=== PATIENT | female | born 1995 | race African-American/Black ===

== ENCOUNTER 2017-07-13 12:01 | Emergency (ER) | payer OTHER ==
[2017-07-13] MEDS ORDERED: IBUPROFEN 400 MG TAB ONE (13:45)
[2017-07-13] MEDS ORDERED: ACETAMINOPHEN 500 MG TAB ONE (13:46)
[2017-07-13] MEDS ORDERED: IBUPROFEN 200 MG TAB PO ONE (13:46)
[2017-07-13 13:53] LABS: Urine Blood TRACE (NEG); Urine Glucose NEGATIVE (NEG); Urine Protein NEGATIVE (NEG); Urine Specific Gravity 1.015 (1.005-1.030)
[2017-07-13 13:54] LABS: Urine Bacteria <20 /HPF (<20); Urine Culture Reflex Order NOT NEEDED; Urine RBC <5 /HPF (NONE SEEN)
[2017-07-13 13:55] LABS: Urine Trichomonas PRESENT (NONE SEEN)
--- NOTE | 2017-07-13 14:42 | ER ---
Nurse's Notes [facility] Name: Yamel Cano Age: 22 yrs Sex: Female : 1995 Arrival Date: 07/13/2017 Time: 12:05 Bed 24 Private MD: None, None Diagnosis: Right Groin Lymphadenopathy;Trichomonas Vaginalis;Right side Gorin Pain Presentation: 07/13 12:19 Presenting complaint: Patient states: Pain to left groin since delivering baby aj 06/03/17. Transition of care: patient was not received from another setting of care. Onset of symptoms was June 03, 2017. Initial Sepsis Screen: Does the patient meet any 2 criteria? No. Patient's initial sepsis screen is negative. Does the patient have a suspected source of infection? No. Patient's initial sepsis screen is negative. Care prior to arrival: None. 12:19 Method Of Arrival: Ambulatory 12:19 Acuity: MAURICE 3 aj Triage Assessment: 12:21 General: Appears in no apparent distress. comfortable, Behavior is calm, cooperative, aj appropriate for age. Pain: Complains of pain in groin. Neuro: Level of Consciousness is awake, alert, obeys commands, Oriented to person, place, time, situation, Appropriate for age. Respiratory: Airway is patent Respiratory effort is even, unlabored, Respiratory pattern is regular, symmetrical. : Reports pain in left in suprapubic area. Derm: Skin is intact, is healthy with good turgor, Skin is pink, warm \T\ dry. normal. 12:21 : Denies discharge. 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 - Social history:: Smoking status: Patient/guardian denies using tobacco. Screenin:15 Abuse screen: Denies threats or abuse. Denies injuries from another. Nutritional kr2 screening: No deficits noted. Tuberculosis screening: No symptoms or risk factors identified. Fall Risk None identified. Assessment: 13:15 General: Appears in no apparent distress. uncomfortable, well groomed, well developed, kr2 well nourished, Behavior is calm, cooperative, appropriate for age. Pain: Complains of pain in pelvis and groin Pain currently is 8 out of 10 on a pain scale. Quality of pain is described as aching, tender, Is continuous, Alleviated by nothing. Aggravated by increased activity. Neuro: Level of Consciousness is awake, alert, obeys commands, Oriented to person, place, time, situation. Cardiovascular: Capillary refill < 3 seconds in bilateral fingers Patient's skin is warm and dry. Respiratory: Airway is patent Respiratory effort is even, unlabored, Respiratory pattern is regular, symmetrical. GI: Abdomen is flat, non-distended, Bowel sounds present X 4 quads. : Urine is clear, Denies burning with urination. EENT: Oral mucosa is moist. Derm: Skin is intact, is healthy with good turgor, Skin is pink, warm \T\ dry. Musculoskeletal: Circulation, motion, and sensation intact. 14:52 Reassessment: Patient appears in no apparent distress at this time. Patient and/or kr2 family updated on plan of care and expected duration. Pain level reassessed. Patient is alert, oriented x 3, equal unlabored respirations, skin warm/dry/pink. Vital Signs: 12:21 BP 112 / 82; Pulse 106; Resp 16; Temp 98.0; Pulse Ox 100% on R/A; Weight 13.61 kg; aj Height 5 ft. 5 in. (165.10 cm); Pain 6/10; 14:52 BP 107 / 69; Pulse 60; Resp 16; Pulse Ox 100% on R/A; kr2 12:21 Body Mass Index 4.99 (13.61 kg, 165.10 cm) ED Course: 12:05 Patient arrived in ED. mr 12:05 None, None is Private Physician. mr 12:21 Triage completed. aj 12:21 Arm band placed on right wrist. Patient placed in waiting room, Patient notified of wait time. 12:58 Johana Ulrich, TAIWO is Primary Nurse. kr2 12:59 Patient has correct armband on for positive identification. Placed in gown. Bed in low kr2 position. Call light in reach. Side rails up X 1. Adult w/ patient. Pulse ox on. NIBP on. Door closed. Lights dimmed. Warm blanket given. Head of bed elevated. 13:00 Steven, Jt, MD is Attending Physician. wa 13:35 Assist provider with pelvic exam: Performed by Jt Harris MD Patient tolerated kr2 well. palpation of groin area by physician. Patient did not have IV access during this emergency room visit. Administered Medications: 13:50 Drug: Motrin 600 mg Route: PO; dm5 14:47 Follow up: Response: No adverse reaction; Pain is decreased kr2 13:50 Drug: Tylenol 1000 mg Route: PO; dm5 14:47 Follow up: Response: No adverse reaction; Pain is decreased kr2 Outcome: 14:41 Discharge ordered by . wa 14:46 Discharged to home ambulatory, with friend. kr2 14:46 Condition: good 14:53 Discharge instructions given to patient, Instructed on discharge instructions, follow kr2 up and referral plans. medication usage, Demonstrated understanding of instructions, follow-up care, medications, Prescriptions given X 4, 3 printed prescriptions and 1 written prescription for Zofran 14:54 Patient left the ED. kr2 Signatures: Sharri Morgan, TAIWO RN dm5 Nell Malik RN RN aj Rivera, Maria mr Kluge, Leah, RN RN lk1 Jt Harris MD MD wa Reaves, Karey, RN RN kr2 Corrections: (The following items were deleted from the chart) 13:50 13:49 Tylenol 1000 mg PO lk1 dm5 13:50 13:49 Motrin 600 mg PO lk1 dm5
--- NOTE | 2017-07-13 14:42 | EDPHYS ---
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 - Social history:: Smoking status: Patient/guardian denies using tobacco. Vital Signs: 12:21 BP 112 / 82; Pulse 106; Resp 16; Temp 98.0; Pulse Ox 100% on R/A; Weight 13.61 kg; aj Height 5 ft. 5 in. (165.10 cm); Pain 6/10; 14:52 BP 107 / 69; Pulse 60; Resp 16; Pulse Ox 100% on R/A; kr2 12:21 Body Mass Index 4.99 (13.61 kg, 165.10 cm) aj MDM: 13:00 Patient medically screened. ga 07/13 13:16 Order name: Urine Microscopic Only; Complete Time: 14:39 ga 07/13 13:37 Order name: Urine Dipstick--Ancillary (enter results); Complete Time: 14:39 mw2 07/13 13:16 Order name: Urine Dipstick-Ancillary (obtain specimen); Complete Time: 13:49 ga 07/13 13:37 Order name: Urine --Ancillary (enter results); Complete Time: 14:39 mw2 Administered Medications: 13:50 Drug: Motrin 600 mg Route: PO; dm5 14:47 Follow up: Response: No adverse reaction; Pain is decreased kr2 13:50 Drug: Tylenol 1000 mg Route: PO; dm5 14:47 Follow up: Response: No adverse reaction; Pain is decreased kr2 Disposition: 07/13/17 14:41 Discharged to Home. Impression: Right Groin Lymphadenopathy, Trichomonas Vaginalis, Right side Gorin Pain. - Condition is Stable. - Discharge Instructions: Trichomoniasis, Pelvic Pain, Female, Ythe-ma-Orlc. - Prescriptions for Flagyl 500 mg Oral Tablet - take 1 tablet by ORAL route every 12 hours for 7 days; 14 tablet. Doxycycline Hyclate 100 mg Oral Tablet - take 1 tablet by ORAL route every 12 hours; 14 tablet. Ibuprofen 600 mg Oral Tablet - take 1 tablet by ORAL route every 8 hours As needed take with food; 20 tablet. - Medication Reconciliation Form, Thank You Letter, Antibiotic Education, Prescription Opioid Use form. - Follow up: Private Physician; When: 5 - 6 days. - Problem is new. - Symptoms have improved. - Notes: take medicines as prescribed. follow up with your doctor within 1 week if symptoms persist Addendum: 07/24/2017 07:40 Addendum: CC: R groin pain. HPI: c/o R groin x 2 weeks. denies fever. denies swelling. w a denies known injury. PMH: none. PSurgHx: none. SHx: denies smoking or ETOH. Allergies: NKDA. FHx: non-contributory. ROS: : R groin pain. otherwise all other systems reviewed and negative. EXAM: HEENT: NCAT, throat clear. neck supple. CVS: NS1S2, no murmur. Chest: clear. ABD: soft, non-tender. : mild tenderness noted R groin. small tender lymph node palpated on the right side. no hernia noted on inspection or palpation. MDM: pt noted with isolated R groin tender lymph node. will investigate for infectious process. Labs: noted with trichomonas. Will cover with abx. and give close f/u. motrin, tylenol prn pain.. Signatures: Dispatcher [employer] EDAL Sharri Morgan RN RN dm5 Nell Malik RN RN Lisa Walker RN RN lk1 Jt Harris MD MD wa Reaves, Karey RN RN kr2 Corrections: (The following items were deleted from the chart) 07/13 14:54 14:41 07/13/2017 14:41 Discharged to Home. Impression: Right Groin Lymphadenopathy; kr2 Trichomonas Vaginalis; Right side Gorin Pain. Condition is Stable. Forms are Medication Reconciliation Form, Thank You Letter, Antibiotic Education, Prescription Opioid Use. Follow up: Private Physician; When: 5 - 6 days. Problem is new. Symptoms have improved. wa
== END 2017-07-13 14:54 | disposition home or self-care (01) ==
LOC: ER 12:01
DX: A59.01 Trichomonal vulvovaginitis (principal); R59.0 Localized enlarged lymph nodes
CPT/HCPCS: 81003; 81015; 81025; 99284

== ENCOUNTER 2017-09-01 17:46 | Emergency (ER) | payer OTHER ==
[2017-09-01 19:58] LABS: Urine Blood NEGATIVE (NEG); Urine Glucose NEGATIVE (NEG); Urine Protein NEGATIVE (NEG); Urine Specific Gravity <1.005 (1.005-1.030)
[2017-09-01 19:59] LABS: Urine Bacteria <20 /HPF (<20); Urine Culture Reflex Order NOT NEEDED; Urine RBC <5 /HPF (NONE SEEN)
--- NOTE | 2017-09-01 20:34 | RAD REPORT ---
EXAM DESCRIPTION: US - Transvaginal Study Probe - 09/01/2017 8:25 pm CLINICAL HISTORY: Abdominal pain, left lower quadrant pain, history of ovarian cyst COMPARISON: None. TECHNIQUE: Endovaginal sonography was performed. FINDINGS: Preliminary findings were provided at the time of the study. Uterus is in a retroflexed position. Myometrium is heterogeneous. Midportion of the uterus shows 13 m illimeter and 14 millimeter oval masses that are mostly isoechoic to the myometrium. These are most l ikely small fibroids. Long-term significance of this finding is doubtful. . Endometrial stripe is josr roximately 7 mm with no discrete endometrial mass or polyp. No hematoma or free fluid in the cul-[place]-s ac. Right ovary contains a 3.1 cm thin-walled anechoic cyst. Small follicles are seen in the left ova ry. No adnexal mass identified. IMPRESSION: Approximately 3.1 cm anechoic cyst in the right ovary. No leakage or hemorrhage identifi ed. Normal left ovary and left adnexa. No abnormality to explain left lower quadrant pain symptoms. Retroflexed uterus shows 2 small fibroids.
[2017-09-01 20:51] LABS: Urine Blood NEGATIVE (NEG); Urine Glucose NEGATIVE (NEG); Urine Protein NEGATIVE (NEG); Urine Specific Gravity 1.015 (1.005-1.030)
--- NOTE | 2017-09-01 21:36 | EDPHYS ---
Physician Documentation [facility] Name: Yamel Cano Age: 22 yrs Sex: Female : 1995 Arrival Date: 09/01/2017 Time: 17:50 Bed 24 Private MD: ED Physician Candido Maddox HPI: 09/01 21:24 This 22 yrs old Black Female presents to ER via Ambulatory with complaints of Abdominal gs Pain. 21:24 This 22 yrs old Black Female presents to ER via Ambulatory with complaints of pelvic gs pain. 21:24 The patient presents with pelvic pain, that is located in/on the left inguinal area. gs Onset: The symptoms/episode began/occurred 2 day(s) ago. Modifying factors: The symptoms are alleviated by nothing, the symptoms are aggravated by nothing. Associated signs and symptoms: Pertinent negatives: cramping. Severity of symptoms: At their worst the symptoms were moderate, in the emergency department the symptoms have improved, mildly. The patient has experienced similar episodes in the past, a few times. 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 - Social history:: Smoking status: Patient/guardian denies using tobacco. - Ebola Screening: : No symptoms or risks identified at this time. ROS: 21:24 Abdomen/GI: Negative for diarrhea. gs 21:24 : Negative for vaginal bleeding, vaginal discharge, vaginal itching. 21:24 All other systems are negative. Exam: 21:24 Head/Face: Normocephalic, atraumatic. Eyes: Pupils equal round and reactive to light, gs extra-ocular motions intact. Lids and lashes normal. Conjunctiva and sclera are non-icteric and not injected. Cornea within normal limits. Periorbital areas with no swelling, redness, or edema. ENT: Nares patent. No nasal discharge, no septal abnormalities noted. Tympanic membranes are normal and external auditory canals are clear. Oropharynx with no redness, swelling, or masses, exudates, or evidence of obstruction, uvula midline. Mucous membranes moist. Neck: Trachea midline, no thyromegaly or masses palpated, and no cervical lymphadenopathy. Supple, full range of motion without nuchal rigidity, or vertebral point tenderness. No Meningismus. Chest/axilla: Normal chest wall appearance and motion. Nontender with no deformity. No lesions are appreciated. Cardiovascular: Regular rate and rhythm with a normal S1 and S2. No gallops, murmurs, or rubs. Normal PMI, no JVD. No pulse deficits. Respiratory: Lungs have equal breath sounds bilaterally, clear to auscultation and percussion. No rales, rhonchi or wheezes noted. No increased work of breathing, no retractions or nasal flaring. Back: No spinal tenderness. No costovertebral tenderness. Full range of motion. Skin: Warm, dry with normal turgor. Normal color with no rashes, no lesions, and no evidence of cellulitis. MS/ Extremity: Pulses equal, no cyanosis. Neurovascular intact. Full, normal range of motion. Neuro: Awake and alert, GCS 15, oriented to person, place, time, and situation. Cranial nerves II-XII grossly intact. Motor strength 5/5 in all extremities. Sensory grossly intact. Cerebellar exam normal. Normal gait. 21:24 Constitutional: The patient appears alert, awake. 21:24 Abdomen/GI: Palpation: mild abdominal tenderness, in the left lower quadrant, mass, is gs not appreciated, rebound tenderness, is not appreciated. Vital Signs: 18:07 BP 115 / 71; Pulse 78; Resp 16; Temp 97.6; Pulse Ox 99% on R/A; Weight 59.87 kg; Height sg 5 ft. 5 in. (165.10 cm); Pain 7/10; 20:02 BP 117 / 78; Pulse 71; Resp 15; Pulse Ox 98% on R/A; mt 20:35 BP 127 / 88; Pulse 69; Resp 16; Pulse Ox 100% on R/A; mt 21:19 BP 103 / 64; Pulse 76; Resp 16; Pulse Ox 99% on R/A; kr2 18:07 Body Mass Index 21.97 (59.87 kg, 165.10 cm) MDM: 19:22 Patient medically screened. 21:24 Differential diagnosis: ectopic , nonspecific abdominal pain, ovarian cyst. Data reviewed: vital signs, nurses notes. 09/01 19:25 Order name: Urine Microscopic Only; Complete Time: 20:06 09/01 19:53 Order name: Urine Dipstick--Ancillary (enter results); Complete Time: 20:06 [facility] 09/01 20:08 Order name: Transvaginal Study Probe; Complete Time: 20:37 [facility] 09/01 20:44 Order name: Urine Dipstick--Ancillary (enter results); Complete Time: 21:01 [facility] 09/01 20:44 Order name: Urine --Ancillary (enter results); Complete Time: 21:01 [facility] 09/01 19:25 Order name: Urine Test (obtain specimen); Complete Time: 19:26 09/01 19:25 Order name: Urine Dipstick-Ancillary (obtain specimen); Complete Time: 19:26 Administered Medications: No medications were administered Disposition: 09/01/17 21:36 Discharged to Home. Impression: Pelvic and perineal pain. - Condition is Stable. - Discharge Instructions: Pelvic Pain, Female. - Prescriptions for Naprosyn 500 mg Oral Tablet - take 1 tablet by ORAL route 2 times per day take with food; 14 tablet. - Medication Reconciliation Form, Thank You Letter, Antibiotic Education, Prescription Opioid Use form. - Follow up: Kristen Simon MD; When: 2 - 3 days; Reason: Re-evaluation by your physician. Signatures: Dispatcher [employer] [facility] Hector Galvan RN RN sg Candido Maddox MD MD Johana Ulrich RN RN kr2 Corrections: (The following items were deleted from the chart) 20:08 19:25 Pelvis Complete+US.RAD.BRZ ordered. [facility] 21:35 21:24 Head/Face: Normocephalic, atraumatic. Eyes: Pupils equal round and reactive to light, extra-ocular motions intact. Lids and lashes normal. Conjunctiva and sclera are non-icteric and not injected. Cornea within normal limits. Periorbital areas with no swelling, redness, or edema. ENT: Nares patent. No nasal discharge, no septal abnormalities noted. Tympanic membranes are normal and external auditory canals are clear. Oropharynx with no redness, swelling, or masses, exudates, or evidence of obstruction, uvula midline. Mucous membranes moist. Neck: Trachea midline, no thyromegaly or masses palpated, and no cervical lymphadenopathy. Supple, full range of motion without nuchal rigidity, or vertebral point tenderness. No Meningismus. Chest/axilla: Normal chest wall appearance and motion. Nontender with no deformity. No lesions are appreciated. Cardiovascular: Regular rate and rhythm with a normal S1 and S2. No gallops, murmurs, or rubs. Normal PMI, no JVD. No pulse deficits. Respiratory: Lungs have equal breath sounds bilaterally, clear to auscultation and percussion. No rales, rhonchi or wheezes noted. No increased work of breathing, no retractions or nasal flaring. Abdomen/GI: Soft, non-tender, with normal bowel sounds. No distension or tympany. No guarding or rebound. No evidence of tenderness throughout. Back: No spinal tenderness. No costovertebral tenderness. Full range of motion. Skin: Warm, dry with normal turgor. Normal color with no rashes, no lesions, and no evidence of cellulitis. MS/ Extremity: Pulses equal, no cyanosis. Neurovascular intact. Full, normal range of motion. Neuro: Awake and alert, GCS 15, oriented to person, place, time, and situation. Cranial nerves II-XII grossly intact. Motor strength 5/5 in all extremities. Sensory grossly intact. Cerebellar exam normal. Normal gait. 21:57 21:36 09/01/2017 21:36 Discharged to Home. Impression: Pelvic and perineal pain. kr2 Condition is Stable. Forms are Medication Reconciliation Form, Thank You Letter, Antibiotic Education, Prescription Opioid Use. Follow up: Kristen Simon; When: 2 - 3 days; Reason: Re-evaluation by your physician. gs
--- NOTE | 2017-09-01 21:36 | ER ---
Nurse's Notes [facility] Name: Yamel Cano Age: 22 yrs Sex: Female : 1995 Arrival Date: 09/01/2017 Time: 17:50 Bed 24 Private MD: Diagnosis: Pelvic and perineal pain Presentation: 09/01 18:06 Presenting complaint: Patient states: ABD pain LLQ that began three days ago, denies sg fever/v/d, reports nausea intermittently. Denies urinary symptoms, pain is described as a burning sensation throughout the abd but starting in the LLQ. Transition of care: patient was not received from another setting of care. Onset of symptoms was September 01, 2017. Risk Assessment: Do you want to hurt yourself or someone else? Patient reports no desire to harm self or others. Initial Sepsis Screen: Does the patient meet any 2 criteria? No. Patient's initial sepsis screen is negative. Does the patient have a suspected source of infection? No. Patient's initial sepsis screen is negative. Care prior to arrival: None. 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 - Social history:: Smoking status: Patient/guardian denies using tobacco. - Ebola Screening: : No symptoms or risks identified at this time. Screenin:17 Abuse screen: Denies threats or abuse. Denies injuries from another. Nutritional kr2 screening: No deficits noted. Tuberculosis screening: No symptoms or risk factors identified. Fall Risk None identified. Assessment: 19:15 General: Appears in no apparent distress. uncomfortable, well groomed, well developed, kr2 well nourished, Behavior is calm, cooperative, appropriate for age. Pain: Complains of pain in left lower quadrant Pain currently is 5 out of 10 on a pain scale. Quality of pain is described as burning, Is continuous, Alleviated by rest, Aggravated by increased activity, hunger. Neuro: Level of Consciousness is awake, alert, obeys commands, Oriented to person, place, time, situation, Appropriate for age. Cardiovascular: Capillary refill < 3 seconds in bilateral fingers Patient's skin is warm and dry. Respiratory: Airway is patent Respiratory effort is even, unlabored, Respiratory pattern is regular, symmetrical. GI: Abdomen is flat, non-distended, Bowel sounds present X 4 quads. Abd is soft X 4 quads Abdomen is tender to palpation in left lower quadrant. : Denies burning with urination. EENT: Oral mucosa is moist. Derm: Skin is intact, is healthy with good turgor, Skin is pink, warm \T\ dry. Musculoskeletal: Circulation, motion, and sensation intact. 19:30 Reassessment: Patient appears in no apparent distress at this time. Patient is alert, kr2 oriented x 3, equal unlabored respirations, skin warm/dry/pink. Urine specific gravity to low for UPT. Physician notified. Per physician obtain second urine specimen for retest. 20:26 Reassessment: Patient appears in no apparent distress at this time. Patient is alert, kr2 oriented x 3, equal unlabored respirations, skin warm/dry/pink. Patient returned from ultrasound. Instructed patient to collect another urine sample when possible. 21:19 Reassessment: Patient appears in no apparent distress at this time. Patient and/or kr2 family updated on plan of care and expected duration. Pain level reassessed. Patient is alert, oriented x 3, equal unlabored respirations, skin warm/dry/pink. Patient denies pain at this time. 21:57 Reassessment: Patient appears in no apparent distress at this time. Patient and/or kr2 family updated on plan of care and expected duration. Pain level reassessed. Patient is alert, oriented x 3, equal unlabored respirations, skin warm/dry/pink. Vital Signs: 18:07 BP 115 / 71; Pulse 78; Resp 16; Temp 97.6; Pulse Ox 99% on R/A; Weight 59.87 kg; Height sg 5 ft. 5 in. (165.10 cm); Pain 7/10; 20:02 BP 117 / 78; Pulse 71; Resp 15; Pulse Ox 98% on R/A; mt 20:35 BP 127 / 88; Pulse 69; Resp 16; Pulse Ox 100% on R/A; mt 21:19 BP 103 / 64; Pulse 76; Resp 16; Pulse Ox 99% on R/A; kr2 18:07 Body Mass Index 21.97 (59.87 kg, 165.10 cm) ED Course: 17:50 Patient arrived in ED. as 18:07 Triage completed. 18:08 Arm band placed on. 19:14 Johana Ulrich RN is Primary Nurse. kr2 19:15 Candido Maddox MD is Attending Physician. 19:17 Patient has correct armband on for positive identification. Bed in low position. Call kr2 light in reach. Side rails up X 1. Pulse ox on. NIBP on. Door closed. Warm blanket given. Head of bed elevated. 20:25 Transvaginal Study Probe In Process Unspecified. EDMS 21:36 Kristen Simon MD is Referral Physician. 21:57 No provider procedures requiring assistance completed. Patient did not have IV access kr2 during this emergency room visit. Administered Medications: No medications were administered Outcome: 21:36 Discharge ordered by . 21:57 Discharged to home ambulatory. kr2 21:57 Condition: good 21:57 Discharge instructions given to patient, Instructed on discharge instructions, follow up and referral plans. medication usage, Demonstrated understanding of instructions, follow-up care, medications, Prescriptions given X 1. 21:57 Patient left the ED. kr2 Signatures: Dispatcher [employer] EDMS Hector Galvan, RN RN Roseann Peres [facility] k[facility] Candido Maddox MD MD Johana Ulrich RN RN kr2
== END 2017-09-01 21:57 | disposition home or self-care (01) ==
LOC: ER 17:46
DX: R10.2 Pelvic and perineal pain (principal)
CPT/HCPCS: 76830; 81003; 81015; 81025; 99283

== ENCOUNTER 2017-12-05 10:57 | Emergency (ER) | payer OTHER ==
--- NOTE | 2017-12-05 12:26 | ER ---
Nurse's Notes [facility] Name: Yamel Cano Age: 22 yrs Sex: Female : 1995 Arrival Date: 12/05/2017 Time: 11:01 Bed 13 Private MD: MARICRUZ LOWERY Diagnosis: Less than 8 weeks gestation of Presentation: 12/05 11:03 Presenting complaint: Patient states: lower abd pain and lower back pain that began aa5 today. Denies N/V/D, denies vaginal bleeding. 11:03 Transition of care: patient was not received from another setting of care. Onset of aa5 symptoms was December 05, 2017. Risk Assessment: Do you want to hurt yourself or someone else? Patient reports no desire to harm self or others. Initial Sepsis Screen: Does the patient meet any 2 criteria? No. Patient's initial sepsis screen is negative. Does the patient have a suspected source of infection? No. Patient's initial sepsis screen is negative. Care prior to arrival: None. 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 - Social history:: Smoking status: Patient/guardian denies using tobacco. - Ebola Screening: : No symptoms or risks identified at this time. Screenin:30 Abuse screen: Denies threats or abuse. Denies injuries from another. Nutritional ph screening: No deficits noted. Tuberculosis screening: No symptoms or risk factors identified. Fall Risk None identified. Assessment: 11:31 General: Appears in no apparent distress. comfortable, slender, well groomed, Behavior ph is calm, cooperative, appropriate for age. Pain: Complains of pain in suprapubic area. Neuro: Level of Consciousness is awake, alert, obeys commands, Oriented to person, place, time, situation. Cardiovascular: Capillary refill < 3 seconds Patient's skin is warm and dry. Respiratory: Airway is patent Respiratory effort is even, unlabored, Respiratory pattern is regular, symmetrical. GI: Abdomen is flat, non-distended, Bowel sounds present X 4 quads. Abd is soft and non tender X 4 quads. Reports lower abdominal pain, Patient currently denies diarrhea, nausea, vomiting. : Reports cramping, lower quadrant(s) Denies burning with urination, urinary frequency, vaginal bleeding. Derm: Skin is intact, is healthy with good turgor, Skin is pink, warm \T\ dry. 12:30 Reassessment: Patient appears in no apparent distress at this time. Patient and/or ph family updated on plan of care and expected duration. Pain level reassessed. Patient is alert, oriented x 3, equal unlabored respirations, skin warm/dry/pink. Vital Signs: 11:07 BP 104 / 73; Pulse 81; Resp 16 S; Temp 98.0(TE); Pulse Ox 98% on R/A; Weight 59.87 kg aa5 (R); Height 5 ft. 5 in. (165.10 cm) (R); Pain 8/10; 12:30 BP 110 / 68; Pulse 78; Resp 18; Temp 97.9; Pulse Ox 99% on R/A; ph 11:07 Body Mass Index 21.97 (59.87 kg, 165.10 cm) aa5 ED Course: 11:01 Patient arrived in ED. mr 11:01 MARICRUZ LOWERY is Private Physician. mr 11:05 Dav[facility] Hutchinson, [facility] kb 11:05 Alli Moncada MD is Attending Physician. kb 11:06 Arm band placed on Patient placed in an exam room, on a stretcher. aa5 11:07 Triage completed. aa5 11:16 Afua Fong, RN is Primary Nurse. ph 11:30 Patient has correct armband on for positive identification. Placed in gown. Bed in low ph position. Call light in reach. Side rails up X 1. Pulse ox on. NIBP on. Warm blanket given. 11:31 Initial lab(s) drawn, by me, sent to lab. Urine collected: clean catch specimen, clear. ph Inserted saline lock: 22 gauge in right antecubital area, using aseptic technique. Blood collected. 11:58 US Transvaginal Ob In Process Unspecified. EDMS 12:25 MARICRUZ LOWERY is Referral Physician. kb 13:05 No provider procedures requiring assistance completed. IV discontinued, intact, ph bleeding controlled, No redness/swelling at site. Pressure dressing applied. Administered Medications: No medications were administered Outcome: 12:25 Discharge ordered by . kb 13:08 Patient left the ED. ph 13:08 Discharged to home ambulatory, with significant other. ph 13:08 Condition: good 13:08 Discharge instructions given to patient, Instructed on discharge instructions, follow up and referral plans. Demonstrated understanding of instructions, follow-up care. Signatures: Dispatcher [employer] EDMS Davida Hutchinson, RECORD PRESSMAN-C RECORD PRESSMAN-Ckb Meaghan Mejía Audri, RN RN aa5 Afua Fong, RN RN
--- NOTE | 2017-12-05 12:26 | EDPHYS ---
Physician Documentation [facility] Name: Yamel Cano Age: 22 yrs Sex: Female : 1995 Arrival Date: 12/05/2017 Time: 11:01 Bed 13 Private MD: MARICRUZ LICEA ED Physician Alli Moncada HPI: 12/05 11:16 This 22 yrs old Black Female presents to ER via Ambulatory with complaints of Abdominal kb Pain, 7wks . 11:16 The patient presents to the emergency department with abdominal pain. course: kb care: private OB physician, Dr. Licea, Leakage of Fluid: none appreciated, Ultrasound: the patient had an ultrasound, on December 02, 2017, which was normal, Risk/complications: no obvious risks or complications are appreciated. Previous pregnancies: in previous pregnancies patient has had. Associated signs and symptoms: Pertinent positives: abdominal pain, Pertinent negatives: chest pain, diarrhea, dysuria, fever, frequency, nausea, ruptured membranes, seizure, shortness of breath, vaginal bleeding, vaginal discharge, vomiting. The patient has experienced similar episodes in the past. The patient has not recently seen a physician. 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 - Social history:: Smoking status: Patient/guardian denies using tobacco. - Ebola Screening: : No symptoms or risks identified at this time. ROS: 11:15 Constitutional: Negative for fever, chills, and weight loss, Cardiovascular: Negative kb for chest pain, palpitations, and edema, Respiratory: Negative for shortness of breath, cough, wheezing, and pleuritic chest pain, Back: Negative for injury and pain, : Negative for injury, bleeding, discharge, and swelling, MS/Extremity: Negative for injury and deformity, Skin: Negative for injury, rash, and discoloration, Neuro: Negative for headache, weakness, numbness, tingling, and seizure. 11:15 Abdomen/GI: Positive for abdominal pain, Negative for nausea, vomiting, and diarrhea. Exam: 11:16 Constitutional: This is a well developed, well nourished patient who is awake, alert, kb and in no acute distress. Head/Face: Normocephalic, atraumatic. Chest/axilla: Normal chest wall appearance and motion. Nontender with no deformity. No lesions are appreciated. Cardiovascular: Regular rate and rhythm with a normal S1 and S2. No gallops, murmurs, or rubs. Normal PMI, no JVD. No pulse deficits. Respiratory: Lungs have equal breath sounds bilaterally, clear to auscultation and percussion. No rales, rhonchi or wheezes noted. No increased work of breathing, no retractions or nasal flaring. Abdomen/GI: Soft, non-tender, with normal bowel sounds. No distension or tympany. No guarding or rebound. No evidence of tenderness throughout. Skin: Warm, dry with normal turgor. Normal color with no rashes, no lesions, and no evidence of cellulitis. MS/ Extremity: Pulses equal, no cyanosis. Neurovascular intact. Full, normal range of motion. Neuro: Awake and alert, GCS 15, oriented to person, place, time, and situation. Cranial nerves II-XII grossly intact. Motor strength 5/5 in all extremities. Sensory grossly intact. Cerebellar exam normal. Normal gait. Vital Signs: 11:07 BP 104 / 73; Pulse 81; Resp 16 S; Temp 98.0(TE); Pulse Ox 98% on R/A; Weight 59.87 kg aa5 (R); Height 5 ft. 5 in. (165.10 cm) (R); Pain 8/10; 12:30 BP 110 / 68; Pulse 78; Resp 18; Temp 97.9; Pulse Ox 99% on R/A; ph 11:07 Body Mass Index 21.97 (59.87 kg, 165.10 cm) aa5 MDM: 11:07 Patient medically screened. kb 11:15 Data reviewed: vital signs, nurses notes. Data interpreted: Pulse oximetry: on room air kb is 98 %. Interpretation: normal. 12:25 Counseling: I had a detailed discussion with the patient and/or guardian regarding: the kb historical points, exam findings, and any diagnostic results supporting the discharge/admit diagnosis, lab results, radiology results, the need for outpatient follow up, an OB/Gyne specialist, to return to the emergency department if symptoms worsen or persist or if there are any questions or concerns that arise at home. 12:26 ED course: Pt has appt with OB tomorrow. kb 12/05 11:15 Order name: Quantitative Hcg; Complete Time: 12:25 kb 12/05 11:51 Order name: Urine Dipstick--Ancillary (enter results) bd 12/05 11:15 Order name: US Transvaginal Ob; Complete Time: 12:30 kb 12/05 11:15 Order name: Urine Dipstick-Ancillary (obtain specimen); Complete Time: 11:33 kb 12/05 11:51 Order name: Urine --Ancillary (enter results) bd Administered Medications: No medications were administered Disposition: 13:28 Co-signature as Attending Physician, Alli Moncada MD I agree with the assessment and heriberto plan of care. Disposition: 12/05/17 12:25 Discharged to Home. Impression: Less than 8 weeks gestation of . - Condition is Stable. - Discharge Instructions: First Trimester of , [id number]. - Medication Reconciliation Form, Thank You Letter, Antibiotic Education, Prescription Opioid Use form. - Follow up: Emergency Department; When: As needed; Reason: Worsening of condition. Follow up: MARICRUZ LICEA; When: 1 - 2 days; Reason: Recheck today's complaints, Continuance of care, Re-evaluation by your physician. Signatures: Dispatcher [employer] EDMS Davida Hutchinson, CORPORATE SALES MANAGER-C CORPORATE SALES MANAGER-Alli Boucher MD MD cha Calderon, Audri, RN RN aa5 Afua Fong RN RN ph Corrections: (The following items were deleted from the chart) 13:08 12:25 12/05/2017 12:25 Discharged to Home. Impression: Less than 8 weeks gestation of ph . Condition is Stable. Forms are Medication Reconciliation Form, Thank You Letter, Antibiotic Education, Prescription Opioid Use. Follow up: Emergency Department; When: As needed; Reason: Worsening of condition. Follow up: MARICRUZ LICEA; When: 1 - 2 days; Reason: Recheck today's complaints, Continuance of care, Re-evaluation by your physician. kb
--- NOTE | 2017-12-05 12:28 | RAD REPORT ---
EXAM DESCRIPTION: US - Transvaginal OB - 12/05/2017 11:58 am CLINICAL HISTORY: Abdominal pain, pelvic pain, positive Preliminary findings provided at the time of the study. COMPARISON: December 02 TECHNIQUE: Endovaginal sonography was performed. FINDINGS: Intrauterine gestational sac is identified containing a yolk sac. Average sac diameter cor responds to a 5 week 6 day size. There is a small echogenic focus adjacent to the yolk sac. If this i s the pole, age corresponds to 6 weeks 0 days. No cardiac activity could be confirmed. No new or enlarging hematoma or mass within the endometrial cavity. Both ovaries are identifiable. No suspicious solid or cystic ovarian or adnexal finding. No free flui d seen. IMPRESSION: Intrauterine gestational sac with yolk sac is seen measuring slightly larger than the Se study. Small echogenic focus is seen that may be a very early pole. The average sac diameter and crown -rump length measurements would correspond to a 6 week 0 day IUP. The presumed pole shows no identifiable cardiac activity at this time. No suspicious adnexal finding. Followup sonography can be performed if serial beta HCG values support ongoing .
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
--- OUTSIDE RECORDS SUMMARY | 2017-12-05 13:00 | XMS REPORT | CCD ---
:1995 Author Organization [facility] Care Team Providers Name Role Phone Shravan Campbell Consulting Provider Allergies, Adverse Reactions, Alerts Substance Reaction Status NKDA Active Medications Medication Instructions Start Date End Date Status Saline Flush 0.9% 5 mL, Route: IVP, Drug 02/02/2013 02/02/2013 Discontinued Form: INJ, Dosing Weight 58.182, kg, PRN, PRN Line Flush, Start date: 02/02/13 10:26:00, Duration: 24 hr, Stop date: 02/03/13 10:25:00(Same as: BD Posiflush) morphine Sulfate 4 mg, 1 mL, Route: IVP, 02/02/2013 02/02/2013 Completed Drug form: INJ, ONCE, Dosing Weight 58.182, kg, Priority: STAT, Start date: 02/02/13 10:26:00, Stop date: 02/02/13 10:26:00(Same as:MORPhine Sulfate) ceftriaxone + Sodium 1 gm, Route: IVPB, ONCE, 02/02/2013 02/02/2013 Completed Chloride 0.9% IV 100 mL Dosing Weight 58.182, kg, Priority: STAT, Start date: 02/02/13 13:43:00, Stop date: 02/02/13 13:43:00(Same As: Rocephin). Use with 100ml NS mini-bag PLUS and infuse over 30 min Keflex 500 mg oral 500 mg, 1 cap, PO, TID, 02/02/2013 02/12/2013 Ordered capsule 30 cap, Substitution Allowed, CAP Vital Signs Most recent to oldest [Reference 1 2 Range]: Height 160.02 cm (02/02/2013 09:53:00) Temperature Oral [96.4-99.1 DegF] 99.4 DegF 98.5 DegF *HI* (02/02/2013 09:53:00) (02/02/2013 14:06:00) Systolic Blood Pressure [90-140 mmHg] 100 mmHg 104 mmHg (02/02/2013 14:06:00) (02/02/2013 09:53:00) Diastolic Blood Pressure [60-90 mmHg] 63 mmHg 67 mmHg (02/02/2013 14:06:00) (02/02/2013 09:53:00) Respiratory Rate [14-20 BRMIN] 18 BRMIN 20 BRMIN (02/02/2013 14:06:00) (02/02/2013 09:53:00) Peripheral Pulse Rate [60-100 bpm] 84 bpm 127 bpm (02/02/2013 14:06:00) *HI* (02/02/2013 09:53:00) Weight 58.182 kg (02/02/2013 09:53:00) Results URINALYSIS Most recent to oldest [Reference Range]: 1 UA Turbidity [Clear] Slight Cloudy (02/02/2013 10:45:00) UA Color [Yellow] Yellow *NA* (02/02/2013 10:45:00) UA pH [5.0-8.0] 6.0 (02/02/2013 10:45:00) UA Spec Grav [<=1.030] 1.025 (02/02/2013 10:45:00) UA Glucose [Negative] Negative (02/02/2013 10:45:00) UA Blood [Negative] Large *ABN* (02/02/2013 10:45:00) UA Ketones [Negative] Trace *ABN* (02/02/2013 10:45:00) UA Protein [Negative mg/dL] 100 mg/dL *ABN* (02/02/2013 10:45:00) UA Urobilinogen [0.1-1.0 EU/dL] 1.0 EU/dL (02/02/2013 10:45:00) UA Bili [Negative] Negative *NA* (02/02/2013 10:45:00) UA Leuk Est [Negative] Large *ABN* (02/02/2013 10:45:00) UA Nitrite [Negative] Negative (02/02/2013 10:45:00) UA WBC [None Seen /HPF] >100 /HPF *ABN* (02/02/2013 10:45:00) UA RBC [0-2 /HPF] 3-5 /HPF *ABN* (02/02/2013 10:45:00) UA Bacteria [None Seen /HPF] Moderate /HPF (02/02/2013 10:45:00) UA Sq Epi [Few /LPF] Many /LPF *ABN* (02/02/2013 10:45:00) UA Mucus [None Seen /LPF] Moderate /LPF *ABN* (02/02/2013 10:45:00) CHEMISTRY Most recent to oldest [Reference Range]: 1 Sodium Lvl [135-145 mEq/L] 137 mEq/L (02/02/2013 10:40:00) Potassium Lvl [3.5-5.1 mEq/L] 3.2 mEq/L *LOW* (02/02/2013 10:40:00) Chloride Lvl [95-109 mEq/L] 105 mEq/L (02/02/2013 10:40:00) CO2 [24-32 mEq/L] 22 mEq/L *LOW* (02/02/2013 10:40:00) AGAP [10.0-20.0 mEq/L] 13.2 mEq/L (02/02/2013 10:40:00) Creatinine Lvl [0.5-1.4 mg/dL] 0.7 mg/dL (02/02/2013 10:40:00) eGFR 145 mL/min/1.73m2 1 *NA* (02/02/2013 10:40:00) BUN [7-22 mg/dL] 7 mg/dL (02/02/2013 10:40:00) B/C Ratio [6-25] 10 (02/02/2013 10:40:00) Glucose Lvl [70-99 mg/dL] 89 mg/dL 2 (02/02/2013 10:40:00) Total Protein [6.4-8.4 g/dL] 8.0 g/dL (02/02/2013 10:40:00) Albumin Lvl [3.5-5.0 g/dL] 3.7 g/dL (02/02/2013 10:40:00) Globulin [2.0-4.0 g/dL] 4.3 g/dL *HI* (02/02/2013 10:40:00) A/G Ratio [0.7-1.6] 0.9 (02/02/2013 10:40:00) Calcium Lvl [8.5-10.5 mg/dL] 8.7 mg/dL (02/02/2013 10:40:00) ALT [0-65 unit/L] 13 unit/L (02/02/2013 10:40:00) AST [0-37 unit/L] 11 unit/L (02/02/2013 10:40:00) Alk Phos [39-136 unit/L] 91 unit/L (02/02/2013 10:40:00) Bili Total [0.2-1.3 mg/dL] 0.6 mg/dL (02/02/2013 10:40:00) Lipase Lvl [73-393 unit/L] 120 unit/L (02/02/2013 10:40:00) U Preg [Negative] Negative (02/02/2013 10:45:00) 1Result Comment: The eGFR is calculated using the CKD-EPI formula. In most young , healthy individualsthe eGFR will be >90 mL/min/1.73m2. The eGFR declines with age. An eGFR of 60-89 may be normal in some populations, particularly the elderly, for whom the CKD-EPI formula has not been extensively validated. Use of the eGFR is not recommended in the following populations: Individuals with unstable creatinine concentrations, including patients and those with serious co-morbid conditions. Patients with extremes in muscle mass or diet. The data above are obtained from the National Kidney Disease Education Program ( NKDEP) which additionally recommends that when the eGFR is used in patients with extremes of body mass index for purposesof drug dosing, the eGFR should be multiplied by the estimated BMI.2Interpretive Data: Adult reference range values reflect the clinical guidelines of the [place] [employer].HEMATOLOGY Most recent to oldest [Reference Range]: 1 WBC [3.7-10.4 K/CMM] 7.9 K/CMM (02/02/2013 10:40:00) RBC [4.20-5.40 M/CMM] 3.36 M/CMM *LOW* (02/02/2013 10:40:00) Hgb [12.0-16.0 g/dL] 10.4 g/dL *LOW* (02/02/2013 10:40:00) Hct [36.0-48.0 %] 30.9 % *LOW* (02/02/2013 10:40:00) MCV [81.0-99.0 fL] 92.1 fL (02/02/2013 10:40:00) MCH [27.0-31.0 pg] 31.0 pg (02/02/2013 10:40:00) MCHC [32.0-36.0 g/dL] 33.7 g/dL (02/02/2013 10:40:00) RDW [11.5-14.5 %] 12.6 % (02/02/2013 10:40:00) Platelet [133-450 K/CMM] 200 K/CMM (02/02/2013 10:40:00) MPV [7.4-10.4 fL] 8.9 fL (02/02/2013 10:40:00) Segs [45.0-75.0 %] 78.8 % *HI* (02/02/2013 10:40:00) Lymphocytes [20.0-40.0 %] 9.0 % *LOW* (02/02/2013 10:40:00) Monocytes [2.0-12.0 %] 11.8 % (02/02/2013 10:40:00) Eosinophils [0.0-4.0 %] 0.1 % (02/02/2013 10:40:00) Basophils [0.0-1.0 %] 0.3 % (02/02/2013 10:40:00) Segs-Bands # [1.5-8.1 K/CMM] 6.3 K/CMM (02/02/2013 10:40:00) Lymphocytes # [1.0-5.5 K/CMM] 0.7 K/CMM *LOW* (02/02/2013 10:40:00) Monocytes # [0.0-0.8 K/CMM] 0.9 K/CMM *HI* (02/02/2013 10:40:00) Eosinophils # [0.0-0.5 K/CMM] 0.0 K/CMM (02/02/2013 10:40:00) Basophils # [0.0-0.2 K/CMM] 0.0 K/CMM (02/02/2013 10:40:00)
--- OUTSIDE RECORDS SUMMARY | 2017-12-05 13:00 | XMS REPORT | CCD ---
:1994 Author Organization [facility] Care Team Providers Name Role Phone Lauri Pat Consulting Provider Allergies, Adverse Reactions, Alerts Substance Reaction Status NKDA Active Medications Medication Instructions Start Date End Date Status [place] 5/325 oral tablet 1 tab, Route: PO, Drug 12/29/2012 12/29/2012 Completed Form: TAB, kg, ONCE, Start date: 12/29/12 18:32:00, Stop date: 12/29/12 18:32:00(Same as: [place] 325/5) Do not exceed 4gm/day of acetaminophen. Flexeril 10 mg oral tablet 10 mg, 1 tab, PO, TID, PRN, 12/29/2012 Ordered 20 tab, for spasm, Substitution Allowed, TAB ibuprofen 800 mg oral 800 mg, PO, Q8H, PRN, Take with food, 30 tab, Pain, Substitution Allowed 12/29/2012 01/08/2013 Ordered tablet Take with food [place] 5/325 oral tablet 1 tab, PO, Q4H, PRN, 5 tab, 12/29/2012 Ordered for pain, Substitution Allowed, Maintenance, TAB Vital Signs Most recent to oldest [Reference 1 2 Range]: Temperature Oral [96.4-99.1 DegF] 98.6 DegF 98.4 DegF (12/29/2012 19:55:00) (12/29/2012 17:43:00) Systolic Blood Pressure [90-140 mmHg] 102 mmHg 100 mmHg (12/29/2012 19:55:00) (12/29/2012 17:43:00) Diastolic Blood Pressure [60-90 mmHg] 64 mmHg 65 mmHg (12/29/2012 19:55:00) (12/29/2012 17:43:00) Respiratory Rate [14-20 BRMIN] 18 BRMIN 16 BRMIN (12/29/2012 19:55:00) (12/29/2012 17:43:00) Peripheral Pulse Rate [60-100 bpm] 69 bpm 60 bpm (12/29/2012 19:55:00) (12/29/2012 17:43:00)
--- OUTSIDE RECORDS SUMMARY | 2017-12-05 13:00 | XMS REPORT | CCD ---
:1995 Author Organization [facility] Care Team Providers Name Role Phone Lauri Pat Consulting Provider Allergies, Adverse Reactions, Alerts Substance Reaction Status NKDA Active Medications Medication Instructions Start Date End Date Status [place] 5/325 oral tablet 1 tab, Route: PO, Drug 12/29/2012 12/29/2012 Completed Form: TAB, kg, ONCE, Start date: 12/29/12 18:32:00, Stop date: 12/29/12 18:32:00(Same as: [place] 325/5) Do not exceed 4gm/day of acetaminophen. Flexeril 10 mg oral tablet 10 mg, 1 tab, PO, TID, PRN, 12/29/2012 Ordered 20 tab, for spasm, Substitution Allowed, TAB ibuprofen 800 mg oral 800 mg, PO, Q8H, PRN, Take with food, 30 tab, Pain, Substitution Allowed 12/29/2012 01/08/2013 Ordered tablet Take with food [place] 5/325 oral tablet 1 tab, PO, Q4H, [...]
--- OUTSIDE RECORDS SUMMARY | 2017-12-05 13:00 | XMS REPORT | CCD ---
:[address] [facility] Care Team Providers Name Role Phone Lauri Pat Consulting Provider Allergies, Adverse Reactions, Alerts Substance Reaction Status NKDA Active Medications Medication Instructions Start Date End Date Status [place] 5/325 oral tablet 1 tab, Route: PO, Drug 12/29/2012 12/29/2012 Completed Form: TAB, kg, ONCE, Start date: 12/29/12 18:32:00, Stop date: 12/29/12 18:32:00(Same as: [place] 325/5) Do not exceed 4gm/day of acetaminophen. Flexeril 10 mg oral tablet 10 mg, 1 tab, PO, TID, PRN, 12/29/2012 Ordered 20 tab, for spasm, Substitution Allowed, TAB ibuprofen 800 mg oral 800 mg, PO, Q8H, PRN, Take with food, 30 tab, Pain, Substitution Allowed 12/29/2012 01/08/2013 Ordered tablet Take with food [place] 5/325 oral tablet 1 tab, PO, Q4H, [...] bpm 60 bpm (12/29/2012 19:55:00) (12/29/2012 17:43:00) Procedures Procedures Date Related Diagnosis Emergency department visit for the evaluation 12/29/2012 00:00:00 and management of a patient, which requires these 3 bedolla components: An expanded problem focused history; An expanded problem focused examination; and Medical decision making of moderate complexity. Counseling
--- OUTSIDE RECORDS SUMMARY | 2017-12-05 13:00 | XMS REPORT | CCD ---
:1995 Author Organization [facility] Care Team Providers Name Role Phone Lauri Pat Consulting Provider Allergies, Adverse Reactions, Alerts Substance Reaction Status NKDA Active Medications Medication Instructions Start Date End Date Status [place] 5/325 oral tablet 1 tab, Route: PO, Drug 12/29/2012 12/29/2012 Completed Form: TAB, kg, ONCE, Start date: 12/29/12 18:32:00, Stop date: 12/29/12 18:32:00(Same as: [place] 325/5) Do not exceed 4gm/day of acetaminophen. Flexeril 10 mg oral tablet 10 mg, 1 tab, PO, TID, PRN, 12/29/2012 Ordered 20 tab, for spasm, Substitution Allowed, TAB ibuprofen 800 mg oral 800 mg, PO, Q8H, PRN, Take with food, 30 tab, Pain, Substitution Allowed 12/29/2012 01/08/2013 Ordered tablet Take with food [place] 5/325 oral tablet 1 tab, PO, Q4H, [...]
--- OUTSIDE RECORDS SUMMARY | 2017-12-05 13:01 | XMS REPORT ---
:1995 Author Organization [employer] Care Team Providers Name Role Phone Alie Payne Provider Role Unavailable Allergies No Known Allergies Problems Problem Type Condition Code Onset Dates Condition Status Problem Abnormal uterine and vaginal N93.9 Active bleeding, unspecified Medications No Known Medications Results No Known Results Summary Purpose [employer] Submission
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
--- OUTSIDE RECORDS SUMMARY | 2017-12-05 13:01 | XMS REPORT ---
:1995 Author Organization [employer] Care Team Providers Name Role Phone Alie Payne Provider Role Unavailable Allergies No Known Allergies Problems Problem Type Condition Code Onset Dates Condition Status Problem Abnormal uterine and vaginal N93.9 Active bleeding, unspecified Medications Medication Code System Code Instructions Start Date End Date Status Dosage Sprintec [address] [facility] [id number] 0.25-35 MG-MCG July 08, Active 1 tablet 6-58 Orally Once a day 2016 Results No Known Results Summary Purpose [employer] Submission
--- OUTSIDE RECORDS SUMMARY | 2017-12-05 13:01 | XMS REPORT ---
:1995 Author Organization [employer] Care Team Providers Name Role Phone Alie Payne Provider Role Unavailable Allergies No Known Allergies Problems Problem Type Condition Code Onset Dates Condition Status Problem Abnormal uterine and vaginal N93.9 Active bleeding, unspecified Medications No Known Medications Results No Known Results Summary Purpose [employer] Submission
[2017-12-05 13:53] LABS: Urine Blood NEGATIVE (NEG); Urine Glucose NEGATIVE (NEG); Urine Protein NEGATIVE (NEG)
== END 2017-12-05 13:08 | disposition home or self-care (01) ==
LOC: ER 10:57
DX: O26.891 Other specified pregnancy related conditions, first trimester (principal)
CPT/HCPCS: 36415; 76817; 81003; 81025; 84702; 99284

== ENCOUNTER 2018-02-07 16:00 | Emergency (ER) | payer OTHER ==
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
--- OUTSIDE RECORDS SUMMARY | 2018-02-07 16:04 | XMS REPORT ---
:1995 Author Organization [employer] Care Team Providers Name Role Phone Alie Avery Provider Role Unavailable Allergies No Known Allergies Problems Problem Type Condition Code Onset Dates Condition Status Problem Encounter for supervision of other Z34.81 Active normal , first trimester Medications No Known Medications Results No Known Results Summary Purpose [employer] Submission
--- OUTSIDE RECORDS SUMMARY | 2018-02-07 16:04 | XMS REPORT ---
:1995 Author Organization [employer] Care Team Providers Name Role Phone Alie Payne Provider Role Unavailable Allergies No Known Allergies Problems Problem Type Condition Code Onset Dates Condition Status Problem Abnormal uterine and vaginal N93.9 Active bleeding, unspecified Medications Medication Code System Code Instructions Start Date End Date Status Dosage Sprintec [address] [facility] [id number] 0.25-35 MG-MCG July 08, Active 1 tablet 6-58 Orally Once a day 2016 Results No Known Results Summary Purpose [employer] Submission
--- OUTSIDE RECORDS SUMMARY | 2018-02-07 16:04 | XMS REPORT ---
:1994 Author Organization [employer] Care Team Providers Name Role Phone Alie Avery Provider Role Unavailable Allergies No Known Allergies Problems Problem Type Condition Code Onset Dates Condition Status Problem Abnormal uterine and vaginal N93.9 Active bleeding, unspecified Problem Encounter for supervision of other Z34.81 Active normal , first trimester Assessment Abnormal uterine and vaginal N93.9 Active bleeding, unspecified Medications Medication Code Code Instructions Start End Status Dosage System Date Date Colace [facility] [id number] 100 MG Orally Feb 15, Mar 17, Active 1 capsule Once a day 2015 2016 as needed Ferrous ND [id number] 325 (65 Fe) MG Feb 15, Active 1 tablet Sulfate Orally Once a 2016 day ibuprofen NDC 0 Active not defined Sprintec 28 ND [id number] 0.25-35 MG-MCG Feb 15, Active active med Orally as 2015 only, 5 on directed day 1, 4 on day 2, 3 on day 3, 2 on day 4, 1 on day 1 and daily after Sprintec 28 ND [id number] 0.25-35 MG-MCG Mar 01, Active 1 tablet Orally Once a 2016 day Tramadol NDC 0 Active not defined Zofran ODT [facility] [id number] 4 MG Orally Feb 15, Active 1 tablet on every 8 hrs 2016 the tongue and allow to dissolve Vital Signs Date/Time: Mar 01, 2016 BMI 21.10 Index Weight 126.8 lbs Height 65 in Blood Pressure Diastolic 70 mm Hg Blood Pressure Systolic 110 mm Hg Results No Known Results Summary Purpose [employer]Works Submission
--- OUTSIDE RECORDS SUMMARY | 2018-02-07 16:04 | XMS REPORT ---
:1995 Author Organization [employer] Care Team Providers Name Role Phone Alie Payne Provider Role Unavailable Allergies No Known Allergies Problems Problem Type Condition Code Onset Dates Condition Status Problem Abnormal uterine and vaginal N93.9 Active bleeding, unspecified Medications No Known Medications Results No Known Results Summary Purpose [employer] Submission
--- OUTSIDE RECORDS SUMMARY | 2018-02-07 16:04 | XMS REPORT | CCD ---
:1994 Author Organization [facility] Care Team Providers Name Role Phone Lauri Pat Consulting Provider Allergies, Adverse Reactions, Alerts Substance Reaction Status NKDA Active Medications Medication Instructions Start Date End Date Status [place] 5/325 oral tablet 1 tab, Route: PO, Drug 12/29/2012 12/29/2012 Completed Form: TAB, kg, ONCE, Start date: 12/29/12 18:32:00, Stop date: 12/29/12 18:32:00(Same as: [place] 325/5) Do not exceed 4gm/day of acetaminophen. Flexeril 10 mg oral tablet 10 mg, 1 tab, PO, TID, PRN, 12/29/2012 Ordered 20 tab, for spasm, Substitution Allowed, TAB ibuprofen 800 mg oral 800 mg, PO, Q8H, PRN, Take with food, 30 tab, Pain, Substitution Allowed 12/29/2012 01/08/2013 Ordered tablet Take with food [place] 5/325 oral tablet 1 tab, PO, Q4H, [...]
--- OUTSIDE RECORDS SUMMARY | 2018-02-07 16:04 | XMS REPORT | CCD ---
:1994 Author Organization [facility] Care Team Providers Name Role Phone Lauri Pat Consulting Provider Allergies, Adverse Reactions, Alerts Substance Reaction Status NKDA Active Medications Medication Instructions Start Date End Date Status [place] 5/325 oral tablet 1 tab, Route: PO, Drug 12/29/2012 12/29/2012 Completed Form: TAB, kg, ONCE, Start date: 12/29/12 18:32:00, Stop date: 12/29/12 18:32:00(Same as: [place] 325/5) Do not exceed 4gm/day of acetaminophen. Flexeril 10 mg oral tablet 10 mg, 1 tab, PO, TID, PRN, 12/29/2012 Ordered 20 tab, for spasm, Substitution Allowed, TAB ibuprofen 800 mg oral 800 mg, PO, Q8H, PRN, Take with food, 30 tab, Pain, Substitution Allowed 12/29/2012 01/08/2013 Ordered tablet Take with food [place] 5/325 oral tablet 1 tab, PO, Q4H, [...]
--- OUTSIDE RECORDS SUMMARY | 2018-02-07 16:04 | XMS REPORT | CCD ---
:1994 Author Organization [facility] Care Team Providers Name Role Phone Lauri Pat Consulting Provider Allergies, Adverse Reactions, Alerts Substance Reaction Status NKDA Active Medications Medication Instructions Start Date End Date Status [place] 5/325 oral tablet 1 tab, Route: PO, Drug 12/29/2012 12/29/2012 Completed Form: TAB, kg, ONCE, Start date: 12/29/12 18:32:00, Stop date: 12/29/12 18:32:00(Same as: [place] 325/5) Do not exceed 4gm/day of acetaminophen. Flexeril 10 mg oral tablet 10 mg, 1 tab, PO, TID, PRN, 12/29/2012 Ordered 20 tab, for spasm, Substitution Allowed, TAB ibuprofen 800 mg oral 800 mg, PO, Q8H, PRN, Take with food, 30 tab, Pain, Substitution Allowed 12/29/2012 01/08/2013 Ordered tablet Take with food [place] 5/325 oral tablet 1 tab, PO, Q4H, [...]
--- OUTSIDE RECORDS SUMMARY | 2018-02-07 16:04 | XMS REPORT | CCD ---
:1995 Author Organization [facility] Care Team Providers Name Role Phone Shravan [...] values reflect the clinical guidelines of the [employer].HEMATOLOGY Most recent to oldest [Reference [...]
--- OUTSIDE RECORDS SUMMARY | 2018-02-07 16:04 | XMS REPORT | CCD ---
:1995 Author Organization [facility] Care Team Providers Name Role Phone Lauri Pat Consulting Provider Allergies, Adverse Reactions, Alerts Substance Reaction Status NKDA Active Medications Medication Instructions Start Date End Date Status [place] 5/325 oral tablet 1 tab, Route: PO, Drug 12/29/2012 12/29/2012 Completed Form: TAB, kg, ONCE, Start date: 12/29/12 18:32:00, Stop date: 12/29/12 18:32:00(Same as: [place] 325/5) Do not exceed 4gm/day of acetaminophen. Flexeril 10 mg oral tablet 10 mg, 1 tab, PO, TID, PRN, 12/29/2012 Ordered 20 tab, for spasm, Substitution Allowed, TAB ibuprofen 800 mg oral 800 mg, PO, Q8H, PRN, Take with food, 30 tab, Pain, Substitution Allowed 12/29/2012 01/08/2013 Ordered tablet Take with food [place] 5/325 oral tablet 1 tab, PO, Q4H, [...]
--- OUTSIDE RECORDS SUMMARY | 2018-02-07 16:04 | XMS REPORT ---
:1995 Author Organization [employer] Care Team Providers Name Role Phone Alie Payne Provider Role Unavailable Allergies No Known Allergies Problems Problem Type Condition Code Onset Dates Condition Status Problem Abnormal uterine and vaginal N93.9 Active bleeding, unspecified Medications No Known Medications Results No Known Results Summary Purpose [employer] Submission
--- OUTSIDE RECORDS SUMMARY | 2018-02-07 16:05 | XMS REPORT ---
:1995 Author Organization [employer] Care Team Providers Name Role Phone Alie Payne Provider Role Unavailable Encounters Encounter Location Date Bleeding [facility]/ C. Unique Johns [place], [place], [place] Feb 23, 2016 Unknown [facility]/ C. Unique Johns MD, [place], [place] Mar [...] . Employed Feb 16, 2016 [facility]
--- OUTSIDE RECORDS SUMMARY | 2018-02-07 16:05 | XMS REPORT ---
:1995 Author Organization [employer] Care Team Providers Name Role Phone Alie Payne Provider Role Unavailable Encounters Encounter Location Date Bleeding [facility]/ C. Unique Johns [place] Feb 23, 2016 Unknown [facility]/ C. Unique Johns [place], [place] Mar 05, 2016 Other [facility]/ C. Unique Johns MD, PhD, [place] [...] . Employed Feb 16, 2016 [facility] Purpose [facility]
--- OUTSIDE RECORDS SUMMARY | 2018-02-07 16:05 | XMS REPORT ---
:1995 Author Organization [employer] Care Team Providers Name Role Phone Alie Payne Provider Role Unavailable Encounters Encounter Location Date Bleeding [facility]/ C. Unique Johns MD, [...]
--- OUTSIDE RECORDS SUMMARY | 2018-02-07 16:05 | XMS REPORT ---
:1995 Author Organization [employer] Care Team Providers Name Role Phone Alie Payne Provider Role Unavailable Encounters Encounter Location Date pymt plan [facility]/ C. Unique Johns MD, [place], [place] Mar 17, 2016 Bleeding [facility]/ C. Unique [place], [place] Feb 23, 2016 Unknown [facility] Health/ C. Unique Johns MD[place] Mar 05, 2016 Other [facility]/ C. Unique Johns [...]
--- OUTSIDE RECORDS SUMMARY | 2018-02-07 16:05 | XMS REPORT ---
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
--- OUTSIDE RECORDS SUMMARY | 2018-02-07 16:05 | XMS REPORT ---
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
--- NOTE | 2018-02-07 17:04 | ER ---
Nurse's Notes [facility] Name: Yamel Cano Age: 23 yrs Sex: Female : 1995 Arrival Date: 02/07/2018 Time: 16:03 Bed Waiting Private MD: Diagnosis: Presentation: 02/07 16:51 Presenting complaint: Patient states: "I'm having pain and pressure in my lower stomach aj1 and my lower back." Denies vaginal bleeding. Reports that her pain started at around 0630 this morning. Patient reports that she is currently 14 weeks . Transition of care: patient was not received from another setting of care. Onset of symptoms was February 07, 2018. Risk Assessment: Do you want to hurt yourself or someone else? Patient reports no desire to harm self or others. Initial Sepsis Screen: Does the patient meet any 2 criteria? No. Patient's initial sepsis screen is negative. Does the patient have a suspected source of infection? No. Patient's initial sepsis screen is negative. Care prior to arrival: None. 16:51 Method Of Arrival: Ambulatory aj 16:51 Acuity: MAURICE 3 aj1 17:03 Note Patient told registration staff that she was leaving because she felt like she aj1 could be seen faster somewhere else. Triage Assessment: 16:52 General: Appears in no apparent distress. comfortable, Behavior is calm, cooperative, aj1 appropriate for age. Pain: Complains of pain in low back area, right lower quadrant and left lower quadrant Pain currently is 9 out of 10 on a pain scale. Neuro: Level of Consciousness is awake, alert, obeys commands. Cardiovascular: Patient's skin is warm and dry. Respiratory: Airway is patent Respiratory effort is even, unlabored, Respiratory pattern is regular, symmetrical. GI: Reports lower abdominal pain. 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 5 in. (165.10 cm) (R); 16:52 Body Mass Index 22.13 (60.33 kg, 165.10 cm) aj1 ED Course: 16:03 Patient arrived in ED. rg4 16:52 Triage completed. aj1 16:52 Arm band placed on Patient placed in waiting room, Patient notified of wait time. aj1 Administered Medications: No medications were administered Outcome: 17:03 Eloped from waiting room. aj1 17:03 Patient left the ED. aj1 Signatures: Lynsey Obando RN RN aj1 Nasrin Weber rg4
== END 2018-02-07 17:03 | disposition left against medical advice (07) ==
LOC: ER 16:00
DX: Z53.21 Procedure and treatment not carried out due to patient leaving prior to being seen by health care provider (principal)
CPT/HCPCS: 99281

== ENCOUNTER 2018-10-06 02:50 | Emergency (ER) | payer SELFPAY ==
--- OUTSIDE RECORDS SUMMARY | 2018-10-06 02:52 | XMS REPORT | Continuity of Care Document ---
:1995 Author Organization [facility] Address [address] [place] [address] Phone Unavailable Care Team Providers Name Role Phone PHYSICIAN, NO Primary Care Physician Unavailable Insurance Providers Guarantor Yamel Cano Address [address] [place] [address] Email NO EMAIL Payer [facility] Policy Number [id number] Subscriber's Name Yamel Cano Relationship Self / Same As Patient Group Number NA Group Name NA Advance Directives Directive Response Recorded Date/Time Patient/Family Given Education Material R/T Y - 03/06/18...MK 03/06/18 6: 18pm Directives? Problems No problem information available. Medications No medication information available. Social History No social history information available. Hospital Discharge Instructions No hospital discharge instruction information available. Plan of Care Discharge Date 03/06/18 9:45pm Disposition DC/TRANS. SHORT TERM GEN. HOSP Prescriptions See Medication Section Functional Status No functional status information available. Allergies, Adverse Reactions, Alerts No allergy information available. Immunizations No immunization information available. Vital Signs No vital sign information available. Results Laboratory Results Test Name Result Units Flags Reference Collection Result Comments Date/Time Date/Time Urine Color LIGHT 03/06/2018 03/06/2018 YELLOW 6:20pm 6:44pm Urine Appearance CLEAR CLEAR 03/06/2018 03/06/2018 6:20pm 6:44pm Urine Glucose NEGATIVE NEGATIVE 03/06/2018 03/06/2018 6:20pm 6:44pm Urine Bilirubin NEGATIVE NEGATIVE 03/06/2018 03/06/2018 6:20pm 6:44pm Urine Ketones NEGATIVE NEGATIVE 03/06/2018 03/06/2018 6:20pm 6:44pm Urine Specific 1.013 1.003-1.030 03/06/2018 03/06/2018 Vaughn 6:20pm 6:44pm Urine Blood NEGATIVE NEGATIVE 03/06/2018 03/06/2018 6:20pm 6:44pm Urine pH 6.000 5-9 03/06/2018 03/06/2018 6:20pm 6:44pm Urine Protein NEGATIVE NEGATIVE 03/06/2018 03/06/2018 6:20pm 6:44pm Urine NORMAL mg/dL 0.2-1.0 03/06/2018 03/06/2018 Urobilinogen 6:20pm 6:44pm Urine Nitrate NEGATIVE NEGATIVE 03/06/2018 03/06/2018 6:20pm 6:44pm Urine Leukocyte NEGATIVE NEGATIVE 03/06/2018 03/06/2018 Esterase 6:20pm 6:44pm Urine RBC 1-5 /hpf 0-5 03/06/2018 03/06/2018 6:20pm 6:44pm Urine WBC <1 /hpf 0-5 03/06/2018 03/06/2018 6:20pm 6:44pm Urine Epithelial 1-5 /hpf 0-5 03/06/2018 03/06/2018 Cells 6:20pm 6:44pm Urine Bacteria None /hpf None Detect 03/06/2018 03/06/2018 Detected 6:20pm 6:44pm Urine Casts 2-5 /lpf None Detect 03/06/2018 03/06/2018 6:20pm 6:44pm Urine Culture NO 03/06/2018 03/06/2018 Reflexed 6:20pm 6:44pm Procedures Procedure Status Date Provider(s) US obstetrical limited Completed 03/06/18 ANAND WOODRUFF MD Encounters Encounter Location Arrival/Admit Date Discharge/Depart Date Attending Provider Departed Edwin 03/06/18 6:03pm 03/06/18 9:45pm KACY Emergency Room [facility] ANAND Millard [facility]
--- OUTSIDE RECORDS SUMMARY | 2018-10-06 02:52 | XMS REPORT ---
:1995 [facility] Address [address] [place] [address] [address] [place] [address] Care Team Providers Name Role Phone DR DONNIE IBARRA Unavailable Unavailable DR JAYSON KIMBALL Unavailable Unavailable NOEL, DR KEITA Unavailable Unavailable Problems This patient has no known problems. Allergies, Adverse Reactions, Alerts This patient has no known allergies or adverse reactions. Medications This patient has no known medications. Encounters Start End Encounter Admission Attending Care Care Encounter Date/Time Date/Time Type Type Clinicians Facility Department ID 2018-06-21 Outpatient [facility] [id number] 12:29:49 2018-06-21 Outpatient [facility] [id number] 12:29:49 2018-06-21 Outpatient [facility] [id number] 12:29:48 2018-06-21 Outpatient [facility] [id number] 12:29:39 2018-06-16 2018-06-16 Outpatient [facility] [id number] 13:15:00 13:15:00 2018-06-09 2018-06-09 Outpatient [facility] [id number] 10:00:00 10:00:00 2018-05-04 2018-05-04 Outpatient U STACEY [facility] OB [id number] 07:52:00 11:26:00 DONNIE 2018-02-28 2018-02-28 Emergency Raudel KIMBALL [facility] ECC [id number] 11:11:00 13:10:00 JAYSON 2018-02-07 2018-02-07 Emergency E NOEL [facility] ECC [id number] 18:18:00 20:36:00 BOSSMAN Results Test Description Test Time Test Comments Text Results Atomic Results Result Comments URINE CULTURE 2018-05-11 08:05:00 Test Item Value Reference Range Comments Isolate 1 (test code=ISO1) Lactobacillus species URINALYSIS WITH MICRO *WW*2018-05-08 18:39:00 Test Item Value Reference Range Comments COLOR (test code=COLU) YELLOW YELLOW CLARITY (test code=CLA) CLEAR CLEAR GLUCOSE UR (test code=UA GLUCOSE) NEGATIVE NEGATIVE BILI UR (test code=BILE) NEGATIVE NEGATIVE KETONES UR (test code=REANNA) NEGATIVE NEGATIVE SP GRAVITY (test code=SPGR) 1.010 1.005-1.030 PH UR (test code=PH) 6.5 4.5-8.0 PROTEIN UR (test code=PU) NEGATIVE NEGATIVE UROBIL UR (test code=UROQ) 0.2 EU/dL 0.2-1.0 NITRITE UR (test code=NITRITE) NEGATIVE NEGATIVE BLOOD UR (test code=UA BLOOD) NEGATIVE NEGATIVE LEUK ES UR (test code=LEUK) 2+ NEGATIVE WBC UR (test code=UWBC) 6 /HPF 0-5 RBC UR (test code=URBC) 1 /HPF 0-2 EPITH UR (test code=UEPC) FEW /LPF FEW BACTERIA UR (test code=UBACT) FEW /HPF NONE CAST UR (test code=CAST) /LPF NONE CRYSTAL UR (test code=CRYU) / LPF NONE MUCUS UR (test code=MUC) / HPF NONE AMORPH UR (test code=CHRIST) / HPF NONE TRICH UR (test code=UTRICH) /HPF NONE YEAST UR (test code=UY) /HPF NONE SPERM UR (test code=USPERM) /HPF NONE U/S >14 WEEKS*WW*2018-05-04 11:01:01Location of dictation: B2OB Ultrasound CompleteClinical indication: Premature contractions, patient has cerclageCOMPARISON: 02/28/18TECHNIQUE: Real-time sonography was performed transabdominally withthe 4 MHztransducer.FINDINGS:There is a single living intrauterine fetus in cephalic presentation. Placentais posterior, grade 2. There is no evidence of placental abruption nor placentaprevia. Cervixis effaced but appears closed, measuring 1.4 cm length. Tracefluid in the endocervical canal. Amniotic fluid volume is within normal limitswith LULU of 16.4cm. The single deepest pocket measures 5.2 cm.ANATOMIC SURVEY:No gross abnormalities of the cranium, spine, ,4-chamber heart,stomach bubble , kidneys, bladder , cord insertion site and 3-vessel cord. heart rate: 136 BPMAverage sonographic age of the fetus is 26 weeks 4 days based on the following:Biparietal diameter: 6.8 cmHead circumference: 23.6 cmAbdominal circumference: 21.8 cmFemur length: 5.3 cmFetal ratios are normal. Compared to prior study there has been appropriategrowth.Estimated weight: 984 grams. weight percentile: 34%SD ratio 2.07-2.68.No abnormality of the maternal adnexae.IMPRESSION: 1. Single living intrauterine fetus at 26 weeks 4 days sonographic age incephalic presentation.2. Compared to prior study there has been appropriate growth.3. The cervix is slightly effaced with trace fluid in the endocervical canal.4. No evidence for placenta previa nor abruption.URINALYSIS 2018-05-04 10:25:00 Test Item Value Reference Range Comments COLOR (test code=COLU) YELLOW YELLOW CLARITY (test code=CLA) CLEAR CLEAR GLUCOSE UR (test code=UA GLUCOSE) NEGATIVE NEGATIVE BILI UR (test code=BILE) NEGATIVE NEGATIVE KETONES UR (test code=REANNA) NEGATIVE NEGATIVE SP GRAVITY (test code=SPGR) <=1.005 1.005-1.030 PH UR (test code=PH) 6.5 4.5-8.0 PROTEIN UR (test code=PU) NEGATIVE NEGATIVE UROBIL UR (test code=UROQ) 0.2 EU/dL 0.2-1.0 NITRITE UR (test code=NITRITE) NEGATIVE NEGATIVE BLOOD UR (test code=UA BLOOD) NEGATIVE NEGATIVE LEUK ES UR (test code=LEUK) NEGATIVE NEGATIVE AUAM (test code=WAUAM) NO NO U/S >14 WEEKS2018-02-28 12:56:49OBSTETRIC ULTRASOUND Location code: [id number] HISTORY: Abdominal painGA by first US: 17 weeks and 5 daysEDD by 1st ultrasound: 08/03/2018GA by today's US: 18 week 0 dayFindings: There is a single intrauterine in vertex presentation. Estimatedfetal heart rate is 141 beats per minute. Amniotic fluid index is 10.5 cm. Theplacenta is posterior with grade 1 changes. There is no evidence of previa orabruption. The cervix is closed and measures 3.3 cm. The maternal adnexa areunremarkable.Approximate sonographic age is 18 weeks and 0 days based upon the following:BPD 3.9 cm 17 weeks6 daysHC 15.0 cm 18 weeks 1 dayAC 11.7 cm 17 weeks 3 daysFL 2.7 cm 18 weeks 1 day ratios are within normal limits. weight estimateWeight: 212 gramsWT%: 51% for 17 weeks and 5 daysAnatomic survey reveals no abnormality of the intracranial contents,four-chamber heart, stomach, bilateral kidneys, urinary bladder, 3 vessel cord,cord insertion, spine, and extremities.IMPRESSION: 1. Single intrauterine in vertex presentation with an approximatesonographic age of 18 weeks 0 days. 2. No abnormality identified.URINALYSIS 2017 12:19:00 Test Item Value Reference Range Comments COLOR (test code=COLU) YELLOW YELLOW CLARITY (test code=CLA) CLEAR CLEAR GLUCOSE UR (test code=UA GLUCOSE) NEGATIVE NEGATIVE BILI UR (test code=BILE) NEGATIVE NEGATIVE KETONES UR (test code=REANNA) NEGATIVE NEGATIVE SP GRAVITY (test code=SPGR) 1.020 1.005-1.030 PH UR (test code=PH) 8.0 4.5-8.0 PROTEIN UR (test code=PU) NEGATIVE NEGATIVE UROBIL UR (test code=UROQ) 0.2 EU/dL 0.2-1.0 NITRITE UR (test code=NITRITE) NEGATIVE NEGATIVE BLOOD UR (test code=UA BLOOD) NEGATIVE NEGATIVE LEUK ES UR (test code=LEUK) NEGATIVE NEGATIVE AUAM (test code=WAUAM) NO NO U/S >14 WEEKS*WW*2018-02-07 20:13:09LOCATION: A1EXAM: U/S >14 WEEKS*WW*INDICATION: [id number]: Pain in pelvisLMP: Unknown 14 wks 5 days - MORELIA 08/03/18.CURRENT US: 02/07/18 15 wks 2 days - MORELIA 07/31/18.PRIOR US: None.A single fetus is present in breech presentation.Placenta lies posterior, Grade 1. No placentaprevia. MEASUREMENTS:BPD: 2.8 cm=15 weeks 0 days. HC: 11.0 cm=15 weeks 2 days. FL: 1.8 cm=15 weeks 2 days. AC: 9.1 cm=15 weeks 2 days. RATIOS:CI=0.69 (0.70-0.86)FL/AC=0.20 (0.20-0.24)HC/AC=1.21 (1.11-1.30)FL/BPD=0.64 (0.71-0.87) LULU is 11.6 cm. Cervical length is 2.1 cm.Estimated weight is 110 grams. This lies at the 67 percentile. heart rate is 157 beats per minute.Normal anatomy visualized includes: Heart motion, 4 chambered heart,brain, cerebellum, ventricles, stomach, umbilical cord insertion, three-vesselcord, kidneys, urinary bladder, spine, extremities.IMPRESSION:Single viable consistent with 15 week 2 day gestation by ultrasound.Estimated delivery date . No complication is identified.BETA HCG QUANTITATIVE SERUM *WW* 19:43:00 Test Item Value Reference Range Comments BHCG QUANT (test code=A17) 09238.00 mIU/mL BHCGQ (test code=BHCQ) QUANTITATIVE BHCG RESULT INTERPRETATION APPROXIMATE APPROXIMATE GESTATIONAL AGE HCG RANGE (WEEKS) (mIU/mL) 0.2 - 1 5 - 50 1 - 2 50 - 500 2 - 3 100 - 5,000 3 - 4 500 - 10,000 4 - 5 1,000 - 50,000 5 - 6 10,000 - 100,000 6 - 8 15,000 - 200,000 8 - 12 10,000 - 100,000 COMPREHENSIVE METABOLIC ABDI 2018-02-07 19:05:00 Test Item Value Reference Range Comments GLUCOSE (test code=06D) 79 mg/dL 75-100 SODIUM (test code=01A) 134 mmol/L 136-145 POTASSIUM (test code=01B) 3.6 mmol/L 3.6-5.1 CHLORIDE (test code=04A) 104 mmol/L 98-107 CO2 (test code=02A) 23 mmol/L 22-32 ANION GAP (test code=ANG) 11.0 mmol/L BUN (test code=05D) 8 mg/dL 7-18 CREATININE (test code=03E) 0.5 mg/dL 0.4-1.1 BUN/CREA (test code=BCR) 17 12-20 CALCIUM (test code=09D) 8.7 mg/dL 8.3-9.5 BILI TOTAL (test code=11A) 0.4 mg/dL 0.2-1.0 PROTEIN (test code=07D) 7.9 g/dL 6.4-8.2 ALBUMIN (test code=08D) 3.5 g/dL 3.5-4.8 GLOBULIN (test code=GLB) 4.4 g/dL 1.5-3.8 ALB/GLOB (test code=AGRR) 0.8 1.0-2.6 ALK PHOS (test code=35A) 65 IU/L 42-121 AST (test code=30A) 16 IU/L <=42 ALT (test code=31A) 19 IU/L <=78 AMYLASE AND LIPASE 2018-02-07 19:00:00 Test Item Value Reference Range Comments AMYLASE (test code=10A) 91 U/L 28-100 LIPASE (test code=60A) 146 IU/L 73-393 URINALYSIS 2018-02-07 18:51:00 Test Item Value Reference Range Comments COLOR (test code=COLU) YELLOW YELLOW CLARITY (test code=CLA) CLEAR CLEAR GLUCOSE UR (test code=UA GLUCOSE) NEGATIVE NEGATIVE BILI UR (test code=BILE) NEGATIVE NEGATIVE KETONES UR (test code=REANNA) NEGATIVE NEGATIVE SP GRAVITY (test code=SPGR) 1.020 1.005-1.030 PH UR (test code=PH) 7.0 4.5-8.0 PROTEIN UR (test code=PU) NEGATIVE NEGATIVE UROBIL UR (test code=UROQ) 0.2 EU/dL 0.2-1.0 NITRITE UR (test code=NITRITE) NEGATIVE NEGATIVE BLOOD UR (test code=UA BLOOD) NEGATIVE NEGATIVE LEUK ES UR (test code=LEUK) NEGATIVE NEGATIVE AUAM (test code=WAUAM) NO NO CBC (INCLUDES AUTOMATED DIFFERENTIAL)*[id number] 18:50:00 Test Item Value Reference Range Comments WBC (test code=WBC) 11.0 10\S\3/uL 4.5-11.0 RBC (test code=RBC) 3.42 10\S\6/uL 4.30-5.70 HGB (test code=HBG) 10.9 g/dL 12.0-15.5 HCT (test code=HCT) 31.9 % 35.0-44.0 MCV (test code=MCV) 93.3 fL 81.0-99.0 MCH (test code=MCH) 31.9 pg 27.0-31.0 MCHC (test code=MCHC) 34.2 g/dL 32.0-36.0 RDW (test code=RDW) 12.4 % 11.5-14.5 PLT (test code=PLT) 199 10\S\3/uL 130-400 MPV (test code=MPV) 10.2 fL 9.4-12.4 NEUTROP # (test code=NE#) 9.4 10\S\3/uL 1.6-8.0 LYMPH # (test code=LY#) 1.0 10\S\3/uL 1.1-3.5 MONOCYTE # (test code=MO#) 0.6 10\S\3/uL 0.0-1.1 EOSINOPH # (test code=EO#) 0.1 10\S\3/uL 0.0-0.7 BASOPHIL # (test code=BA#) 0.0 10\S\3/uL 0.0-0.3 IG # (test code=IG#) 0.04 10\S\3/uL 0.00-0.06 NRBC # (test code=NRBC#) 0.00 10\S\3/uL 0.00-0.01 NEUTROPH % (test code=NE%) 84.8 % 35.0-73.0 LYMPH % (test code=LY%) 8.9 % 20.0-55.0 MONO % (test code=MO%) 5.1 % 2.5-10.0 EOSINOPH % (test code=EO%) 0.5 % 0.0-5.0 BASOPHIL % (test code=BA%) 0.3 % 0.0-2.0 IG % (test code=IG%) 0.4 % 0.0-0.8 NRBC% (test code=NRBC%) 0.0 % 0.0-0.2 MANDIFF (test code=WMDIFF) NO NO RBC MORPH (test code=WRBCMOR) NORMAL
--- OUTSIDE RECORDS SUMMARY | 2018-10-06 02:52 | XMS REPORT | Continuity of Care Document ---
:1995 Author Organization [facility] Address [address] [place] [address] Phone Unavailable Care Team Providers Name Role Phone PHYSICIAN, NO Primary Care Physician Unavailable Insurance Providers Guarantor Yamel Cano Address [address] [place] [address] Email NO EMAIL Payer [facility] Policy Number [id number] Subscriber's Name Yamel Cano Relationship Self / Same As Patient Group Number NA Group Name NA Advance Directives Directive Response Recorded Date/Time Name of Surrogate/Decision Maker NA 03/25/18 3:29pm Patient/Family Given Education Material R/T Directives? Y - SM 03/25/18 3: 32pm Chief Complaint and Reason for Visit Chief Complaint General Complaint Reason for Visit Hemorrhoids during Problems Medical Problem Onset Date Status Hemorrhoids during Unknown Acute Medications No medication information available. Social History Smoking Status Start Date Stop Date Never smoker Hospital Discharge Instructions No hospital discharge instruction information available. 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 Allergies, Adverse Reactions, Alerts No known allergies. Immunizations No immunization information available. Vital Signs Acute Vital Signs Vital Response Date/Time Blood Pressure 104/67 mm Hg 03/25/2018 3:56pm Pulse Pulse Rate (adult) 70 beats per minute (60 - 100) 03/25/2018 3:56pm Respiratory Rate 18 breaths per minute (10 - 24) 03/25/2018 3:56pm Temperature Source Oral 03/25/2018 3:56pm Height 5 ft 5 in 03/25/2018 3:32pm Weight 130 lb 03/25/2018 3:32pm Body Mass Index 21.6 kg/m^2 03/25/2018 3:32pm Results Laboratory Results Test Name Result Units Flags Reference Collection Result Comments Date/Time Date/Time Urine Color COLORLESS 03/25/2018 03/25/2018 1:45pm 3:54pm Urine CLEAR CLEAR 03/25/2018 03/25/2018 Appearance 1:45pm 3:54pm Urine Glucose NEGATIVE NEGATIVE 03/25/2018 03/25/2018 1:45pm 3:54pm Urine Bilirubin NEGATIVE NEGATIVE 03/25/2018 03/25/2018 1:45pm 3:54pm Urine Ketones NEGATIVE NEGATIVE 03/25/2018 03/25/2018 1:45pm 3:54pm Urine Specific 1.003 1.003-1.030 03/25/2018 03/25/2018 [place] 1:45pm 3:54pm Urine Blood NEGATIVE NEGATIVE 03/25/2018 03/25/2018 1:45pm 3:54pm Urine pH 6.500 5-9 03/25/2018 03/25/2018 1:45pm 3:54pm Urine Protein NEGATIVE NEGATIVE 03/25/2018 03/25/2018 1:45pm 3:54pm Urine NORMAL mg/dL 0.2-1.0 03/25/2018 03/25/2018 Urobilinogen 1:45pm 3:54pm Urine Nitrate NEGATIVE NEGATIVE 03/25/2018 03/25/2018 1:45pm 3:54pm Urine Leukocyte NEGATIVE NEGATIVE 03/25/2018 03/25/2018 Esterase 1:45pm 3:54pm Urine RBC 1-5 /hpf 0-5 03/25/2018 03/25/2018 1:45pm 3:55pm Urine WBC <1 /hpf 0-5 03/25/2018 03/25/2018 1:45pm 3:55pm Urine 1-5 /hpf 0-5 03/25/2018 03/25/2018 Epithelial 1:45pm 3:55pm Cells Urine Bacteria None /hpf None Detect 03/25/2018 03/25/2018 Detected 1:45pm 3:55pm Urine Casts None /lpf None Detect 03/25/2018 03/25/2018 Detected 1:45pm 3:55pm Urine Culture NO 03/25/2018 03/25/2018 Reflexed 1:45pm 3:55pm Procedures Procedure Status Date Provider(s) EMERGENCY DEPT VISIT Completed 03/06/18 CHYLMD TRACH DNA AMP PROBE Completed 03/06/18 N.GONORRHOEAE DNA AMP PROB Completed 03/06/18 URINALYSIS AUTO W/SCOPE Completed 03/06/18 OB US LIMITED FETUS(S) Completed 03/06/18 US obstetrical limited Completed 03/06/18 ANAND WOODRUFF MD Encounters Encounter Location Arrival/Admit Date Discharge/Depart Date Attending Provider Registered [place] 03/25/18 3:28pm LU[facility]EL [facility] Departed [place] 03/06/18 6:03pm 03/06/18 9:45pm KACY [facility] Recent Diagnosis
--- OUTSIDE RECORDS SUMMARY | 2018-10-06 02:53 | XMS REPORT | Continuity of Care Document ---
:1995 Author Organization [facility] Address [address] [place] [address] Phone Unavailable Care Team Providers Name Role Phone PHYSICIAN, NO Primary Care Physician Unavailable Insurance Providers Guarantor Yamel Cano Address [address] [place] [address] Email NO E[facility]IL [facility] Policy Number [id number] Subscriber's Name Yamel Cano Relationship Self / Same As Patient Group Number NA Group Name NA Advance Directives Directive Response Recorded Date/Time Patient/Family Given Education Material R/T Y - 04/06/18...MK 04/06/18 10: 27pm Directives? Problems Active ProblemsNo active problem information available. Past Problems Medical Problem Onset Date Status Hemorrhoids during Unknown Acute Medications No medication information available. Social History Smoking Status Start Date Stop Date Never smoker Hospital Discharge Instructions No hospital discharge instruction information available. Plan of Care Discharge Date 04/06/18 11:26pm Disposition PATIENT DISCHARGE HOME OR SELF Instructions/Education Provided Second Trimester of Prescriptions See Medication Section Functional Status No [...] 03/25/2018 3:56pm Temperature Source Oral 03/25/2018 3:56pm Results Laboratory Results Test Name Result Units Flags Reference Collection Result Comments Date/Time Date/Time Urine Color LIGHT 04/06/2018 04/06/2018 YELLOW 10:48pm 10:56pm Urine Appearance CLEAR CLEAR 04/06/2018 04/06/2018 10:48pm 10:56pm Urine Glucose NEGATIVE NEGATIVE 04/06/2018 04/06/2018 10:48pm 10:56pm Urine Bilirubin NEGATIVE NEGATIVE 04/06/2018 04/06/2018 10:48pm 10:56pm Urine Ketones NEGATIVE NEGATIVE 04/06/2018 04/06/2018 10:48pm 10:56pm Urine Specific 1.008 1.003-1.030 04/06/2018 04/06/2018 [place] 10:48pm 10:56pm Urine Blood NEGATIVE NEGATIVE 04/06/2018 04/06/2018 10:48pm 10:56pm Urine pH 7.000 5-9 04/06/2018 04/06/2018 10:48pm 10:56pm Urine Protein NEGATIVE NEGATIVE 04/06/2018 04/06/2018 10:48pm 10:56pm Urine NORMAL mg/dL 0.2-1.0 04/06/2018 04/06/2018 Urobilinogen 10:48pm 10:56pm Urine Nitrate NEGATIVE NEGATIVE 04/06/2018 04/06/2018 10:48pm 10:56pm Urine Leukocyte NEGATIVE NEGATIVE 04/06/2018 04/06/2018 Esterase 10:48pm 10:56pm Urine RBC <1 /hpf 0-5 04/06/2018 04/06/2018 10:48pm 10:58pm Urine WBC <1 /hpf 0-5 04/06/2018 04/06/2018 10:48pm 10:58pm Urine Epithelial 1-5 /hpf 0-5 04/06/2018 04/06/2018 Cells 10:48pm 10:58pm Urine Bacteria TRACE /hpf None Detect 04/06/2018 04/06/2018 10:48pm 10:58pm Urine Casts 2-5 /lpf None Detect 04/06/2018 04/06/2018 10:48pm 10:58pm Urine Culture NO 04/06/2018 04/06/2018 Reflexed 10:48pm 10:58pm Procedures Procedure Status Date Provider(s) EMERGENCY DEPT VISIT Completed 03/06/18 CHYLMD TRACH DNA AMP PROBE Completed 03/06/18 N.GONORRHOEAE DNA AMP PROB Completed 03/06/18 URINALYSIS AUTO W/SCOPE Completed 03/06/18 OB US LIMITED FETUS(S) Completed 03/06/18 URINALYSIS AUTO W/SCOPE Completed 03/25/18 EMERGENCY DEPT VISIT Completed 03/25/18 EMERGENCY DEPT VISIT Completed 03/25/18 US obstetrical limited Completed 03/06/18 ANAND WOODRUFF MD Encounters Encounter Location Arrival/Admit Date Discharge/Depart Date Attending Provider Departed [place] 04/06/18 10:28pm 04/06/18 11:26pm [facility] Departed [place] 03/25/18 3:28pm 03/25/18 4:38pm BABITA [facility] Departed [place] 03/06/18 6:03pm 03/06/18 9:45pm KACY, [facility]
--- OUTSIDE RECORDS SUMMARY | 2018-10-06 02:53 | XMS REPORT | Continuity of Care Document ---
:1995 Author Organization [facility] Address [address] [place] [address] Phone Unavailable Care Team Providers Name Role Phone PHYSICIAN, NO Primary Care Physician Unavailable Insurance Providers Guarantor Yamel Cano Address [address] [place] [address] Email NO EMAIL [facility]ayer [facility] Policy Number [id number] Subscriber's Name Yamel Cano Relationship Self / Same As Patient Group Number NA Group Name NA Advance Directives Directive Response Recorded Date/Time Patient/Family Given Education Material R/T Y - 06/21/18...[place] 06/21/18 1: 05pm Directives? Problems Active ProblemsNo active problem information available. Past Problems Medical Problem Onset Date Status Hemorrhoids during Unknown Acute Medications No medication information available. Social History Smoking Status Start Date Stop Date Never smoker Hospital Discharge Instructions No hospital discharge instruction information available. Plan of Care Discharge Date 06/21/18 6:02pm Disposition DC/TRANS. SHORT TERM GEN. HOSP Prescriptions See Medication Section Functional Status No functional status information available. Allergies, Adverse Reactions, Alerts No known allergies. Immunizations No immunization information available. Vital Signs No vital sign information available. Results Laboratory Results Test Name Result Units Flags Reference Collection Result Comments Date/Time Date/Time Urine Squamous 11-25 /lpf 0-5 05/29/2018 05/29/2018 Epithelial 2:20pm 2:55pm Cells Urine Color YELLOW 06/21/2018 06/21/2018 1:16pm 1:50pm Urine HAZY A CLEAR 06/21/2018 06/21/2018 Appearance 1:16pm 1:50pm Urine Glucose NEGATIVE NEGATIVE 06/21/2018 06/21/2018 1:16pm 1:50pm Urine Bilirubin NEGATIVE NEGATIVE 06/21/2018 06/21/2018 1:16pm 1:50pm Urine Ketones NEGATIVE NEGATIVE 06/21/2018 06/21/2018 1:16pm 1:50pm Urine Specific 1.010 1.003-1.030 06/21/2018 06/21/2018 [place] 1:16pm 1:50pm Urine Blood NEGATIVE NEGATIVE 06/21/2018 06/21/2018 1:16pm 1:50pm Urine pH 8.000 5-9 06/21/2018 06/21/2018 1:16pm 1:50pm Urine Protein NEGATIVE NEGATIVE 06/21/2018 06/21/2018 1:16pm 1:50pm Urine 1.0 E.U./dL 0.2-1.0 06/21/2018 06/21/2018 Urobilinogen 1:16pm 1:50pm Urine Nitrate NEGATIVE NEGATIVE 06/21/2018 06/21/2018 1:16pm 1:50pm Urine Leukocyte MODERATE H NEGATIVE 06/21/2018 06/21/2018 Esterase 1:16pm 1:50pm Urine RBC 0-3 /hpf 0-5 06/21/2018 06/21/2018 1:16pm 1:50pm Urine WBC 5-9 /hpf H 0-5 06/21/2018 06/21/2018 1:16pm 1:50pm Urine 6-10 /hpf 0-5 06/21/2018 06/21/2018 Epithelial 1:16pm 1:50pm Cells Urine Bacteria TRACE /hpf None Detect 06/21/2018 06/21/2018 1:16pm 1:50pm Urine Casts NONE SEEN /lpf None Detect 06/21/2018 06/21/2018 1:16pm 1:50pm Urine Culture YES 06/21/2018 06/21/2018 Reflexed 1:16pm 1:50pm Urine Renal 0-5 /lpf 0-5 06/21/2018 06/21/2018 Epithelial 1:16pm 1:50pm Cells Amniotic Fluid NEGATIVE NEG 06/21/2018 06/21/2018 Protein 2:28pm 2:57pm Procedures Procedure Status Date Provider(s) EMERGENCY DEPT VISIT Completed 05/29/18 URINALYSIS AUTO W/SCOPE Completed 05/29/18 URINE BACTERIA CULTURE Completed 05/29/18 THER/PROPH/DIAG INJ SC/IM Completed 05/29/18 Encounters Encounter Location Arrival/Admit Date Discharge/Depart Date Attending Provider Departed [place] 06/21/18 1:07pm 06/21/18 6:02pm ERIC, Emergency Room [facility] Departed [place] 05/29/18 2:13pm 05/29/18 4:00pm ERIC, Emergency Room [facility]
--- OUTSIDE RECORDS SUMMARY | 2018-10-06 02:53 | XMS REPORT | Continuity of Care Document ---
:1995 Author Organization [facility] Address [address] [place] [address] Phone Unavailable Care Team Providers Name Role Phone PHYSICIAN, NO Primary Care Physician Unavailable Insurance Providers Guarantor Yamel Cano Address [address] [place] [address] Email NO EMAIL [facility]ayer [facility] Policy Number [id number] Subscriber's Name Yamel Cano Relationship Self / Same As Patient Group Number NA Group Name NA Advance Directives Directive Response Recorded Date/Time Patient/Family Given Education Material R/T Y - 05/29/18...MK 05/29/18 2: 12pm Directives? Problems Active ProblemsNo active problem information available. Past Problems Medical Problem Onset Date Status Hemorrhoids during Unknown Acute Medications No medication information available. Social History Smoking Status Start Date Stop Date Never smoker Hospital Discharge Instructions No hospital discharge instruction information available. Plan of Care Discharge Date 05/29/18 4:00pm Disposition PATIENT DISCHARGE HOME OR SELF Instructions/Education Provided Third Trimester of Abdominal Pain During Prescriptions See Medication Section Functional Status No functional status information available. Allergies, Adverse Reactions, Alerts No known allergies. Immunizations No immunization information available. Vital Signs No vital sign information available. Results Laboratory Results Test Name Result Units Flags Reference Collection Result Comments Date/Time Date/Time Urine 1-5 /hpf 0-5 04/06/2018 04/06/2018 Epithelial 10:48pm 10:58pm Cells Urine Color YELLOW 05/29/2018 05/29/2018 2:20pm 2:55pm Urine CLEAR CLEAR 05/29/2018 05/29/2018 Appearance 2:20pm 2:55pm Urine Glucose NEGATIVE NEGATIVE 05/29/2018 05/29/2018 2:20pm 2:55pm Urine NEGATIVE NEGATIVE 05/29/2018 05/29/2018 Bilirubin 2:20pm 2:55pm Urine Ketones NEGATIVE NEGATIVE 05/29/2018 05/29/2018 2:20pm 2:55pm Urine Specific 1.015 1.003-1.030 05/29/2018 05/29/2018 [place] 2:20pm 2:55pm Urine Blood NEGATIVE NEGATIVE 05/29/2018 05/29/2018 2:20pm 2:55pm Urine pH 7.000 5-9 05/29/2018 05/29/2018 2:20pm 2:55pm Urine Protein NEGATIVE NEGATIVE 05/29/2018 05/29/2018 2:20pm 2:55pm Urine 0.2 E.U./dL 0.2-1.0 05/29/2018 05/29/2018 Urobilinogen 2:20pm 2:55pm Urine Nitrate NEGATIVE NEGATIVE 05/29/2018 05/29/2018 2:20pm 2:55pm Urine MODERATE H NEGATIVE 05/29/2018 05/29/2018 Leukocyte 2:20pm 2:55pm Esterase Urine RBC NONE SEEN /hpf 0-5 05/29/2018 05/29/2018 2:20pm 2:55pm Urine WBC 5-9 /hpf H 0-5 05/29/2018 05/29/2018 2:20pm 2:55pm Urine Bacteria TRACE /hpf None Detect 05/29/2018 05/29/2018 2:20pm 2:55pm Urine Casts NONE SEEN /lpf None Detect 05/29/2018 05/29/2018 2:20pm 2:55pm Urine Culture NO. 05/29/2018 05/29/2018 >10 EPITHELIAL CELLS/HPF. INDICATIVE OF CONTAMINATED URINE. Reflexed CONTAMINAT 2:20pm 2:55pm CULTURE WILL NOT BE PERFORMED. PLEASE RECOLLECT IF CULTURE ED. IS DEEMED NECESSARY. Urine Squamous 11-25 /lpf 0-5 05/29/2018 05/29/2018 Epithelial 2:20pm 2:55pm Cells Procedures Procedure Status Date Provider(s) EMERGENCY DEPT VISIT Completed 04/06/18 URINALYSIS AUTO W/SCOPE Completed 04/06/18 Encounters Encounter Location Arrival/Admit Date Discharge/Depart Date Attending Provider Departed [place] 05/29/18 2:13pm 05/29/18 4:00pm [facility] Departed [place] 04/06/18 10:28pm 04/06/18 11:26pm BABITA, [facility]
[2018-10-06] MEDS ORDERED: NA CHLORIDE 0.9% 500 ML ONE (03:30)
[2018-10-06 03:36] LABS: Absolute Lymphocytes (CBC) 1.3 K/uL (0.7-4.9); Basophils % 0.4 % (0-1.3); Lymphocytes % 13.1 % (15.3-44.8); MPV 9.7 fL (7.6-11.3)
[2018-10-06] MEDS ORDERED: KETOROLAC 30 MG/ML INJ ONE (03:42)
[2018-10-06 03:45] LABS: ALT/SGPT 23 U/L (12-78); AST/SGOT 15 U/L (15-37); Albumin 3.8 g/dL (3.4-5.0); Alkaline Phosphatase 87 U/L (45-117); BUN Blood Urea Nitrogen 11 mg/dL (7-18); Bicarbonate 26 mmol/L (21-32); Bilirubin Direct 0.1 mg/dL (0-0.2); Bilirubin Total 0.4 mg/dL (0.2-1.0); Glucose Level 93 mg/dL (74-106); Lipase 135 U/L (73-393); Potassium 3.5 mmol/L (3.5-5.1); Protein, Total 8.1 g/dL (6.4-8.2); Sodium Level 141 mmol/L (136-145)
--- NOTE | 2018-10-06 04:02 | EDPHYS ---
Physician Documentation [facility] Name: Yamel Cano Age: 23 yrs Sex: Female : 1995 Arrival Date: 10/06/2018 Time: 02:52 Bed 6 Private MD: ED Physician Alli Moncada HPI: 10/06 03:00 This 23 yrs old Black Female presents to ER via Unassigned with complaints of Abdominal heriberto Pain. 03:00 The patient presents with abdominal pain in the lower abdomen. Onset: The heriberto symptoms/episode began/occurred 2 day(s) ago. The symptoms do not radiate. Associated signs and symptoms: none. The symptoms are described as constant, crampy. Severity of pain: At its worst the pain was moderate in the emergency department the pain is unchanged. The patient has not experienced similar symptoms in the past. 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 - Social history:: Smoking status: unknown. - Family history:: not pertinent. - Ebola Screening: : No symptoms or risks identified at this time. ROS: 03:00 Constitutional: Negative for fever, chills, and weight loss, Eyes: Negative for injury, heriberto pain, redness, and discharge, ENT: Negative for injury, pain, and discharge, Neck: Negative for injury, pain, and swelling, Cardiovascular: Negative for chest pain, palpitations, and edema, Respiratory: Negative for shortness of breath, cough, wheezing, and pleuritic chest pain, Back: Negative for injury and pain, : Negative for injury, bleeding, discharge, and swelling, MS/Extremity: Negative for injury and deformity, Skin: Negative for injury, rash, and discoloration, Neuro: Negative for headache, weakness, numbness, tingling, and seizure, Psych: Negative for depression, anxiety, suicide ideation, homicidal ideation, and hallucinations, Allergy/Immunology: Negative for hives, rash, and allergies, Endocrine: Negative for neck swelling, polydipsia, polyuria, polyphagia, and marked weight changes, Hematologic/Lymphatic: Negative for swollen nodes, abnormal bleeding, and unusual bruising. 03:00 Abdomen/GI: Positive for abdominal pain, of the suprapubic area. Exam: 03:00 Constitutional: This is a well developed, well nourished patient who is awake, alert, heriberto and in no acute distress. Head/Face: Normocephalic, atraumatic. Eyes: Pupils equal round and reactive to light, extra-ocular motions intact. Lids and lashes normal. Conjunctiva and sclera are non-icteric and not injected. Cornea within normal limits. Periorbital areas with no swelling, redness, or edema. ENT: Nares patent. No nasal discharge, no septal abnormalities noted. Tympanic membranes are normal and external auditory canals are clear. Oropharynx with no redness, swelling, or masses, exudates, or evidence of obstruction, uvula midline. Mucous membranes moist. Neck: Trachea midline, no thyromegaly or masses palpated, and no cervical lymphadenopathy. Supple, full range of motion without nuchal rigidity, or vertebral point tenderness. No Meningismus. Chest/axilla: Normal chest wall appearance and motion. Nontender with no deformity. No lesions are appreciated. Cardiovascular: Regular rate and rhythm with a normal S1 and S2. No gallops, murmurs, or rubs. Normal PMI, no JVD. No pulse deficits. Respiratory: Lungs have equal breath sounds bilaterally, clear to auscultation and percussion. No rales, rhonchi or wheezes noted. No increased work of breathing, no retractions or nasal flaring. Back: No spinal tenderness. No costovertebral tenderness. Full range of motion. Skin: Warm, dry with normal turgor. Normal color with no rashes, no lesions, and no evidence of cellulitis. MS/ Extremity: Pulses equal, no cyanosis. Neurovascular intact. Full, normal range of motion. Neuro: Awake and alert, GCS 15, oriented to person, place, time, and situation. Cranial nerves II-XII grossly intact. Motor strength 5/5 in all extremities. Sensory grossly intact. Cerebellar exam normal. Normal gait. Psych: Awake, alert, with orientation to person, place and time. Behavior, mood, and affect are within normal limits. 03:00 Abdomen/GI: Inspection: distension, Bowel sounds: normal, active, Palpation: moderate abdominal tenderness, in the suprapubic area, Liver: no appreciated palpable abnormalities. Vital Signs: 03:09 BP 121 / 77; Pulse 101; Resp 16 S; Temp 98.8(O); Pulse Ox 100% on R/A; Weight 70.31 kg bb (R); Height 5 ft. 5 in. (165.10 cm) (R); Pain 7/10; 03:56 BP 111 / 61; Pulse 85; Resp 16 S; Pulse Ox 99% on R/A; Pain 2/10; jd3 03:09 Body Mass Index 25.79 (70.31 kg, 165.10 cm) bb MDM: 02:[address] [facility] 03:03 Data reviewed: vital signs, nurses notes, lab test result(s), radiologic studies, CT heriberto scan. 10/06 03:00 Order name: Basic Metabolic Panel; Complete Time: 04:01 [facility] 10/06 03:00 Order name: CBC with Diff; Complete Time: 04:01 [facility] 10/06 03:00 Order name: Creatinine for Radiology; Complete Time: 03:44 [facility] 10/06 03:00 Order name: Hepatic Function; Complete Time: 04:01 [facility] 10/06 03:00 Order name: Lipase; Complete Time: 04:01 [facility] 10/06 03:00 Order name: Urine Culture [facility] 10/06 03:00 Order name: IV Saline Lock; Complete Time: 03:19 [facility] 10/06 03:00 Order name: Labs collected and sent; Complete Time: 03:19 [facility] 10/06 03:00 Order name: Urine Dipstick-Ancillary (obtain specimen); Complete Time: 03:13 [facility] 10/06 03:00 Order name: Urine Test (obtain specimen); Complete Time: 03:12 [facility] 10/06 03:33 Order name: Urine Dipstick--Ancillary (enter results) ar5 10/06 03:33 Order name: Urine --Ancillary (enter results) ar5 Administered Medications: 03:18 Drug: NS 0.9% 500 ml Route: IV; Rate: bolus; Site: left antecubital; jd3 04:17 Follow up: Response: No adverse reaction; IV Status: Completed infusion; IV Intake: jd3 500ml 03:27 Drug: TORadol 30 mg Route: IVP; Site: left antecubital; jd3 04:18 Follow up: Response: No adverse reaction; Pain is decreased jd3 Disposition: 10/06/18 04:02 Discharged to Home. Impression: Pelvic and perineal pain, Abdominal and pelvic pain. - Condition is Stable. - Discharge Instructions: Pelvic Pain, Female, Pelvic Pain, Female, Lnun-eo-Geri, Abdominal Pain, Adult, [id number]. - Prescriptions for Tylenol- Codeine #3 300-30 mg Oral Tablet - take 2 tablets by ORAL route every 6 hours As needed; 15 tablet. Motrin IB 200 mg Oral Tablet - take 2 tablet by ORAL route every 6 hours As needed as needed with food; 30 tablet. - Medication Reconciliation Form, Thank You Letter, Antibiotic Education, Prescription Opioid Use, Work release form form. - Follow up: Private Physician; When: 2 - 3 days; Reason: Recheck today's complaints, Continuance of care, Re-evaluation by your physician. Follow up: Deyvi Don; When: 2 - 3 days; Reason: Recheck today's complaints, Continuance of care, Re-evaluation by your physician. - Problem is new. - Symptoms have improved. Signatures: Dispatcher [employer] EDMS Alli Moncada MD MD cha Ballard, Brenda, RN RN Freddy Rangel RN RN jd3 Corrections: (The following items were deleted from the chart) 04:20 04:02 10/06/2018 04:02 Discharged to Home. Impression: Pelvic and perineal pain; jd3 Abdominal and pelvic pain. Condition is Stable. Discharge Instructions: Pelvic Pain, Female, Pelvic Pain, Female, Xdxh-[id number], Abdominal Pain, Adult, [id number]-[id number]. Prescriptions for Tylenol-Codeine #3 300-30 mg Oral Tablet - take 2 tablets by ORAL route every 6 hours As needed; 15 tablet, Motrin IB 200 mg Oral Tablet - take 2 tablet by ORAL route every 6 hours As needed as needed with food; 30 tablet. and Forms are Medication Reconciliation Form, Thank You Letter, Antibiotic Education, Prescription Opioid Use. Follow up: Private Physician; When: 2 - 3 days; Reason: Recheck today's complaints, Continuance of care, Re-evaluation by your physician. Follow up: Deyvi Don; When: 2 - 3 days; Reason: Recheck today's complaints, Continuance of care, Re-evaluation by your physician. Problem is new. Symptoms have improved. heriberto
--- NOTE | 2018-10-06 04:02 | ER ---
Nurse's Notes [facility] Name: Yamel Cano Age: 23 yrs Sex: Female : 1995 Arrival Date: 10/06/2018 Time: 02:52 Bed 6 Private MD: Diagnosis: Pelvic and perineal pain;Abdominal and pelvic pain Presentation: 10/06 03:00 Presenting complaint: Patient states: she has been having lower abdominal pain for 4 bb days she went to [place] ED and was told that she did not have a UTI and that it was probably her fibroids but the pain is not going away. Pt denies vomiting or diarrhea. Transition of care: patient was not received from another setting of care. Onset of symptoms was October 01, 2018. Risk Assessment: Do you want to hurt yourself or someone else? Patient reports no desire to harm self or others. Initial Sepsis Screen: Does the patient meet any 2 criteria? No. Patient's initial sepsis screen is negative. Does the patient have a suspected source of infection? No. Patient's initial sepsis screen is negative. Care prior to arrival: None. 03:00 Method Of Arrival: Ambulatory bb 03:00 Acuity: MAURICE 3 bb Triage Assessment: 04:16 General: Behavior is calm, cooperative, appropriate for age. 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 - Social history:: Smoking status: unknown. - Family history:: not pertinent. - Ebola Screening: : No symptoms or risks identified at this time. Screenin:20 Abuse screen: Denies threats or abuse. Nutritional screening: No deficits noted. jd3 Tuberculosis screening: No symptoms or risk factors identified. Fall Risk IV access (20 points). Ambulatory Aid- None/Bed Rest/Nurse Assist (0 pts). Gait- Normal/Bed Rest/Wheelchair (0 pts) Mental Status- Oriented to own ability (0 pts). Total Bryan Fall Scale indicates No Risk (0-24 pts). Assessment: 03:19 General: Appears in no apparent distress. uncomfortable. Pain: Complains of pain in jd3 suprapubic area Quality of pain is described as aching, pressure, tender, Is continuous. Neuro: Level of Consciousness is awake, alert, obeys commands, Oriented to person, place, time, situation. Cardiovascular: Denies chest pain, shortness of breath, Capillary refill < 3 seconds Patient's skin is warm and dry. Respiratory: Airway is patent Respiratory effort is even, unlabored, Respiratory pattern is regular, symmetrical, Denies cough, shortness of breath. GI: Abdomen is round non-distended, Bowel sounds present X 4 quads. Abd is soft and non tender X 4 quads. Abdomen is tender to palpation in suprapubic area Reports nausea, Patient currently denies constipation, diarrhea, vomiting. : No signs and/or symptoms were reported regarding the genitourinary system. EENT: No signs and/or symptoms were reported regarding the EENT system. Derm: Skin is intact, Skin is dry, Skin is normal, Skin temperature is warm. Musculoskeletal: Circulation, motion, and sensation intact. Range of motion: intact in all extremities. 03:56 Reassessment: Patient appears in no apparent distress at this time. No changes from jd3 previously documented assessment. Patient and/or family updated on plan of care and expected duration. Pain level reassessed. Patient is alert, oriented x 3, equal unlabored respirations, skin warm/dry/pink. 04:16 Reassessment: Patient appears in no apparent distress at this time. Patient and/or [facility] family updated on plan of care and expected duration. Pain level reassessed. Patient is alert, oriented x 3, equal unlabored respirations, skin warm/dry/pink. pt reported understanding of discharge instructions. even and steady gait upon discharge. Vital Signs: 03:09 BP 121 / 77; Pulse 101; Resp 16 S; Temp 98.8(O); Pulse Ox 100% on R/A; Weight 70.31 kg bb (R); Height 5 ft. 5 in. (165.10 cm) (R); Pain 7/10; 03:56 BP 111 / 61; Pulse 85; Resp 16 S; Pulse Ox 99% on R/A; Pain 2/10; jd3 03:09 Body Mass Index 25.79 (70.31 kg, 165.10 cm) ED Course: 02:52 Patient arrived in ED. ds1 02:52 Alli Moncada MD is Attending Physician. heriberto 03:09 Triage completed. bb 03:09 Arm band placed on Patient placed in an exam room, on a stretcher, on pulse oximetry. bb 03:20 Patient has correct armband on for positive identification. Placed in gown. Bed in low jd3 position. Call light in reach. Side rails up X 1. 03:20 Missed attempt(s): 20 gauge in right antecubital area. lt1 03:20 Initial lab(s) drawn, by me, sent to lab. Inserted saline lock: 20 gauge in left lt1 antecubital area, using aseptic technique. 03:23 Freddy Mayfield, TAIWO is Primary Nurse. jd3 04:02 Deyvi Don MD is Referral Physician. heriberto 04:15 No provider procedures requiring assistance completed. IV discontinued, intact, jd3 bleeding controlled, No redness/swelling at site. Pressure dressing applied. Administered Medications: 03:18 Drug: NS 0.9% 500 ml Route: IV; Rate: bolus; Site: left antecubital; jd3 04:17 Follow up: Response: No adverse reaction; IV Status: Completed infusion; IV Intake: jd3 500ml 03:27 Drug: TORadol 30 mg Route: IVP; Site: left antecubital; jd3 04:18 Follow up: Response: No adverse reaction; Pain is decreased jd3 Intake: 04:17 IV: 500ml; Total: 500ml. jd3 Outcome: 04:02 Discharge ordered by . heriberto 04:16 Discharged to home ambulatory, with family. jd3 04:16 Condition: stable 04:16 Discharge instructions given to patient, Instructed on discharge instructions, follow up and referral plans. medication usage, Demonstrated understanding of instructions, follow-up care, medications, Prescriptions given X 2. 04:20 Patient left the ED. jd3 Signatures: Alli Moncada MD MD cha Sanford, Demi ds1 Tara Pagan RN RN Freddy Rangel RN RN jd3 Tran, Leah lt1 Corrections: (The following items were deleted from the chart) 04:01 03:56 BP 111 / 61; Pulse 85bpm; Resp 16bpm; Spontaneous; Pulse Ox 99% RA; jd3 jd3
[2018-10-06 05:15] LABS: Urine Blood NEGATIVE (NEG); Urine Glucose NEGATIVE (NEG); Urine Protein NEGATIVE (NEG)
== END 2018-10-06 04:20 | disposition home or self-care (01) ==
LOC: ER 02:50
DX: R10.2 Pelvic and perineal pain (principal)
CPT/HCPCS: 36415; 80048; 80076; 81003; 81025; 83690; 85025; 87086; 87088; 96361; 96374; 99284

== ENCOUNTER 2021-11-14 11:00 | Emergency (ER) | payer SELFPAY ==
--- OUTSIDE RECORDS SUMMARY | 2021-11-14 11:08 | XMS REPORT | Continuity of Care Document ---
:[address] [facility] t Address [address] [place] [address] Care Team Providers Name Role Phone Pcp, Patient Does Not Have A Primary Care Physician [id number] LIZZY LORD Attending Clinician Unavailable Katie Ortiz RN Attending Clinician Unavailable AICHA REYNA Attending Clinician Unavailable Only, Junior Db Test Attending Clinician Unavailable EbAicha Daly Attending Clinician Deloris WHP, Maria Gallego Attending Clinician [phone] Ip , Deja Sylvester Attending Clinician TK CARMEN Attending Clinician Unavailable Doctor Unassigned, [place] Attending Clinician Unavailable Delfino STIPPLER, Lizzy R Attending Clinician UNASSIGNED, ED Attending Clinician Unavailable Salome Attending Clinician Unavailable STACEY, DR ALIE ZAMORA Attending Clinician Unavailab sandra KIMBALL, DR JAYSON Turcios Attending Clinician Unavailable NOEL, DR KEITA Attending Clinician Unavailable LIZZY LORD Admitting Clinician Unavailable Salome Admitting Clinician Unavailable DR ALIE IBARRA Admitting Clinician Unavailab sandra KIMBALL, DR JAYSON Turcios Admitting Clinician Unavailable NOEL, DR KEITA Admitting Clinician Unavailable Payers Payer Name Policy Type Policy Number Effective Date Expiration Date S ource 2 W [id number] [place] WOMEN'S [id number] HEALTH PROGRAM (MEDICAID) Problems Condition Condition Condition Status Onset Resolution Last Treating Co mments Source Name Details Category Date Date Treatment Clinician Date Other Other Disease Active Univers general general 7-27 ity of counseling [place] and advice 00 Me dical for for Branch contracept contracept raisa raisa management management Depo-Prove Depo-Prove Disease Active U sharad ra ra 5-05 ity of contracept [place] raisa status raisa status 00 Me dical Branch Metrorrhag Metrorrhag Disease Active 2021- U sharad ia ia 5-05 ity of 00:00: [address] Branch Vaginal Vaginal Disease Active Univers discharge discharge 2-08 ity of 00:00: [address] Branch Adult body Adult body Disease Active 2019- U nivabby mass index mass index 0-10 it y of 29.0-29.9 29.0-29.9 [place] [facility] [place] Intramural Intramural Disease Active Overview : Univers leiomyoma leiomyoma 11-19 Formattin i ty of of uterus of uterus 00:00: [place] of this [place] 00 note Medical might be Branch different from the original. 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 of cervix of cervix Repeat cytology in 1 year Screening Screening Disease Active Overview: [facility] examinatio examinatio 2-12 Formattin ity of n for STD n for STD 00:00: [place] (sexually (sexually 00 note Medi jana transmitte transmitte might be Branch d disease) d disease) different from the original. 09/27/2017 Pt presents for OCP f/u after initial prescript ion of ortho tri cyclen given on 08/16/17 due to unwanted side effects. She reports feeling CP that started 2 weeks after starting OCP; would occur daily within a couple of hours after taking OCP and last for a couple of hours, described as dull ache. As well as a 2 day period of nausea. She sought out ER care for above sx on 09/10/17. Labs, CXR and EKG was performed and reported as normal. 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 02:49:54 l Active Alok Problem 06/12/2020 [facility] Supervisio Problem Active 2018-09-12 M emoria n of other Supervisio 02:46:13 l high risk n of other Her lala pregnancie high risk s, third pregnancie trimester s, third trimester Active Problem 09/12/2018 [facility] Amenorrhea Amenorrhe Problem Active 2020-06-12 Arvind , shereen, 02:49:54 l unspecifie unspecifie He rmann d d Active Problem 06/12/2020 [facility] Abnormal Abnormal Problem Active 2018-01-06 Arvind uterine uterine 02:46:37 l and and Alok vaginal vaginal bleeding, bleeding, unspecifie unspecifie d d Active Problem 01/06/2018 [facility] Supervisio Supervisi Problem Active 2018-05-09 Memoria n of other on of 03:46:39 l high risk other high Her lala pregnancie risk s, second pregnancie trimester s, second trimester Active Problem 05/09/2018 [facility] Pelvic and Pelvic Diagnosis Active 2019-05-19 Memoria perineal and 03:45:32 l pain perineal Alok pain Active Diagnosis 05/19/2019 [facility] Encounter Encounter Problem Active 2018-01-07 Memoria for for 02:45:45 l supervisio supervisio He rmann n of other n of other normal normal , , first first trimester trimester Active Problem 01/07/2018 [facility] Allergies, Adverse Reactions, Alerts Allergy Allergy Status Severity Reaction(s) Onset Inactive Treating Comm ents Source Name Type Date Date Clinician No Known NA Active [facility] Allergie 05-16 Hospita s 11:40: l 34 (Beaumo nt) No Known NA Active [facility] Allergie 05-16 Hospita s 11:40: l 28 (Beaumo nt) No Known NA Active Conf[facility]ism Allergie 05-15 Hospita s 10:58: l 38 (Beaumo nt) No Known NA Active Confuc[facility]ism Allergie 05-14 Hospita s 16:41: l 38 (Beaumo nt) No Known NA Active Confuc[facility]ism Allergie 05-14 Hospita s 16:41: l 30 (Beaumo nt) No Known NA Active Confucianism Allergie 05-14 Hospita s 16:41: l 22 (Beaumo nt) No Known NA Active Confuc[facility]ism Allergie 05-14 Hospita s 14:32: l 57 (Beaumo nt) No Known NA Active Confucianism Allergie 05-13 Hospita s 13:32: l 13 (Beaunh nt) Latex Propensi Active Itching Univers ty to 4-10 ity of adverse 00:00: [place] reaction 00 Medical s Branch LATEX DRUG Active ITCHING Univers INGREDI 4-10 ity of 00:00: [place] 00 Medical Branch Latex Allergy Active [place] [facility] Social History Social Habit Start Date Stop Date Quantity Comments Source Exposure to 2021-10-02 2021-10-12 Yes [facility] SARS-CoV-2 (event) 00:00:00 09:13:00 Medica l Branch Alcohol intake 2021-09-16 2021-09-16 0 /d [facility] 00:00:00 00:00:00 Medical Branch Doyoveronica? 2016-02-16 2016-02-16 [facility] lizeth 00:00:00 00:00:00 Sex [birth year] [facility] [place] [facility] 00:00:00 00:00:00 Smoking Status Start Date Stop Date Source Tobacco smoking consumption [facility] unknown Never smoked tobacco [facility] Medications Ordered Filled Start Stop Current Ordering Indication Dosage Frequency Signature Comments Components Source Medication Medication Date Date Medication? Clinician (SIG) Name Name medroxyPROG 2021-0 2022- No [id number] 150mg Univers ESTERone -03-25 ity of (DEPO-PROVE 14:45: 15:44 [place] RA) 00 :00 Medical injection Branch 150 mg medroxyPROG 2021-0 2022- No [id number] 150mg Univers ESTERone 5-05 12 ity of (DEPO-PROVE 14:45: 15:44 [place] RA) 00 :00 Medical injection Branch 150 mg medroxyPROG 2021-0 2022- No [id number] 150mg Univers ESTERone 5-03-25 ity of (DEPO-PROVE 14:45: 15:44 [place] RA) 00 :00 Medical injection Branch 150 mg medroxyPROG 2021-0 3- No [id number] 150mg Univers ESTERone 5-05 12 ity of (DEPO-PROVE 14:45: 15:44 [place] RA) 00 :00 Medical injection Branch 150 mg ketorolac 2021- Yes [id number] 10mg Take 1 U nivers 10 mg 5-02 tablet by ity of tablet 00:00: mouth [place] 00 every 6 Medical (six) Branch hours as needed for Pain (scale 4-6). methocarbam Yes [id number] 500mg Take 1 Univers oL 500 mg 5-02 tablet by ity o f tablet 00:00: mouth 4 [place] 00 (four) Medical times Branch daily. ketorolac 2022-0 Yes [id number] 10mg Take 1 U nivers 10 mg 5-02 tablet by ity of tablet 00:00: mouth [place] 00 every 6 Medical (six) Branch hours as needed for Pain (scale 4-6). methocarbam 2022-0 Yes [id number] 500mg Take 1 Univers oL 500 mg 5-02 tablet by ity o f tablet 00:00: mouth (four) Medical times Branch daily. ketorolac 2022-0 Yes [id number] 10mg Take 1 U nivers 10 mg 5-02 tablet by ity of tablet 00:00: mouth [place] 00 every 6 Medical (six) Branch hours as needed for Pain (scale 4-6). methocarbam 2022-0 Yes [id number] 500mg Take 1 Univers oL 500 mg 5-02 tablet by ity o f tablet 00:00: mouth (four) Medical times Branch daily. ketorolac 2022-0 Yes [id number] 10mg Take 1 U nivers 10 mg 5-02 tablet by ity of tablet 00:00: mouth [place] 00 every 6 Medical (six) Branch hours as needed for Pain (scale 4-6). methocarbam 2022-0 Yes [id number] 500mg Take 1 Univers oL 500 mg 5-02 tablet by ity o f tablet 00:00: mouth (four) Medical times Branch daily. ibuprofen 2022-0 Yes [id number] 800mg Take 1 Univers 800 mg 4-22 tablet by ity of tablet 00:00: mouth [place] 00 every 6 Medical (six) Branch hours as needed for Pain (scale 4-6). ibuprofen 2022-0 Yes [id number] 800mg Take 1 Univers 800 mg 4-22 tablet by ity of tablet 00:00: mouth [place] 00 every 6 Medical (six) Branch hours as needed for Pain (scale 4-6). ibuprofen 2022-0 Yes [id number] 800mg Take 1 Univers 800 mg 4-22 tablet by ity of tablet 00:00: mouth [place] 00 every 6 Medical (six) Branch hours as needed for Pain (scale 4-6). ibuprofen 2022-0 Yes [id number] 800mg Take 1 Univers 800 mg 4-22 tablet by ity of tablet 00:00: mouth [place] 00 every 6 Medical (six) Branch hours as needed for Pain (scale 4-6). cyclobenzap 2022-0 Yes [id number] 5mg Take 1 Univers rine 5 mg 4-20 tablet by ity o f tablet 00:00: mouth 3 [place] 00 (three) Medical times Branch daily. acetaminoph 2022-0 Yes [id number] 1{tbl} Take 1 Un tonya en-codeine 4-20 tablet by ity of 300-30 mg 00:00: mouth [place] tablet 00 every 4 Medical (four) Branch hours as needed for Pain (scale 7-10). Indication s: acute pain cyclobenzap 2022-0 Yes [id number] 5mg Take 1 Univers rine 5 mg 4-20 tablet by ity o f tablet 00:00: mouth 3 [place] 00 (three) Medical times Branch daily. acetaminoph 2022-0 Yes [id number] 1{tbl} Take 1 Un tonya en-codeine 4-20 tablet by ity of 300-30 mg 00:00: mouth [place] tablet 00 every 4 Medical (four) Branch hours as needed for Pain (scale 7-10). Indication s: acute pain cyclobenzap 2022-0 Yes [id number] 5mg Take 1 Univers rine 5 mg 4-20 tablet by ity o f tablet 00:00: mouth 3 [place] 00 (three) Medical times Branch daily. acetaminoph 2022-0 Yes [id number] 1{tbl} Take 1 Un tonya en-codeine 4-20 tablet by ity of 300-30 mg 00:00: mouth [place] tablet 00 every 4 Medical (four) Branch hours as needed for Pain (scale 7-10). Indication s: acute pain cyclobenzap 2022-0 Yes [id number] 5mg Take 1 Univers rine 5 mg 4-20 tablet by ity o f tablet 00:00: mouth 3 [place] 00 (three) Medical times Branch daily. acetaminoph 2022-0 Yes [id number] 1{tbl} Take 1 Un tonya en-codeine 4-20 tablet by ity of 300-30 mg 00:00: mouth [place] tablet 00 every 4 Medical (four) Branch hours as needed for Pain (scale 7-10). Indication s: acute pain Ketorolac 1-0 No 10mg Every 6 LEELEE TU Tromethamin 2-19 Hours as S e (Toradol) 16:41: needed for Health 10 Mg TAB 00 Pain Ondansetron No 8mg Every 8 CHR ISTU Hcl (Zofran 2-19 Hours as S Odt) 8 Mg 16:41: needed for He alth ODT 00 Vomiting Ketorolac No 10mg [facility] Tromethamin 2-19 S - St. e (Toradol) 16:41: Hui 10 Mg TAB 00 Ondansetron No 8mg FIRDA U Hcl (Zofran 2-19 S - St. Odt) 8 Mg 16:41: Hui ODT 00 Depo-Director Web Depo-Director Web No Depo-Prove [place] 150 mg/mL a 150 mg/mL 11-17 ra 150 da intramuscul intramuscul 14:45: mg/mL Medical ar ar 38 intramuscu Group suspensionI suspensionI lar nject 1 mL nject 1 mL suspension every 3 every 3 Inject 1 months by months by mL every 3 intramuscul intramuscul months by ar route. ar route. intramuscu lar route. Terconazole Yes Alie 1 Me moria 1-07 [place] applicator l 00:00: ful at [place] 00 bedtime Terconazole Yes Alie 1 Me moria 1-07 [place] applicator l 00:00: ful [place] 00 bedtime ibuprofen 2017-03 Yes Alie not Edmund fide 0-26 Akint[place] defined l 02:46: Tramadol 2017-03 Yes Alie not Memor ia 0-26 Akintola defined l 02:46: ibuprofen 2017-03 Yes Alie not Edmund fide 0-26 [place]intola defined l 02:46: Tramadol 2017-03 Yes Alie not Memor ia 0-26 Akintola defined l 02:46: Sprintec 28 Yes Alie 1 tablet Memoria 4-27 Olude l 00:00: Sprintec 28 Yes Alie 1 tablet Memoria 4-27 Olude l 00:00: Sprintec 2015-03 Yes Alie 1 tablet Memoria 2-19 Akintola l 00:00: Alok Sprintec 2015-03 Yes Alie 1 tablet Memoria 2-19 [place]ola l 00:00: [place] 00 Colace 2015-03 Yes Alie 1 capsule Me moria 2-05 Akintola as needed l 00:00: Alok 00 Ferrous 2015-03 Yes Alie 1 tablet Me moria Sulfate 2-05 Ak[place]ola l 00:00: Alok [facility] 2015-03 Yes Alie active med Memoria 2-05 [place] only, 5 on l 00:00: day 1, 4 [place] 00 on day 2, 3 on day 3, 2 on day 4, 1 on day 1 and daily after Colace 2015-03 Yes Alie 1 capsule Me moria 2-05 [place] as needed l 00:00: [place] 00 Ferrous 2015-03 Yes Alie 1 tablet Me moria Sulfate 2-05 Akintola l 00:00: Alok [facility] 2015-03 Yes Alie active med Memoria 2-05 Akintola only, 5 on l 00:00: day 1, 4 Alok 00 on day 2, 3 on day 3, 2 on day 4, 1 on day 1 and daily after Zofran ODT 2015-03 Yes Alie 1 tablet Memoria 2-05 Akintola on the l 00:00: tongue and Alok 00 allow to dissolve Zofran ODT 2015-03 Yes Alie 1 tablet Memoria 2-05 [place] on the l 00:00: tongue and Alok 00 allow to dissolve Depo-Director Web Depo-Director Web No 1mL Depo-Prove [place] 150 mg/mL a 150 mg/mL ra 150 da intramuscul intramuscul mg/mL Medical ar ar intramuscu Group suspension suspension lar Inject 1 mL Inject 1 mL suspension every 3 every 3 Inject 1 months by months by mL every 3 intramuscul intramuscul months by ar route. ar route. intramuscu lar route. Immunizations Ordered Filled Immunization Date Status Comments [facility] e Immunization Name Name TDAP 2013-08-02 Completed University 00:00:00 [facility] [place] [facility] TDAP 2013-08-02 Completed University of 00:00:00 [place] [facility] TDAP 2013-08-02 Completed University of 00:00:00 [place] [facility] TDAP 2013-08-02 Completed University of 00:00:00 [place] [facility] HPV 2013-04-14 Completed University of 00:00:00 [place] [facility] HPV 2013-04-14 Completed University of 00:00:00 [place] [facility] HPV 2013-04-14 Completed University of 00:00:00 [place] [facility] HPV 2013-04-14 Completed University of 00:00:00 [place] [facility] HPV 2013-02-11 Completed University of 00:00:00 [place] [facility] HPV 2013-02-11 Completed University of 00:00:00 [place] [facility] HPV 2013-02-11 Completed University of 00:00:00 [place] [facility] HPV 2013-02-11 Completed University of 00:00:00 [place] [facility] HPV 2012-12-12 Completed University of 00:00:00 [place] [facility] HPV 2012-12-12 Completed University of 00:00:00 [place] [facility] HPV 2012-12-12 Completed University of 00:00:00 [place] [facility] HPV 2012-12-12 Completed University of 00:00:00 [place] [facility] Td 2002-03-14 Completed University of 00:00:00 [place] [facility] Td 2002-03-14 Completed University of 00:00:00 [place] [facility] Td 2002-03-14 Completed University of 00:00:00 [place] [facility] Td 2002-03-14 Completed University of 00:00:00 [facility] [place] [facility] Vital Signs Vital Name Observation Time Observation Value Comments Source Systolic blood 2021-10-07 18:58:00 109 mm[Hg] Univer sity of pressure [facility] [place] [facility] Diastolic blood 2021-10-07 18:58:00 76 mm[Hg] Unive rsity of pressure [facility] [place] [facility] Heart rate 2021-10-07 18:58:00 76 /min [facility] Body temperature 2021-10-07 18:58:00 36.56 [facility] Respiratory rate 2021-10-07 18:58:00 18 /min [facility] Body height 2021-10-07 18:58:00 167.6 cm [facility] Body weight 2021-10-07 18:58:00 69.446 kg [facility] BMI 2021-10-07 18:58:00 24.71 kg/m2 [facility] BP Diastolic 2018-11-17 00:00:00 79 mm[Hg] [facility] Height 2018-11-17 00:00:00 66 [in_i] [facility] BMI (Body Mass 2018-11-17 00:00:00 25.2 kg/m2 [facility] Medical Index) Group BP Systolic 2018-11-17 00:00:00 113 mm[Hg] [facility] Body Weight 2018-11-17 00:00:00 156 [lb_av] [facility] BMI (Body Mass 2018-10-16 00:00:00 25 kg/m2 [facility] Medical Index) Group BP Systolic 2018-10-16 00:00:00 124 mm[Hg] [facility] Body Weight 2018-10-16 00:00:00 155.2 [lb_av] [facility] BP Diastolic 2018-10-16 00:00:00 74 mm[Hg] [facility] Height 2018-10-16 00:00:00 66 [in_i] [facility] BP Diastolic 2020-05-02 16:53:00 80 mm[Hg] [facility] BP Systolic 2020-05-02 16:53:00 115 mm[Hg] [facility] Heart Rate 2020-05-02 16:53:00 70 /min [facility] Respiratory rate 2020-05-02 16:53:00 16 /min [facility] Body Temperature 2020-05-02 16:53:00 98.0 [degF] [facility] BP Diastolic 2020-05-02 13:25:00 89 mm[Hg] [facility] BP Systolic 2020-05-02 13:25:00 127 mm[Hg] [facility] Heart Rate 2020-05-02 13:25:00 71 /min [facility] Respiratory rate 2020-05-02 13:25:00 16 /min [facility] Body Temperature 2020-05-02 13:25:00 98.0 [degF] [facility] Body Temperature 2019-12-24 15:05:00 98.3 [degF] [facility] Heart Rate 2019-12-24 15:05:00 86 /min [facility] Respiratory rate 2019-12-24 15:05:00 18 /min [facility] BP Systolic 2019-12-24 15:05:00 126 mm[Hg] [facility] BP Diastolic 2019-12-24 15:05:00 83 mm[Hg] [facility] Weight 2019-12-24 15:05:00 179 [lb_av] [facility] BMI (Body Mass 2019-12-24 15:05:00 29.8 kg/m2 [facility] Health Index) Weight 2016-03-01 20:30:00 [facility] Height 2016-03-01 20:30:00 [facility] Diastolic (mm Hg) 2016-03-01 20:30:00 [facility] Systolic (mm Hg) 2016-03-01 20:30:00 Edmund arvizu Alok Procedures Procedure Date / Time Performing Clinician Source Performed POCT SARS-COV-2 ANTIGEN 2021-10-12 14:15:00 Aicha Reyna [facility] Medical Branch Non-obstetrical 2020-05-02 00:00:00 [facility] transvaginal ultrasound of pelvis Limited duplex scan of 2020-05-02 00:00:00 [facility] renal artery Plan of Care Planned Activity Planned Date Details Comments Source Diagnostic Test 2018-11-17 test, [facility] Pending 00:00:00 urine [code = Group test, urine] Goal Patient referral [facility] [code = 3400758 ] Hui Instructions Pelvic Pain (DC) [facility] Encounters Start End Encounter Admission Attending Care Care Encounter Source Date/Time Date/Time Type Type Clinicians Facility Department ID 2021-03-19 Outpatient 3 AURA LORD OPO [id number] Confucianism 12:13:46 LIZZY [id number] Hospit a l ([facility]) 2021-03-19 Outpatient 3 AURA LORD OPE [id number] Confucianism 12:12:05 LIZZY [id number] Hospit a l ([facility]) 2018-06-21 Outpatient FB FB [id number] FB 12:29:49 2018-06-21 Outpatient MHFB FB [id number] FB 12:29:49 2018-06-21 Outpatient MHFB MHFB [id number] FB 12:29:48 2018-06-21 Outpatient MHFB FB [id number] FB 12:29:39 2021-12-30 2021-12-30 Outpatient R [facility] [id number] Univers 13:30:00 13:30:00 ity [facility] 2021-11-14 2021-11-14 Nurse CRYSTAL Ortiz [id number] Univers 00:00:00 00:00:00 Triage Katie RACHANA [id number] it y of [facility] [id number] Tal as [phone] [address] 2021-10-21 2021-10-21 Outpatient R [facility] [id number] Univers 14:00:00 14:00:00 [id number] ity [facility] 2021-10-21 2021-10-21 Outpatient R [facility] [id number] Univers 14:00:00 14:00:00 ity [facility] 2021-10-12 2021-10-12 [id number] Univers 09:00:00 09:31:22 [facility] 2021-10-12 2021-10-12 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 Cashier 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, Ang Db Test [facility] 1.2.8 [id number] Univers 09:00:00 09:31:22 [id number] [facility] [id number] Tal as SHAWNA?BLEA [phone] [address] MEDICAL OFFICE BUILDING 2021-10-12 2021-10-12 Outpatient R [facility] [id number] Univers 09:00:00 09:00:00 [id number] [facility] 2021-10-07 2021-10-07 [facility] [id number] Univers 13:45:00 14:38:48 Visit Maria Gallego EMPLOYEE RELATIONS MANAGER [id number] ity [facility] [id number] Tal as MATERNAL [phone] Med ical & CHILD [address] [place] [address] 2021-09-07 2021-09-07 Emergency IpDeja [id number] Methodi 19:59:00 20:00:[id number] 3.430.2.7 Hospit a .[id number] l .8 2021-09-07 2021-09-07 Emergency IPDEJA [facility] [id number] Gill 00:00:00 00:00:[address] 2021-05-17 2021-05-18 Emergency X NELLA [facility] ERT [id number] Univers 23:02:00 01:40:00 TK briggs [facility] 2020-05-15 2020-05-15 Outpatient 3 AURA LORD OPO [id number]- Confucianism 10:58:00 10:58:00 LIZZY [id number] Hospi ta l ([facility]) 2020-05-15 2020-05-15 Orders Doctor CRYSTAL [id number] 00:00:00 00:00:00 Only Unassigned, RACHANA [id number] [place] [facility] [id number] 2020-05-14 2020-05-14 Telephone Delfino MTMALU [id number] 00:00:00 00:00:00 Lizzy R EMPLOYEE RELATIONS MANAGER [id number] [facility] [id number] MATERNAL [id number] & CHILD [address] [facility] 2020-05-08 2020-05-08 Office Delfino [facility] [id number] 15:02:06 16:05:50 Visit Lizzy R EMPLOYEE RELATIONS MANAGER [id number] [facility] [id number] MATERNAL [id number] & CHILD [address] [facility] 2020-05-02 2020-05-02 Registered ER UNASSIGNED, LETTY Mason [id number] CH[facility]STINA 13:11:00 13:11:00 Emergency ED [address] [facility] 2020-05-02 2020-05-02 Registered PEPE SAENZ AM07 [id number] [facility] 13:11:00 13:11:00 Emergency TMARY Gem [address] [facility] [facility] 2020-01-30 2020-01-30 Outpatient G_Pappas MMG MMG [id number] [place] 02:19:00 02:19:00 1118 Medical Group 2019-12-24 2019-12-24 Departed CHRIST LETTY [id number] [facility] 14:09:00 17:00:00 Emergency [address] [facility] 2019-12-24 2019-12-24 Departed CHRISTTIGRE SAENZ [id number] [facility] 14:09:00 17:00:00 Emergency TMARY Gem [address] [facility] [facility] 2019-05-17 2019-05-17 Outpatient C Funsho C Funsho [id number] [facility]Clinic 10:45:00 10:45:00 Andreas Michaels MD PhD PA PhD PA 2019-05-09 2019-05-09 Outpatient C Funsho C Funsho [id number] [facility]Clinic 12:52:00 12:52:00 Andreas Michaels MD PhD PA PhD PA 2019-05-08 2019-05-08 Outpatient G_Pappas MMG MMG [id number] [place] 11:18:00 11:18:00 0225 Medical Group 2019-05-08 2019-05-08 Outpatient G_Pappas MMG MMG [id number] [place] 11:18:00 11:18:00 0228 Medical Group 2019 2019 Outpatient G_Pappas MMG MMG [id number] [place] 01:42:00 01:42:00 0106 Medical Group 2019 2019 Outpatient G_Pappas MMG MMG [id number] [place] 01:42:00 01:42:00 [facility] 2018-11-17 2018-11-17 Vidya MM [place] - [id number] M atagor 00:00:00 00:00:00 [facility]se [place]: [address] [place] [address], [facility] [address], [place] [address] , Ph. [phone] 2018-11-16 2018-11-16 Outpatient [facility] [id number] [facility]Clinic 12:59:00 12:59:00 Andreas Michaels MD PhD PA PhD PA 2018-10-16 2018-10-16 Poonam [facility] [place] - [id number] M lavern 00:00:00 00:00:00 Discovery grant Fletcher MD: [address] [place] [address] 101, [place] [address] , Ph. [phone] 2018-07-31 2018-07-31 Outpatient [facility] [id number] [facility]Clinic 17:40:00 17:40:00 Andreas Michaels MD PhD PA PhD PA 2018-07-28 2018-07-28 Outpatient [facility] [id number] [facility]Clinic 10:36:00 10:36:00 Andreas Michaels MD PhD PA PhD PA 2018-06-23 2018-06-23 Outpatient C [facility] [id number] eClinic 13:35:00 13:35:00 Andreas Michaels MD PhD PA PhD PA 2018-06-23 2018-06-23 Outpatient C [facility] [id number] 1 eClinic 10:17:00 10:17:00 Andreas Michaels MD PhD PA PhD PA 2018-06-16 2018-06-16 Outpatient MHFB MHFB [id number] MHFB 13:15:00 13:15:00 2018-06-09 2018-06-09 Outpatient MHFB [facility]FB 7507 [facility]FB 10:00:00 10:00:00 2018-06-05 2018-06-05 Outpatient C [facility] [id number] eClinic 12:57:00 12:57:00 Andreas Michaels MD PhD PA PhD PA 2018-05-29 2018-05-29 Outpatient C [facility] [id number] eClinic 12:00:00 12:00:00 Andreas Michaels MD PhD PA PhD PA 2018-05-08 2018-05-08 Outpatient C [facility] C [facility] [id number] eClinic 10:16:00 10:16:00 Andraes Michaels MD PhD PA PhD PA 2018-05-05 2018-05-05 Outpatient C [facility] [id number] eClinic 14:17:00 14:17:00 Andreas Michaels MD PhD PA PhD PA 2018-05-04 2018-05-04 [place] [id number] [facility] 07:52:00 11:26:[facility] 2018-04-26 2018-04-26 Outpatient C [facility] [id number] eClinic 11:18:00 11:18:00 Andreas Michaels MD PhD PA PhD PA 2018-03-20 2018-03-20 Outpatient C [facility] [id number] eClinic 14:15:00 14:15:00 Andreas Michaels MD PhD PA PhD PA 2018-03-16 2018-03-16 Outpatient C [facility] [id number] eClinic 12:36:00 12:36:00 Andreas Michaels MD PhD PA PhD PA 2018-03-09 2018-03-09 Outpatient C [facility] [id number] 5 eClinic 09:43:00 09:43:00 Andreas Michaels MD PhD PA PhD PA 2018-03-06 2018-03-06 Outpatient C [facility] [id number] eClinic 20:07:00 20:07:00 Andreas Michaels MD PhD PA PhD PA 2018-03-03 2018-03-03 Outpatient C [facility] [id number] eClinic 10:51:00 10:51:00 Andreas Michaels MD PhD PA PhD PA 2018-02-28 2018-02-28 Emergency E [place], [facility] [id number] [facility] 11:11:00 13:10:00 [facility] 2018-02-28 2018-02-28 Outpatient C [facility] C [facility] [id number] eClinic 09:47:00 09:47:00 Andreas Michaels MD PhD PA PhD PA 2018-02-27 2018-02-27 Outpatient C [facility] [id number] 1 eClinic 14:58:00 14:58:00 Andreas Michaels MD PhD PA PhD PA 2018-02-24 2018-02-24 Outpatient C [facility] [id number] eClinic 16:24:00 16:24:00 Andreas Michaels MD PhD PA PhD PA 2018-02-21 2018-02-21 Outpatient C [facility] [id number] 9 eClinic 10:10:00 10:10:00 Andreas Michaels MD PhD PA PhD PA 2018-02-21 2018-02-21 Outpatient C [facility] [id number] eClinic 10:05:00 10:05:00 Andreas Michaels MD PhD PA PhD PA 2018-02-15 2018-02-15 Outpatient C [facility] C [facility] [id number] eClinic 09:28:00 09:28:00 Andreas Michaels MD PhD PA PhD PA 2018-02-07 2018-02-07 Emergency E NOEL [facility] [id number] [facility] 18:18:00 [facility] 2018-02-07 2018-02-07 Outpatient C [facility] C [facility] [id number] eClinic 15:29:00 15:29:00 Andreas Michaels MD PhD PA PhD PA 2018 2018 Outpatient C [facility] C [facility] [id number] eClinic 17:16:00 17:16:00 Andreas Michaels MD PhD PA PhD PA 2018 2018 Outpatient C [facility] C [facility] [id number] eClinic 17:14:00 17:14:00 Andreas Michaels MD PhD PA PhD PA 2018-01-05 2018-01-05 Outpatient C [facility] C [facility] [id number] 6 eClinic 15:19:00 15:19:00 Andreas Michaels MD PhD PA PhD PA 2016-07-29 2016-07-29 Outpatient C [facility] [id number] eClinic 11:00:00 11:00:00 Andreas Michaels MD PhD PA PhD PA 2016-06-29 2016-06-29 Outpatient C [facility] [id number] eClinic 14:22:00 14:22:00 Andreas Michales MD PhD PA PhD PA 2016-06-28 2016-06-28 Outpatient C [facility] [id number] eClinic 12:06:00 12:06:00 Andreas Michaels MD PhD PA PhD PA 2016-03-17 2016-03-17 [facility] 17:55:00 17:55:00 r Women s 437-4311-a l Health/ C. 731-1d80ff He rmann Unique [id number] MD Andreas, PhD, PA 2016-03-17 2016-03-17 [facility]ymt [facility] 6rxx5-8 [facility] 17:55:00 17:55:00 r Women s 437-4311-a l Health/ C. 731-1d80ff He misha Calhoun [id number] MD Andreas, PhD, PA 2016-03-17 2016-03-17 Outpatient [facility] 2005 44 [facility]inic 11:55:00 11:55:00 For Women Women s alWo rks s Health/ Health/ C. C. Funsho Funsho Andreas Johns MD, PhD, MD, PhD, PA PA 2016-03-05 2016-03-05 [facility] 9ad6e bf9-a [facility] 20:07:00 20:07:00 r Women s 9g5-2zmu-1 l Health/ C. afd-wd568v He misha Calhoun [id number] MD Andreas, PhD, PA 2016-03-05 2016-03-05 [facility] dc28a 807-0 [facility] 20:07:00 20:07:00 r Women s 92a-4fe5-8 l Health/ C. 4dd-a7c23e He misha Unique [id number] MD Andreas, PhD, PA 2016-03-05 2016-03-05 [facility] c5c24 b01-1 [facility] 20:07:00 20:07:00 r Women s 523-4838-a l Health/ C. [id number] He misha Popeevi e0c7cd MD Andreas, PhD, PA 2016-03-05 2016-03-05 [facility] dc28a 807-0 [facility] 20:07:00 20:07:00 r Women s 92a-4fe5-8 l Health/ C. 4dd-a7c23e He esaulizeth Calhoun [id number] MD Andreas, PhD, PA 2016-03-05 2016-03-05 [facility] c5c24 b01-1 [facility] 20:07:00 20:07:00 r Women s 523-4838-a l Health/ C. [id number] He misha Calhoun [id number] MD Andreas, PhD, PA 2016-03-05 2016-03-05 [facility] 9ad6e bf9-a [facility] 20:07:00 20:07:00 r Women s 2a7-8ebd-0 l Health/ C. afd-up547b He misha Calhoun [id number] MD Andreas, PhD, PA 2016-03-05 2016-03-05 Outpatient Center [facility] 27 eClinic 14:07:00 14:07:00 For Women Women s alWo rks s Health/ Health/ C. CAndreas Kessler MD, PhD, MD, PhD, PA PA 2016-03-01 2016-03-01 Other [facility] f143a 42d-5 [facility] 21:40:00 21:40:00 r Women s 735-465f-a l Health/ C. 374-c11ea3 He misha Unique [id number] MD Andreas, PhD, PA 2016-03-01 2016-03-01 [facility] 57c23 756-0 [facility] 21:40:00 21:40:00 r Women s fda-4282-8 l Health/ C. 3n4-1dbtzz He misha Glassclemenciao [id number] MD Andreas, PhD, PA 2016-03-01 2016-03-01 Other [facility] f143a 42d-5 [facility] 21:40:00 21:40:00 r Women s 735-465f-a l Health/ C. 374-c11ea3 He misha Calhoun 259de4 MD Andreas, PhD, PA 2016-03-01 2016-03-01 Other [facility] 57c23 756-0 [facility] 21:40:00 21:40:00 r Women s fda-4282-8 l Health/ C. 6g7-3fhiwm He misha Calhoun [id number] MD Andreas, PhD, PA 2016-03-01 2016-03-01 Outpatient [facility] 11 [facility]inic 15:40:00 15:40:00 For Women Women s alWo rks s Health/ Health/ C. C. FunshAndreas Partida MD, PhD, MD, PhD, PA PA 2016-03-01 2016-03-01 Outpatient C [facility] C [facility] [id number] eClinic 15:30:00 15:30:00 Andreas Michaels MD PhD PhD PA-GP ASMITA- 2016-02-23 2016-02-23 [facility]eding [facility] a56b 81fd-e [facility] 15:57:00 15:57:00 r Women s 32e-48e4-b l Health/ C. 5ac-91t363 He misha Unique 56cea4 MD Andreas, PhD, PA 2016-02-23 2016-02-23 [facility] 149a 526e-e [facility] 15:57:00 15:57:00 r Women s n91-87m8-9 l Health/ C. m43-fq836s He misha Calhoun [id number] MD Andreas, PhD, PA 2016-02-23 2016-02-23 [facility] 65bb df86-0 [facility] 15:57:00 15:57:00 r Women s 9d0-9658-6 l Health/ C. i6f-re7w08 He esaulizeth Calhoun [id number] MD Andreas, PhD, PA 2016-02-23 2016-02-23 [facility] d61b a848-7 [facility] 15:57:00 15:57:00 r Women s 854-41cd-8 l Health/ C. 2af-03f3c8 He misha Calhoun ab1dcf MD Andreas, PhD, PA 2016-02-23 2016-02-23 Bleeding [facility] 65bb df86-0 [facility] 15:57:00 15:57:00 r Women s 8i8-5840-0 l Health/ C. c1u-iu5c11 He misha Calhoun [id number] MD Andreas, PhD, PA 2016-02-23 2016-02-23 [facility]eding [facility] d61b a848-7 [facility] 15:57:00 15:57:00 r Women s 854-41cd-8 l Health/ C. 2af-03f3c8 He misha Calhoun ab1dcf MD Andreas, PhD, PA 2016-02-23 2016-02-23 Bleeding [facility] a56b 81fd-e [facility] 15:57:00 15:57:00 r Women s 32e-48e4-b l Health/ C. 5ac-73d899 He misha Calhoun 56cea4 MD Andreas, PhD, PA 2016-02-23 2016-02-23 [facility] 149a 526e-e [facility] 15:57:00 15:57:00 r Women s v21-60g0-5 l Health/ C. i90-be355d Vincent Calhoun [id number] MD Andreas, PhD, PA 2016-02-23 2016-02-23 Outpatient Center [place] [id number] eClinic 09:57:00 09:57:00 For Women Women s alWo rks s Health/ Health/ C. C. Andreas Loving MD, PhD, MD, PhD, PA PA Results Test Description Test Time Test Comments Results Result Comments Source POCT SARS-COV-2 ANTIGEN (BINAX NOW) 2021-10-12 14:30:00 Test Item Value Reference Range Interpretation Comme nts POCT SARS-COV-2 ANTIGEN (test code = 5076) Not Detected Not Detecte d On board controls acceptable with C Line (test code = Yes 3574) Lab Interpretation (test code = 61172-9) [facility] W/[id number] 11:51:00 [facility] EDDIE JEAN-BAPTISTE : 1995 Sex: F[address] [id number] IMAGING REPORTPatient Name: EDDIE JEAN-BAPTISTEDate of Service: [id number]: 25 Sex: F Order #: [id number] Room: OPODOB: 1995 X-Ray Number: [id number] Record Number: [id number] Hospital Number: [id number] Physician: LIZZY LORDOrdering Physician: Suhda LORDlvic sonogram.History: Pelvic pain.Techn ique: Transabdominal and endovaginal pelvic ultrasound images wereobtained and reviewed.Findings:Normal uterus, 7.0 x 4.3 x 4.3 cm.Endometrial stripe appears normal measuring 4.3 mm.Both ovaries appearnormal in terms of size, shape, and echogenicity.Both ovaries have demonstrable pulsatile arterial flow.No free fluid.ImpressionUnremarkable pelvic ultrasound.Electronically Signed By: Gerardo Obando M.D., 05/15/2020 11:49 AMLegally authenticated by PAOLA Briggs 2020-05-15 11:49:22US PELVIS NON-OB [id number] 11:51:00 [facility] EDDIE JEAN-BAPTISTE : 1995 Sex: F[address] [id number] IMAGING REPORTPatient Name: EDDIE JEAN-BAPTISTEDate of Service: [id number]: 25 Sex: F Order #: [id number] Room: OPODOB: 1995 X-Ray Number: [id number] Record Number: [id number] Hospital Number: [id number] Physician: Emma LORDing Physician: Sudha LORDlvic sonogram.History: Pelvic pain.Tech nique: Transabdominal and endovaginal pelvic ultrasound images wereobtained and reviewed.Findings:Normal uterus, 7.0 x 4.3 x 4.3 cm.Endometrial stripe appears normal measuring 4.3 mm.Both ovaries appear normal in terms of size, shape, and echogenicity.Both ovaries have demonstrable pulsatile arterial flow.No free fluid.ImpressionUnremarkable pelvic ultrasound.Electronically Signed By: Gerardo Obando M.D., 05/15/2020 11:49 AMLegally authenticated by PAOLA Briggs 2020-05-15 11:49:22Automated blood neutrophil count (number/volume)2020-05-02 14:36:00 Test Item Value Reference Range Interpretation Comments Neutrophils # (Auto) (test code = 2.6 1.3-6.7 751-8) [facility] HealthAutomated blood lymphocyte count (number/volume)2020-05-02 14:36:00 Test Item Value Reference Range Interpretation Comments Lymphocytes # (Auto) (test code = 1.3 1.4-4.1 731-0) [facility] HealthBlood monocytes automated count (number/volume)2020-05-02 14:36:00 Test Item Value Reference Range Interpretation Comments Monocytes # (Auto) (test code = 742-7) 0.4 0-1.3 [facility] HealthAutomated blood eosinophil [id number] 14:36:00 Test Item Value Reference Range Interpretation Comments Eosinophils # (Auto) (test code = 0.1 0-0.8 711-2) [facility] HealthAutomated blood basophil count (number/volume)2020-05-02 14:36:00 Test Item Value Reference Range Interpretation Comments Basophils # (Auto) (test code = 704-7) 0.0 0-0.1 [facility] HealthService comment [id number] 14:36:00 Test Item Value Reference Range Interpretation Comments Manual Differential (test code = Not Ind 8265-1) [facility] HealthSerum or plasma sodium measurement (moles/volume)2020-05-02 14:36:00 Test Item Value Reference Range Interpretation Comments Sodium Level (test code = 2951-2) 140 136-145 [facility] HealthSerum or plasma potassium measurement (moles/volume)2020-05-02 14:36:00 Test Item Value Reference Range Interpretation Comments Potassium Level (test code = 2823-3) 3.3 3.5-5.1 [facility] HealthSerum or plasma chloride measurement (moles/volume)2020-05-02 14:36:00 Test Item Value Reference Range Interpretation Comments Chloride Level (test code = 2075-0) 107 98-107 [facility] HealthSerum or plasma total carbon dioxide measurement (moles/volume) 2020-05-02 14:36:00 Test Item Value Reference Range Interpretation Comments Carbon Dioxide Level (test code = 24 22-29 2027-11) [facility] HealthSerum or plasma anion gap determination (moles/volume)2020-05-02 14:36:00 Test Item Value Reference Range Interpretation Comments Anion Gap (test code = 35488-1) 12 8-18 [facility] HealthSerum or plasma urea nitrogen measurement (mass/volume)2020-05-02 14:36:00 Test Item Value Reference Range Interpretation Comments Blood Urea Nitrogen (test code = 4 09-29 3094-0) [facility] HealthSerum or plasma creatinine measurement (mass/volume)2020-05-02 14:36:00 Test Item Value Reference Range Interpretation Comments Creatinine (test code = 2160-0) 0.7 0.6-1.1 [facility] HealthGFR estimate [id number] 14:36:00 Test Item Value Reference Range Interpretation Comments Estimat Glomerular Filtration Rate 108 90-142 (test code = 877760152) [facility] HealthSerum or plasma glucose measurement (mass/volume)2020-05-02 14:36:00 Test Item Value Reference Range Interpretation Comments Glucose Level (test code = 2345-7) 93 60-100 [facility] HealthSerum or plasma calcium measurement (mass/volume)2020-05-02 14:36:00 Test Item Value Reference Range Interpretation Comments Calcium Level (test code = 27216-6) 9.1 8.4-10.2 [facility] HealthAutomated blood leukocyte count (number/volume)2020-05-02 14:36:00 Test Item Value Reference Range Interpretation Comments White Blood Count (test code = 6690-2) 4.4 4.5-11.5 [facility] HealthBlood erythrocytes automated count (number/volume)2020-05-02 14:36:00 Test Item Value Reference Range Interpretation Comments Red Blood Count (test code = 789-8) 4.22 3.8-5.1 [facility] HealthBlood hemoglobin measurement (mass/volume)2020-05-02 14:36:00 Test Item Value Reference Range Interpretation Comments Hemoglobin (test code = 718-7) 12.4 12.0-15.2 [facility] HealthAutomated blood hematocrit (volume fraction)2020-05-02 14:36:00 Test Item Value Reference Range Interpretation Comments Hematocrit (test code = 4544-3) 37.7 34.0-45.5 [facility] HealthAutomated erythrocyte mean corpuscular volume (MCV) measurement 2020-05-02 14:36:00 Test Item Value Reference Range Interpretation Comments Mean Corpuscular Volume (test code = 89.3 80-94 787-2) [facility] HealthAutomated erythrocyte mean corpuscular hemoglobin (mass per erythrocyte)2020-05-02 14:36:00 Test Item Value Reference Range Interpretation Comments Mean Corpuscular Hemoglobin (test code 29.4 27.0-33.0 = 785-6) [facility] HealthAutomated erythrocyte mean corpuscular hemoglobin concentration measurement (mass/volume)2020-05-02 14:36:00 Test Item Value Reference Range Interpretation Comments Mean Corpuscular Hemoglobin Concent 32.9 33.0-37.0 (test code = 786-4) [facility] HealthAutomated erythrocyte distribution width [id number] 14:36:00 Test Item Value Reference Range Interpretation Comments Red Cell Distribution Width (test code 12.5 10.7-14.5 = 788-0) [facility] HealthAutomated blood platelet count (count/volume)2020-05-02 14:36:00 Test Item Value Reference Range Interpretation Comments Platelet Count (test code = 777-3) 259 150-450 [facility] HealthAutomated blood platelet mean volume pykjcggelli1028-81-94 14:36:00 Test Item Value Reference Range Interpretation Comments Mean Platelet Volume (test code = 11.0 5.7-10.7 06979-8) [facility] HealthAutomated blood neutrophil count as percentage of total bojhpcuttp6376-38-12 14:36:00 Test Item Value Reference Range Interpretation Comments Neutrophils (%) (Auto) (test code = 59 47-71 770-8) [facility] HealthAutomated blood lymphocyte count as percentage of total kfodhkvrtl7936-78-20 14:36:00 Test Item Value Reference Range Interpretation Comments Lymphocytes (%) (Auto) (test code = 31 2544 736-9) [facility] HealthAutomated blood monocyte count as percentage of total leukocytes 2020-05-02 14:36:00 Test Item Value Reference Range Interpretation Comments Monocytes (%) (Auto) (test code = 9 3-10 5905-5) [facility] HealthAutomated blood eosinophil count as percentage of total bhidlicpvj6289-19-89 14:36:00 Test Item Value Reference Range Interpretation Comments Eosinophils (%) (Auto) (test code = 2 0-7 713-8) [facility] HealthAutomated blood basophil count as percentage of total leukocytes 2020-05-02 14:36:00 Test Item Value Reference Range Interpretation Comments Basophils (%) (Auto) (test code = 1 0-1 706-2) [facility] HealthSerum or plasma sodium measurement (moles/volume)2020-05-02 14:36:00 Test Item Value Reference Range Interpretation Comments Sodium Level (test code = 2951-2) 140 [facility] potassium measurement (moles/volume) 2020-05-02 14:36:00 Test Item Value Reference Range Interpretation Comments Potassium Level (test code = 2823-3) 3.3 [facility] or plasma chloride measurement (moles/volume)2020-05-02 14:36:00 Test Item Value Reference Range Interpretation Comments Chloride Level (test code = 2075-0) 107 [facility] or plasma total carbon dioxide measurement (moles/volume)2020-05-02 14:36:00 Test Item Value Reference Range Interpretation Comments Carbon Dioxide Level (test code = 24 8-9) [facility] or plasma anion gap determination (moles/volume) 2020-05-02 14:36:00 Test Item Value Reference Range Interpretation Comments Anion Gap (test code = 70837-7) 12 [facility] or plasma urea nitrogen measurement (mass/volume) 2020-05-02 14:36:00 Test Item Value Reference Range Interpretation Comments Blood Urea Nitrogen (test code = 4 3094-0) [facility] or plasma creatinine measurement (mass/volume) 2020-05-02 14:36:00 Test Item Value Reference Range Interpretation Comments Creatinine (test code = 2160-0) 0.7 [facility]GFR estimate [id number] 14:36:00 Test Item Value Reference Range Interpretation Comments Estimat Glomerular Filtration Rate 108 (test code = 760112009) [facility] or plasma glucose measurement (mass/volume)2020-05-02 14:36:00 Test Item Value Reference Range Interpretation Comments Glucose Level (test code = 2345-7) 93 [facility]um or plasma calcium measurement (mass/volume)2020-05-02 14:36:00 Test Item Value Reference Range Interpretation Comments Calcium Level (test code = 97506-7) 9.1 [facility]Autom[facility] blood leukocyte count (number/volume)2020-05-02 14:36:00 Test Item Value Reference Range Interpretation Comments White Blood Count (test code = 6690-2) 4.4 [facility]Blood erythrocytes automated count (number/volume)2020-05-02 14:36:00 Test Item Value Reference Range Interpretation Comments Red Blood Count (test code = 789-8) 4.22 [facility]Blood hemoglobin measurement (mass/volume)2020-05-02 14:36:00 Test Item Value Reference Range Interpretation Comments Hemoglobin (test code = 718-7) 12.4 [facility]Autom[facility] blood hematocrit (volume fraction)2020-05-02 14:36:00 Test Item Value Reference Range Interpretation Comments Hematocrit (test code = 4544-3) 37.7 [facility]Autom[facility] erythrocyte mean corpuscular volume (MCV) tpgzwkgexcq8089-87-28 14:36:00 Test Item Value Reference Range Interpretation Comments Mean Corpuscular Volume (test code = 89.3 787-2) [facility] erythrocyte mean corpuscular hemoglobin (mass per erythrocyte)2020-05-02 14:36:00 Test Item Value Reference Range Interpretation Comments Mean Corpuscular Hemoglobin (test code 29.4 = 785-6) [facility] erythrocyte mean corpuscular hemoglobin concentration measurement (mass/volume)2020-05-02 14:36:00 Test Item Value Reference Range Interpretation Comments Mean Corpuscular Hemoglobin Concent 32.9 (test code = 786-4) [facility]Autom[facility] erythrocyte distribution width pryog9729-19-09 14:36:00 Test Item Value Reference Range Interpretation Comments Red Cell Distribution Width (test code 12.5 = 788-0) [facility] HospitalAutom[facility] platelet count (count/volume)2020-05-02 14:36:00 Test Item Value Reference Range Interpretation Comments Platelet Count (test code = 777-3) [address] [facility] HospitalAutom[facility] platelet mean volume gqjmytzxnto1997-71-50 14:36:00 Test Item Value Reference Range Interpretation Comments Mean Platelet Volume (test code = 11.0 72701-0) [facility] . [facility] HospitalAutomated blood neutrophil count as percentage of total znqfznblzw5274-77-17 14:36:00 Test Item Value Reference Range Interpretation Comments Neutrophils (%) (Auto) (test code = 59 770-8) [facility] . [facility] HospitalAutomated blood lymphocyte count as percentage of total cokidnimag7762-45-34 14:36:00 Test Item Value Reference Range Interpretation Comments Lymphocytes (%) (Auto) (test code = 31 736-9) [facility] . [facility] HospitalAutomated blood monocyte count as percentage of total wpcpknlzxy6357-08-71 14:36:00 Test Item Value Reference Range Interpretation Comments Monocytes (%) (Auto) (test code = 9 5905-5) [facility] - GemAutomated blood eosinophil count as percentage of total kqjfuxlwlb6358-35-46 14:36:00 Test Item Value Reference Range Interpretation Comments Eosinophils (%) (Auto) (test code = 2 713-8) [facility] . [facility] HospitalAutomated blood basophil count as percentage of total pnqqgaltjf4005-92-19 14:36:00 Test Item Value Reference Range Interpretation Comments Basophils (%) (Auto) (test code = 1 706-2) [facility] . [facility] HospitalAutomated blood neutrophil count (number/volume)2020-05-02 14:36:00 Test Item Value Reference Range Interpretation Comments Neutrophils # (Auto) (test code = 2.6 751-8) [facility] . [facility] HospitalAutomated blood lymphocyte count (number/volume)2020-05-02 14:36:00 Test Item Value Reference Range Interpretation Comments Lymphocytes # (Auto) (test code = 1.3 731-0) [facility] . [facility] HospitalBlood monocytes automated count (number/volume)2020-05-02 14:36:00 Test Item Value Reference Range Interpretation Comments Monocytes # (Auto) (test code = 742-7) 0.4 [facility] eosinophil [id number] 14:36:00 Test Item Value Reference Range Interpretation Comments Eosinophils # (Auto) (test code = 0.1 711-2) [facility]Autom[facility] basophil count (number/volume)2020-05-02 14:36:00 Test Item Value Reference Range Interpretation Comments Basophils # (Auto) (test code = 704-7) 0.0 [facility]Service comment [id number] 14:36:00 Test Item Value Reference Range Interpretation Comments Manual Differential (test code = Not Ind 8265-1) [facility] HospitalUrinalysis specimen collection qyrdhn6586-15-14 13:45:00 Test Item Value Reference Range Interpretation Comments Urine Source (test code = 47884-9) URINE [facility] HealthColor of Urine by Rnad9537-12-14 13:45:00 Test Item Value Reference Range Interpretation Comments Urine Color (test code = 78994-1) Yellow Yel-Anna * [facility] HealthUrine clarity hezkriwsrdegz9610-50-86 13:45:00 Test Item Value Reference Range Interpretation Comments Urine Appearance (test code = 08629-9) Clear Clear * [facility] HealthUrine pH measurement by automated test [id number] 13:45:00 Test Item Value Reference Range Interpretation Comments Urine pH (test code = 16604-5) 6.0 5.0-8.0 [facility] HealthSpecific gravity of Urine by Automated test [id number] 13:45:00 Test Item Value Reference Range Interpretation Comments Urine Specific [place] (test code = 1.022 1.005-1.030 05920-7) [facility] HealthUrine protein measurement by automated test strip (mass/volume) 2020-05-02 13:45:00 Test Item Value Reference Range Interpretation Comments Urine Protein (test code = 97514-6) 10 Negative * [facility] HealthUrine glucose measurement by automated test strip (mass/volume) 2020-05-02 13:45:00 Test Item Value Reference Range Interpretation Comments Urine Glucose (UA) (test code = Negative Negative * 35234-0) [facility] HealthKetones [Mass/volume] in Urine by Automated test [id number] 13:45:00 Test Item Value Reference Range Interpretation Comments Urine Ketones (test code = 69610-7) Negative Negative * [facility] HealthUrine erythrocytes count by automated test strip (number/volume) 2020-05-02 13:45:00 Test Item Value Reference Range Interpretation Comments Urine Occult Blood (test code = Negative Negative * 07090-9) [facility] HealthUrine nitrite detection by automated test [id number] 13:45:00 Test Item Value Reference Range Interpretation Comments Urine Nitrite (test code = 24261-9) Negative Negative [facility] HealthUrine total bilirubin measurement by automated test strip (mass/volume)2020-05-02 13:45:00 Test Item Value Reference Range Interpretation Comments Urine Bilirubin (test code = Negative Negative 41196-6) [facility] HealthUrine urobilinogen measurement by automated test strip (mass/volume)2020-05-02 13:45:00 Test Item Value Reference Range Interpretation Comments Urine Urobilinogen (test code = 2.0 0.0-1.0 84569-2) [facility] HealthUrine leukocytes count by automated test strip (number/volume) 2020-05-02 13:45:00 Test Item Value Reference Range Interpretation Comments Urine Leukocyte Esterase (test code Negative Negative = 86543-1) [facility] HealthMicroscopic examination of [id number] 13:45:00 Test Item Value Reference Range Interpretation Comments Microscopic Urinalysis (T) (test code = ----- 62442-1) [facility] HealthUrine sediment erythrocyte count by microscopy (number/high power field)2020-05-02 13:45:00 Test Item Value Reference Range Interpretation Comments Urine RBC (test code = 87246-1) None Seen 0-2 [facility] HealthUrine sediment leukocyte count by microscopy (number/high power field)2020-05-02 13:45:00 Test Item Value Reference Range Interpretation Comments Urine WBC (test code = 5821-4) 0-5 0-5 [facility] HealthUrine sediment epithelial cell count by microscopy (number/high power field)2020-05-02 13:45:00 Test Item Value Reference Range Interpretation Comments Urine Epithelial Cells (test code = Few Few 5787-7) [facility] HealthUrine sediment crystal count by microscopy (number/high power field)2020-05-02 13:45:00 Test Item Value Reference Range Interpretation Comments Urine Crystals (test code = None Seen None * 38220-7) [facility] HealthUrine sediment bacteria count by microscopy (number/high power field)2020-05-02 13:45:00 Test Item Value Reference Range Interpretation Comments Urine Bacteria (test code = 5769-5) Rare None [facility] HealthUrine sediment casts count by microscopy (number/low power field) 2020-05-02 13:45:00 Test Item Value Reference Range Interpretation Comments Urine Casts (test code = 9842-6) None Seen None * [facility] HealthYeast detection in urine sediment by light [id number] 13:45:00 Test Item Value Reference Range Interpretation Comments Urine Yeast (test code = 10550-7) None Seen None [facility] comment 13:45:00 Test Item Value Reference Range Interpretation Comments Urinalysis Comment (test * See_Comment [A utomated message] The code = 8262-8) system which generated this result tra nsmitted reference range : *. The reference range was not used to interpr et this result as normal/abnormal . [facility] comment 13:45:00 Test Item Value Reference Range Interpretation Comments Urine Culture Indicated (test code = Not Ind 8264-4) [facility] HealthHCG ur [id number] 13:45:00 Test Item Value Reference Range Interpretation Comments Urine Test (test code = Negative Negative 2106-3) [facility] HealthUrine protein measurement by automated test strip (mass/volume) 2020-05-02 13:45:00 Test Item Value Reference Range Interpretation Comments Urine Protein (test code = 55367-0) 10 [facility] glucose measurement by automated test strip (mass/volume)2020-05-02 13:45:00 Test Item Value Reference Range Interpretation Comments Urine Glucose (UA) (test code = Negative 18122-4) [facility]etones [Mass/volume] in Urine by Automated test strip 2020-05-02 13:45:00 Test Item Value Reference Range Interpretation Comments Urine Ketones (test code = 15233-8) Negative [facility]Urine erythrocytes count by automated test strip (number/volume)2020-05-02 13:45:00 Test Item Value Reference Range Interpretation Comments Urine Occult Blood (test code = Negative 17505-2) [facility] - . MaryUrine nitrite detection by automated test [id number] 13:45:00 Test Item Value Reference Range Interpretation Comments Urine Nitrite (test code = 40644-2) Negative [facility] - . [facility] total bilirubin measurement by automated test strip (mass/volume)2020-05-02 13:45:00 Test Item Value Reference Range Interpretation Comments Urine Bilirubin (test code = Negative 15446-0) [facility] by automated test strip (mass/volume)2020-05-02 13:45:00 Test Item Value Reference Range Interpretation Comments Urine Urobilinogen (test code = 2.0 56472-9) [facility] - GemUrine leukocytes count by automated test strip (number/volume)2020-05-02 13:45:00 Test Item Value Reference Range Interpretation Comments Urine Leukocyte Esterase (test code Negative = 32106-8) [facility] of [id number] 13:45:00 Test Item Value Reference Range Interpretation Comments Microscopic Urinalysis (T) (test code = ----- 78706-5) [facility] - . [facility] sediment erythrocyte count by microscopy (number/high power field)2020-05-02 13:45:00 Test Item Value Reference Range Interpretation Comments Urine RBC (test code = 70548-2) None Seen [facility] - . [facility] sediment leukocyte count by microscopy (number/high power field)2020-05-02 13:45:00 Test Item Value Reference Range Interpretation Comments Urine WBC (test code = 5821-4) 0-5 [facility] sediment epithelial cell count by microscopy (number/high power field)2020-05-02 13:45:00 Test Item Value Reference Range Interpretation Comments Urine Epithelial Cells (test code = Few 5787-7) [facility] - [facility] MaryUrine sediment crystal count by microscopy (number/high power field)2020-05-02 13:45:00 Test Item Value Reference Range Interpretation Comments Urine Crystals (test code = None Seen 81076-6) [facility] MaryUrine sediment bacteria count by microscopy (number/high power field)2020-05-02 13:45:00 Test Item Value Reference Range Interpretation Comments Urine Bacteria (test code = 5769-5) Rare [facility] MaryUrine sediment casts count by microscopy (number/low power field)2020-05-02 13:45:00 Test Item Value Reference Range Interpretation Comments Urine Casts (test code = 9842-6) None Seen [facility] MaryYeast detection in urine sediment by light microscopy 2020-05-02 13:45:00 Test Item Value Reference Range Interpretation Comments Urine Yeast (test code = 41491-3) None Seen [facility] comment 13:45:00 Test Item Value Reference Range Interpretation Comments Urinalysis Comment (test code = 8262-8) * [facility] comment 13:45:00 Test Item Value Reference Range Interpretation Comments Urine Culture Indicated (test code = Not Ind 8264-4) [facility] - . HuiHCG ur [id number] 13:45:00 Test Item Value Reference Range Interpretation Comments Urine Test (test code = Negative 2106-3) [facility] - . HuiUrinalysis specimen collection [id number] 13:45:00 Test Item Value Reference Range Interpretation Comments Urine Source (test code = 04395-5) URINE LETTY - . HuiColor of Urine by [id number] 13:45:00 Test Item Value Reference Range Interpretation Comments Urine Color (test code = 18560-2) Yellow [facility] MaryUrine clarity omzxxsogkvjod2665-03-25 13:45:00 Test Item Value Reference Range Interpretation Comments Urine Appearance (test code = 85969-4) Clear [facility] MaryUrine pH measurement by automated test [id number] 13:45:00 Test Item Value Reference Range Interpretation Comments Urine pH (test code = 25375-1) 6.0 [facility] MarySpecific gravity of Urine by Automated test [id number] 13:45:00 Test Item Value Reference Range Interpretation Comments Urine Specific [place] (test code = 1.022 48311-4) [facility] HuiAutomated blood leukocyte count (number/volume)2019-12-24 16:20:00 Test Item Value Reference Range Interpretation Comments White Blood Count (test code = 5.5 10*3/uL 4.5-11.5 6690-2) [facility] HealthBlood erythrocytes automated count (number/volume)2019-12-24 16:20:00 Test Item Value Reference Range Interpretation Comments Red Blood Count (test code = 4.15 10*6/uL 3.8-5.1 789-8) [facility] HealthBlood hemoglobin measurement (mass/volume)2019-12-24 16:20:00 Test Item Value Reference Range Interpretation Comments Hemoglobin (test code = 718-7) 12.3 g/dL 12.0-15.2 [facility] HealthAutomated blood hematocrit (volume fraction)2019-12-24 16:20:00 Test Item Value Reference Range Interpretation Comments Hematocrit (test code = 4544-3) 36.8 % 34.0-45.5 [facility] HealthAutomated erythrocyte mean corpuscular volume (MCV) measurement 2019-12-24 16:20:00 Test Item Value Reference Range Interpretation Comments Mean Corpuscular Volume (test code = 88.7 fL 80-94 787-2) [facility] HealthAutomated erythrocyte mean corpuscular hemoglobin (mass per erythrocyte)2019-12-24 16:20:00 Test Item Value Reference Range Interpretation Comments Mean Corpuscular Hemoglobin (test 29.6 pg 27.0-33.0 code = 785-6) [facility] HealthAutomated erythrocyte mean corpuscular hemoglobin concentration measurement (mass/imm6092-62-78 16:20:00 Test Item Value Reference Range Interpretation Comments Mean Corpuscular Hemoglobin Concent 33.4 g/dL 33.0-37.0 (test code = 786-4) [facility] HealthAutomated erythrocyte distribution width [id number] 16:20:00 Test Item Value Reference Range Interpretation Comments Red Cell Distribution Width (test code 12.3 % 10.7-14.5 = 788-0) [facility] HealthAutomated blood platelet count (count/volume)2019-12-24 16:20:00 Test Item Value Reference Range Interpretation Comments Platelet Count (test code = 239 10*3/uL 150-450 777-3) [facility] HealthAutomated blood platelet mean volume quwugyzoehz5350-38-04 16:20:00 Test Item Value Reference Range Interpretation Comments Mean Platelet Volume (test code = 10.6 fL 5.7-10.7 97630-3) [facility] HealthAutomated blood neutrophil count as percentage of total xqhzwjvgzz3955-80-06 16:20:00 Test Item Value Reference Range Interpretation Comments Neutrophils (%) (Auto) (test code = 63 % 47-75 770-8) [facility] HealthAutomated blood lymphocyte count as percentage of total [id number] 16:20:00 Test Item Value Reference Range Interpretation Comments Lymphocytes (%) (Auto) (test code = 27 % 25-44 736-9) [facility] HealthAutomated blood monocyte count as percentage of total leukocytes 2019-12-24 16:20:00 Test Item Value Reference Range Interpretation Comments Monocytes (%) (Auto) (test code = 8 % 3-10 5905-5) [facility] HealthAutomated blood eosinophil count as percentage of total jeqoqssuny4484-61-53 16:20:00 Test Item Value Reference Range Interpretation Comments Eosinophils (%) (Auto) (test code = 1 % 0-7 713-8) [facility] HealthAutomated blood basophil count as percentage of total leukocytes 2019-12-24 16:20:00 Test Item Value Reference Range Interpretation Comments Basophils (%) (Auto) (test code = 1 % 0-1 706-2) [facility] HealthAutomated blood neutrophil count (number/volume)2019-12-24 16:20:00 Test Item Value Reference Range Interpretation Comments Neutrophils # (Auto) (test code = 3.5 10*3/uL 1.3-6.7 751-8) [facility] HealthAutomated blood lymphocyte count (number/volume)2019-12-24 16:20:00 Test Item Value Reference Range Interpretation Comments Lymphocytes # (Auto) (test code = 1.5 10*3/uL 1.4-4.1 731-0) [facility] HealthBlood monocytes automated count (number/volume)2019-12-24 16:20:00 Test Item Value Reference Range Interpretation Comments Monocytes # (Auto) (test code = 0.4 10*3/uL 0-1.3 742-7) [facility] HealthAutomated blood eosinophil [id number] 16:20:00 Test Item Value Reference Range Interpretation Comments Eosinophils # (Auto) (test code = 0.1 10*3/uL 0-0.8 711-2) [facility] HealthAutomated blood basophil count (number/volume)2019-12-24 16:20:00 Test Item Value Reference Range Interpretation Comments Basophils # (Auto) (test code = 0.0 10*3/uL 0-0.1 704-7) [facility]Service comment [id number] 16:20:00 Test Item Value Reference Range Interpretation Comments Manual Differential (test code = Not Ind 8265-1) [facility] HealthSerum or plasma sodium measurement (moles/volume)2019-12-24 16:20:00 Test Item Value Reference Range Interpretation Comments Sodium Level (test code = 2951-2) 139 mmol/L 136-145 [facility] HealthSerum or plasma potassium measurement (moles/volume)2019-12-24 16:20:00 Test Item Value Reference Range Interpretation Comments Potassium Level (test code = 3.5 mmol/L 3.5-5.1 2823-3) [facility] HealthSerum or plasma chloride measurement (moles/volume)2019-12-24 16:20:00 Test Item Value Reference Range Interpretation Comments Chloride Level (test code = 106 mmol/L 98-107 5-0) [facility] HealthSerum or plasma total carbon dioxide measurement (moles/volume) 2019-12-24 16:20:00 Test Item Value Reference Range Interpretation Comments Carbon Dioxide Level (test code = 23 mmol/L -2027-9) [facility] HealthSerum or plasma anion gap determination (moles/volume)2019-12-24 16:20:00 Test Item Value Reference Range Interpretation Comments Anion Gap (test code = 74504-1) 14 8-18 [facility] HealthSerum or plasma urea nitrogen measurement (mass/volume)2019-12-24 16:20:00 Test Item Value Reference Range Interpretation Comments Blood Urea Nitrogen (test code = 6 mg/dL -19 3094-0) [facility] HealthSerum or plasma creatinine measurement (mass/volume)2019-12-24 16:20:00 Test Item Value Reference Range Interpretation Comments Creatinine (test code = 2160-0) 0.8 mg/dL 0.6-1.1 [facility] HealthGFR estimate [id number] 16:20:00 Test Item Value Reference Range Interpretation Comments Estimat Glomerular Filtration Rate 93 90-142 (test code = 32187-4) [facility] HealthSerum or plasma glucose measurement (mass/volume)2019-12-24 16:20:00 Test Item Value Reference Range Interpretation Comments Glucose Level (test code = 2345-7) 88 mg/dL 60-100 [facility] HealthSerum or plasma calcium measurement (mass/volume)2019-12-24 16:20:00 Test Item Value Reference Range Interpretation Comments Calcium Level (test code = 60003-1) 9.4 mg/dL 8.4-10.2 [facility] HealthAutomated erythrocyte mean corpuscular volume (MCV) measurement 2019-12-24 16:20:00 Test Item Value Reference Range Interpretation Comments Mean Corpuscular Volume (test code = 88.7 fL 787-2) [facility]Automated erythrocyte mean corpuscular hemoglobin (mass per erythrocyte)2019-12-24 16:20:00 Test Item Value Reference Range Interpretation Comments Mean Corpuscular Hemoglobin (test 29.6 pg code = 785-6) [facility] MaryAutomated erythrocyte mean corpuscular hemoglobin concentration measurement (mass/[id number] 16:20:00 Test Item Value Reference Range Interpretation Comments Mean Corpuscular Hemoglobin Concent 33.4 g/dL (test code = 786-4) [facility]Automated erythrocyte distribution width [id number] 16:20:00 Test Item Value Reference Range Interpretation Comments Red Cell Distribution Width (test code 12.3 % = 788-0) [facility]Autom[facility] platelet count (count/volume)2019-12-24 16:20:00 Test Item Value Reference Range Interpretation Comments Platelet Count (test code = 239 10*3/uL 777-3) [facility] MaryAutomated blood platelet mean volume [id number] 16:20:00 Test Item Value Reference Range Interpretation Comments Mean Platelet Volume (test code = 10.6 fL 85458-8) [facility] MaryAutomated blood neutrophil count as percentage of total [id number] 16:20:00 Test Item Value Reference Range Interpretation Comments Neutrophils (%) (Auto) (test code = 63 % 770-8) [facility] count as percentage of total [id number] 16:20:00 Test Item Value Reference Range Interpretation Comments Lymphocytes (%) (Auto) (test code = 27 % 736-9) [facility] . [facility] HospitalAutomated blood monocyte count as percentage of total mfydwbawnm3795-62-98 16:20:00 Test Item Value Reference Range Interpretation Comments Monocytes (%) (Auto) (test code = 8 % 5905-5) [facility] . [facility] HospitalAutomated blood eosinophil count as percentage of total mconqstxae7453-95-82 16:20:00 Test Item Value Reference Range Interpretation Comments Eosinophils (%) (Auto) (test code = 1 % 713-8) [facility]Autom[facility] basophil count as percentage of total usseweyoye7298-46-10 16:20:00 Test Item Value Reference Range Interpretation Comments Basophils (%) (Auto) (test code = 1 % 706-2) [facility] HospitalAutom[facility] blood neutrophil count (number/volume)2019-12-24 16:20:00 Test Item Value Reference Range Interpretation Comments Neutrophils # (Auto) (test code = 3.5 10*3/uL 751-8) [facility] HospitalAutomated blood lymphocyte count (number/volume)2019-12-24 16:20:00 Test Item Value Reference Range Interpretation Comments Lymphocytes # (Auto) (test code = 1.5 10*3/uL 731-0) [facility] monocytes automated count (number/volume)2019-12-24 16:20:00 Test Item Value Reference Range Interpretation Comments Monocytes # (Auto) (test code = 0.4 10*3/uL 742-7) [facility] HospitalAutomated blood eosinophil [id number] 16:20:00 Test Item Value Reference Range Interpretation Comments Eosinophils # (Auto) (test code = 0.1 10*3/uL 711-2) [facility] HospitalAutomated blood basophil count (number/volume)2019-12-24 16:20:00 Test Item Value Reference Range Interpretation Comments Basophils # (Auto) (test code = 0.0 10*3/uL 704-7) [facility]Service comment [id number] 16:20:00 Test Item Value Reference Range Interpretation Comments Manual Differential (test code = Not Ind 8265-1) [facility] MarySerum or plasma sodium measurement (moles/volume)2019-12-24 16:20:00 Test Item Value Reference Range Interpretation Comments Sodium Level (test code = 2951-2) 139 mmol/L [facility] MarySerum or plasma potassium measurement (moles/volume) 2019-12-24 16:20:00 Test Item Value Reference Range Interpretation Comments Potassium Level (test code = 3.5 mmol/L 2823-3) [facility] MarySerum or plasma chloride measurement (moles/volume)2019-12-24 16:20:00 Test Item Value Reference Range Interpretation Comments Chloride Level (test code = 106 mmol/L 5-0) [facility] MarySerum or plasma total carbon dioxide measurement (moles/volume)2019-12-24 16:20:00 Test Item Value Reference Range Interpretation Comments Carbon Dioxide Level (test code = 23 mmol/L 2027-) [facility] MarySerum or plasma anion gap determination (moles/volume) 2019-12-24 16:20:00 Test Item Value Reference Range Interpretation Comments Anion Gap (test code = 78062-3) 14 [facility] MarySerum or plasma urea nitrogen measurement (mass/volume) 2019-12-24 16:20:00 Test Item Value Reference Range Interpretation Comments Blood Urea Nitrogen (test code = 6 mg/dL 3094-0) [facility] MarySerum or plasma creatinine measurement (mass/volume) 2019-12-24 16:20:00 Test Item Value Reference Range Interpretation Comments Creatinine (test code = 2160-0) 0.8 mg/dL [facility] MaryGFR estimate [id number] 16:20:00 Test Item Value Reference Range Interpretation Comments Estimat Glomerular Filtration Rate 93 (test code = 97111-0) [facility] MarySerum or plasma glucose measurement (mass/volume)2019-12-24 16:20:00 Test Item Value Reference Range Interpretation Comments Glucose Level (test code = 2345-7) 88 mg/dL [facility] MarySerum or plasma calcium measurement (mass/volume)2019-12-24 16:20:00 Test Item Value Reference Range Interpretation Comments Calcium Level (test code = 05282-9) 9.4 mg/dL [facility] HospitalAutom[facility] blood leukocyte count (number/volume)2019-12-24 16:20:00 Test Item Value Reference Range Interpretation Comments White Blood Count (test code = 5.5 10*3/uL 6690-2) [facility] (number/volume)2019-12-24 16:20:00 Test Item Value Reference Range Interpretation Comments Red Blood Count (test code = 4.15 10*6/uL 789-8) [facility] HospitalBlood hemoglobin measurement (mass/volume)2019-12-24 16:20:00 Test Item Value Reference Range Interpretation Comments Hemoglobin (test code = 718-7) 12.3 g/dL [facility] (volume fraction)2019-12-24 16:20:00 Test Item Value Reference Range Interpretation Comments Hematocrit (test code = 4544-3) 36.8 % [facility] HospitalUrinalysis specimen collection [id number] 15:50:00 Test Item Value Reference Range Interpretation Comments Urine Source (test code = 49503-3) URINE [facility] HealthColor of Urine by [id number] 15:50:00 Test Item Value Reference Range Interpretation Comments Urine Color (test code = 29034-8) Yellow Yel-Anna * [facility] HealthUrine clarity [id number] 15:50:00 Test Item Value Reference Range Interpretation Comments Urine Appearance (test code = 01219-0) Clear Clear * [facility] HealthUrine pH measurement by automated test [id number] 15:50:00 Test Item Value Reference Range Interpretation Comments Urine pH (test code = 13976-5) 6.0 5.0-8.0 [facility] HealthSpecific gravity of Urine by Automated test [id number] 15:50:00 Test Item Value Reference Range Interpretation Comments Urine Specific [place] (test code = 1.020 1.005-1.030 26712-0) [facility] HealthUrine protein measurement by automated test strip (mass/volume) 2019-12-24 15:50:00 Test Item Value Reference Range Interpretation Comments Urine Protein (test code = Negative mg/dL Negative * 09933-3) [facility] HealthUrine glucose measurement by automated test strip (mass/volume) 2019-12-24 15:50:00 Test Item Value Reference Range Interpretation Comments Urine Glucose (UA) (test code Negative mg/dL Negative * = 20997-9) [facility] HealthUrine ketones measurement by automated test strip (mass/volume) 2019-12-24 15:50:00 Test Item Value Reference Range Interpretation Comments Urine Ketones (test code = Negative mg/dL Negative * 03680-5) [facility] HealthUrine erythrocytes count by automated test strip (number/volume) 2019-12-24 15:50:00 Test Item Value Reference Range Interpretation Comments Urine Occult Blood (test code = 250 Negative * 16165-4) [facility] HealthUrine nitrite detection by automated test [id number] 15:50:00 Test Item Value Reference Range Interpretation Comments Urine Nitrite (test code = 84038-5) Negative Negative [facility] HealthUrine total bilirubin measurement by automated test strip (mass/volume)2019-12-24 15:50:00 Test Item Value Reference Range Interpretation Comments Urine Bilirubin (test code = Negative mg/dL Negative 87338-1) [facility] BallardUrine urobilinogen measurement by automated test strip (mass/volume)2019-12-24 15:50:00 Test Item Value Reference Range Interpretation Comments Urine Urobilinogen (test code Negative mg/dL 0.0-1.0 = 55025-7) [facility]ardUrine leukocytes count by automated test strip (number/volume) 2019-12-24 15:50:00 Test Item Value Reference Range Interpretation Comments Urine Leukocyte Esterase Negative {Pamela}/uL Negative (test code = 66047-5) [facility] HealthMicroscopic examination of [id number] 15:50:00 Test Item Value Reference Range Interpretation Comments Microscopic Urinalysis (T) (test code = ----- 58272-3) [facility] HealthUrine sediment erythrocyte count by microscopy (number/high power field)2019-12-24 15:50:00 Test Item Value Reference Range Interpretation Comments Urine RBC (test code = 69569-0) 3-10 /[HPF] 0-2 [facility] HealthUrine sediment leukocyte count by microscopy (number/high power field)2019-12-24 15:50:00 Test Item Value Reference Range Interpretation Comments Urine WBC (test code = 5821-4) Rare /[HPF] 0-5 [facility] HealthUrine sediment epithelial cell count by microscopy (number/high power field)2019-12-24 15:50:00 Test Item Value Reference Range Interpretation Comments Urine Epithelial Cells (test code Few /[HPF] Few = 5787-7) [facility] HealthUrine sediment crystal count by microscopy (number/high power field)2019-12-24 15:50:00 Test Item Value Reference Range Interpretation Comments Urine Crystals (test code = None Seen /[HPF] None * 37441-2) [facility] HealthUrine sediment bacteria count by microscopy (number/high power field)2019-12-24 15:50:00 Test Item Value Reference Range Interpretation Comments Urine Bacteria (test code = Rare /[HPF] None 5769-5) [facility] HealthUrine sediment casts count by microscopy (number/low power field) 2019-12-24 15:50:00 Test Item Value Reference Range Interpretation Comments Urine Casts (test code = None Seen /[LPF] None * 9842-6) [facility] HealthYeast detection in urine sediment by light [id number] 15:50:00 Test Item Value Reference Range Interpretation Comments Urine Yeast (test code = None Seen /[HPF] None 26295-0) [facility] comment 15:50:00 Test Item Value Reference Range Interpretation Comments Urinalysis Comment (test * See_Comment [A utomated message] The code = 8262-8) system which generated this result tra nsmitted reference range : *. The reference range was not used to interpr et this result as normal/abnormal . [facility] comment 15:50:00 Test Item Value Reference Range Interpretation Comments Urine Culture Indicated (test code = Not Ind 8264-4) [facility] HealthUrinalysis specimen collection [id number] 15:50:00 Test Item Value Reference Range Interpretation Comments Urine Source (test code = 87948-3) URINE [facility] by [id number] 15:50:00 Test Item Value Reference Range Interpretation Comments Urine Color (test code = 67003-2) Yellow [facility] clarity [id number] 15:50:00 Test Item Value Reference Range Interpretation Comments Urine Appearance (test code = 95202-5) Clear [facility] measurement by automated test [id number] 15:50:00 Test Item Value Reference Range Interpretation Comments Urine pH (test code = 44190-9) 6.[address] [facility] [address] Ames[facility] gravity of Urine by Automated test [id number] 15:50:00 Test Item Value Reference Range Interpretation Comments Urine Specific [place] (test code = 1.020 89483-6) [facility] protein measurement by automated test strip (mass/volume)2019-12-24 15:50:00 Test Item Value Reference Range Interpretation Comments Urine Protein (test code = Negative mg/dL 83688-9) [facility] glucose measurement by automated test strip (mass/volume)2019-12-24 15:50:00 Test Item Value Reference Range Interpretation Comments Urine Glucose (UA) (test code Negative mg/dL = 81552-6) [facility] ketones measurement by automated test strip (mass/volume)2019-12-24 15:50:00 Test Item Value Reference Range Interpretation Comments Urine Ketones (test code = Negative mg/dL 76997-1) [facility] erythrocytes count by automated test strip (number/volume)2019-12-24 15:50:00 Test Item Value Reference Range Interpretation Comments Urine Occult Blood (test code = 250 51857-2) [facility] nitrite detection by automated test [id number] 15:50:00 Test Item Value Reference Range Interpretation Comments Urine Nitrite (test code = 22031-2) Negative [facility] total bilirubin measurement by automated test strip (mass/volume)2019-12-24 15:50:00 Test Item Value Reference Range Interpretation Comments Urine Bilirubin (test code = Negative mg/dL 17273-7) [facility] urobilinogen measurement by automated test strip (mass/volume)2019-12-24 15:50:00 Test Item Value Reference Range Interpretation Comments Urine Urobilinogen (test code Negative mg/dL = 45607-2) [facility] leukocytes count by automated test strip (number/volume)2019-12-24 15:50:00 Test Item Value Reference Range Interpretation Comments Urine Leukocyte Esterase Negative {Pamela}/uL (test code = 02670-9) [facility] - . HuiMicroscopic examination of [id number] 15:50:00 Test Item Value Reference Range Interpretation Comments Microscopic Urinalysis (T) (test code = ----- 35653-4) [facility] sediment erythrocyte count by microscopy (number/high power field)2019-12-24 15:50:00 Test Item Value Reference Range Interpretation Comments Urine RBC (test code = 56201-1) 3-10 /[HPF] [facility] sediment leukocyte count by microscopy (number/high power field)2019-12-24 15:50:00 Test Item Value Reference Range Interpretation Comments Urine WBC (test code = 5821-4) Rare /[HPF] [facility] sediment epithelial cell count by microscopy (number/high power field)2019-12-24 15:50:00 Test Item Value Reference Range Interpretation Comments Urine Epithelial Cells (test code Few /[HPF] = 5787-7) [facility] sediment crystal count by microscopy (number/high power field)2019-12-24 15:50:00 Test Item Value Reference Range Interpretation Comments Urine Crystals (test code = None Seen /[HPF] 75772-1) [facility] sediment bacteria count by microscopy (number/high power field)2019-12-24 15:50:00 Test Item Value Reference Range Interpretation Comments Urine Bacteria (test code = Rare /[HPF] 5769-5) [facility] sediment casts count by microscopy (number/low power field)2019-12-24 15:50:00 Test Item Value Reference Range Interpretation Comments Urine Casts (test code = None Seen /[LPF] 9842-6) [facility] detection in urine sediment by light microscopy 2019-12-24 15:50:00 Test Item Value Reference Range Interpretation Comments Urine Yeast (test code = None Seen /[HPF] 72161-1) [facility] comment 15:50:00 Test Item Value Reference Range Interpretation Comments Urinalysis Comment (test code = 8262-8) * [facility] comment 15:50:00 Test Item Value Reference Range Interpretation Comments Urine Culture Indicated (test code = Not Ind 8264-4) [facility] [id number] 14:42:00 Test Item Value Reference Range Interpretation Comments Test (test code = negative Test) [facility] [id number] 15:15:56 Test Item Value Reference Range Interpretation Comments Test (test code = negative Test) [facility] [id number] 08:05:00 Test Item Value Reference Range Interpretation Comments Isolate 1 (test code = Lactobacillus species ISO1) URINALYSIS WITH MICRO *WW*2018-05-08 18:39:00 Test Item Value Reference Range Interpretation Comments COLOR (test code = COLU) YELLOW YELLOW CLARITY (test code = CLA) CLEAR CLEAR GLUCOSE UR (test code = UA GLUCOSE) NEGATIVE NEGATIVE BILI UR (test code = BILE) NEGATIVE NEGATIVE KETONES UR (test code = REANNA) NEGATIVE NEGATIVE SP GRAVITY (test code = SPGR) 1.010 1.005-1.030 PH UR (test code = PH) 6.5 4.5-8.0 PROTEIN UR (test code = PU) NEGATIVE NEGATIVE UROBIL UR (test code = UROQ) 0.2 EU/dL 0.2-1.0 NITRITE UR (test code = NITRITE) NEGATIVE NEGATIVE BLOOD UR (test code = UA BLOOD) NEGATIVE NEGATIVE LEUK ES UR (test code = LEUK) 2+ NEGATIVE A WBC UR (test code = UWBC) 6 /HPF 0-5 H RBC UR (test code = URBC) 1 /HPF 0-2 EPITH UR (test code = UEPC) FEW /LPF FEW BACTERIA UR (test code = UBACT) FEW /HPF NONE A CAST UR (test code = CAST) /LPF NONE CRYSTAL UR (test code = CRYU) / LPF NONE MUCUS UR (test code = MUC) / HPF NONE AMORPH UR (test code = CHRIST) / HPF NONE TRICH UR (test code = UTRICH) /HPF NONE YEAST UR (test code = UY) /HPF NONE SPERM UR (test code = USPERM) /HPF NONE U/S >14 WEEKS*WW*2018-05-04 11:01:01Location of dictation: B2OB Ultrasound CompleteClinical indication: Premature contractions, patient has cerclageCOMPARISON: 02/28/18TECHNIQUE: Real-time sonography was performed transabdominally with the 4 MHztransducer.FINDINGS:There is a single living intrauterine fetus in cephalic presentation. Placentais posterior, grade 2. There is no evidence of placental abruption nor placentaprevia. Cervix iseffaced but appears closed, measuring 1.4 cm length. Tracefluid in the endocervical canal. Amniotic fluid volume is within normal limitswith LULU of 16.4cm. The single deepest pocket measures 5.2 cm.ANATOMIC SURVEY:No gross abnormalities of the cranium, spine, ,4-chamber heart,stomach bubble, kidneys, bladder , cord insertion site and 3-vessel cord. heart rate: 136 BPMAverage sonographic age of the fetus is 26 weeks 4 days based on the following:Biparietal diameter: 6.8 cmHead circumference: 23.6 cmAbdominal circumference: 21.8 cmFemur length: 5.3 cmFetal ratios are normal. Comparedto prior study there has been appropriategrowth.Estimated weight: 984 grams. weight percentile: 34%SD ratio 2.07-2.68.No abnormality of the maternal adnexae.IMPRESSION: 1. Single living intrauterine fetus at 26 weeks 4 days sonographic age incephalic presentation.2. Compared to prior study there has been appropriate growth.3. The cervix is slightly effaced with trace fluid in the endocervical canal.4. No evidence for placenta previa nor abruption. URINALYSIS *WW*2018-05-04 10:25:00 Test Item Value Reference Range Interpretation Comments COLOR (test code = COLU) YELLOW YELLOW CLARITY (test code = CLA) CLEAR CLEAR GLUCOSE UR (test code = UA GLUCOSE) NEGATIVE NEGATIVE BILI UR (test code = BILE) NEGATIVE NEGATIVE KETONES UR (test code = REANNA) NEGATIVE NEGATIVE SP GRAVITY (test code = SPGR) <=1.005 1.005-1.030 PH UR (test code = PH) 6.5 4.5-8.0 PROTEIN UR (test code = PU) NEGATIVE NEGATIVE UROBIL UR (test code = UROQ) 0.2 EU/dL 0.2-1.0 NITRITE UR (test code = NITRITE) NEGATIVE NEGATIVE BLOOD UR (test code = UA BLOOD) NEGATIVE NEGATIVE LEUK ES UR (test code = LEUK) NEGATIVE NEGATIVE AUAM (test code = WAUAM) NO NO U/S >14 WEEKS2018-02-28 12:56:49OBSTETRIC ULTRASOUND Location code: [id number] HISTORY: Abdominal painGA by first US: 17 weeks and 5daysEDD by 1st ultrasound: 08/03/2018GA by today's US: 18 week 0 dayFindings:There is a single intrauterine in vertex presentation. Estimatedfetal heart rate is 141 beats per minute. Amniotic fluid index is 10.5 cm. Theplacenta is posterior with grade 1 changes. There is no evidence of previaorabruption. The cervix is closed and measures 3.3 cm. The maternal adnexa areunremarkable. Approximate sonographic age is 18 weeks and 0 days based upon the following:BPD 3.9 cm 17 weeks 6 daysHC 15.0cm 18 weeks 1 dayAC 11.7 cm 17 [...] weeks 0 days. 2. No abnormality identified.URINALYSIS 2018-02-28 12:19:00 Test Item Value Reference Range Interpretation Comments COLOR (test code = COLU) YELLOW YELLOW CLARITY (test code = CLA) CLEAR CLEAR GLUCOSE UR (test code = UA GLUCOSE) NEGATIVE NEGATIVE BILI UR (test code = BILE) NEGATIVE NEGATIVE KETONES UR (test code = REANNA) NEGATIVE NEGATIVE SP GRAVITY (test code = SPGR) 1.020 1.005-1.030 PH UR (test code = PH) 8.0 4.5-8.0 PROTEIN UR (test code = PU) NEGATIVE NEGATIVE UROBIL UR (test code = UROQ) 0.2 EU/dL 0.2-1.0 NITRITE UR (test code = NITRITE) NEGATIVE NEGATIVE BLOOD UR (test code = UA BLOOD) NEGATIVE NEGATIVE LEUK ES UR (test code = LEUK) NEGATIVE NEGATIVE AUAM (test code = WAUAM) NO NO U/S >14 WEEKS*WW*2018-02-07 20:13:09LOCATION: A1EXAM: U/S >14 WEEKS*WW*INDICATION: [id number]: Pain in pelvisLMP: Unknown 14 wks 5 days - MORELIA 08/03/18.CURRENT US: 02/07/18 15 wks 2 days - MORELIA 07/31/18.PRIOR US: None.A single fetus is present in breech presentation.Placenta lies posterior, Grade 1. No placenta previa. MEASUREMENTS:BPD: 2.8 cm = 15 weeks 0 days. HC: 11.0 cm = 15 weeks 2 days. FL: 1.8 cm = 15 weeks 2 days.AC: 9.1 cm = 15 weeks 2 days. RATIOS:CI = 0.69 (0.70-0.86)FL/AC = 0.20 (0.20-0.24)HC/AC = 1.21(1.11-1.30)FL/BPD = 0.64 (0.71-0.87)LULU is 11.6 cm. Cervical length is 2.1 cm.Estimated weightis 110 grams. This lies at the 67 percentile. heart rate is 157 beats per minute.Normal anatomy visualized includes: Heart motion, 4 chambered heart,brain, cerebellum, ventricles, stomach, um bilical cord insertion, three-vesselcord, kidneys, urinary bladder, spine, extremities.IMPRESSION:Single viable consistent with 15 week 2 day gestation by ultrasound.Estimated delivery date 07/31/18. No complication is identified.BETA HCG QUANTITATIVE SERUM *WW*2018-02-07 19:43:00 Test Item Value Reference Range Interpretation Comments BHCG QUANT (test 69435.00 mIU/mL code = A17) BHCGQ (test code = QUANTITATIVE BHCG BHCQ) RESULT INTERPRETATION --- APPROXIMATE APPROXIMATE GESTATIONAL AGE HCG RANGE (WEEKS) (mIU/mL) - 0.2 - 1 5 - 50 1 - 2 50 - 500 2 - 3 100 - 5,000 3 - 4 500 - 10,000 4 - 5 1,000 - 50,000 5 - 6 10,000 - 100,000 6 - 8 15,000 - 200,000 8 - 12 10,000 - 100,000 --- COMPREHENSIVE METABOLIC ABDI *WW*2018-02-07 19:05:00 Test Item Value Reference Range Interpretation Comments GLUCOSE (test code = 06D) 79 mg/dL 75-100 SODIUM (test code = 01A) 134 mmol/L 136-145 L POTASSIUM (test code = 01B) 3.6 mmol/L 3.6-5.1 CHLORIDE (test code = 04A) 104 mmol/L 98-107 CO2 (test code = 02A) 23 mmol/L 22-32 ANION GAP (test code = ANG) 11.0 mmol/L BUN (test code = 05D) 8 mg/dL 7-18 CREATININE (test code = 03E) 0.5 mg/dL 0.4-1.1 BUN/CREA (test code = BCR) 17 12-20 CALCIUM (test code = 09D) 8.7 mg/dL 8.3-9.5 BILI TOTAL (test code = 11A) 0.4 mg/dL 0.2-1.0 PROTEIN (test code = 07D) 7.9 g/dL 6.4-8.2 ALBUMIN (test code = 08D) 3.5 g/dL 3.5-4.8 GLOBULIN (test code = GLB) 4.4 g/dL 1.5-3.8 H ALB/GLOB (test code = AGRR) 0.8 1.0-2.6 L ALK PHOS (test code = 35A) 65 IU/L 42-121 AST (test code = 30A) 16 IU/L <=42 ALT (test code = 31A) 19 IU/L <=78 AMYLASE AND LIPASE 2018-02-07 19:00:00 Test Item Value Reference Range Interpretation Comments AMYLASE (test code = 10A) 91 U/L 28-100 LIPASE (test code = 60A) 146 IU/L 73-393 URINALYSIS 2018-02-07 18:51:00 Test Item Value Reference Range Interpretation Comments COLOR (test code = COLU) YELLOW YELLOW CLARITY (test code = CLA) CLEAR CLEAR GLUCOSE UR (test code = UA GLUCOSE) NEGATIVE NEGATIVE BILI UR (test code = BILE) NEGATIVE NEGATIVE KETONES UR (test code = REANNA) NEGATIVE NEGATIVE SP GRAVITY (test code = SPGR) 1.020 1.005-1.030 PH UR (test code = PH) 7.0 4.5-8.0 PROTEIN UR (test code = PU) NEGATIVE NEGATIVE UROBIL UR (test code = UROQ) 0.2 EU/dL 0.2-1.0 NITRITE UR (test code = NITRITE) NEGATIVE NEGATIVE BLOOD UR (test code = UA BLOOD) NEGATIVE NEGATIVE LEUK ES UR (test code = LEUK) NEGATIVE NEGATIVE AUAM (test code = WAUAM) NO NO CBC (INCLUDES AUTOMATED DIFFERENTIAL)*[id number] 18:50:00 Test Item Value Reference Range Interpretation Comments WBC (test code = WBC) 11.0 10\S\3/uL 4.5-11.0 RBC (test code = RBC) 3.42 10\S\6/uL 4.30-5.70 L HGB (test code = HBG) 10.9 g/dL 12.0-15.5 L HCT (test code = HCT) 31.9 % 35.0-44.0 L MCV (test code = MCV) 93.3 fL 81.0-99.0 MCH (test code = MCH) 31.9 pg 27.0-31.0 H MCHC (test code = MCHC) 34.2 g/dL 32.0-36.0 RDW (test code = RDW) 12.4 % 11.5-14.5 PLT (test code = PLT) 199 10\S\3/uL 130-400 MPV (test code = MPV) 10.2 fL 9.4-12.4 NEUTROP # (test code = NE#) 9.4 10\S\3/uL 1.6-8.0 H LYMPH # (test code = LY#) 1.0 10\S\3/uL 1.1-3.5 L MONOCYTE # (test code = MO#) 0.6 10\S\3/uL 0.0-1.1 EOSINOPH # (test code = EO#) 0.1 10\S\3/uL 0.0-0.7 BASOPHIL # (test code = BA#) 0.0 10\S\3/uL 0.0-0.3 IG # (test code = IG#) 0.04 10\S\3/uL 0.00-0.06 NRBC # (test code = NRBC#) 0.00 10\S\3/uL 0.00-0.01 NEUTROPH % (test code = NE%) 84.8 % 35.0-73.0 H LYMPH % (test code = LY%) 8.9 % 20.0-55.0 L MONO % (test code = MO%) 5.1 % 2.5-10.0 EOSINOPH % (test code = EO%) 0.5 % 0.0-5.0 BASOPHIL % (test code = BA%) 0.3 % 0.0-2.0 IG % (test code = IG%) 0.4 % 0.0-0.8 NRBC% (test code = NRBC%) 0.0 % 0.0-0.2 MANDIFF (test code = WMDIFF) NO NO RBC MORPH (test code = NORMAL WRBCMOR)
[2021-11-14 12:00] LABS: Urine Blood 2+ (Negative); Urine Glucose Negative (Negative); Urine Protein Negative (Negative); Urine Specific Gravity 1.025 (1.005-1.030)
[2021-11-14 12:42] LABS: Absolute Lymphocytes (CBC) 1.5 K/uL (0.7-4.9); Hematocrit 38.1 % (36.0-45.0); Lymphocytes % 32.7 % (15.3-44.8); MCV 89.2 fL (80-100); MPV 8.6 fL (7.6-11.3); RBC Red Blood Cell Count 4.26 M/uL (3.86-4.86)
[2021-11-14] MEDS ORDERED: ACETAMINOPHEN 500 MG TAB ONE (12:48)
[2021-11-14 12:58] LABS: Bilirubin Total 0.5 mg/dL (0.2-1.0); Potassium 3.3 mmol/L (3.5-5.1); Protein, Total 8.1 g/dL (6.4-8.2)
--- NOTE | 2021-11-14 13:33 | RAD REPORT ---
EXAM DESCRIPTION: CTAbdomen Pelvis W Contrast - 11/14/2021 1:19 pm CLINICAL HISTORY: LLQ abdominal pain COMPARISON: <Comparisons> TECHNIQUE: CT of the abdomen and pelvis was performed. All CT scans are performed using dose optimization technique as appropriate and may include automated exposure control or mA/KV adjustment according to patient size. FINDINGS: Lower chest: No acute abnormality. Liver: No acute abnormality or suspicious lesions. Biliary: No biliary ductal dilatation. Stomach: No significant focal abnormality. Duodenum: No significant focal abnormality. Pancreas: No significant abnormality. Spleen: No significant abnormality. Adrenal: No suspicious lesions. Kidney/ureter: No hydronephrosis. No renal calculi. Retroperitoneum: No retroperitoneal adenopathy. Vascular: No aneurysm. Bowel: No significant focal abnormality. Normal appendix. Peritoneum: No ascites or free air. Bladder: Grossly unremarkable. Reproductive: Within normal limits for age. Bones: No acute fracture. Other: n/a IMPRESSION: No acute intra-abdominal or pelvic finding. Normal appendix. No urinary tract calculi.
[2021-11-14 13:37] LABS: Urine Specific Gravity/Preg 1.025 (1.005-1.030)
--- NOTE | 2021-11-14 14:14 | ER ---
Nurse's Notes [facility] Name: Yamel Cano Age: 26 yrs Sex: Female : 1995 Arrival Date: 11/14/2021 Time: 11:01 Bed 5 Private MD: Diagnosis: Lower abdominal pain, unspecified-Left lower quadrant Presentation: 11/14 11:13 Chief complaint: Patient states: I have been having a cramping in my lower left side, iw nausea, and brown spotting since last Tuesday. Coronavirus screen: At this time, the client does not indicate any symptoms associated with coronavirus-19. Ebola Screen: No symptoms or risks identified at this time. Initial Sepsis Screen: Does the patient meet any 2 criteria? No. Patient's initial sepsis screen is negative. Does the patient have a suspected source of infection? No. Patient's initial sepsis screen is negative. Risk Assessment: Do you want to hurt yourself or someone else? Patient reports no desire to harm self or others. Onset of symptoms was November 12, 2021. 11:13 Method Of Arrival: Ambulatory iw 11:13 Acuity: MAURICE 3 iw Triage Assessment: 11:14 General: Appears in no apparent distress. uncomfortable, Behavior is calm, cooperative, iw appropriate for age. Pain: Complains of pain in left lower quadrant Pain does not radiate. EENT: No deficits noted. No signs and/or symptoms were reported regarding the EENT system. Neuro: No deficits noted. Cardiovascular: No deficits noted. Respiratory: No deficits noted. GI: Abdomen is round non-distended, Abd is soft X 4 quads Abdomen is tender to palpation in left lower quadrant Reports nausea. : Reports cramping, in left lower quadrant(s) vaginal bleeding that is Denies burning with urination. Derm: No deficits noted. No signs and/or symptoms reported regarding the dermatologic system. Musculoskeletal: No deficits noted. No signs and/or symptoms reported regarding the musculoskeletal system. PROFILER: 11:12 LMP 07/12/2021 iw Historical: - Allergies: 11:14 Latex, Natural Rubber; iw - Home Meds: 11:14 Depo-Provera 400 mg/mL IM susp 1 mL once moly [Active]; iw - PMHx: 11:14 uterine fibroids; iw - PSHx: 11:14 None; iw - Immunization history:: Adult Immunizations up to date, Client reports receiving the 2nd dose of the Covid vaccine, Client reports receiving the 1st dose of the Covid vaccine. - Social history:: Smoking status: Patient denies any tobacco usage or history of. Screenin:44 Abuse screen: Denies threats or abuse. Denies injuries from another. Nutritional eh3 screening: No deficits noted. Tuberculosis screening: No symptoms or risk factors identified. Fall Risk IV access (20 points). Total Bryan Fall Scale indicates No Risk (0-24 pts). Assessment: 12:44 General: Appears in no apparent distress. uncomfortable, Behavior is calm, cooperative, eh3 appropriate for age. Pain: Complains of pain in left lower quadrant Pain does not radiate. Pain currently is 7 out of 10 on a pain scale. Quality of pain is described as aching, crampy, Pain began one week ago Is continuous, Alleviated by repositioning, Aggravated by increased activity. Neuro: Level of Consciousness is awake, alert, obeys commands, Oriented to person, place, time, situation. Cardiovascular: Capillary refill < 3 seconds Patient's skin is warm and dry. Respiratory: Airway is patent Respiratory effort is even, unlabored. GI: Abdomen is flat, non-distended, Bowel sounds present X 4 quads. Abdomen is tender to palpation in left lower quadrant Reports lower abdominal pain, cramping, nausea. : Reports vaginal bleeding that is brown, spotty, since one week ago. 13:35 Reassessment: Patient appears in no apparent distress at this time. Patient and/or ld1 family updated on plan of care and expected duration. Pain level reassessed. Patient denies pain at this time. 14:15 Reassessment: Pt called me into room - requesting to leave without completing ld1 ultrasound. Pt states "I made an appointment with my specialist and I want to leave." Spoke with pt and educated on need for ultrasound, pt states "I need to go because my son is in the care of someone who I don't consider safe." Notified ERP. Vital Signs: 11:12 BP 108 / 68; Pulse 75; Resp 16; Temp 98.3(O); Pulse Ox 100% on R/A; Weight 69.85 kg iw (R); Height 5 ft. 5 in. (165.10 cm); Pain 8/10; 12:37 BP 105 / 65; Pulse 73; Resp 18; Pulse Ox 100% on R/A; Pain 7/10; eh3 13:36 BP 100 / 68; Pulse 74; Resp 22; Pulse Ox 100% on R/A; Pain 4/10; eh3 11:12 Body Mass Index 25.63 (69.85 kg, 165.10 cm) iw ED Course: 11:01 Patient arrived in ED. am2 11:12 Arm band placed on right wrist. iw 11:14 Triage completed. iw 11:40 Micheal Ramsey, RN is Primary Nurse. bp 12:01 Chris Meneses MD is Attending Physician. kdr 12:04 Primary Nurse role handed off by Micheal Ramsey RN eh3 12:04 Jenny Fong, TAIWO is Primary Nurse. eh3 12:37 Inserted saline lock: 20 gauge in left antecubital area, using aseptic technique. Blood eh3 collected. 12:44 Patient has correct armband on for positive identification. Placed in gown. Bed in low eh3 position. Call light in reach. Side rails up X2. Client placed on continuous cardiac and pulse oximetry monitoring. NIBP monitoring applied. Door closed. Noise minimized. Lights dimmed. Warm blanket given. 13:02 Urine --Ancillary (enter results) Sent. eb 13:21 CT Abd/Pelvis - IV Contrast Only In Process Unspecified. EDMS 14:20 No provider procedures requiring assistance completed. IV discontinued, intact, eh3 bleeding controlled, No redness/swelling at site. Pressure dressing applied. Administered Medications: 12:37 Not Given (Patient Refused): Ketorolac 15 mg IVP once eh3 12:42 Drug: Tylenol 1000 mg Route: PO; eh3 13:45 Follow up: Response: Marked relief of symptoms eh3 Medication: 14:21 VIS not applicable for this client. eh3 Outcome: 14:13 Discharge ordered by . kdr 14:20 Discharged to home ambulatory. eh3 14:20 Condition: stable 14:20 Discharge instructions given to patient, Instructed on discharge instructions, follow up and referral plans. Demonstrated understanding of instructions, follow-up care. 14:21 Patient left the ED. eh3 Signatures: Dispatcher [employer] EDMN Rittger, Chris, Dorothea Perez MD, RN RN iw Nell Arvizu am2 Micheal Ramsey, RN RN Leticia Gallardo Lauren RN RN ld1 Jenny Fong, TAIWO RN eh3 Corrections: (The following items were deleted from the chart) 11:17 11:13 Acuity: MAURICE 4 iw 14:25 14:15 Reassessment: Pt called me into room - requesting to leave without completing ld1 ultrasound. Pt states "I made an appointment with my specialist and I want to leave." Notified ERP. ld1
--- NOTE | 2021-11-14 14:14 | EDPHYS ---
Physician Documentation [facility] Name: Yamel Cano Age: 26 yrs Sex: Female : 1995 Arrival Date: 11/14/2021 Time: 11:01 Bed 5 Private MD: ED Physician Chris Meneses HPI: 11/14 15:51 This 26 yrs old Black Female presents to ER via Ambulatory with complaints of Abdominal kdr Pain - LLQ, Vaginal Discharge. 15:52 Patient is complaining of lower abdominal pain. Is primarily left lower quadrant. She kdr has had this type of pain multiple times before and has been worked up several times for both pelvic and intra-abdominal causes. This is included ovarian torsion in the past. Nothing has been found of significance. Her's presenting symptoms today are not significantly different nor more severe than prior presentations for the same problems. Patient is mildly concerned about in the end she opted to follow-up with her physician as opposed to have an ultrasound here to determine whether or not she had some extent of ovarian torsion. Patient was discharged ultimately in good condition and without pain.. Onset: The symptoms/episode began/occurred gradually. Severity of symptoms: At their worst the symptoms were mild in the emergency department the symptoms are unchanged. The patient has experienced similar episodes in the past, multiple times. 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 - Social history:: Smoking status: Patient denies any tobacco usage or history of. ROS: 15:52 Constitutional: Negative for fever, chills, and weight loss, Eyes: Negative for injury, kdr pain, redness, and discharge, ENT: Negative for injury, pain, and discharge, Neck: Negative for injury, pain, and swelling, Cardiovascular: Negative for chest pain, palpitations, and edema, Respiratory: Negative for shortness of breath, cough, wheezing, and pleuritic chest pain, Back: Negative for injury and pain, : Negative for injury, bleeding, discharge, and swelling, MS/Extremity: Negative for injury and deformity, Skin: Negative for injury, rash, and discoloration, Neuro: Negative for headache, weakness, numbness, tingling, and seizure activity. Psych: Negative for depression, anxiety, suicide ideation, homicidal ideation, and hallucinations, Allergy/Immunology: Negative for hives, rash, and allergies, Endocrine: Negative for neck swelling, polydipsia, polyuria, polyphagia, and marked weight changes, Hematologic/Lymphatic: Negative for swollen nodes, abnormal bleeding, and unusual bruising. Exam: 15:52 Constitutional: This is a well developed, well nourished patient who is awake, alert, kdr and in no acute distress. Head/Face: Normocephalic, atraumatic. Eyes: Pupils equal round and reactive to light, extra-ocular motions intact. Lids and lashes normal. Conjunctiva and sclera are non-icteric and not injected. Cornea within normal limits. Periorbital areas with no swelling, redness, or edema. Neck: Trachea midline, no thyromegaly or masses palpated, and no cervical lymphadenopathy. Supple, full range of motion without nuchal rigidity, or vertebral point tenderness. No Meningismus. Chest/axilla: Normal chest wall appearance and motion. Nontender with no deformity. No lesions are appreciated. Cardiovascular: Regular rate and rhythm with a normal S1 and S2. No gallops, murmurs, or rubs. Normal PMI, no JVD. No pulse deficits. Respiratory: Lungs have equal breath sounds bilaterally, clear to auscultation and percussion. No rales, rhonchi or wheezes noted. No increased work of breathing, no retractions or nasal flaring. Abdomen/GI: Soft, non-tender, with normal bowel sounds. No distension or tympany. No guarding or rebound. No evidence of tenderness throughout. Back: No spinal tenderness. No costovertebral tenderness. Full range of motion. Skin: Warm, dry with normal turgor. Normal color with no rashes, no lesions, and no evidence of cellulitis. MS/ Extremity: Pulses equal, no cyanosis. Neurovascular intact. Full, normal range of motion. Neuro: Awake and alert, GCS 15, oriented to person, place, time, and situation. Cranial nerves II-XII grossly intact. Motor strength 5/5 in all extremities. Sensory grossly intact. Cerebellar exam normal. Normal gait. Psych: Awake, alert, with orientation to person, place and time. Behavior, mood, and affect are within normal limits. Vital Signs: 11:12 BP 108 / 68; Pulse 75; Resp 16; Temp 98.3(O); Pulse Ox 100% on R/A; Weight 69.85 kg iw (R); Height 5 ft. 5 in. (165.10 cm); Pain 8/10; 12:37 BP 105 / 65; Pulse 73; Resp 18; Pulse Ox 100% on R/A; Pain 7/10; eh3 13:36 BP 100 / 68; Pulse 74; Resp 22; Pulse Ox 100% on R/A; Pain 4/10; eh3 11:12 Body Mass Index 25.63 (69.85 kg, 165.10 cm) iw MDM: 14:13 Patient medically screened. kdr 15:52 Data reviewed: vital signs, nurses notes. Counseling: I had a detailed discussion with kdr the patient and/or guardian regarding: the historical points, exam findings, and any diagnostic results supporting the discharge/admit diagnosis, lab results, radiology results, the need for further work-up and treatment in the hospital. 11/14 12:00 Order name: Urine Dipstick-Ancillary; Complete Time: 12:01 [facility] 11/14 12:02 Order name: Urine --Ancillary (enter results); Complete Time: 13:53 11/14 12:06 Order name: CBC with Diff; Complete Time: 12:50 [facility] 11/14 12:06 Order name: CMP; Complete Time: 13:35 [facility] 11/14 12:06 Order name: Lipase; Complete Time: 13:35 [facility] 11/14 12:29 Order name: CT Abd/Pelvis - IV Contrast Only; Complete Time: 13:35 [facility] 11/14 12:06 Order name: IV Saline Lock; Complete Time: 12:37 [facility] 11/14 12:06 Order name: Labs collected and sent; Complete Time: 12:37 [facility] Administered Medications: 12:37 Not Given (Patient Refused): Ketorolac 15 mg IVP once 3 12:42 Drug: Tylenol 1000 mg Route: PO; eh3 13:45 Follow up: Response: Marked relief of symptoms eh3 Disposition Summary: 11/14/21 14:13 Discharge Ordered Location: Home kdr Problem: an acute exacerbation kdr Symptoms: are resolved kdr Condition: Stable kdr Diagnosis - Lower abdominal pain, unspecified - Left lower quadrant kdr Followup: kdr - With: Private Physician - When: 2 - 3 days - Reason: If symptoms return, Further diagnostic work-up, Recheck today's complaints, Continuance of care, Re-evaluation by your physician Discharge Instructions: - Discharge Summary Sheet kdr - Abdominal Pain, Adult, [id number] kdr Forms: - Medication Reconciliation Form kdr - Thank You Letter kdr Signatures: Dispatcher [employer] Chris Gordon MD MD kdr Dorothea Alcantara RN RN iw Jenny Fong RN RN eh3
[2021-11-14 15:27] VITALS: TEMP 98.3; O2SAT 100
[2021-11-14 15:34] VITALS: BP 100/68
== END 2021-11-14 14:21 | disposition home or self-care (01) ==
LOC: ER 11:00
DX: R10.32 Left lower quadrant pain (principal); Z91.040 Latex allergy status; Z91.048 Other nonmedicinal substance allergy status
CPT/HCPCS: 36415; 74177; 80053; 81003; 81025; 83690; 85025; 99284; Q9967

== ENCOUNTER 2022-01-20 12:36 | Emergency (ER) | payer OTHER ==
--- OUTSIDE RECORDS SUMMARY | 2022-01-20 12:44 | XMS REPORT | Continuity of Care Document ---
:1995 Author Organization [facility] t Address [address] [place] [address] Care Team Providers Name Role Phone Asked, No Pcp Primary Care Physician Unavailable LIZZY LORD Attending Clinician Unavailable INEZ SAM Attending Clinician Unavailable JANUSZ PUENTES Attending Clinician Unavailable Janusz Simmons Attending Clinician [phone] Doctor Unassigned, Bazile Mills Attending Clinician Unavailable LEEANN SAHA Attending Clinician Unavailable LEEANN SAHA Attending Clinician Unavailable Pgy1 Attending Clinician Unavailable Inez Sam MD Attending Clinician Angel MARAVILLA, Katie Attending Clinician Unavailable AICHA REYNA Attending Clinician Unavailable Only, Ang Db Test Attending Clinician Unavailable Ebpaul MICROBIOLOGY SUPERVISOR, Aicha Attending Clinician Deyvi Rome MD Attending Clinician Tanner MICROBIOLOGY SUPERVISOR, Lucinda Contreras Attending Clinician LUCINDA HART Attending Clinician Unavailable FANNIE GOLDSTEIN Attending Clinician Unavailable Trsiton MICROBIOLOGY SUPERVISOR, Fannie Attending Clinician YESSENIA QUEEN Attending Clinician Unavailable Kenneth Das MD Attending Clinician Bret MICROBIOLOGY SUPERVISORYessenia Attending Clinician LIZBETH LYN Attending Clinician Unavailable Praveen MICROBIOLOGY SUPERVISOR, Lizbeth Attending Clinician RICO CASON Attending Clinician Unavailable Rico Cason MD Attending Clinician TK CARMEN Attending Clinician Unavailable Nella MICROBIOLOGY SUPERVISORTk Attending Clinician UNKNOWN, ATTENDING Attending Clinician Unavailable Lisa Vail Attending Clinician LISA SORIANO Attending Clinician Unavailable Christophe Ackerman DO Attending Clinician Pop YAP, Lizzy Contreras Attending Clinician LIZZY LORD Attending Clinician Unavailable Jared Dixon MD Attending Clinician UNASSIGNED, ED Attending Clinician Unavailable G_Pappas Attending Clinician Unavailable Lab, Jessica-Rmchp Attending Clinician Unavailable BRADY STAPLETON Attending Clinician Unavailable [facility] Attending Clinician Unavailable Carolina Basurto MD Attending Clinician [phone] Pcp, Patient Does Not Have A Attending Clinician [phone] CAMI BARRETO Attending Clinician Unavailable Cami Barreto MD Attending Clinician [phone] SPENSER BHATT Attending Clinician Unavailable DR ALIE IBARRA Attending Clinician Unavailab DR JAYSON Wilcox Attending Clinician Unavailable DR BOSSMAN COHEN Attending Clinician Unavailable LIZZY LORD Admitting Clinician Unavailable INEZ SAM Admitting Clinician Unavailable LIZBETH LYN Admitting Clinician Unavailable RICO CASON Admitting Clinician Unavailable Salome Admitting Clinician Unavailable DR ALIE IBARRA Admitting Clinician Unavailab DR JAYSON Wilcox Admitting Clinician Unavailable DR BOSSMAN COHEN Admitting Clinician Unavailable Payers Payer Name Policy Type Policy Number Effective Date Expiration Date S ource 2 W [id number] 30 C [id number] [facility] [id number] 2021 [facility] 00:00:00 [place]ICAID [place] [id number] 2017 2017 00:00:00 00:00:00 [place] [id number] [facility] (MEDICAID) Problems Condition Condition Condition Status Onset Resolution Last Treating Co mments Source Name Details Category Date Date Treatment Clinician Date Nexplanon Nexplanon Disease Active 2021-03 Uni vers removal removal 0-19 ity of 00:00: [place] 00 Medical Branch Other Other Disease Active Univers general general 7-27 [place] and advice 00 Me dical for for Branch contracept contracept raisa raisa management management Depo-Prove Depo-Prove Disease Active U sharad ra ra 5-05 [place] ra[place] status raisa status 00 Me dical Branch Metrorrhag Metrorrhag Disease Active U sharad ia ia 5-05 ity of 00:00: [place] 00 Medical Branch Vaginal Vaginal Disease Active Univers discharge discharge 2-08 ity of 00:00: [place] 00 Medical Branch Adult body Adult body Disease Active 2019- U sharad mass index mass index 0-10 it y of 29.0-29.9 29.0-29.9 [place] Adult body Adult body Disease Active 2019-03 U nivers mass index mass index 0-10 it y of 29.0-29.9 29.0-29.9 [place] Intramural Intramural Disease Active Overview : [facility] leiomyoma leiomyoma 11-19 Formattin i ty of of uterus of uterus 00:00: [place] of this [place] 00 note Medical might be Branch different from the original. 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 02:49:54 l Active [place] Problem 06/12/2020 [place] [facility] Supervisio Supervisi Problem Active 2018-09-12 Memoria n of other on of 02:46:13 l high risk other high Her lala pregnancie risk s, third pregnancie trimester s, third trimester Active Problem 09/12/2018 [facility] Amenorrhea Amenorrhe Problem Active 2020-06-12 Arvind , a, 02:49:54 l unspecifie unspecifie He rmann d d Active Problem 06/12/2020 [facility] Abnormal Abnormal Problem Active 2018-01-06 [facility] uterine uterine 02:46:37 l and and [place] vaginal vaginal bleeding, bleeding, unspecifie unspecifie d d Active Problem 01/06/2018 [place] [facility] Supervisio Supervisi Problem Active 2018-05-09 Memoria n of other on of 03:46:39 l high risk other high Her lala pregnancie risk s, second pregnancie trimester s, second trimester Active Problem 05/09/2018 [facility] Pelvic and Pelvic Diagnosis Active 2019-05-19 [facility] perineal and 03:45:32 l pain perineal [place] pain Active Diagnosis 05/19/2019 [facility] Encounter Encounter Problem Active 2018-01-07 Memoria for for 02:45:45 l supervisio supervisio He misha n of other n of other normal normal , , first first trimester trimester Active Problem 01/07/2018 [facility] Allergies, Adverse Reactions, Alerts Allergy Allergy Status Severity Reaction(s) Onset Inactive Treating Comm ents Source Name Type Date Date Clinician No Known NA Active [facility] Allergie 05-16 [facility]osp[facility] 11:40: l 34 ([facility] nt) No Known NA Active [facility] Allergie 05-16 Hospita s 11:40: l 28 ([facility] nt) No Known NA Active [facility]m Allergie 05-15 Hospita s 10:58: l 38 ([facility] nt) No Known NA Active [facility]m Allergie 05-14 Hospita s 16:41: l 38 ([facility] nt) No Known NA Active Mu-Ism Allergie 05-14 Hospita s 16:41: l 30 ([facility] nt) No Known NA Active [facility]-Ism Allergie 05-14 Hospita s 16:41: l 22 ([facility] nt) No Known NA Active [facility] Allergie 05-14 [facility]ospita [facility] 14:32: l [facility] No Known NA Active [facility]m Allergie 3-02 [facility]ospita [facility] 13:32: l 13 ([facility]) Latex Propensi Active Itching Univers ty to 4-10 ity of adverse 00:00: [place] reaction 00 Medical s Branch LATEX DRUG Active ITCHING Univers INGREDI 4-10 ity of 00:00: [place] 00 Medical Branch Latex Allergy Active [place] [facility] Medical e Group Social History Social Habit Start Date Stop Date Quantity Comments Source Exposure to 2021-12-20 2021-12-30 Not sure [facility] SARS-CoV-2 00:00:00 08:30:00 [facility] (event) [place] Alcohol intake 2021-12-30 2021-12-30 0 /d [facility] 00:00:00 00:00:00 [facility] Tobacco use and 2021-11-19 2021-11-19 Smokeless tobacco Un iversity of exposure 00:00:00 00:00:00 non-user [facility] Doyousmoke? 2016-02-16 2016-02-16 [facility] 00:00:00 00:00:00 Sex Assigned At [address] [facility] 00:00:00 00:00:00 Smoking Status Start Date Stop Date Source Tobacco smoking consumption [facility] unknown Never smoked tobacco [facility] Medications Ordered Filled Start Stop Current Ordering Indication Dosage Frequency Signature Comments Components Source Medication Medication Date Date Medication? Clinician (SIG) Name Name etonogestre 2021- No [id number] 68mg Univers L 12-11 ity of (NEXPLANON) 21:15: 20:26 [place] implant 68 00 :00 Medical mg Branch etonogestre 2021- No [id number] 68mg 68 mg, Univers L 12-11 Subdermal, ity of (NEXPLANON) 21:15: 20:26 ONCE NOW, [place] implant 68 00 :00 1 dose, On Med ical mg Fri Branch 12/11/21 at 1615, Routine
Use approved by: DIRECTOR OF REHABILITATIVE SERVICES etonogestre 2021- No [id number] 68mg Univers L 9-30 09-30 ity of (NEXPLANON) 21:15: 20:26 [place] implant 68 00 :00 Medical mg Branch etonogestre 2021-0 2021- No [id number] 68mg 68 mg, Univers L 12-11 Subdermal, ity of (NEXPLANON) 21:15: 20:26 ONCE NOW, [place] implant 68 00 :00 1 dose, On Med ical mg Fri Branch 12/11/21 at 1615, Routine
Use approved by: DIRECTOR OF REHABILITATIVE SERVICES medroxyPROG 2021-0 2022- No [id number] 150mg Univers ESTERone -03-25 ity of (DEPO-PROVE 14:45: 15:44 [place] RA) 00 :00 Medical injection Branch 150 mg medroxyPROG 2-0 2022- No [id number] 150mg Univers ESTERone 07-16 ity of (DEPO-PROVE 14:45: 15:44 [place] RA) 00 :00 Medical injection Branch 150 mg medroxyPROG 2-0 2022- No [id number] 150mg Univers ESTERone 07-16 ity of (DEPO-PROVE 14:45: 15:44 [place] RA) 00 :00 Medical injection Branch 150 mg medroxyPROG 2-0 2022- No [id number] 150mg Univers ESTERone -03-25 ity of (DEPO-PROVE 14:45: 15:44 [place] RA) 00 :00 Medical injection Branch 150 mg medroxyPROG 2-0 2022- No [id number] 150mg Univers ESTERone 07-16 ity of (DEPO-PROVE 14:45: 15:44 [place] RA) 00 :00 Medical injection Branch 150 mg medroxyPROG 2-0 2022- No [id number] 150mg Univers ESTERone 07-16 ity of (DEPO-PROVE 14:45: 15:44 [place] RA) 00 :00 Medical injection Branch 150 mg medroxyPROG 2-0 2022- No [id number] 150mg Univers ESTERone -03-25 ity of (DEPO-PROVE 14:45: 15:44 [place] RA) 00 :00 Medical injection Branch 150 mg medroxyPROG 2022-0 2022- No [id number] 150mg Univers ESTERone -03-25 ity of (DEPO-PROVE 14:45: 15:44 [place] RA) 00 :00 Medical injection Branch 150 mg medroxyPROG 2022-0 2023- No [id number] 150mg Univers ESTERone 5-03-25 ity of (DEPO-PROVE 14:45: 15:44 [place] RA) 00 :00 Medical injection Branch 150 mg medroxyPROG 2022-0 3- No [id number] 150mg Univers ESTERone -03-25 ity of (DEPO-PROVE 14:45: 15:44 [place] RA) 00 :00 Medical injection Branch 150 mg medroxyPROG 2022-0 3- No [id number] 150mg Univers ESTERone -03-25 ity of (DEPO-PROVE 14:45: 15:44 [place] RA) 00 :00 Medical injection Branch 150 mg medroxyPROG 2022-0 3- No [id number] 150mg Univers ESTERone -03-25 ity of (DEPO-PROVE 14:45: 15:44 [place] RA) 00 :00 Medical injection Branch 150 mg medroxyPROG 2022-0 3- No [id number] 150mg Univers ESTERone -03-25 ity of (DEPO-PROVE 14:45: 15:44 [place] RA) 00 :00 Medical injection Branch 150 mg medroxyPROG 2022-0 3- No [id number] 150mg Univers ESTERone -03-25 ity of (DEPO-PROVE 14:45: 15:44 [place] RA) 00 :00 Medical injection Branch 150 mg medroxyPROG 2022-0 3- No [id number] 150mg Univers ESTERone -03-25 ity of (DEPO-PROVE 14:45: 15:44 [place] RA) 00 :00 Medical injection Branch 150 mg medroxyPROG 2022-0 3- No [id number] 150mg Univers ESTERone 5-03-25 ity of (DEPO-PROVE 14:45: 15:44 [place] RA) 00 :00 Medical injection Branch 150 mg ketorolac 2022-0 Yes [id number] 10mg Take 1 U nivers 10 mg 5-02 tablet by ity of tablet 00:00: mouth [place] 00 every 6 Medical (six) Branch hours as needed for Pain (scale 4-6). methocarbam 2022-0 Yes [id number] 500mg Take 1 Univers oL 500 mg 5-02 tablet by ity o f tablet 00:00: mouth (four) Medical times Branch daily. ketorolac 2022-0 Yes [id number] 10mg Take 1 U nivers 10 mg 5-02 tablet by ity of tablet 00:00: mouth [place] 00 every 6 Medical (six) Branch hours as needed for Pain (scale 4-6). methocarbam 2022-0 Yes [id number] 500mg Take 1 Univers oL 500 mg 5-02 tablet by ity o f tablet 00:00: mouth (four) Medical times Branch daily. ketorolac 2022-0 Yes [id number] 10mg Take 1 U nivers 10 mg 5-02 tablet by ity of tablet 00:00: mouth [place] 00 every 6 Medical (six) Branch hours as needed for Pain (scale 4-6). methocarbam 2022-0 Yes [id number] 500mg Take 1 Univers oL 500 mg 5-02 tablet by ity o f tablet 00:00: mouth (four) Medical times Branch daily. ketorolac 2022-0 Yes [id number] 10mg Take 1 U nivers 10 mg 5-02 tablet by ity of tablet 00:00: mouth [place] 00 every 6 Medical (six) Branch hours as needed for Pain (scale 4-6). methocarbam 2022-0 Yes [id number] 500mg Take 1 Univers oL 500 mg 5-02 tablet by ity o f tablet 00:00: mouth (four) Medical times Branch daily. ketorolac 2022-0 Yes [id number] 10mg Take 1 U nivers 10 mg 5-02 tablet by ity of tablet 00:00: mouth [place] 00 every 6 Medical (six) Branch hours as needed for Pain (scale 4-6). methocarbam 2022-0 Yes [id number] 500mg Take 1 Univers oL 500 mg 5-02 tablet by ity o f tablet 00:00: mouth (four) Medical times Branch daily. ketorolac 2022-0 Yes [id number] 10mg Take 1 U nivers 10 mg 5-02 tablet by ity of tablet 00:00: mouth [place] 00 every 6 Medical (six) Branch hours as needed for Pain (scale 4-6). methocarbam 2022-0 Yes [id number] 500mg Take 1 Univers oL 500 mg 5-02 tablet by ity o f tablet 00:00: mouth (four) Medical times Branch daily. ketorolac 2022-0 Yes [id number] 10mg Take 1 U nivers 10 mg 5-02 tablet by ity of tablet 00:00: mouth [place] 00 every 6 Medical (six) Branch hours as needed for Pain (scale 4-6). methocarbam 2022-0 Yes [id number] 500mg Take 1 Univers oL 500 mg 5-02 tablet by ity o f tablet 00:00: mouth (four) Medical times Branch daily. ketorolac 2022-0 Yes [id number] 10mg Take 1 U nivers 10 mg 5-02 tablet by ity of tablet 00:00: mouth 00 every 6 Medical (six) Branch hours as needed for Pain (scale 4-6). methocarbam 2022-0 Yes [id number] 500mg Take 1 Univers oL 500 mg 5-02 tablet by ity o f tablet 00:00: mouth (four) Medical times Branch daily. ketorolac 2022-0 Yes [id number] 10mg Take 1 U nivers 10 mg 5-02 tablet by ity of tablet 00:00: mouth [place] 00 every 6 Medical (six) Branch hours as needed for Pain (scale 4-6). methocarbam 2022-0 Yes [id number] 500mg Take 1 Univers oL 500 mg 5-02 tablet by ity o f tablet 00:00: mouth (four) Medical times Branch daily. ketorolac 2022-0 Yes [id number] 10mg Take 1 U nivers 10 mg 5-02 tablet by ity of tablet 00:00: mouth [place] 00 every 6 Medical (six) Branch hours as needed for Pain (scale 4-6). methocarbam 2022-0 Yes [id number] 500mg Take 1 Univers oL 500 mg 5-02 tablet by ity o f tablet 00:00: mouth (four) Medical times Branch daily. ketorolac 2022-0 Yes [id number] 10mg Take 1 U nivers 10 mg 5-02 tablet by ity of tablet 00:00: mouth [place] 00 every 6 Medical (six) Branch hours as needed for Pain (scale 4-6). methocarbam 2022-0 Yes [id number] 500mg Take 1 Univers oL 500 mg 5-02 tablet by ity o f tablet 00:00: mouth (four) Medical times Branch daily. ketorolac 2022-0 Yes [id number] 10mg Take 1 U nivers 10 mg 5-02 tablet by ity of tablet 00:00: mouth [place] 00 every 6 Medical (six) Branch hours as needed for Pain (scale 4-6). methocarbam 2022-0 Yes [id number] 500mg Take 1 Univers oL 500 mg 5-02 tablet by ity o f tablet 00:00: mouth (four) Medical times Branch daily. ketorolac 2022-0 Yes [id number] 10mg Take 1 U nivers 10 mg 5-02 tablet by ity of tablet 00:00: mouth 00 every 6 Medical (six) Branch hours as needed for Pain (scale 4-6). methocarbam 2022-0 Yes [id number] 500mg Take 1 Univers oL 500 mg 5-02 tablet by ity o f tablet 00:00: mouth (four) Medical times Branch daily. ketorolac 2022-0 Yes [id number] 10mg Take 1 U nivers 10 mg 5-02 tablet by ity of tablet 00:00: mouth [place] 00 every 6 Medical (six) Branch hours as needed for Pain (scale 4-6). methocarbam 2022-0 Yes [id number] 500mg Take 1 Univers oL 500 mg 5-02 tablet by ity o f tablet 00:00: mouth (four) Medical times Branch daily. ketorolac 2022-0 Yes [id number] 10mg Take 1 U nivers 10 mg 5-02 tablet by ity of tablet 00:00: mouth [place] 00 every 6 Medical (six) Branch hours as needed for Pain (scale 4-6). methocarbam 2022-0 Yes [id number] 500mg Take 1 Univers oL 500 mg 5-02 tablet by ity o f tablet 00:00: mouth (four) Medical times Branch daily. ketorolac 2022-0 Yes [id number] 10mg Take 1 U nivers 10 mg 5-02 tablet by ity of tablet 00:00: mouth [place] 00 every 6 Medical (six) Branch hours as needed for Pain (scale 4-6). methocarbam 2-0 Yes [id number] 500mg Take 1 Univers oL 500 mg 5-02 tablet by ity o f tablet 00:00: mouth 4 [place] 00 (four) Medical times Branch daily. ibuprofen 2021-0 Yes [id number] 800mg Take 1 Univers 800 mg 4-22 tablet by ity of tablet 00:00: mouth [place] 00 every 6 Medical (six) Branch hours as needed for Pain (scale 4-6). ibuprofen 2021-0 Yes [id number] 800mg Take 1 Univers 800 mg 4-22 tablet by ity of tablet 00:00: mouth [place] 00 every 6 Medical (six) Branch hours as needed for Pain (scale 4-6). ibuprofen 2021-0 Yes [id number] 800mg Take 1 Univers 800 mg 4-22 tablet by ity of tablet 00:00: mouth [place] 00 every 6 Medical (six) Branch hours as needed for Pain (scale 4-6). ibuprofen 2021-0 Yes [id number] 800mg Take 1 Univers 800 mg 4-22 tablet by ity of tablet 00:00: mouth [place] 00 every 6 Medical (six) Branch hours as needed for Pain (scale 4-6). ibuprofen 2021-0 Yes [id number] 800mg Take 1 Univers 800 mg 4-22 tablet by ity of tablet 00:00: mouth [place] 00 every 6 Medical (six) Branch hours as needed for Pain (scale 4-6). ibuprofen 2021-0 Yes [id number] 800mg Take 1 Univers 800 mg 4-22 tablet by ity of tablet 00:00: mouth [place] 00 every 6 Medical (six) Branch hours as needed for Pain (scale 4-6). ibuprofen 2021-0 Yes [id number] 800mg Take 1 Univers 800 mg 4-22 tablet by ity of tablet 00:00: mouth [place] 00 every 6 Medical (six) Branch hours as needed for Pain (scale 4-6). ibuprofen 2-0 Yes [id number] 800mg Take 1 Univers 800 mg 4-22 tablet by ity of tablet 00:00: mouth [place] 00 every 6 Medical (six) Branch hours as needed for Pain (scale 4-6). ibuprofen 2022-0 Yes [id number] 800mg Take 1 Univers 800 mg 4-22 tablet by ity of tablet 00:00: mouth [place] 00 every 6 Medical (six) Branch hours as needed for Pain (scale 4-6). ibuprofen 2022-0 Yes [id number] 800mg Take 1 Univers 800 mg 4-22 tablet by ity of tablet 00:00: mouth [place] 00 every 6 Medical (six) Branch hours as needed for Pain (scale 4-6). ibuprofen 2022-0 Yes [id number] 800mg Take 1 Univers 800 mg 4-22 tablet by ity of tablet 00:00: mouth [place] 00 every 6 Medical (six) Branch hours as needed for Pain (scale 4-6). ibuprofen 2022-0 Yes [id number] 800mg Take 1 Univers 800 mg 4-22 tablet by ity of tablet 00:00: mouth [place] 00 every 6 Medical (six) Branch hours as needed for Pain (scale 4-6). ibuprofen 2021-0 Yes [id number] 800mg Take 1 Univers 800 mg 4-22 tablet by ity of tablet 00:00: mouth [place] 00 every 6 Medical (six) Branch hours as needed for Pain (scale 4-6). ibuprofen 2022-0 Yes [id number] 800mg Take 1 Univers 800 mg 4-22 tablet by ity of tablet 00:00: mouth [place] 00 every 6 Medical (six) Branch hours as needed for Pain (scale 4-6). ibuprofen 2022-0 Yes [id number] 800mg Take 1 Univers 800 mg 4-22 tablet by ity of tablet 00:00: mouth [place] 00 every 6 Medical (six) Branch hours as needed for Pain (scale 4-6). ibuprofen 2022-0 Yes [id number] 800mg Take 1 Univers 800 mg 4-22 tablet by ity of tablet 00:00: mouth [place] 00 every 6 Medical (six) Branch hours as needed for Pain (scale 4-6). cyclobenzap 2022-0 Yes [id number] 5mg Take 1 Univers rine 5 mg [...] Indication s: acute pain cyclobenzap 2022-0 Yes [id number] 5mg Take 1 Univers rine 5 mg [...] Indication s: acute pain cyclobenzap 2022-0 Yes [id number] 5mg Take 1 Univers rine 5 mg [...] Indication s: acute pain cyclobenzap 2022-0 Yes [id number] 5mg Take 1 Univers rine 5 mg [...] Indication s: acute pain cyclobenzap 2022-0 Yes [id number] 5mg Take 1 Univers rine 5 mg [...] Indication s: acute pain cyclobenzap 2022-0 Yes [id number] 5mg Take 1 Univers rine 5 mg [...] Indication s: acute pain cyclobenzap 2022-0 Yes [id number] 5mg Take 1 Univers rine 5 mg 4-20 tablet by ity o f tablet 00:00: mouth 3 [place] 00 (three) Medical times Branch daily. acetaminoph 2022-0 Yes [id number] 1{tbl} Take 1 Un tonya en-codeine 4-20 tablet by ity of 300-30 mg 00:00: mouth [place] tablet 00 every 4 Medical (four) Branch hours as needed for Pain (scale 7-10). Indication s: acute pain cyclobenzap 2-0 Yes [id number] 5mg Take 1 Univers rine 5 mg [...] Indication s: acute pain cyclobenzap 2022-0 Yes [id number] 5mg Take 1 Univers rine 5 mg [...] Indication s: acute pain cyclobenzap 2022-0 Yes [id number] 5mg Take 1 Univers rine 5 mg [...] Indication s: acute pain cyclobenzap 2022-0 Yes [id number] 5mg Take 1 Univers rine 5 mg [...] Indication s: acute pain cyclobenzap 2022-0 Yes [id number] 5mg Take 1 Univers rine 5 mg 4-20 tablet by ity o f tablet 00:00: mouth 3 [place] 00 (three) Medical times Branch daily. acetaminoph 2022-0 Yes [id number] 1{tbl} Take 1 Un tonya en-codeine 4-20 tablet by ity of 300-30 mg 00:00: mouth [place] tablet 00 every 4 Medical (four) Branch hours as needed for Pain (scale 7-10). Indication s: acute pain cyclobenzap 2-0 Yes [id number] 5mg Take 1 Univers rine 5 mg [...] Indication s: acute pain cyclobenzap 2022-0 Yes [id number] 5mg Take 1 Univers rine 5 mg 4-20 tablet by ity o f tablet 00:00: mouth 3 [place] 00 (three) Medical times Branch daily. acetaminoph 2022-0 Yes [id number] 1{tbl} Take 1 Un tonya en-codeine 4-20 tablet by ity of 300-30 mg 00:00: mouth [place] tablet 00 every 4 Medical (four) Branch hours as needed for Pain (scale 7-10). Indication s: acute pain cyclobenzap 2021-0 Yes [id number] 5mg Take 1 Univers rine 5 mg 4-20 tablet by ity o f tablet 00:00: mouth 3 [place] 00 (three) Medical times Branch daily. acetaminoph 202-0 Yes [id number] 1{tbl} Take 1 Un tonya en-codeine 4-20 tablet by ity of 300-30 mg 00:00: mouth [place] tablet 00 every 4 Medical (four) Branch hours as needed for Pain (scale 7-10). Indication s: acute pain cyclobenzap 2021-0 Yes [id number] 5mg Take 1 Univers rine 5 mg 4-20 tablet by ity o f tablet 00:00: mouth 3 [place] 00 (three) Medical times Branch daily. acetaminoph 2-0 Yes [id number] 1{tbl} Take 1 Un tonya en-codeine 4-20 tablet by ity of 300-30 mg 00:00: mouth [place] tablet 00 every 4 Medical (four) Branch hours as needed for Pain (scale 7-10). Indication s: acute pain Ketorolac 2020-0 No 10mg CHRISTU Tromethamin 2-19 S - St. e (Toradol) 16:41: Hui 10 Mg TAB 00 Ondansetron 0 No 8mg FRIDA U Hcl (Zofran 2-19 S - St. Odt) 8 Mg 16:41: Hui ODT 00 Ketorolac 2020-0 No 10mg Every 6 LEELEE TU Tromethamin 2-19 Hours as S e (Toradol) 16:41: needed for Health 10 Mg TAB 00 Pain Ondansetron 0 No 8mg Every 8 CHR ISTU Hcl (Zofran 2-19 Hours as S Odt) 8 Mg 16:41: needed for He alth ODT 00 Vomiting Depo-Associate Civil Engineer Depo-Associate Civil Engineer No Depo-Prove [place] 150 mg/mL a 150 mg/mL 11-17 ra 150 da intramuscul intramuscul 14:45: mg/mL Medical ar ar 38 intramuscu Group suspensionI suspensionI lar nject 1 mL nject 1 mL suspension every 3 every 3 Inject 1 months by months by mL every 3 intramuscul intramuscul months by ar route. ar route. intramuscu lar route. Terconazole 2019-0 Yes Alie 1 Me moria 1-07 Ak[place] applicator l 00:00: ful at [place] 00 bedtime Terconazole 2019-0 Yes Alie 1 Me moria 1-07 [place]int[place] applicator l 00:00: ful at [place] 00 bedtime ibuprofen 2017-03 Yes Alie not Edmund fide 0-26 Akintola defined l 02:46: [place] 37 Tramadol 2017-03 Yes Alie not Memor ia 0-26 Akintola defined l 02:46: [place] 37 ibuprofen 2017-03 Yes Alie not Edmund fide 0-26 Akintola defined l 02:46: [place] 37 Tramadol 2017-03 Yes Alie not Memor ia 0-26 Akintola defined l 02:46: [place] 37 Sprintec 28 Yes Alie 1 tablet Memoria 4-27 Olude l 00:00: [place] 00 Sprintec 28 Yes Alie 1 tablet Memoria 4-27 Olude l 00:00: Sprintec 28 2015-03 Yes Alie 1 tablet Memoria 2-19 Akintola l 00:00: Alok 00 Sprintec 28 2015-03 Yes Alie 1 tablet Memoria 2-19 Akintola l 00:00: Alok 00 Colace 2015-03 Yes Alie 1 capsule Me moria 2-05 Akintola as needed l 00:00: Alok 00 Ferrous 2015-03 Yes Alie 1 tablet Me moria Sulfate 2-05 Akintola l 00:00: [place] 00 Sprintec 28 2015-03 Yes Alie active med Memoria 2-05 Akintola only, 5 on l 00:00: day 1, 4 Alok 00 on day 2, 3 on day 3, 2 on day 4, 1 on day 1 and daily after Zofran ODT 2015-03 Yes Alie 1 tablet Memoria 2-05 Akintola on the l 00:00: tongue and Alok 00 allow to dissolve Colace 2015-03 Yes Alie 1 capsule Me moria 2-05 Akintola as needed l 00:00: Alok 00 Ferrous 2015- Yes Alie 1 tablet Me moria Sulfate 2-05 Akintola l 00:00: [place] 00 Sprintec 28 2015-03 Yes Alie active med Memoria 2-05 Akintola only, 5 on l 00:00: day 1, 4 [place] 00 on day 2, 3 on day 3, 2 on day 4, 1 on day 1 and daily after Zofran ODT 2015-03 Yes Alie 1 tablet Memoria 2-05 Akintola on the l 00:00: tongue and [place] 00 allow to dissolve 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 ar route. intramuscu lar route. Immunizations Ordered Filled Immunization Date Status Comments [facility] e Immunization Name Name [facility] 2013-08-02 Completed University of 00:00:00 [facility] TDAP 2013-08-02 Completed University of 00:00:00 [facility] TDAP 2013-08-02 Completed University of 00:00:00 [facility] TDAP 2013-08-02 Completed University of 00:00:00 [facility] TDAP 2013-08-02 Completed University of 00:00:00 [facility] TDAP 2013-08-02 Completed University of 00:00:00 [facility] TDAP 2013-08-02 Completed University of 00:00:00 [facility] TDAP 2013-08-02 Completed University of 00:00:00 [facility] TDAP 2013-08-02 Completed University of 00:00:00 [facility] TDAP 2013-08-02 Completed University of 00:00:00 [facility] TDAP 2013-08-02 Completed University of 00:00:00 [facility] TDAP 2013-08-02 Completed University of 00:00:00 [facility] TDAP 2013-08-02 Completed University of 00:00:00 [facility] TDAP 2013-08-02 Completed University of 00:00:00 [facility] TDAP 2013-08-02 Completed University of 00:00:00 [facility] TDAP 2013-08-02 Completed University of 00:00:00 [...] University of 00:00:00 [facility] HPV 2012-12-12 Completed University of 00:00:00 [facility] HPV 2012-12-12 Completed University of 00:00:00 [facility] HPV 2012-12-12 Completed University of 00:00:00 [facility] HPV 2012-12-12 Completed University of 00:00:00 [facility] HPV 2012-12-12 Completed University of 00:00:00 [facility] HPV 2012-12-12 Completed University of 00:00:00 [facility] HPV 2012-12-12 Completed University of 00:00:00 [facility] HPV 2012-12-12 Completed University of 00:00:00 [facility] HPV 2012-12-12 Completed University of 00:00:00 [facility] HPV 2012-12-12 Completed University of 00:00:00 [facility] HPV 2012-12-12 Completed University of 00:00:00 [facility] HPV 2012-12-12 Completed University of 00:00:00 [facility] HPV 2012-12-12 Completed University of 00:00:00 [facility] HPV 2012-12-12 Completed University of 00:00:00 [facility] HPV 2012-12-12 Completed University of 00:00:00 [facility] HPV 2012-12-12 Completed University of 00:00:00 [facility] Td 2002-03-14 Completed University of 00:00:00 [facility] Td 2002-03-14 Completed University of 00:00:00 [facility] Td 2002-03-14 Completed University of 00:00:00 [facility] Td 2002-03-14 Completed University of 00:00:00 [facility] Td 2002-03-14 Completed University of 00:00:00 [facility] Td 2002-03-14 Completed University of 00:00:00 [facility] Td 2002-03-14 Completed University of 00:00:00 [facility] Td 2002-03-14 Completed University of 00:00:00 [facility] Td 2002-03-14 Completed University of 00:00:00 [facility] Td 2002-03-14 Completed University of 00:00:00 [facility] Td 2002-03-14 Completed University of 00:00:00 [facility] Td 2002-03-14 Completed University of 00:00:00 [facility] Td 2002-03-14 Completed University of 00:00:00 [facility] Td 2002-03-14 Completed University of 00:00:00 [facility] Td 2002-03-14 Completed University of 00:00:00 [facility] Td 2002-03-14 Completed University of 00:00:00 [facility] Vital Signs Vital Name Observation Time Observation Value Comments Source Systolic blood 2021-12-30 13:31:00 126 mm[Hg] Univer sity of pressure [facility] Diastolic blood 2021-12-30 13:31:00 80 mm[Hg] Unive rsity of pressure [facility] Heart rate 2021-12-30 13:31:00 92 /min [facility] Body temperature 2021-12-30 13:31:00 36.44 Adrianne Univ ersity of [facility] Respiratory rate 2021-12-30 13:31:00 18 /min Univ ers[facility] Body height 2021-12-30 13:31:00 167.6 cm [facility] Body weight 2021-12-30 13:31:00 67.671 kg [facility] BMI 2021-12-30 13:31:00 24.08 kg/m2 [facility] Systolic blood 2021-12-11 19:41:00 118 mm[Hg] Univer sity of pressure [facility] Diastolic blood 2021-12-11 19:41:00 78 mm[Hg] Unive rsity of pressure [facility] Heart rate 2021-12-11 19:41:00 74 /min [facility] Body temperature 2021-12-11 19:41:00 36.89 Adrianne [facility] Respiratory rate 2021-12-11 19:41:00 18 /min Univ ers[facility] Body height 2021-12-11 19:41:00 167.6 cm [facility] Body weight 2021-12-11 19:41:00 66.934 kg [facility] BMI 2021-12-11 19:41:00 23.82 kg/m2 [facility] Systolic blood 2021-11-19 18:47:00 119 mm[Hg] Univer sity of pressure [facility] Diastolic blood 2021-11-19 18:47:00 77 mm[Hg] Unive rsity of pressure [facility] Heart rate 2021-11-19 18:47:00 76 /min [facility] Body temperature 2021-11-19 18:47:00 36.44 Adrianne [facility] Respiratory rate 2021-11-19 18:47:00 18 /min Univ [facility] Body height 2021-11-19 18:47:00 167.6 cm [facility] Body weight 2021-11-19 18:47:00 66.679 kg [facility] BMI 2021-11-19 18:47:00 23.73 kg/m2 [facility] Systolic blood 2021-10-07 18:58:00 109 mm[Hg] Univer sity of pressure [facility] Diastolic blood 2021-10-07 18:58:00 76 mm[Hg] Unive rsity of pressure [facility] Heart rate 2021-10-07 18:58:00 76 /min [facility] Body temperature 2021-10-07 18:58:00 36.56 Adrianne [facility] Respiratory rate 2021-10-07 18:58:00 18 /min Univ [facility] Body height 2021-10-07 18:58:00 167.6 cm [facility] Body weight 2021-10-07 18:58:00 69.446 kg [facility] BMI 2021-10-07 18:58:00 24.71 kg/m2 [facility] Systolic blood 2021-09-16 20:45:00 114 mm[Hg] Univer sity of pressure [facility] Diastolic blood 2021-09-16 20:45:00 76 mm[Hg] Unive rsity of pressure [facility] Heart rate 2021-09-16 20:45:00 77 /min [facility] Body temperature 2021-09-16 20:45:00 35.94 Adrianne [facility] Respiratory rate 2021-09-16 20:45:00 20 /min [facility] Body height 2021-09-16 20:45:00 167.6 cm [facility] Body weight 2021-09-16 20:45:00 68.493 kg [facility] BMI 2021-09-16 20:45:00 24.37 kg/m2 [facility] BP Diastolic 2018-11-17 00:00:00 79 mm[Hg] [facility] Height 2018-11-17 00:00:00 66 [in_i] [facility] BMI (Body Mass 2018-11-17 00:00:00 25.2 kg/m2 [facility] BP Systolic 2018-11-17 00:00:00 113 mm[Hg] [facility] Body Weight 2018-11-17 00:00:00 156 [lb_av] [facility] BP Diastolic 2018-10-16 00:00:00 74 mm[Hg] [facility] Height 2018-10-16 00:00:00 66 [in_i] [facility] BMI (Body Mass 2018-10-16 00:00:00 25 kg/m2 [facility] Group BP Systolic 2018-10-16 00:00:00 124 mm[Hg] [facility] Body Weight 2018-10-16 00:00:00 155.2 [lb_av] [facility] BP Diastolic 2020-05-02 16:53:00 80 mm[Hg] [facility] BP Systolic 2020-05-02 16:53:00 115 mm[Hg] [facility] Heart Rate 2020-05-02 16:53:00 70 /min [facility] Respiratory rate 2020-05-02 16:53:00 16 /min [facility] Body Temperature 2020-05-02 16:53:00 98.0 [degF] [facility] BP Diastolic 2020-05-02 13:25:00 89 mm[Hg] [facility] BP Systolic 2020-05-02 13:25:00 127 mm[Hg] [facility] Heart Rate 2020-05-02 13:25:00 71 /[facility] Res[facility] 2020-05-02 13:25:00 16 /min [facility] [employer] Body Temperature 2020-05-02 13:25:00 98.0 [degF] [facility] Temperature 2019-12-24 15:05:00 98.3 [degF] [facility] Heart Rate 2019-12-24 15:05:00 86 /min [facility] Respiratory rate 2019-12-24 15:05:00 18 /min [facility] [employer] BP Systolic 2019-12-24 15:05:00 126 mm[Hg] [facility] BP Diastolic 2019-12-24 15:05:00 83 mm[Hg] [facility] Weight 2019-12-24 15:05:00 179 [lb_av] [facility] [employer] BMI (Body Mass 2019-12-24 15:05:00 29.8 kg/m2 [facility] Health Index) Weight 2016-03-01 20:30:00 [facility] Height 2016-03-01 20:30:00 [facility] Diastolic (mm Hg) 2016-03-01 20:30:00 [facility] Systolic (mm Hg) 2016-03-01 20:30:00 Edmund arvizu [place] Procedures Procedure Date / Time Performing Clinician Source Performed POCT TEST 2021-12-30 13:32:00 Janusz Puentes [facility] DISCLOSURE AND CONSENT, 2021-12-30 05:01:00 Doctor Unassigned, N o [facility] MEDICAL AND SURGICAL [facility] PROCEDURES POCT TEST 2021-12-11 19:40:00 Leeann Saha [facility] CONSENT FOR 2021-12-11 05:01:00 Doctor Unassigned, No [facility] CONTRACEPTION Name [facility] US PELVIS COMPLETE WITH 2021-11-25 16:07:41 Gerri Terrazas [facility] TRANSVAGINAL [facility] URINE CULTURE 2021-09-16 21:24:00 Janusz Puentes [facility] GC & CHLAMYDIA AMPLIFIED 2021-09-16 21:24:00 Janusz Puentes [facility] TRICHOMONAS AMPLIFIED 2021-09-16 21:24:00 Janusz Puentes [facility] Non-obstetrical 2020-05-02 00:00:00 LETTY Sweet [facility] transvaginal ultrasound of pelvis Limited duplex scan of 2020-05-02 00:00:00 [facility] renal artery Plan of Care Planned Activity Planned Date Details Comments Source Diagnostic Test 2018-11-17 test, [facility] Pending 00:00:00 urine [code = Group test, urine] Goal Patient referral LETTY Stewart [code = [id number] ] Hui Instructions Pelvic Pain (DC) FRIDA Milana Bush Encounters Start End Encounter Admission Attending Care Care Encounter Source Date/Time Date/Time Type Type Clinicians Facility Department ID 2021-03-19 Outpatient 3 AURA LORD OPO [id number] [facility] 12:13:46 [facility]ZZ[facility] [id number] [facility] 2021-03-19 Outpatient 3 [facility] OPE [id number] [facility] 12:12:05 LIZZY [id number] [facility] 2021-01-11 Emergency [facility] [id number] Univers 00:15:18 [facility] 2018-06-21 Outpatient MHFB MHFB [id number] FB 12:29:49 2018-06-21 Outpatient MHFB [facility] [id number] FB 12:29:49 2018-06-21 Outpatient MHFB [facility]FB [id number] FB 12:29:48 2018-06-21 Outpatient MHFB [facility]FB [id number] FB 12:29:39 2022-01-01 2022-01-01 Outpatient R FLACO [facility] [id number] Univers 13:00:00 13:00:00 INEZ [facility] 2021-12-30 2021-12-30 Outpatient R [facility] [id number] Univers 13:30:00 13:30:00 [facility] 2021-12-30 2021-12-30 Outpatient R [facility] [id number] Univers 13:30:00 13:30:00 [facility] 2021-12-30 2021-12-30 Outpatient R [facility] [id number] Univers 13:30:00 13:30:00 ity of [facility] 2021-12-30 2021-12-30 Outpatient R DELORIS [facility] [id number] Univers 08:15:00 09:11:29 JANUSZ cheng o miller [facility] 2021-12-30 2021-12-30 Office Deloris [facility] [id number] Univers 08:15:00 09:11:29 Visit Janusz Gallego DIRECTOR OF REHABILITATIVE SERVICES [id number] ity [facility] [id number] Tal as MATERNAL [phone] [facility] & CHILD [address] [place] [address] 2021-12-30 2021-12-30 Orders Doctor CRYSTAL 1.2.840.114 [id number] Univers 00:00:00 00:00:00 Only Unassigned, RACHANA [id number] ity [facility] [id number] Tal as [phone] [address] 2021-12-25 2021-12-25 Outpatient R DELORIS [facility] [id number] Univers 13:00:00 13:00:00 JANUSZ cheng o [facility] 2021-12-24 2021-12-24 [facility] [id number] Univers 00:00:00 00:00:00 Janusz Gallego DIRECTOR OF REHABILITATIVE SERVICES [id number] ity [facility] [id number] Tal as MATERNAL [phone] [facility] [address] [place] [address] 2021-12-11 2021-12-11 Outpatient R LEEANN SAHA [facility] [id number] Univers 14:30:00 15:20:[address] [facility] 2021-12-11 2021-12-11 Office Janusz Puentes [facility] 1.2.8 40.114 [id number] Univers 14:30:00 15:20:59 Visit Leeann Saha DIRECTOR OF REHABILITATIVE SERVICES [id number] ity of REGIONAL [id number] Tal as MATERNAL [phone] [facility] & CHILD [address] [place] [address] 2021-12-11 2021-12-11 Orders Doctor CRYSTAL 1.2.840.114 [id number] Univers 00:00:00 00:00:00 Only Unassigned, RACHANA [id number] ity of [place] [facility] [id number] Tal as [phone] [address] 2021-12-08 2021-12-08 [facility] 1.2.840.114 [id number] Univers 00:00:00 00:00:00 Janusz C DIRECTOR OF REHABILITATIVE SERVICES [id number] ity of REGIONAL [id number] Tal as MATERNAL [phone] [facility] & [address] 2021-11-30 2021-11-30 Telephone Pgy1 UNIVERSIT 1.2.840.114 [id number] Univers 00:00:00 00:00:[address] [facility] [id number] i ty of [facility] [id number] [phone] [address] 2021-11-25 2021-11-25 Outpatient Ben SAM [facility] [id number] Univers 10:31:53 23:59:00 [facility] 2021-11-25 2021-11-25 Hospital Flaco [facility] 1.2.840.114 [id number] Univers 10:31:53 23:59:00 Encounter [facility] [id number] ity [id number] [phone] [facility] [address] Branch (CLC) 2021-11-19 2021-11-19 Outpatient Ben SAM [facility] [id number] Univers 13:30:00 14:54:31 [facility] 2021-11-19 2021-11-19 Office Pgy1 UNIVERSIT [id number] Univers 13:30:00 14:54:31 Visit Inez Sam Y HEALTH [id number] ity of [id number] [id number] [facility] [address] 2021-11-14 2021-11-14 Nurse CRYSTAL Ortiz 1.2.840.114 [id number] Univers 00:00:00 00:00:00 Triage Katie REICH [id number] it y of HOSPITAL [id number] Tal as [phone] [facility] [address] 2021-11-14 2021-11-14 Telephone Pgy1 UNIVERSIT 1.2.840.114 [id number] Univers 00:00:00 00:00:00 Y HEALTH [id number] i ty of [place] [phone] [facility] [address] 2021-10-21 2021-10-21 Outpatient R [facility] [id number] Univers 14:00:00 14:00:00 ity of [facility] 2021-10-12 2021-10-12 Outpatient R BASHIR [facility] [id number] Univers 09:00:00 09:31:22 [facility] 2021-10-12 2021-10-12 Asphalt Coater Only, Ang Db Test [facility] 1.2.8 40.114 [id number] Univers 09:00:00 09:31:22 Visit Aicha Reyna [facility] [id number] ity [facility] 4.2.7.2.686 Tal as SHAWNA?BLEA [phone] [place] [address] MEDICAL OFFICE [facility] 2021-10-08 2021-10-08 Outpatient R [facility] [id number] Univers 13:30:00 13:30:00 ity of [facility] 2021-10-08 2021-10-08 Outpatient R [facility] [id number] Univers 13:30:00 13:30:00 ity of [facility] 2021-10-08 2021-10-08 Outpatient R [facility] [id number] Univers 13:30:00 13:30:[address] [facility] 2021-10-07 2021-10-07 Outpatient R AKINSI, [facility] [id number] Univers 13:45:00 14:38:48 JANUSZ steve [facility] 2021-10-07 2021-10-07 Office [facility] [id number] Univers 13:45:00 14:38:48 Visit [facility] DIRECTOR OF REHABILITATIVE SERVICES [id number] ity of [facility] [id number] Tal as MATERNAL [phone] [facility] & [address] 2021-09-16 2021-09-16 Outpatient R AKINSIPETHE [facility] [id number] Univers 15:45:00 16:21:04 JANUSZ cheng o [facility] 2021-09-16 2021-09-16 Office [facility] [id number] Univers 15:45:00 16:21:04 Visit [facility] DIRECTOR OF REHABILITATIVE SERVICES [id number] ity of [facility] [id number] Tal as MATERNAL [phone] [facility] & CHILD [address] [place] [address] 2021-09-16 2021-09-16 Orders Doctor CRYSTAL 1.2.840.114 [id number] Univers 00:00:00 00:00:00 Only Unassigned, RACHANA [id number] ity of [place] [facility] 4.2.7.2.686 Tal as [phone] [address] 2021-09-07 2021-09-07 Emergency [facility] 1.2.840.1 [id number] Methodi 19:59:00 20:00:[address] 3.430.2.7 Hospit a .[id number] l .8 2021-09-07 2021-09-07 Emergency Ip[facility]vi 1.2.840.1 [id number] Methodi 19:59:00 20:00:[address] 3.430.2.7 Hospit a .[id number] l .8 2021-07-16 2021-07-16 Office [facility] 1.2.840.114 [id number] Univers 09:00:00 09:39:34 Visit Lucinda Contreras DIRECTOR OF REHABILITATIVE SERVICES [id number] ity [facility] [id number] Tal as MATERNAL [phone] [facility] & CHILD [address] [place] [address] 2021-07-16 2021-07-16 Outpatient R TANNER [facility] [id number] Univers 09:00:00 09:39:34 TYRAKELBY ity o f [facility] 2021-07-15 2021-07-15 Emergency X GOLDSTEIN, [facility] ERT [id number] Univers 18:03:00 20:23:00 FANNIE [facility] 2021-07-15 2021-07-15 Emergency X GOLDSTEIN, [facility] ERT [id number] Univers 18:03:00 20:23:00 [facility] 2021-07-15 2021-07-15 Emergency X GOLDSTEIN, [facility] ERT [id number] Univers 18:03:00 20:23:00 [facility] 2021-07-15 2021-07-15 Emergency Goldstein, [facility] 1.2.840.114 [id number] Univers 18:03:00 20:23:00 [facility] [id number] i [facility] 4.2.7.2.686 [place] [facility] [phone] [address] 2021-07-15 2021-07-15 Telephone [facility] [id number] Univers 00:00:00 00:00:00 Lucinda Contreras DIRECTOR OF REHABILITATIVE SERVICES [id number] ity [facility] [id number] Tal as MATERNAL [phone] [facility] ical & CHILD [address] [place] [address] 2021-07-13 2021-07-13 Emergency X BRET [facility] ERT [id number] Univers 08:24:00 10:42:00 YESSENIA [facility] 2021-07-13 2021-07-13 Emergency X BRET [facility] ERT [id number] Univers 08:24:00 10:42:[address] [facility] 2021-07-13 2021-07-13 Emergency X BRET [facility] ERT [id number] Univers 08:24:00 10:42:[address] [facility] 2021-07-13 2021-07-13 Emergency Kenneth Das [facility] 1.2.8 40.114 [id number] Univers 08:24:00 10:42:00 Yessenia Queen [facility] [id number] ity [id number] [phone] [address] ([facility]) 2021-07-03 2021-07-03 Emergency X MUTENDEREKI [facility] ERT [id number] Univers 15:23:00 20:06:00 , LIZBETH cheng [facility] 2021-07-03 2021-07-03 Emergency X MUTENDEREKI [facility] ERT [id number] Univers 15:23:00 20:06:00 , LIZBETH cheng [facility] 2021-07-03 2021-07-03 Emergency Mutendereki [facility] 1.2.840.114 [id number] Univers 15:23:00 20:06:00 , [facility] [id number] [place] [phone] [address] ([facility]) 2021-07-01 2021-07-01 Emergency X SCHOENSTEIN [facility] ERT [id number] Univers 13:49:00 19:11:00 , RICO ity [facility] 2021-07-01 2021-07-01 Emergency X SCHOENSTEIN [facility] ERT [id number] Univers 13:49:00 19:11:00 , RCIO ittherese [facility] 2021-07-01 2021-07-01 Emergency Schoenstein TRAUMA 1.2.840.114 [id number] Univers 13:49:00 19:11:00 [facility] 350.1.13.10 [place] [id number] [address] 2021-05-17 2021-05-18 Emergency X NELLA [facility] ERT [id number] Univers 23:02:00 01:40:00 TK briggs [facility] 2021-05-17 2021-05-18 Emergency X NELLA [facility] [facility] ERT [id number] Univers 23:02:00 01:40:00 TK briggs [facility] 2021-05-17 2021-05-18 Emergency X NELLA [facility] ERT [id number] Univers 23:02:00 01:40:00 TK briggs [facility] 2021-05-17 2021-05-18 Emergency Nella [facility] 1.2.840.114 [id number] Univers 23:02:00 01:40:00 [facility] 350.1.13.10 i ty of [place]2.[place] [phone] [address] ([facility]) 2021-04-21 2021-04-21 Outpatient R TANNER [facility] [id number] Univers 12:45:00 13:05:34 MARTAKELBY steve [facility] 2021-04-21 2021-04-21 Office Tanner [facility] 1.2.840.114 [id number] Univers 12:45:00 13:05:34 Visit Martakelby Contreras DIRECTOR OF REHABILITATIVE SERVICES 350.1.13.10 ity of [facility] 4.2.7.2.686 Tal as MATERNAL [phone] Med ical & CHILD [address] [place] [address] 2021-04-21 2021-04-21 Outpatient R [facility] [id number] Univers 12:45:00 12:45:00 [facility] 2021-03-19 2021-03-19 Outpatient R GREG [facility] [id number] Univers 10:30:00 10:30:00 ATTENDING [facility] 2021-03-19 2021-03-19 Outpatient R GREG [facility] [id number] Univers 10:30:00 10:30:00 ATTENDING [facility] 2021-03-04 2021-03-04 Telephone Tanner [facility] 1.2.241.450 [id number] Univers 00:00:00 00:00:00 Tyranda R DIRECTOR OF REHABILITATIVE SERVICES 350.1.13.10 ity of REGIONAL 4.2.7.2.686 Tal as MATERNAL [phone] Med ical & CHILD [address] [place] [address] 2021-03-03 2021-03-03 Outpatient R [facility] [id number] Univers 09:15:00 09:16:49 TYRANDA ity o f [facility] 2021-03-03 2021-03-03 [facility] 1.2.840.114 [id number] Univers 09:15:00 09:16:49 Visit Lucinda R DIRECTOR OF REHABILITATIVE SERVICES 350.1.13.10 ity of REGIONAL 4.2.7.2.686 Tal as MATERNAL [phone] [facility] [address] [place] [address] 2021-02-03 2021-02-03 Telephone [facility] 1.2.921.546 [id number] Univers 00:00:00 00:00:00 Martajosenda R DIRECTOR OF REHABILITATIVE SERVICES 350.1.13.10 ity of REGIONAL 4.2.7.2.686 Tal as MATERNAL [phone] [facility] [address] [place] [address] 2021-01-29 2021-01-29 Telephone Quinton [facility] 1.2.840.114 [id number] Univers 00:00:00 00:00:00 Lisa Alvarado DIRECTOR OF REHABILITATIVE SERVICES 350.1.13.10 it y of REGIONAL 4.2.7.2.686 Tal as MATERNAL [phone] Med ical & CHILD [address] [place] [address] 2021-01-29 2021-01-29 Telephone [facility] 1.2.670.676 [id number] Univers 00:00:00 00:00:00 Rosjosenda R DIRECTOR OF REHABILITATIVE SERVICES 350.1.13.10 ity of REGIONAL 4.2.7.2.686 Tal as MATERNAL [phone] [facility] ical & CHILD [address] [place] [address] 2021-01-28 2021-01-28 [facility] 1.2.840.114 [id number] Univers 00:00:00 00:00:00 Lisa Alvarado DIRECTOR OF REHABILITATIVE SERVICES 350.1.13.10 it y of REGIONAL 4.2.7.2.686 Tal as MATERNAL [phone] [facility] & [address] 2021-01-27 2021-01-27 Office [facility] 1.2.570.342 [id number] Univers 12:54:19 13:47:49 Visit Lisa Alvarado DIRECTOR OF REHABILITATIVE SERVICES 350.1.13.10 it y of REGIONAL 4.2.7.2.686 Tal as MATERNAL [phone] [facility] & CHILD [address] [place] [address] 2021-01-27 2021-01-27 Outpatient Ben [facility] [id number] Univers 12:45:00 13:47:[address] [facility] 2021-01-13 2021-01-13 Outpatient Ben [facility] [id number] Univers 13:45:00 13:45:[address] [facility] 2020-12-10 2020-12-10 Telephone [facility] 12.840.114 [id number] Univers 00:00:00 00:00:00 Janusz Gallego DIRECTOR OF REHABILITATIVE SERVICES 350.1.13.10 ity of [facility] 4.2.7.2.686 Tal as MATERNAL [phone] [address] 2020-12-09 2020-12-09 [facility] 1.2.457.017 [id number] Univers 13:35:32 14:29:50 Visit Janusz Gallego DIRECTOR OF REHABILITATIVE SERVICES 350.1.13.10 ity of [facility] 4.2.7.2.686 Tal as MATERNAL [phone] [address] 2020-12-09 2020-12-09 Outpatient R DELORIS [facility] [id number] Univers 13:30:00 13:30:00 JANUSZ briggs [facility] 2020-11-11 2020-11-11 Outpatient Ben HART [facility] [id number] Univers 14:30:00 14:30:00 LUCINDA briggs [facility] 2020-10-07 2020-10-07 Outpatient Ben [facility] [id number] Univers 18:00:00 18:00:00 LUCINDA briggs [facility] 2020-10-07 2020-10-07 Office [facility] 1.2.840.114 [id number] Univers 17:31:49 17:51:29 Visit Lucinda R DIRECTOR OF REHABILITATIVE SERVICES 350.1.13.10 ity of [facility] 4.2.7.2.686 Tal as MATERNAL [phone] [facility] ical & CHILD [address] [place] [address] 2020-08-12 2020-08-12 Office [facility] 1.2.840.114 [id number] Univers 09:18:29 09:56:23 Visit Lucinda R DIRECTOR OF REHABILITATIVE SERVICES 350.1.13.10 ity of [facility] 4.2.7.2.686 Tal as MATERNAL [phone] [facility] [address] [place] [address] 2020-08-12 2020-08-12 Outpatient R [facility] [id number] Univers 09:30:00 09:30:00 LUCINDA steve [facility] 2020-08-06 2020-08-06 Outpatient Ben HART [facility] [id number] Univers 14:45:00 14:45:00 LUCINDA briggs [facility] 2020-07-22 2020-07-22 Office [facility] 1.2.840.114 [id number] Univers 10:44:12 11:36:42 Visit Lucinda Contreras DIRECTOR OF REHABILITATIVE SERVICES 350.1.13.10 ity of [facility] 4.2.7.2.686 Tal as MATERNAL [phone] [facility] [address] [place] [address] 2020-07-22 2020-07-22 Outpatient Ben [facility] [id number] Univers 10:45:00 10:45:00 LUCINDA briggs [facility] 2020-07-22 2020-07-22 Orders Doctor ROJAS 1.2.840.114 [id number] Univers 00:00:00 00:00:00 Only Unassigned, RACHANA 350.1.13.10 ity of [place] [facility] 4.2.7.2.686 Tal as [phone] [facility] [address] [place] 2020-06-03 2020-06-03 Patient ARGENIS Ackerman 1.2.840.114 [id number] Univers 00:00:00 00:00:00 Outreach Christophe PRIMARY 350.1.13.10 i ty of [facility] 4.2.7.2.686 [place] [phone] [place] [address] [place] 2020-05-15 2020-05-15 Outpatient 3 AURA LORD OPO [id number] 98- Mu-Ism 10:58:00 10:58:00 LIZZY [id number] Hospi ta elyse ([facility]) 2020-05-15 2020-05-15 Orders Doctor CRYSTAL 1.2.840.114 [id number] 00:00:00 00:00:00 Only Unassigned, RACHANA 350.1.13.10 [place] [facility] [id number] [facility] 2020-05-15 2020-05-15 Orders Doctor CRYSTAL 1.2.840.114 [id number] Univers 00:00:00 00:00:00 Only Unassigned, RACHANA 350.1.13.10 ity of [place] [facility] 4.2.7.2.686 Tal as [phone] [address] 2020-05-14 2020-05-14 Telephone ARGENIS Lord 1.2.429.596 [id number] 00:00:00 00:00:00 Lizzy R DIRECTOR OF REHABILITATIVE SERVICES 350.1.13.10 REGIONAL 4.2.7.2.686 MATERNAL [phone] & CHILD [address] [place] [address] 2020-05-14 2020-05-14 Telephone ARGENIS Lord 1.2.144.568 [id number] Univers 00:00:00 00:00:00 Lizzy R DIRECTOR OF REHABILITATIVE SERVICES 350.1.13.10 i ty of REGIONAL 4.2.7.2.686 Tal as MATERNAL [phone] Med ical & CHILD [address] [place] [address] 2020-05-08 2020-05-08 Office [facility] 1.2.840.114 [id number] 15:02:06 16:05:50 Visit Lizzy R DIRECTOR OF REHABILITATIVE SERVICES 350.1.13.10 REGIONAL 4.2.7.2.686 MATERNAL [phone] & [address] 2020-05-08 2020-05-08 Office [facility] 1.2.840.114 [id number] Univers 15:02:06 16:05:50 Visit Lizzy R DIRECTOR OF REHABILITATIVE SERVICES 350.1.13.10 i ty of [facility] 4.2.7.2.686 Tal as MATERNAL [phone] [address] 2020-05-08 2020-05-08 Outpatient R [facility] [id number] Univers 14:45:00 14:45:[address] [facility] 2020-05-06 2020-05-06 Telephone [facility] 1.2.840.518 [id number] Univers 00:00:00 00:00:00 Lizzy R DIRECTOR OF REHABILITATIVE SERVICES 350.1.13.10 i ty of [facility] 4.2.7.2.686 Tal as MATERNAL [phone] [address] 2020-05-03 2020-05-03 Emergency [facility] 1.2.601.858 [id number] Univers 13:53:00 17:30:00 Jared Castro 350.1.13.10 i ty of [place] 4.2.7.2.686 [facility] [phone] [facility] [address] [place] 2020-05-03 2020-05-03 CRYSTAL Tafoya 1.2.840.114 [id number] Univers 00:00:00 00:00:00 Triage Katie REICH 350.1.13.10 it y of [facility] 4.2.7.2.686 Tal as [phone] [facility] [address] [place] 2020-05-02 2020-05-02 Registered PEPE SAENZ AM07 [id number] CHRISTINA 13:11:00 13:11:00 Emergency [facility] 2020-05-02 2020-05-02 Registered ER UNASSIGNED, LETTY Mason [id number] CHRISTU 13:11:00 13:11:00 Emergency ED [address] [facility] 2020-01-30 2020-01-30 Outpatient G_Pappas MMG MMG [id number] [place] 02:19:00 02:19:00 [facility] 2020-01-01 2020-01-01 Case Pop [facility] 1.2.840.114 [id number] Univers 00:00:00 00:00:00 Management Lizzy R DIRECTOR OF REHABILITATIVE SERVICES 350.1.13.10 ity of [address]686 Tal as MATERNAL [phone] Med ical & CHILD [address] [place] [address] 2020-01-01 2020-01-01 Telephone [facility] 1.2.208.105 [id number] Univers 00:00:00 00:00:00 Lizzy R DIRECTOR OF REHABILITATIVE SERVICES 350.1.13.10 i ty of [place] [address].2.7.2.686 Tal as MATERNAL [phone] Med ical & CHILD [address] [place] [address] 2019-12-28 2019-12-28 Outpatient R TANNER [facility] [id number] Univers 13:30:00 13:30:00 LUCINDA cheng o f [facility] 2019-12-28 2019-12-28 Orders Doctor CRYSTAL 1.2.840.114 [id number] Univers 00:00:00 00:00:00 Only Unassigned, RACHANA 350.1.13.10 ity of [place] [address].7.2.686 Tal as [phone] [address] 2019-12-28 2019-12-28 Telephone Pop [facility] 1.2.464.487 [id number] Univers 00:00:00 00:00:00 Lizzy R DIRECTOR OF REHABILITATIVE SERVICES 350.1.13.10 i ty of [facility] 42.7.2.686 Tal as MATERNAL [phone] [facility] ical & CHILD [address] [place] [address] 2019-12-27 2019-12-27 [employer] 1.2.840. 114 [id number] Univers 13:33:18 13:48:18 Visit Pop, Lizzy R DIRECTOR OF REHABILITATIVE SERVICES 350.1.13.10 ity [facility] 4.2.7.2.686 Tal as MATERNAL [phone] Med ical & CHILD [address] [facility] 2019-12-27 2019-12-27 Outpatient R POP [facility] [id number] Univers 13:45:00 13:45:[address] [facility] 2019-12-27 2019-12-27 Case [facility] 1.2.840.114 [id number] Univers 00:00:00 00:00:00 Management Lizzy R DIRECTOR OF REHABILITATIVE SERVICES 350.1.13.10 ity of [facility] 4.2.7.2.686 Tal as MATERNAL [phone] [facility] CH[facility] [address] [place] [address] 2019-12-27 2019-12-27 Telephone [facility] 1.2.024.074 [id number] Univers 00:00:00 00:00:00 Lizzy R DIRECTOR OF REHABILITATIVE SERVICES 350.1.13.10 i ty of [facility] 4.2.7.2.686 Tal as MATERNAL [phone] [facility] [address] [place] [address] 2019-12-24 2019-12-24 Departed PEPE SAENZ [id number] CHRISTU 14:09:00 17:00:00 Emergency [facility] [address] [facility] 2019-12-24 2019-12-24 Departed LETTY SAENZ [id number] CHRISTU 14:09:00 17:00:[address] [facility] 2019-12-24 2019-12-24 Case [facility] 1.2.840.114 [id number] Univers 00:00:00 00:00:00 Management Lizzy R DIRECTOR OF REHABILITATIVE SERVICES 350.1.13.10 ity [facility] 4.2.7.2.686 Tal as MATERNAL [phone] [facility] & CHILD [address] [place] [address] 2019-12-20 2019-12-20 Outpatient R POP [facility] [id number] Univers 09:15:00 09:15:[address] [facility] 2019-12-19 2019-12-19 Office [facility] 1.2.840.114 [id number] Univers 15:23:30 16:41:28 Visit Lizzy R DIRECTOR OF REHABILITATIVE SERVICES 350.1.13.10 i ty of [facility] 4.2.7.2.686 Tal as MATERNAL [phone] [facility] ical & CHILD 109 [facility] 2019-12-19 2019-12-19 Outpatient R [facility] [id number] Univers 15:15:00 15:15:[address] [facility] 2019-12-19 2019-12-19 Orders Doctor CRYSTAL 1.2.840.114 [id number] Univers 00:00:00 00:00:00 Only Unassigned, RACHANA 350.1.13.10 ity of [place] [facility] 4.2.7.2.686 Tal as [phone] [address] 2019-09-24 2019-09-24 Outpatient R [facility] [id number] Univers 08:15:00 08:15:00 JANUSZ cheng o f [facility] 2019-09-07 2019-09-07 Telephone [facility] 1.2.840.114 [id number] Univers 00:00:00 00:00:00 Janusz Gallego DIRECTOR OF REHABILITATIVE SERVICES 350.1.13.10 ity [facility] 4.2.7.2.686 Tal as MATERNAL [phone] [facility] ica & CHILD [address] [place] [address] 2019-08-11 2019-08-11 Outpatient R DAYATHE [facility] [id number] Univers 12:30:00 12:30:[address] [facility] 2019-07-27 2019-07-27 Urgent Pob1, Acute Care Clinic [facility] 1. 2.840.114 [id number] Univers 13:45:47 14:05:47 Care Carolina Basurto [facility] 350.1 .13.10 ity [facility] 4.2.7.2.686 Tal as Professio [phone] [place] [facility] [address] [place] [address] [employer] 2019-07-27 2019-07-27 Outpatient R [facility] [id number] Univers 13:40:00 13:40:[address] [facility] 2019-07-27 2019-07-27 Telephone PcpCRYSTAL 1.2.142.665 [id number] Univers 00:00:00 00:00:00 Patient RACHANA 350.1.13.10 it y of [place] Not HOSPITAL 4.2.7.2.686 [place] [phone] [address] 2019-07-25 2019-07-25 Telephone Pcp, CRYSTAL 1.2.294.858 [id number] Univers 00:00:00 00:00:00 Patient RACHANA 350.1.13.10 it y of Does Not HOSPITAL 4.2.7.2.686 [place] [phone] [address] 2019-07-24 2019-07-24 Telephone Pob1, Acute CRYSTAL 1.2.840.114 [id number] Univers 00:00:00 00:00:00 Care Clinic RACHANA 350.1.13.10 ity of [facility] 4.2.7.2.686 Tal as [phone] [address] 2019-07-23 2019-07-23 Outpatient Ben [facility] [id number] Univers 16:00:00 16:00:00 CAMI cheng [facility] 2019-07-23 2019-07-23 Urgent Pob1, Acute Care Clinic [facility] 1. 2.840.114 [id number] Univers 15:38:47 15:58:47 Cami Garcia [facility] 350.1.1 3.10 ity of [place] 4.2.7.2.686 Tal as Professio [phone] [place] [facility] [address] [place] [address] [facility] 2019-05-17 2019-05-17 Outpatient C Unique Calhoun [id number] eClinic 10:45:00 10:45:00 Andreas Michaels MD PhD PA PhD PA 2019-05-09 2019-05-09 Outpatient C Unique [place] [id number] eClinic 12:52:00 12:52:00 Andreas Michaels MD PhD PA PhD PA 2019-05-08 2019-05-08 Outpatient G_Pappas MMG MMG [id number] [place] 11:18:00 11:18:00 0225 Medical Group 2019-05-08 2019-05-08 Outpatient G_Pappas MMG [facility] [id number] [place] 11:18:00 11:18:00 0228 Medical Group 2019-03-19 2019-03-19 Emergency X MILLER [facility] ERT [id number] Univers 18:04:03 20:33:00 SPENSER cheng of [facility] 2019 2019 Outpatient G_Pappas MMG [facility] [id number] [place] 01:42:00 01:42:00 0106 [facility] 2019 2019 Outpatient G_Pappas MMG [facility] [id number] [place] 01:42:00 01:42:00 0109 [facility] 2018-11-17 2018-11-17 Vidya [facility] [place] - [id number] M atagor 00:00:00 00:00:00 Mak Calix, Medical Medica elyse MD: [address] [place] [phone] , Ph. [phone] 2018-11-16 2018-11-16 Outpatient C Funsho C Funsho [id number] eClinic 12:59:00 12:59:00 Andreas Michaels MD PhD PA PhD PA 2018-10-16 2018-10-16 Poonam [facility] [place] - [id number] M atagor 00:00:00 00:00:00 Discovery grant Fletcher MD: [address] [place] [phone] , Ph. [phone] 2018-07-31 2018-07-31 Outpatient C Funsho C Funsho [id number] eClinic 17:40:00 17:40:00 Andreas Michaels MD PhD PA PhD PA 2018-07-28 2018-07-28 Outpatient C Funsho C [facility] [id number] eClinic 10:36:00 10:36:00 Andreas Michaels MD PhD PA PhD PA 2018-06-23 2018-06-23 Outpatient C Funsho C Funsho [id number] eClinic 13:35:00 13:35:00 Andreas Michaels MD PhD PA PhD PA 2018-06-23 2018-06-23 Outpatient C Funsho C Funsho [id number] eClinic 10:17:00 10:17:00 Andreas Michaels MD PhD PA PhD PA 2018-06-16 2018-06-16 Outpatient MHFB MHFB [id number] MHFB 13:15:00 13:15:00 2018-06-09 2018-06-09 Outpatient MHFB MHFB [id number] MHFB 10:00:00 10:00:00 2018-06-05 2018-06-05 Outpatient C Funsho C Funsho [id number] eClinic 12:57:00 12:57:00 Andreas Michaels MD PhD PA PhD PA 2018-05-29 2018-05-29 Outpatient C Funsho C Funsho [id number] eClinic 12:00:00 12:00:00 Andreas Michaels MD PhD PA PhD PA 2018-05-08 2018-05-08 Outpatient C Funsho C Funsho [id number] eClinic 10:16:00 10:16:00 Andreas Michaels MD PhD PA PhD PA 2018-05-05 2018-05-05 Outpatient C Funsho C [facility]sho [id number] eClinic 14:17:00 14:17:00 Andreas Michaels MD PhD PA PhD PA 2018-05-04 2018-05-04 [place] [id number] [facility] 07:52:00 11:26:00 ALIE [facility] [place] 2018-04-26 2018-04-26 Outpatient C Funsho C Funsho [id number] eClinic 11:18:00 11:18:00 Andreas Michaels MD PhD PA PhD PA 2018-03-20 2018-03-20 Outpatient C Funsho C [facility]sho [id number] eClinic 14:15:00 14:15:00 Andreas Michaels MD PhD PA PhD PA 2018-03-16 2018-03-16 Outpatient C Funsho C [facility]sho [id number] eClinic 12:36:00 12:36:00 Andreas Michaels MD PhD PA PhD PA 2018-03-09 2018-03-09 Outpatient C Funsho C [facility] [id number] eClinic 09:43:00 09:43:00 Andreas Michaels MD PhD PA PhD PA 2018-03-06 2018-03-06 Outpatient C Funsho C [facility] [id number] eClinic 20:07:00 20:07:00 Andreas Michaels MD PhD PA PhD PA 2018-03-03 2018-03-03 Outpatient C Funsho C [facility] [id number] eClinic 10:51:00 10:51:00 Andreas Michaels MD PhD PA PhD PA 2018-02-28 2018-02-28 Emergency E [facility] [id number] [facility] 11:11:00 13:10:00 [facility] 2018-02-28 2018-02-28 Outpatient C Funsho C Funsho [id number] eClinic 09:47:00 09:47:00 Andreas Michaels MD PhD PA PhD PA 2018-02-27 2018-02-27 Outpatient C Funsho C [facility] [id number] eClinic 14:58:00 14:58:00 Andreas Michaels MD PhD PA PhD PA 2018-02-24 2018-02-24 Outpatient C Funsho C [facility] [id number] eClinic 16:24:00 16:24:00 Andreas Michaels MD PhD PA PhD PA 2018-02-21 2018-02-21 Outpatient C Funsho C [facility] [id number] eClinic 10:10:00 10:10:00 Andreas Michaels MD PhD PA PhD PA 2018-02-21 2018-02-21 Outpatient C Funsho C [facility] [id number] eClinic 10:05:00 10:05:00 Andreas Michaels MD PhD PA PhD PA 2018-02-15 2018-02-15 Outpatient C Funsho [facility] [id number] eClinic 09:28:00 09:28:00 Andreas Michaels MD PhD PA PhD PA 2018-02-07 2018-02-07 Emergency E NOEL, [facility] [id number] [facility] 18:18:00 20:36:00 [facility] 2018-02-07 2018-02-07 Outpatient C Funsho C Funsho [id number] eClinic 15:29:00 15:29:00 Andreas Michaels MD PhD PA PhD PA 2018 2018 Outpatient C Funsho C [facility]sh[facility] [id number] eClinic 17:16:00 17:16:00 Andreas Michaels MD PhD PA PhD PA 2018 2018 Outpatient C Funsho C [facility]sh[facility] [id number] eClinic 17:14:00 17:14:00 Andreas Michaels MD PhD PA PhD PA 2018-01-05 2018-01-05 Outpatient C Funsho C [facility]sh[facility] [id number] eClinic 15:19:00 15:19:00 Andreas Michaels MD PhD PA PhD PA 2016-07-29 2016-07-29 Outpatient C Funsho C [facility] [id number] eClinic 11:00:00 11:00:00 Andreas Michaels MD PhD PA PhD PA 2016-06-29 2016-06-29 Outpatient C Funsho C [facility]sh[facility] [id number] eClinic 14:22:00 14:22:00 Andreas Michaels MD PhD PA PhD PA 2016-06-28 2016-06-28 Outpatient C Funsho C [facility]sh[facility] [id number] eClinic 12:06:00 12:06:00 Andreas Michaels MD PhD PA PhD PA 2016-03-17 2016-03-17 pymt plan [facility] For 7ac [id number] Memoria 17:55:00 17:55:00 r Women s [id number] l Health/ C. [id number] He misha Calhoun [id number] MD Andreas, PhD, PA 2016-03-17 2016-03-17 pymt plan [facility]ac 5xpm8-5 Memoria 17:55:00 17:55:00 r Women s [id number] l Health/ C. [id number] He misha Calhoun [id number] MD Andreas, PhD, PA 2016-03-17 2016-03-17 Outpatient [facility] [id number] eClinic 11:55:00 11:55:00 For Women Women s alWo rks s Health/ Health/ C. C. Andreas Loving MD, PhD, MD, PhD, PA PA 2016-03-05 2016-03-05 Unknown [facility] 9ad6e bf9-a Memoria 20:07:00 20:07:00 r Women s [id number] l Health/ C. [id number] He misha Unique [id number] MD Andreas, PhD, PA 2016-03-05 2016-03-05 [facility] dc28a 807-0 [facility] 20:07:00 20:07:00 r Women s [id number] l Health/ C. [id number] He misha Calhoun [id number] MD Andreas, PhD, PA 2016-03-05 2016-03-05 [facility] c5c24 b01-1 [facility] 20:07:00 20:07:00 r Women s [id number] l Health/ C. [id number] He esaulizeth Maria Luisasanto [id number] MD Andreas, PhD, PA 2016-03-05 2016-03-05 [facility] dc28a 807-0 [facility] 20:07:00 20:07:00 r Women s [id number] l Health/ C. [id number] He misha Calhoun [id number] MD Andreas, PhD, PA 2016-03-05 2016-03-05 [facility] c5c24 b01-1 [facility] 20:07:00 20:07:00 r Women s [id number] l Health/ C. [id number] He misha Glasssanto [id number] MD Andreas, PhD, PA 2016-03-05 2016-03-05 [facility] 9ad6e bf9-a [facility] 20:07:00 20:07:00 r Women s [id number] l Health/ C. [id number] He esaulizeth Calhoun [id number] MD Andreas, PhD, PA 2016-03-05 2016-03-05 [facility] 14:07:00 14:07:00 For Women Women s alWo rks s Health/ Health/ C. C. FunAndreas Everett MD, PhD, MD, PhD, PA PA 2016-03-01 2016-03-01 Other [facility] f143a 42d-5 [facility] 21:40:00 21:40:00 r Women s [id number] l Health/ C. [id number] He misha Calhoun [id number] MD Andreas, PhD, PA 2016-03-01 2016-03-01 [facility] 57c23 756-0 [facility] 21:40:00 21:40:00 r Women s [id number] l Health/ C. [id number] He misha Calhoun [id number] MD Andreas, PhD, PA 2016-03-01 2016-03-01 [facility] f143a 42d-5 [facility] 21:40:00 21:40:00 r Women s [id number] l Health/ C. [id number] He misha Calhoun [id number] r Johns MD, PhD, PA 2016-03-01 2016-03-01 [facility] 57c23 756-0 [facility] 21:40:00 21:40:00 r Women s [id number] l Health/ C. [id number] He misha Calhoun [id number] MD Andreas, PhD, PA 2016-03-01 2016-03-01 [facility] e[facility] 15:40:00 15:40:00 For Women Women s alWo rks s Health/ Health/ C. C. Funsho FunAndreas Constantino MD, PhD, MD, PhD, PA PA 2016-03-01 2016-03-01 Outpatient [facility] C [place] [id number] 4 eClinic 15:30:00 15:30:00 Andreas Michaels MD PhD PhD [facility] 2016-02-23 2016-02-23 [facility] a56b 81fd-e Memoria 15:57:00 15:57:00 r Women s 32e-48e4-b l Health/ C. [id number] He misha Calhoun [id number] MD Andreas, PhD, PA 2016-02-23 2016-02-23 [facility] 149a 526e-e Memoria 15:57:00 15:57:00 r Women s l49-59u3-5 l Health/ C. [id number] He esaulizeth Calhoun [id number] MD Andreas, PhD, PA 2016-02-23 2016-02-23 [facility] 65bb df86-0 Memoria 15:57:00 15:57:00 r Women s 1r6-6052-1 l Health/ C. [id number] He misha Calhoun [id number] MD Andreas, PhD, PA 2016-02-23 2016-02-23 [facility] d61b a848-7 [facility]oria 15:57:00 15:57:00 r Women s 854-41cd-8 l Health/ C. [id number]-[id number] He misha Calhoun ab1dcf MD Andreas, PhD, PA 2016-02-23 2016-02-23 [facility] 65bb df86-0 Memoria 15:57:00 15:57:00 r Women s 8h9-3407-7 l Health/ C. [id number] He misha Unique [id number] MD Andreas, PhD, PA 2016-02-23 2016-02-23 [facility] d61b a848-7 Memoria 15:57:00 15:57:00 r Women s 854-41cd-8 l Health/ C. [id number]-03f3c8 He misha Calhoun ab1dcf MD Andreas, PhD, PA 2016-02-23 2016-02-23 [facility] a[facility]b 81fd-e Memoria 15:57:00 15:57:00 r Women s 32e-48e4-b l Health/ C. [id number] He misha Calhoun [id number] MD Andreas, PhD, PA 2016-02-23 2016-02-23 [facility] 149a 526e-e Memoria 15:57:00 15:57:00 r Women s x77-36b2-6 l Health/ C. [id number] He misha Calhoun [id number] MD Andreas, PhD, PA 2016-02-23 2016-02-23 [facility] 98 eClinic 09:57:00 09:57:00 For Women Women s alWo rks s Health/ Health/ C. C. FunAndreas Everett MD, PhD, MD, PhD, PA PA Results Test Description Test Time Test Comments Results Result Comments Source POCT TEST 2021-12-30 13:33:00 Test Item Value Reference Range Interpretation Comme nts POCT PREG (test code = 1605) Positive On board controls acceptable with C Line (test code = 3574) Yes POCT PREG LOT # (test code = 3575) PO[facility]REG [facility] DATE (test code = 3576[id number] 13:33:00 Test Item Value Reference Range Interpretation Comments POCT PREG (test code = 1605) Positive On board controls acceptable with C Yes Line (test code = 3574) POCT PREG LOT # (test code = 3575) POCT PREG TEST DATE (test code = 3576) [id number] 19:40:00 Test Item Value Reference Range Interpretation Comments POCT PREG (test code = 1605) Negative On board controls acceptable with C Yes Line (test code = 3574) POCT PREG LOT # (test code = 3575) POCT PREG TEST DATE (test code = 3576) [facility] [id number] 19:40:00 Test Item Value Reference Range Interpretation Comments POCT PREG (test code = 1605) Negative On board controls acceptable with C Yes Line (test code = 3574) POCT PREG LOT # (test code = 3575) POCT PREG TEST DATE (test code = 3576) [facility] W/GVSYTMLSKLGM0732-32-59 11:51:00 [facility] : 1995 Sex: F[address] [id number] IMAGING REPORTPatient Name: EDDIE JEAN-BAPTISTEDate of Service: [id number]: 25 Sex: F Order #: [id number] Room: OPODOB: 1995 X-Ray Number: [id number] Record Number: [id number] Hospital Number: [id number] Physician: Emma LORDing Physician: LIZZY LORDPelvic sonogram.History: Pelvic pain.Techn ique: Transabdominal and endovaginal pelvic ultrasound images wereobtained and reviewed.Findings:Normal uterus, 7.0 x 4.3 x 4.3 cm.Endometrial stripe appears normal measuring 4.3 mm.Both ovaries appearnormal in terms of size, shape, and echogenicity.Both ovaries have demonstrable pulsatile arterial flow.No free fluid.ImpressionUnremarkable pelvic ultrasound.Electronically Signed By: Gerardo Obando M.D., 05/15/2020 11:49 AMLegally authenticated by PAOLA Briggs 2020-05-15 11:49:22US PELVIS NON-OB [id number] 11:51:00 [facility] : 1995 Sex: F[address] [id number] IMAGING REPORTPatient Name: EDDIE JEAN-BAPTISTEDate of Service: [id number]: 25 Sex: F Order #: [id number] Room: OPODOB: 1995 X-Ray Number: [id number] Record Number: [id number] Hospital Number: [id number] Physician: Emma LORDing Physician: Sudha LORDlvic sonogram.History: Pelvic pain.Techn ique: Transabdominal and [...] (Auto) (test code = 1.3 1.4-4.1 731-0) [facility] HealthBlood monocytes automated count (number/volume)2020-05-02 14:36:00 Test Item Value Reference Range Interpretation Comments Monocytes # (Auto) (test code = 742-7) 0.4 0-1.3 [facility] HealthAutomated blood eosinophil [id number] 14:36:00 Test Item Value Reference Range Interpretation Comments Eosinophils # (Auto) (test code = 0.1 0-0.8 711-2) [facility] HealthAutomated blood basophil count (number/volume)2020-05-02 14:36:00 Test Item Value Reference Range Interpretation Comments Basophils # (Auto) (test code = 704-7) 0.0 0-0.1 [facility] HealthService comment [id number] 14:36:00 Test Item Value Reference Range Interpretation [...] Interpretation Comments Anion Gap (test code = 88487-0) 12 8-18 [facility] HealthSerum or plasma urea nitrogen measurement (mass/volume)2020-05-02 14:36:00 Test Item Value Reference Range Interpretation Comments Blood Urea Nitrogen (test code = 4 7 3094-0) [facility] HealthSerum or plasma creatinine measurement (mass/volume)2020-05-02 14:36:00 Test Item Value Reference Range Interpretation Comments Creatinine (test code = 2160-0) 0.7 0.6-1.1 [facility] HealthGFR estimate [id number] 14:36:00 Test Item Value Reference Range Interpretation Comments Estimat Glomerular Filtration Rate 108 90-142 (test code = 378437006) [facility] HealthSerum or plasma glucose measurement (mass/volume)2020-05-02 14:36:00 Test Item Value Reference Range Interpretation Comments Glucose Level (test code = 2345-7) 93 60-100 [facility] HealthSerum or plasma calcium measurement (mass/volume)2020-05-02 14:36:00 Test Item Value Reference Range Interpretation Comments Calcium Level (test code = 53308-7) 9.1 8.4-10.2 [facility] HealthAutomated blood leukocyte count (number/volume)2020-05-02 14:36:00 Test Item Value Reference Range Interpretation Comments White Blood Count (test code = 6690-2) 4.4 4.5-11.5 [facility] HealthBlood erythrocytes automated count (number/volume)2020-05-02 14:36:00 Test [...] = 786-4) [facility] HealthAutomated erythrocyte distribution width [id number] 14:36:00 Test Item Value Reference Range Interpretation Comments Red Cell Distribution Width (test code 12.5 10.7-14.5 = 788-0) [facility] HealthAutomated blood platelet count (count/volume)2020-05-02 14:36:00 Test Item Value Reference Range Interpretation Comments Platelet Count (test code = 777-3) 259 150-450 [facility] HealthAutomated blood platelet mean volume dlykipnfdgq8667-03-10 14:36:00 Test Item Value Reference Range Interpretation Comments Mean Platelet Volume (test code = 11.0 5.7-10.7 80779-5) [facility] HealthAutomated blood neutrophil count as percentage of total vaiwfscmvt7222-13-90 14:36:00 Test Item Value Reference Range Interpretation Comments Neutrophils (%) (Auto) (test code = 59 47-75 770-8) [facility] HealthAutomated blood lymphocyte count as percentage of total xkhmdawtun5040-00-80 14:36:00 Test Item Value Reference Range Interpretation Comments Lymphocytes (%) (Auto) (test code = 31 25-44 736-9) [facility] HealthAutomated blood monocyte count as percentage of total leukocytes 2020-05-02 14:36:00 Test Item Value Reference Range Interpretation Comments Monocytes (%) (Auto) (test code = 9 3-10 5905-5) [facility] HealthAutomated blood eosinophil count as percentage of total hgdtpybmqa3776-47-07 14:36:00 Test Item Value Reference Range Interpretation [...] Sodium Level (test code = 2951-2) 140 Serum or plasma potassium measurement (moles/volume)2020-05-02 14:36:00 Test Item Value Reference Range Interpretation Comments Potassium Level (test code = 2823-3) 3.3 Serum or plasma chloride measurement (moles/volume)2020-05-02 14:36:00 Test Item Value Reference Range Interpretation Comments Chloride Level (test code = 2075-0) 107 Serum or plasma total carbon dioxide measurement (moles/volume)2020-05-02 14:36:00 Test Item Value Reference Range Interpretation Comments Carbon Dioxide Level (test code = 24 8-9) Serum or plasma anion gap determination (moles/volume)2020-05-02 14:36:00 Test Item Value Reference Range Interpretation Comments Anion Gap (test code = 14503-1) 12 Serum or plasma urea nitrogen measurement (mass/volume)2020-05-02 14:36:00 Test Item Value Reference Range Interpretation Comments Blood Urea Nitrogen (test code = 4 3094-0) Serum or plasma creatinine measurement (mass/volume)2020-05-02 14:36:00 Test Item Value Reference Range Interpretation Comments Creatinine (test code = 2160-0) 0.7 GFR estimate [id number] 14:36:00 Test Item Value Reference Range Interpretation Comments Estimat Glomerular Filtration Rate 108 (test code = 146393508) Serum or plasma glucose measurement (mass/volume)2020-05-02 14:36:00 Test Item Value Reference Range Interpretation Comments Glucose Level (test code = 2345-7) 93 Serum or plasma calcium measurement (mass/volume)2020-05-02 14:36:00 Test Item Value Reference Range Interpretation Comments Calcium Level (test code = 85512-1) 9.1 Automated blood leukocyte count (number/volume)2020-05-02 14:36:00 Test Item Value Reference Range Interpretation Comments White Blood Count (test code = 6690-2) 4.4 Blood erythrocytes automated count (number/volume)2020-05-02 14:36:00 Test Item Value Reference Range Interpretation Comments Red Blood Count (test code = 789-8) 4.22 Blood hemoglobin measurement (mass/volume)2020-05-02 14:36:00 Test Item Value Reference Range Interpretation Comments Hemoglobin (test code = 718-7) 12.4 Automated blood hematocrit (volume fraction)2020-05-02 14:36:00 Test Item Value Reference Range Interpretation Comments Hematocrit (test code = 4544-3) 37.7 Automated erythrocyte mean corpuscular volume (MCV) pjixfhlzoai8798-54-59 14:36:00 Test Item Value Reference Range Interpretation Comments Mean Corpuscular Volume (test code = 89.3 787-2) Automated erythrocyte mean corpuscular hemoglobin (mass per erythrocyte) 2020-05-02 14:36:00 Test Item Value Reference Range Interpretation Comments Mean Corpuscular Hemoglobin (test code 29.4 = 785-6) Automated erythrocyte mean corpuscular hemoglobin concentration measurement (mass/volume)2020-05-02 14:36:00 Test Item Value Reference Range Interpretation Comments Mean Corpuscular Hemoglobin Concent 32.9 (test code = 786-4) Automated erythrocyte distribution width ymzrr7781-93-70 14:36:00 Test Item Value Reference Range Interpretation Comments Red Cell Distribution Width (test code 12.5 = 788-0) Automated blood platelet count (count/volume)2020-05-02 14:36:00 Test Item Value Reference Range Interpretation Comments Platelet Count (test code = 777-3) 259 Automated blood platelet mean volume vyjfstatrkb8094-59-99 14:36:00 Test Item Value Reference Range Interpretation Comments Mean Platelet Volume (test code = 11.0 67836-1) Automated blood neutrophil count as percentage of total zcxjkoaoxq0011-02-93 14:36:00 Test Item Value Reference Range Interpretation Comments Neutrophils (%) (Auto) (test code = 59 770-8) Automated blood lymphocyte count as percentage of total vjgrvkvscu7718-85-93 14:36:00 Test Item Value Reference Range Interpretation Comments Lymphocytes (%) (Auto) (test code = 31 736-9) Automated blood monocyte count as percentage of total lvplxtxaau5306-40-71 14:36:00 Test Item Value Reference Range Interpretation Comments Monocytes (%) (Auto) (test code = 9 5905-5) Automated blood eosinophil count as percentage of total tmlwjshtko9868-00-49 14:36:00 Test Item Value Reference Range Interpretation Comments Eosinophils (%) (Auto) (test code = 2 713-8) Automated blood basophil count as percentage of total hmtkaywype6515-84-95 14:36:00 Test Item Value Reference Range Interpretation Comments Basophils (%) (Auto) (test code = 1 706-2) Automated blood neutrophil count (number/volume)2020-05-02 14:36:00 Test Item Value Reference Range Interpretation Comments Neutrophils # (Auto) (test code = 2.6 751-8) Automated blood lymphocyte count (number/volume)2020-05-02 14:36:00 Test Item Value Reference Range Interpretation Comments Lymphocytes # (Auto) (test code = 1.3 731-0) Blood monocytes automated count (number/volume)2020-05-02 14:36:00 Test Item Value Reference Range Interpretation Comments Monocytes # (Auto) (test code = 742-7) 0.4 Automated blood eosinophil qzzyp6135-60-98 14:36:00 Test Item Value Reference Range Interpretation Comments Eosinophils # (Auto) (test code = 0.1 711-2) Automated blood basophil count (number/volume)2020-05-02 14:36:00 Test Item Value Reference Range Interpretation Comments Basophils # (Auto) (test code = 704-7) 0.0 Service comment 14:36:00 Test Item Value Reference Range Interpretation Comments Manual Differential (test code = Not Ind 8265-1) Urinalysis specimen collection gsysyv8721-01-36 13:45:00 Test Item Value Reference Range Interpretation Comments Urine Source (test code = 47143-2) [facility] Shmx1294-42-26 13:45:00 Test Item Value Reference Range Interpretation Comments Urine Color (test code = 75982-3) Yellow Yel-Anna * [facility] HealthUrine clarity sgfaloxzosgzk6402-25-47 13:45:00 Test Item Value Reference Range Interpretation Comments Urine Appearance (test code = 04339-8) Clear Clear * [facility] HealthUrine pH measurement by automated test fmewp6863-72-52 13:45:00 Test Item Value Reference Range Interpretation Comments Urine pH (test code = 26007-8) 6.0 5.0-8.0 [facility] HealthSpecific gravity of Urine by Automated test aoert6106-24-63 13:45:00 Test Item Value Reference Range Interpretation Comments Urine Specific Jerome (test code = 1.022 1.005-1.030 57912-9) [facility] HealthUrine protein measurement by automated test strip (mass/volume) 2020-05-02 13:45:00 Test Item Value Reference Range Interpretation Comments Urine Protein (test code = 91754-3) 10 Negative * [facility] HealthUrine glucose measurement by automated test strip (mass/volume) 2020-05-02 13:45:00 Test Item Value Reference Range Interpretation Comments Urine Glucose (UA) (test code = Negative Negative * 90392-9) [facility] HealthKetones [Mass/volume] in Urine by Automated test wrkvp4839-90-54 13:45:00 Test Item Value Reference Range Interpretation Comments Urine Ketones (test code = 69578-1) Negative Negative * [facility] HealthUrine erythrocytes count by automated test strip (number/volume) 2020-05-02 13:45:00 Test Item Value Reference Range Interpretation Comments Urine Occult Blood (test code = Negative Negative * 43610-1) [facility] HealthUrine nitrite detection by automated test iwwaq9372-94-92 13:45:00 Test Item Value Reference Range Interpretation Comments Urine Nitrite (test code = 75857-8) Negative Negative [facility] HealthUrine total bilirubin measurement by automated test strip (mass/volume)2020-05-02 13:45:00 Test Item Value Reference Range Interpretation Comments Urine Bilirubin (test code = Negative Negative 24122-9) [facility] HealthUrine urobilinogen measurement by automated test strip (mass/volume)2020-05-02 13:45:00 Test Item Value Reference Range Interpretation Comments Urine Urobilinogen (test code = 2.0 0.0-1.0 51514-7) [facility] HealthUrine leukocytes count by automated test strip (number/volume) 2020-05-02 13:45:00 Test Item Value Reference Range Interpretation Comments Urine Leukocyte Esterase (test code Negative Negative = 45259-4) [facility] HealthMicroscopic examination of aycdw2054-88-94 13:45:00 Test Item Value Reference Range Interpretation Comments Microscopic Urinalysis (T) (test code = ----- 71761-1) [facility] HealthUrine sediment erythrocyte count by microscopy (number/high power field)2020-05-02 13:45:00 Test Item Value Reference Range Interpretation Comments Urine RBC (test code = 10076-7) None Seen 0-2 [facility] HealthUrine sediment leukocyte [...] (test code = None Seen None * 00986-0) [facility] HealthUrine sediment bacteria count by microscopy (number/high power field)2020-05-02 13:45:00 Test Item Value Reference Range Interpretation Comments Urine Bacteria (test code = 5769-5) Rare None [facility] HealthUrine sediment casts count by microscopy (number/low power field) 2020-05-02 13:45:00 Test Item Value Reference Range Interpretation Comments Urine Casts (test code = 9842-6) None Seen None * [facility] HealthYeast detection in urine sediment by light xncwmqnxbc7086-16-88 13:45:00 Test Item Value Reference Range Interpretation Comments Urine Yeast (test code = 82342-1) None Seen None [facility]Service comment 13:45:00 [...] Indicated (test code = Not Ind 8264-4) [facility] zsytmayrd5046[facility]36-[facility] 13:45:00 Test Item Value Reference Range Interpretation Comments Urine Test (test code = Negative Negative 2106-3) LETTY [facility] protein measurement by automated test strip (mass/volume) 2020-05-02 13:45:00 Test Item Value Reference Range Interpretation Comments Urine Protein (test code = 98497-6) 10 Urine glucose measurement by automated test strip (mass/volume)2020-05-02 13:45:00 Test Item Value Reference Range Interpretation Comments Urine Glucose (UA) (test code = Negative 51750-6) Ketones [Mass/volume] in Urine by Automated test erlze3141-30-59 13:45:00 Test Item Value Reference Range Interpretation Comments Urine Ketones (test code = 54560-1) Negative Urine erythrocytes count by automated test strip (number/volume)2020-05-02 13:45:00 Test Item Value Reference Range Interpretation Comments Urine Occult Blood (test code = Negative 84964-1) Urine nitrite detection by automated test mhtdk6591-20-70 13:45:00 Test Item Value Reference Range Interpretation Comments Urine Nitrite (test code = 91622-3) Negative Urine total bilirubin measurement by automated test strip (mass/volume) 2020-05-02 13:45:00 Test Item Value Reference Range Interpretation Comments Urine Bilirubin (test code = Negative 94604-6) Urine urobilinogen measurement by automated test strip (mass/volume)2020-05-02 13:45:00 Test Item Value Reference Range Interpretation Comments Urine Urobilinogen (test code = 2.0 03334-1) Urine leukocytes count by automated test strip (number/volume)2020-05-02 13:45:00 Test Item Value Reference Range Interpretation Comments Urine Leukocyte Esterase (test code Negative = 17628-7) Microscopic examination of lccvb1728-93-61 13:45:00 Test Item Value Reference Range Interpretation Comments Microscopic Urinalysis (T) (test code = ----- 39534-8) Urine sediment erythrocyte count by microscopy (number/high power field) 2020-05-02 13:45:00 Test Item Value Reference Range Interpretation Comments Urine RBC (test code = 68962-1) None Seen Urine sediment leukocyte count by microscopy (number/high power field)2020-05-02 13:45:00 Test Item Value Reference Range Interpretation Comments Urine WBC (test code = 5821-4) 0-5 Urine sediment epithelial cell count by microscopy (number/high power field) 2020-05-02 13:45:00 Test Item Value Reference Range Interpretation Comments Urine Epithelial Cells (test code = Few 5787-7) Urine sediment crystal count by microscopy (number/high power field)2020-05-02 13:45:00 Test Item Value Reference Range Interpretation Comments Urine Crystals (test code = None Seen 87606-6) Urine sediment bacteria count by microscopy (number/high power field)2020-05-02 13:45:00 Test Item Value Reference Range Interpretation Comments Urine Bacteria (test code = 5769-5) Rare Urine sediment casts count by microscopy (number/low power field)2020-05-02 13:45:00 Test Item Value Reference Range Interpretation Comments Urine Casts (test code = 9842-6) None Seen Yeast detection in urine sediment by light auizjaywkm7744-22-10 13:45:00 Test Item Value Reference Range Interpretation Comments Urine Yeast (test code = 62488-6) None Seen Service comment 13:45:00 Test Item Value Reference Range Interpretation Comments Urinalysis Comment (test code = 8262-8) * Service comment 13:45:00 Test Item Value Reference Range Interpretation Comments Urine Culture Indicated (test code = Not Ind 8264-4) HCG ur bpdvkdxsn2366-08-18 13:45:00 Test Item Value Reference Range Interpretation Comments Urine Test (test code = Negative 6-3) Urinalysis specimen collection zsgucm9617-52-66 13:45:00 Test Item Value Reference Range Interpretation Comments Urine Source (test code = 33000-1) URINE Color of Urine by Siib2448-27-10 13:45:00 Test Item Value Reference Range Interpretation Comments Urine Color (test code = 38558-5) Yellow Urine clarity dqpfethhiyjgv8764-63-09 13:45:00 Test Item Value Reference Range Interpretation Comments Urine Appearance (test code = 02451-3) Clear Urine pH measurement by automated test qqdld5599-36-89 13:45:00 Test Item Value Reference Range Interpretation Comments Urine pH (test code = 26901-7) 6.0 Specific gravity of Urine by Automated test jhmzy0867-44-28 13:45:00 Test Item Value Reference Range Interpretation Comments Urine Specific Jerome (test code = 1.022 06033-7) Automated blood leukocyte count (number/volume)2019-12-24 16:20:00 Test Item [...] HealthAutomated erythrocyte mean corpuscular hemoglobin concentration measurement (mass/wlo2638-55-47 16:20:00 Test Item Value Reference Range Interpretation Comments Mean Corpuscular Hemoglobin Concent 33.4 g/dL 33.0-37.0 (test code = 786-4) [facility] HealthAutomated erythrocyte distribution width ueikz1834-56-08 16:20:00 Test Item Value Reference Range Interpretation Comments Red Cell Distribution Width (test code 12.3 % 10.7-14.5 = 788-0) [facility] HealthAutomated blood platelet count (count/volume)2019-12-24 16:20:00 Test Item Value Reference Range Interpretation Comments Platelet Count (test code = 239 10*3/uL 150-450 777-3) [facility] HealthAutomated blood platelet mean volume hltjftdwyxx4010-47-08 16:20:00 Test Item Value Reference Range Interpretation Comments Mean Platelet Volume (test code = 10.6 fL 5.7-10.7 97355-1) [facility] HealthAutomated blood neutrophil count as percentage of total leotjecggt3262-34-66 16:20:00 Test Item Value Reference Range Interpretation Comments Neutrophils (%) (Auto) (test code = 63 % 47-75 770-8) [facility] HealthAutomated blood lymphocyte count as percentage of total smlhvkeovi3100-94-65 16:20:00 Test Item Value Reference Range Interpretation Comments Lymphocytes (%) (Auto) (test code = 27 % 25-44 736-9) [facility] HealthAutomated blood monocyte count as percentage of total leukocytes 2019-12-24 16:20:00 Test Item Value Reference Range Interpretation Comments Monocytes (%) (Auto) (test code = 8 % 3-10 5905-5) [facility] HealthAutomated blood eosinophil count as percentage of total ltapidrwyx6491-01-41 16:20:00 Test Item Value Reference Range Interpretation [...] (test code = 1.5 10*3/uL 1.4-4.1 731-0) [facility] HealthBlood monocytes automated count (number/volume)2019-12-24 16:20:00 Test Item Value Reference Range Interpretation Comments Monocytes # (Auto) (test code = 0.4 10*3/uL 0-1.3 742-7) [facility] HealthAutomated blood eosinophil bapuh3777-56-81 16:20:00 Test Item Value Reference Range Interpretation Comments Eosinophils # (Auto) (test code = 0.1 10*3/uL 0-0.8 711-2) [facility] HealthAutomated blood basophil count (number/volume)2019-12-24 16:20:00 Test Item Value Reference Range Interpretation Comments Basophils # (Auto) (test code = 0.0 10*3/uL 0-0.1 704-7) [facility] comment [id number] 16:20:00 Test Item Value Reference Range Interpretation [...] Interpretation Comments Anion Gap (test code = 40669-8) 14 8-18 [facility] HealthSerum or plasma urea nitrogen measurement (mass/volume)2019-12-24 16:20:00 Test Item Value Reference Range Interpretation Comments Blood Urea Nitrogen (test code = 6 mg/dL 09-29 3094-0) [facility] HealthSerum or plasma creatinine measurement (mass/volume)2019-12-24 16:20:00 Test Item Value Reference Range Interpretation Comments Creatinine (test code = 2160-0) 0.8 mg/dL 0.6-1.1 [facility] estimate [id number] 16:20:00 Test Item Value Reference Range Interpretation Comments Estimat Glomerular Filtration Rate 93 90-142 (test code = 46412-3) [facility] HealthSerum or plasma glucose measurement (mass/volume)2019-12-24 16:20:00 Test Item Value Reference Range Interpretation Comments Glucose Level (test code = 2345-7) 88 mg/dL 60-100 [facility] or plasma calcium measurement (mass/volume)2019-12-24 16:20:00 Test Item Value Reference Range Interpretation Comments Calcium Level (test code = 35178-9) 9.4 mg/dL 8.4-10.2 [facility] HealthAutomated erythrocyte mean corpuscular volume (MCV) measurement 2019-12-24 16:20:00 Test Item Value Reference Range Interpretation Comments Mean Corpuscular Volume (test code = 88.7 fL 787-2) Automated erythrocyte mean corpuscular hemoglobin (mass per erythrocyte) 2019-12-24 16:20:00 Test Item Value Reference Range Interpretation Comments Mean Corpuscular Hemoglobin (test 29.6 pg code = 785-6) Automated erythrocyte mean corpuscular hemoglobin concentration measurement (mass/[id number] 16:20:00 Test Item Value Reference Range Interpretation Comments Mean Corpuscular Hemoglobin Concent 33.4 g/dL (test code = 786-4) Automated erythrocyte distribution width [id number] 16:20:00 Test Item Value Reference Range Interpretation Comments Red Cell Distribution Width (test code 12.3 % = 788-0) Automated blood platelet count (count/volume)2019-12-24 16:20:00 Test Item Value Reference Range Interpretation Comments Platelet Count (test code = 239 10*3/uL 777-3) Automated blood platelet mean volume [id number] 16:20:00 Test Item Value Reference Range Interpretation Comments Mean Platelet Volume (test code = 10.6 fL 86349-9) Automated blood neutrophil count as percentage of total nfkihhjjoz9134-33-67 16:20:00 Test Item Value Reference Range Interpretation Comments Neutrophils (%) (Auto) (test code = 63 % 770-8) Automated blood lymphocyte count as percentage of total fshlkdwosy4670-27-15 16:20:00 Test Item Value Reference Range Interpretation Comments Lymphocytes (%) (Auto) (test code = 27 % 736-9) Automated blood monocyte count as percentage of total pykfmakvav4342-73-91 16:20:00 Test Item Value Reference Range Interpretation Comments Monocytes (%) (Auto) (test code = 8 % 5905-5) Automated blood eosinophil count as percentage of total jenehrwmkq0064-35-73 16:20:00 Test Item Value Reference Range Interpretation Comments Eosinophils (%) (Auto) (test code = 1 % 713-8) Automated blood basophil count as percentage of total ateyhzpzzn6158-16-40 16:20:00 Test Item Value Reference Range Interpretation Comments Basophils (%) (Auto) (test code = 1 % 706-2) Automated blood neutrophil count (number/volume)2019-12-24 16:20:00 Test Item Value Reference Range Interpretation Comments Neutrophils # (Auto) (test code = 3.5 10*3/uL 751-8) Automated blood lymphocyte count (number/volume)2019-12-24 16:20:00 Test Item Value Reference Range Interpretation Comments Lymphocytes # (Auto) (test code = 1.5 10*3/uL 731-0) Blood monocytes automated count (number/volume)2019-12-24 16:20:00 Test Item Value Reference Range Interpretation Comments Monocytes # (Auto) (test code = 0.4 10*3/uL 742-7) Automated blood eosinophil [id number] 16:20:00 Test Item Value Reference Range Interpretation Comments Eosinophils # (Auto) (test code = 0.1 10*3/uL 711-2) Automated blood basophil count (number/volume)2019-12-24 16:20:00 Test Item Value Reference Range Interpretation Comments Basophils # (Auto) (test code = 0.0 10*3/uL 704-7) Service comment [id number] 16:20:00 Test Item Value Reference Range Interpretation Comments Manual Differential (test code = Not Ind 8265-1) Serum or plasma sodium measurement (moles/volume)2019-12-24 16:20:00 Test Item Value Reference Range Interpretation Comments Sodium Level (test code = 2951-2) 139 mmol/L Serum or plasma potassium measurement (moles/volume)2019-12-24 16:20:00 Test Item Value Reference Range Interpretation Comments Potassium Level (test code = 3.5 mmol/L 2823-3) Serum or plasma chloride measurement (moles/volume)2019-12-24 16:20:00 Test Item Value Reference Range Interpretation Comments Chloride Level (test code = 106 mmol/L 2075-0) Serum or plasma total carbon dioxide measurement (moles/volume)2019-12-24 16:20:00 Test Item Value Reference Range Interpretation Comments Carbon Dioxide Level (test code = 23 mmol/L 8-9) Serum or plasma anion gap determination (moles/volume)2019-12-24 16:20:00 Test Item Value Reference Range Interpretation Comments Anion Gap (test code = 60362-7) 14 Serum or plasma urea nitrogen measurement (mass/volume)2019-12-24 16:20:00 Test Item Value Reference Range Interpretation Comments Blood Urea Nitrogen (test code = 6 mg/dL 3094-0) Serum or plasma creatinine measurement (mass/volume)2019-12-24 16:20:00 Test Item Value Reference Range Interpretation Comments Creatinine (test code = 2160-0) 0.8 mg/dL GFR estimate [id number] 16:20:00 Test Item Value Reference Range Interpretation Comments Estimat Glomerular Filtration Rate 93 (test code = 34847-5) Serum or plasma glucose measurement (mass/volume)2019-12-24 16:20:00 Test Item Value Reference Range Interpretation Comments Glucose Level (test code = 2345-7) 88 mg/dL Serum or plasma calcium measurement (mass/volume)2019-12-24 16:20:00 Test Item Value Reference Range Interpretation Comments Calcium Level (test code = 67926-1) 9.4 mg/dL Automated blood leukocyte count (number/volume)2019-12-24 16:20:00 Test Item Value Reference Range Interpretation Comments White Blood Count (test code = 5.5 10*3/uL 6690-2) Blood erythrocytes automated count (number/volume)2019-12-24 16:20:00 Test Item Value Reference Range Interpretation Comments Red Blood Count (test code = 4.15 10*6/uL 789-8) Blood hemoglobin measurement (mass/volume)2019-12-24 16:20:00 Test Item Value Reference Range Interpretation Comments Hemoglobin (test code = 718-7) 12.3 g/dL Automated blood hematocrit (volume fraction)2019-12-24 16:20:00 Test Item Value Reference Range Interpretation Comments Hematocrit (test code = 4544-3) 36.8 % Urinalysis specimen collection [id number] 15:50:00 Test Item Value Reference Range Interpretation Comments Urine Source (test code = 72213-2) URINE [facility] of Urine by [id number] 15:50:00 Test Item Value Reference Range Interpretation Comments Urine Color (test code = 08136-9) Yellow Yel-Anna * [facility] HealthUrine clarity [id number] 15:50:00 Test Item Value Reference Range Interpretation Comments Urine Appearance (test code = 93922-5) Clear Clear * [facility] Health[facility]rine pH measurement by automated test [id number] 15:50:00 Test Item Value Reference Range Interpretation Comments Urine pH (test code = 97356-2) 6.0 5.0-8.0 [facility] HealthSpecific gravity of Urine by Automated test [id number] 15:50:00 Test Item Value Reference Range Interpretation Comments Urine Specific Jerome (test code = 1.020 1.005-1.030 44431-5) [facility]Urine protein measurement by automated test strip (mass/volume) 2019-12-24 15:50:00 Test Item Value Reference Range Interpretation Comments Urine Protein (test code = Negative mg/dL Negative * 10851-5) [facility]Urine glucose measurement by automated test strip (mass/volume) 2019-12-24 15:50:00 Test Item Value Reference Range Interpretation Comments Urine Glucose (UA) (test code Negative mg/dL Negative * = 92102-2) [facility] HealthUrine ketones measurement by automated test strip (mass/volume) 2019-12-24 15:50:00 Test Item Value Reference Range Interpretation Comments Urine Ketones (test code = Negative mg/dL Negative * 77786-3) [facility] HealthUrine erythrocytes count by automated test strip (number/volume) 2019-12-24 15:50:00 Test Item Value Reference Range Interpretation Comments Urine Occult Blood (test code = 250 Negative * 56360-9) [facility] HealthUrine nitrite detection by automated test [id number] 15:50:00 Test Item Value Reference Range Interpretation Comments Urine Nitrite (test code = 43013-0) Negative Negative [facility]rine total bilirubin measurement by automated test strip (mass/volume)2019-12-24 15:50:00 Test Item Value Reference Range Interpretation Comments Urine Bilirubin (test code = Negative mg/dL Negative 97393-4) [facility] HealthUrine urobilinogen measurement by automated test strip (mass/volume)2019-12-24 15:50:00 Test Item Value Reference Range Interpretation Comments Urine Urobilinogen (test code Negative mg/dL 0.0-1.0 = 16971-7) [facility] Health[facility]rine leukocytes count by automated test strip (number/volume) 2019-12-24 15:50:00 Test Item Value Reference Range Interpretation Comments Urine Leukocyte Esterase Negative {Pamela}/uL Negative (test code = 54869-4) [facility] [id number] 15:50:00 Test Item Value Reference Range Interpretation Comments Microscopic Urinalysis (T) (test code = ----- 54334-1) [facility] erythrocyte count by microscopy (number/high power field)2019-12-24 15:50:00 Test Item Value Reference Range Interpretation Comments Urine RBC (test code = 53336-5) 3-10 /[HPF] 0-2 [facility] HealthU[facility] sediment leukocyte count by microscopy (number/high power field)2019-12-24 15:50:00 Test Item Value Reference Range Interpretation Comments Urine WBC (test code = 5821-4) Rare /[HPF] 0-5 [facility] epithelial cell count by microscopy (number/high power field)2019-12-24 15:50:00 Test Item Value Reference Range Interpretation Comments Urine Epithelial Cells (test code Few /[HPF] Few = 5787-7) [facility] HealthUrine sediment crystal count by microscopy (number/high power field)2019-12-24 15:50:00 Test Item Value Reference Range Interpretation Comments Urine Crystals (test code = None Seen /[HPF] None * 58682-9) [facility] sediment bacteria count by microscopy (number/high power field)2019-12-24 15:50:00 Test Item Value Reference Range Interpretation Comments Urine Bacteria (test code = Rare /[HPF] None 5769-5) [facility] HealthUrine sediment casts count by microscopy (number/low power field) 2019-12-24 15:50:00 Test Item Value Reference Range Interpretation Comments Urine Casts (test code = None Seen /[LPF] None * 9842-6) [facility] HealthYeast detection in urine sediment by light [id number] 15:50:00 Test Item Value Reference Range Interpretation Comments Urine Yeast (test code = None Seen /[HPF] None 48484-8) [facility] comment 15:50:00 Test Item Value Reference Range Interpretation Comments Urinalysis Comment (test * See_Comment [A utomated message] The code = 8262-8) system which generated this result tra nsmitted reference range : *. The reference range was not used to interpr et this result as normal/abnormal . [facility] comment 15:50:00 Test Item Value Reference Range Interpretation Comments Urine Culture Indicated (test code = Not Ind 8264-4) [facility] HealthUrinalysis specimen collection [id number] 15:50:00 Test Item Value Reference Range Interpretation Comments Urine Source (test code = 31796-3) URINE Color of Urine by [id number] 15:50:00 Test Item Value Reference Range Interpretation Comments Urine Color (test code = 35772-1) Yellow Urine clarity [id number] 15:50:00 Test Item Value Reference Range Interpretation Comments Urine Appearance (test code = 90224-8) Clear Urine pH measurement by automated test [id number] 15:50:00 Test Item Value Reference Range Interpretation Comments Urine pH (test code = 10305-2) 6.0 Specific gravity of Urine by Automated test [id number] 15:50:00 Test Item Value Reference Range Interpretation Comments Urine Specific Jerome (test code = 1.020 40358-2) Urine protein measurement by automated test strip (mass/volume)2019-12-24 15:50:00 Test Item Value Reference Range Interpretation Comments Urine Protein (test code = Negative mg/dL 20376-8) Urine glucose measurement by automated test strip (mass/volume)2019-12-24 15:50:00 Test Item Value Reference Range Interpretation Comments Urine Glucose (UA) (test code Negative mg/dL = 52814-8) Urine ketones measurement by automated test strip (mass/volume)2019-12-24 15:50:00 Test Item Value Reference Range Interpretation Comments Urine Ketones (test code = Negative mg/dL 53822-9) Urine erythrocytes count by automated test strip (number/volume)2019-12-24 15:50:00 Test Item Value Reference Range Interpretation Comments Urine Occult Blood (test code = 250 45938-2) Urine nitrite detection by automated test [id number] 15:50:00 Test Item Value Reference Range Interpretation Comments Urine Nitrite (test code = 24228-3) Negative Urine total bilirubin measurement by automated test strip (mass/volume) 2019-12-24 15:50:00 Test Item Value Reference Range Interpretation Comments Urine Bilirubin (test code = Negative mg/dL 17112-2) Urine urobilinogen measurement by automated test strip (mass/volume)2019-12-24 15:50:00 Test Item Value Reference Range Interpretation Comments Urine Urobilinogen (test code Negative mg/dL = 96191-3) Urine leukocytes count by automated test strip (number/volume)2019-12-24 15:50:00 Test Item Value Reference Range Interpretation Comments Urine Leukocyte Esterase Negative {Pamela}/uL (test code = 82705-3) Microscopic examination of [id number] 15:50:00 Test Item Value Reference Range Interpretation Comments Microscopic Urinalysis (T) (test code = ----- 17576-6) Urine sediment erythrocyte count by microscopy (number/high power field) 2019-12-24 15:50:00 Test Item Value Reference Range Interpretation Comments Urine RBC (test code = 72715-0) 3-10 /[HPF] Urine sediment leukocyte count by microscopy (number/high power field)2019-12-24 15:50:00 Test Item Value Reference Range Interpretation Comments Urine WBC (test code = 5821-4) Rare /[HPF] Urine sediment epithelial cell count by microscopy (number/high power field) 2019-12-24 15:50:00 Test Item Value Reference Range Interpretation Comments Urine Epithelial Cells (test code Few /[HPF] = 5787-7) Urine sediment crystal count by microscopy (number/high power field)2019-12-24 15:50:00 Test Item Value Reference Range Interpretation Comments Urine Crystals (test code = None Seen /[HPF] 23274-0) Urine sediment bacteria count by microscopy (number/high power field)2019-12-24 15:50:00 Test Item Value Reference Range Interpretation Comments Urine Bacteria (test code = Rare /[HPF] 5769-5) Urine sediment casts count by microscopy (number/low power field)2019-12-24 15:50:00 Test Item Value Reference Range Interpretation Comments Urine Casts (test code = None Seen /[LPF] 9842-6) Yeast detection in urine sediment by light [id number] 15:50:00 Test Item Value Reference Range Interpretation Comments Urine Yeast (test code = None Seen /[HPF] 21598-8) Service comment 15:50:00 Test Item Value Reference Range Interpretation Comments Urinalysis Comment (test code = 8262-8) * Service comment 15:50:00 Test Item Value Reference Range Interpretation Comments Urine Culture Indicated (test code = Not Ind 8264-4) test, [id number] 14:42:00 Test Item Value Reference Range Interpretation Comments Test (test code = negative Test) [facility] [id number] 15:15:56 Test Item Value Reference Range Interpretation Comments Test (test code = negative Test) [facility] [id number] 08:05:00 Test Item Value Reference Range Interpretation [...] NEGATIVE NEGATIVE KETONES UR (test code = ERANNA) NEGATIVE NEGATIVE SP GRAVITY (test code = [...] code = WAUAM) NO NO U/S >14 WEEKS*WW*2018-02-28 12:56:49OBSTETRIC ULTRASOUND Location code: K4OBDTRAZO HISTORY: Abdominal painGA by first US: 17 [...] weeks 0 days. 2. No abnormality identified.URINALYSIS *WW*2018-02-28 12:19:00 Test Item Value Reference Range Interpretation [...] >14 WEEKS*WW*2018-02-07 20:13:09LOCATION: A1EXAM: U/S >14 WEEKS*WW*INDICATION: [id number]: Pain in pelvisLMP: Unknown 14 wks 5 [...] = 0.69 (0.70-0.86)FL/AC = 0.20 (0.20-0.24)HC/AC = 1.21 (1.11-1.30)FL/BPD = 0.64 (0.71-0.87)LULU is 11.6 cm. Cervical length is 2.1 cm.Estimated weight is 110 grams. This lies at the 67 percentile. heart rate is 157 beats per minute.Normal anatomy visualized includes: Heart motion, 4 chambered heart,brain, cerebellum, ventricles, stomach, u mbilical cord insertion, three-vesselcord, kidneys, urinary bladder, spine, extremities.IMPRESSION:Single viable consistent with 15 week 2 day gestation by ultrasound.Estimated delivery date 07/31/18. No complication is identified.BETA HCG QUANTITATIVE SERUM *WW*2018-02-07 19:43:00 Test Item Value Reference Range Interpretation Comments BHCG QUANT (test 04288.00 mIU/mL code = A17) BHCGQ (test code [...] = WAUAM) NO NO CBC (INCLUDES AUTOMATED DIFFERENTIAL)*[id number] 18:50:00 Test Item Value Reference Range Interpretation [...]
[2022-01-20] MEDS ORDERED: LIDOCAINE 1% MPF 5 ML VIAL ONE (13:56)
[2022-01-20] MEDS ORDERED: HYDROCODONE/APAP 5/325 MG TAB ONE (13:56)
[2022-01-20] MEDS ORDERED: TETANUS & DIPHTHERIA TOX,ADULT 0.5 ML VIAL ONE (13:56)
--- NOTE | 2022-01-20 18:34 | EDPHYS ---
Physician Documentation [facility] Name: Yamel Cano Age: 27 yrs Sex: Female : 1995 Arrival Date: 01/20/2022 Time: 12:37 Bed 18 Private MD: ED Physician Chris Meneses HPI: 01/20 13:13 This 27 yrs old Black Female presents to ER via Ambulatory with complaints of Finger pm1 Injury. 13:13 Trauma demographics: Location of Injury: The injury occurred at home. Mechanism of pm1 injury: closed washer door on her finger, left thumb . Associated injuries: The patient sustained left thumb. Onset: The symptoms/episode began/occurred today. The patient has not experienced similar symptoms in the past. The patient has not recently seen a physician. Historical: - Allergies: 12:44 Latex, Natural Rubber; iw - PMHx: 12:44 uterine fibroids; iw - PSHx: 12:44 None; iw - Immunization history:: Client reports receiving the 2nd dose of the Covid vaccine. - Social history:: Smoking status: Patient denies any tobacco usage or history of. ROS: 13:13 Constitutional: Negative for fever, chills, and weight loss, Cardiovascular: Negative pm1 for chest pain, palpitations, and edema, Respiratory: Negative for shortness of breath, cough, wheezing, and pleuritic chest pain. 13:13 Skin: Negative for injury, rash, and discoloration, Neuro: Negative for headache, weakness, numbness, tingling, and seizure. 13:13 MS/extremity: Positive for injury to left thumb, Negative for decreased range of motion, deformity. 13:13 All other systems are negative. Exam: 13:13 Constitutional: This is a well developed, well nourished patient who is awake, alert, pm1 and in no acute distress. Head/Face: Normocephalic, atraumatic. 13:13 Cardiovascular: Exam negative for acute changes, Rate: normal, Rhythm: regular, Pulses: no pulse deficits are appreciated. 13:13 Respiratory: Exam negative for acute changes, respiratory distress, shortness of breath. 13:13 Skin: injury, partial avulsion left thumb nail. Cuticle intact. 13:13 Neuro: Exam negative for acute changes, Orientation: is normal, Mentation: is normal, Motor: is normal, moves all fours. Vital Signs: 12:43 BP 119 / 81; Pulse 67; Resp 16; Pulse Ox 10% on R/A; iw MDM: 13:04 Patient medically screened. pm1 13:16 Data reviewed: vital signs. Data interpreted: Pulse oximetry: on room air is 100 %. pm1 Interpretation: normal. 14:26 ED course: Patient unable to attempt soaking finger and peeling the nail off with her pm1 other hand because of the large acrylic nails on it. Requested sister to get acetone if possible. Patient wants to use floss to remove it. 18:31 ED course: Patient unable to get the acrylic nail fully off her nail. Nail appears to pm1 be intact and unable to be dislodged. Will provide the patient analgesia as requested, digital block and dischrage the patient home. 01/20 13:40 Order name: Dressing - Wound; Complete Time: 18:45 pm1 01/20 13:40 Order name: Gloves, Sterile; Complete Time: 18:45 pm1 01/20 18:34 Order name: Finger Splint; Complete Time: 18:45 pm1 Administered Medications: 13:40 Drug: HYDROcodone-acetaminophen 5 mg-325 mg 1 tabs Route: PO; kb3 15:00 Follow up: Response: No adverse reaction; Pain is decreased kb3 14:05 Drug: Tetanus-Diphtheria Toxoid Adult 0.5 ml {Publications Editor: [employer]. Exp: kb3 08/01/2023. Lot #: [id number]. } Route: IM; Site: right deltoid; 15:00 Follow up: Response: No adverse reaction kb3 19:28 Drug: Lidocaine (1 %) 5 ml Volume: 5 ml; Route: Infiltration; vc1 19:28 Drug: Marcaine (bupivacaine) (0.5 %) 1 ml Volume: 10 ml; Route: Infiltration; vc1 Disposition Summary: 01/20/22 18:34 Discharge Ordered Location: Home pm1 Problem: new pm1 Symptoms: have improved pm1 Condition: Stable pm1 Diagnosis - Laceration without foreign body of left thumb with damage to nail, initial encounterpm1 Followup: pm1 - With: Emergency Department - When: As needed - Reason: Worsening of condition Followup: pm1 - With: Private Physician - When: 2 - 3 days - Reason: Recheck today's complaints, Continuance of care, Re-evaluation by your physician Discharge Instructions: - Discharge Summary Sheet pm1 - Cast or Splint Care, Adult pm1 - Nail Bed Injury pm1 Forms: - Medication Reconciliation Form pm1 - Thank You Letter pm1 - Antibiotic Education pm1 - Prescription Opioid Use pm1 Prescriptions: - Cephalexin 500 mg Oral Capsule - take 1 capsule by ORAL route every 8 hours for 10 days; 30 capsule; Refills: 0, pm1 Product Selection Permitted - Tylenol-Codeine #3 300 mg-30 mg Oral - take 2 tablet by ORAL route every 6 hours As needed; 12 tablet; Refills: 0, pm1 Product Selection Permitted Signatures: Dorothea Alcantara RN RN iw Jessee Jacinto, [employer] EXPERIMENTALIST pm1 Gerda Mendenhall RN RN vc1 Sangeeta Garza RN RN kb3 Corrections: (The following items were deleted from the chart) 18:45 13:40 Sutures, Prolene ordered. pm1 kb3 18:45 13:40 Setup Suture Tray ordered. pm1 kb3
--- NOTE | 2022-01-20 18:34 | ER ---
Nurse's Notes [facility] Name: Yamel Cano Age: 27 yrs Sex: Female : 1995 Arrival Date: 01/20/2022 Time: 12:37 Bed 18 Private MD: Diagnosis: Laceration without foreign body of left thumb with damage to nail, initial encounter Presentation: 01/20 12:43 Chief complaint: Patient states: left thumb nail got caught on the washer and it iw hanging by the cuticle , pt has acrylic nail. Coronavirus screen: At this time, the client does not indicate any symptoms associated with coronavirus-19. Ebola Screen: Patient negative for fever greater than or equal to 101.5 degrees Fahrenheit, and additional compatible Ebola Virus Disease symptoms Patient denies exposure to infectious person. Patient denies travel to an Ebola-affected area in the 21 days before illness onset. No symptoms or risks identified at this time. Initial Sepsis Screen: Does the patient meet any 2 criteria? No. Patient's initial sepsis screen is negative. Does the patient have a suspected source of infection? No. Patient's initial sepsis screen is negative. Risk Assessment: Do you want to hurt yourself or someone else? Patient reports no desire to harm self or others. Onset of symptoms was January 20, 2022. 12:43 Method Of Arrival: Ambulatory iw 12:43 Acuity: MAURICE 4 iw Historical: - Allergies: 12:44 Latex, Natural Rubber; iw - PMHx: 12:44 uterine fibroids; iw - PSHx: 12:44 None; iw - Immunization history:: Client reports receiving the 2nd dose of the Covid vaccine. - Social history:: Smoking status: Patient denies any tobacco usage or history of. Screenin:00 Abuse screen: Denies threats or abuse. Denies injuries from another. Nutritional kb3 screening: No deficits noted. Tuberculosis screening: No symptoms or risk factors identified. Fall Risk None identified. Assessment: 13:00 General: Appears in no apparent distress. Behavior is calm, cooperative, Pt reports kb3 pain to left thumb after she caught it on the washing machine, lifting her nail from her nail bed. No bleeding noted. 13:00 Injury Description: Avulsion sustained to left thumbnail. kb3 14:30 General: Pt reports that she is unable to lift the edge of the acrylic nail because her kb3 other nails are so long. Notified Jessee GONZALEZ. PT's sister is going to go to the store and buy dental floss and pt will attempt to left acrylic nail from nail bed at cuticle as instructed. Pt continues soaking nail in hot water to soften acrylic. 15:06 General: Pt's sister returned with dental floss. Pt states she will attempt to lift kb3 acrylic nil from her nail bed at cuticle as instructed. 15:08 Pain:. kb3 15:42 General: Pt reports that she was able to get some of the nail off and that her sister kb3 is going to go try to locate a nail file. 16:20 General: Sister has returned with a nail automatic grinder operator. Pt continues to attempt to remove as kb3 much of the acrylic nail as possible. Reports she is unable to use the acetone because it rodriguez too badly. Jessee GONZALEZ notified. 18:00 General: Jessee GONZALEZ at bedside to assess pt's nail. kb3 Vital Signs: 12:43 BP 119 / 81; Pulse 67; Resp 16; Pulse Ox 10% on R/A; iw ED Course: 12:37 Patient arrived in ED. as 12:44 Triage completed. iw 12:44 Arm band placed on. iw 12:56 Sangeeta Garza, RN is Primary Nurse. kb3 13:00 Patient has correct armband on for positive identification. kb3 13:00 No provider procedures requiring assistance completed. Patient did not have IV access kb3 during this emergency room visit. 13:01 Jessee Jacinto NP is PHCP. pm1 13:01 Chris Meneses MD is Attending Physician. pm1 19:30 Assist provider with nerve block (digital) of left thumbnail Set up for procedure. vc1 Performed by Jessee Jacinto NP Patient tolerated well. 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 Exp: kb3 08/01/2023. Lot #: [id number]. } Route: IM; Site: right deltoid; 15:00 Follow up: Response: No adverse reaction kb3 19:28 Drug: Lidocaine (1 %) 5 ml Volume: 5 ml; Route: Infiltration; vc1 19:28 Drug: Marcaine (bupivacaine) (0.5 %) 1 ml Volume: 10 ml; Route: Infiltration; vc1 Medication: 13:00 VIS not applicable for this client. kb3 Outcome: 18:34 Discharge ordered by MD. pm1 19:30 Discharged to home ambulatory, with family. vc1 19:30 Condition: good 19:30 Discharge instructions given to patient, Instructed on discharge instructions, follow up and referral plans. medication usage, Demonstrated understanding of instructions, follow-up care, medications, Prescriptions given X 2. 19:31 Patient left the ED. vc1 Signatures: Roseann Peres Irene, RN RN iw Marinas, Patrick, NP [employer]ER HELPER pm1 Gerda Mendenhall RN RN vc1 Sangeeta Garza RN RN kb3 Corrections: (The following items were deleted from the chart) 15:08 14:30 General: Pt reports that she is unable to lift the edge of the acrylic nail kb3 because her other nails are so long. Notified Jessee GONZALEZ. PT's sister is going to go to the store and buy dental floss and pt will attempt to left acrylic nail from nail bed at cuticle as instructed.. kb3 18:53 16:20 General: Sister has returned with a nail automatic grinder operator. Pt continues to attempt to kb3 remove as much of the acrylic nail as possible. kb3
[2022-01-20] MEDS ORDERED: BUPIVACAINE 0.5% PF 10 ML VIAL ONE (18:43)
[2022-01-20 19:35] VITALS: BP 119/81; O2SAT 10
== END 2022-01-20 19:31 | disposition home or self-care (01) ==
LOC: ER 12:36
DX: S61.112A Laceration without foreign body of left thumb with damage to nail, initial encounter (principal); Z23 Encounter for immunization; Z91.040 Latex allergy status; Z91.048 Other nonmedicinal substance allergy status
CPT/HCPCS: 90471; 90714; 64450; 99283; J2001

== ENCOUNTER 2022-03-09 15:18 | Emergency (ER) | payer OTHER ==
--- OUTSIDE RECORDS SUMMARY | 2022-03-09 15:26 | XMS REPORT | Continuity of Care Document ---
:1995 Author Organization [facility] t Address [address] [place] [address] Care Team Providers Name Role Phone Asked, No Pcp Primary Care Physician Unavailable LIZZY LORD Attending Clinician Unavailable INEZ SAM Attending Clinician Unavailable JANUSZ PUENTES Attending Clinician Unavailable Janusz Simmons Attending Clinician [phone] Doctor Unassigned, Ina Attending Clinician Unavailable LEEANN SAHA Attending Clinician Unavailable LEEANN SAHA Attending Clinician Unavailable Pgy1 Attending Clinician Unavailable Inez Sam MD Attending Clinician Angel MARAVILLA, Katie Attending Clinician Unavailable AICHA CAMEJO Attending Clinician Unavailable Only, Ang Db Test Attending Clinician Unavailable Ebpaul SENIOR MARKETING DATA ANALYST, Aicha Attending Clinician Deyvi Rome MD Attending Clinician Tanner SENIOR MARKETING DATA ANALYST, Lucinda Contreras Attending Clinician LUCINDA HART Attending Clinician Unavailable FANNIE AREVALO Attending Clinician Unavailable Triston SENIOR MARKETING DATA ANALYST, Fannie Attending Clinician YESSENIA QUEEN Attending Clinician Unavailable Kenneth Das MD Attending Clinician Bret SENIOR MARKETING DATA ANALYSTYessenia Attending Clinician LIZBETH LYN Attending Clinician Unavailable Praveen SENIOR MARKETING DATA ANALYST, Lizbeth Attending Clinician RICO CASON Attending Clinician Unavailable Rico Cason MD Attending Clinician TK CARMEN Attending Clinician Unavailable Nella SENIOR MARKETING DATA ANALYSTTk Attending Clinician UNKNOWN, ATTENDING Attending Clinician Unavailable Lisa Vail Attending Clinician LISA SORIANO Attending Clinician Unavailable Christophe Ackerman DO Attending Clinician Pop YAP, Lizzy Contreras Attending Clinician LIZZY LORD Attending Clinician Unavailable Jared Dixon MD Attending Clinician UNASSIGNED, ED Attending Clinician Unavailable G_Pappas Attending Clinician Unavailable Lab, Jessica-Rmchp Attending Clinician Unavailable BRADY STAPLETON Attending Clinician Unavailable [facility] Attending Clinician Unavailable Carolina Basurto MD Attending Clinician [phone] Pcp, Patient Does Not Have A Attending Clinician [phone] CAMI BARRETO Attending Clinician Unavailable Cami Barreto MD Attending Clinician [phone] SPENSER BHATT Attending Clinician Unavailable DR [...] Date Expiration Date S ource 2 W [id number] 30 C [id number] [facility] [id number] 2021 [facility] 00:00:00 [place] [id number] 2017 2017 00:00:00 00:00:00 [place] [id number] [facility] (MEDICAID) Problems Condition Condition Condition Status Onset Resolution Last Treating Co mments Source Name Details Category Date Date Treatment Clinician Date Nexplanon Nexplanon Disease Active 2021-03 Uni vers removal removal 0-19 ity of 00:00: [place] 00 Medical Branch Other Other Disease Active [...] sharad ia ia 5-05 ity of 00:00: [place] 00 Medical Branch Vaginal Vaginal Disease Active Univers discharge discharge 2-08 ity of 00:00: [place] 00 Medical Branch Adult body Adult body Disease Active 2019- U sharad mass index mass index 0-10 it y of 29.0-29.9 29.0-29.9 [place] Adult body Adult body Disease Active 2019-03 U nivers mass index mass index 0-10 it y of 29.0-29.9 29.0-29.9 [place] Intramural Intramural Disease Active Overview : [facility] leiomyoma leiomyoma 11-19 Formattin i ty [...] 1 year Screening Screening Disease Active Overview: [facility] [place] [facility] examinatio examinatio 2-12 Formattin ity of [...] 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 Amenorrhea Amenorrhe Problem Active 2020-06-12 Arvind , a, 02:49:54 l unspecifie unspecifie He rmann d d Active Problem 06/12/[address] [facility] Abnormal Abnormal Problem Active 2018-01-06 Memoria uterine uterine 02:46:37 l and and Alok vaginal vaginal bleeding, bleeding, unspecifie unspecifie d d Active Problem 01/06/2018 [facility] Supervisio Supervisi Problem Active 2018-05-09 Memoria n of other on of 03:46:39 l high risk other high Her lala pregnancie risk s, second pregnancie trimester s, second trimester Active Problem 05/09/[address] [facility] Pelvic and Pelvic Diagnosis Active 2019-05-19 Memoria perineal and 03:45:32 l pain perineal Alok pain Active Diagnosis 05/19/[address] [facility] Encounter Encounter Problem Active 2018-01-07 Memoria for for 02:45:45 l supervisio supervisio He misha n of other n of other normal normal , , first first trimester trimester Active Problem 01/07/2018 [facility] Allergies, Adverse Reactions, Alerts Allergy Allergy Status Severity Reaction(s) Onset Inactive Treating Comm ents Source Name Type Date Date Clinician No Known NA Active [facility]ie [facility]-16 [facility] 11:40: l 34 ([facility]) No Known NA Active Sabianist Allergie 05-16 Hospita s 11:40: l 28 ([facility] nt) No Known NA Active Sabianist Allergie 05-15 Hospita s 10:58: l 38 ([facility] nt) No Known NA Active Sabianist Allergie 05-14 Hospita s 16:41: l 38 ([facility] nt) No Known NA Active Sabianist Allergie 05-14 Hospita s 16:41: l 30 ([facility] nt) No Known NA Active Sabianist Allergie 05-14 Hospita s 16:41: l 22 ([facility] nt) No Known NA Active [facility] Allergie 05-14 [facility]osp[facility] 14:32: [facility] No Known NA Active Sabianist Allergie 3-02 Hospita s 13:32: l 13 ([place] [facility]) Latex Propensi Active Itching Univers ty to 4-10 ity of adverse 00:00: [place] reaction 00 Medical s Branch LATEX DRUG Active ITCHING Univers INGREDI 4-10 ity of 00:00: [place] 00 Medical Branch Latex Allergy Active [place] [facility] Social History Social Habit Start Date Stop Date Quantity Comments Source Exposure to 2021-12-20 2021-12-30 Not sure [facility] SARS-CoV-2 00:00:00 08:30:00 [facility] (event) [place] Alcohol intake 2021-12-30 2021-12-30 0 /d [facility] 00:00:00 00:00:00 [facility] Tobacco use and 2021-11-19 2021-11-19 Smokeless tobacco Un iversity of exposure 00:00:00 00:00:00 non-user [facility] Doyousmoke? 2016-02-16 2016-02-16 [facility] 00:00:00 00:00:00 Sex [birth year] [facility] 00:00:00 00:00:00 Smoking Status Start Date Stop Date Source Tobacco smoking consumption [facility] unknown Never smoked tobacco [facility] Medications Ordered Filled Start Stop Current Ordering Indication Dosage Frequency Signature Comments Components Source Medication Medication Date Date Medication? Clinician (SIG) Name Name etonogestre 2021- No [id number] 68mg Univers L 12-11 ity of (NEXPLANON) 21:15: 20:26 [place] implant 68 00 :00 Medical mg Branch etonogestre 2021- No [id number] 68mg 68 mg, Univers L 12-11 Subdermal, ity of (NEXPLANON) 21:15: 20:26 ONCE NOW, [place] implant 68 00 :00 1 dose, On Med ical mg Fri Branch 12/11/21 at 1615, Routine
Use approved by: BARRATTE OPERATOR etonogestre 2021- No [id number] 68mg Univers L 9-30 09-30 ity of (NEXPLANON) 21:15: 20:26 [place] implant 68 00 :00 Medical mg Branch etonogestre 2021-0 2021- No [id number] 68mg 68 mg, Univers L 12-11 Subdermal, ity of (NEXPLANON) 21:15: 20:26 ONCE NOW, [place] implant 68 00 :00 1 dose, On Med ical mg Fri Branch 12/11/21 at 1615, Routine
Use approved by: BARRATTE OPERATOR medroxyPROG 2021-0 2022- No [id number] 150mg Univers ESTERone -03-25 ity of (DEPO-PROVE 14:45: 15:44 [place] RA) 00 :00 Medical injection Branch 150 mg medroxyPROG 2-0 2022- No [id number] 150mg Univers ESTERone 07-16 ity of (DEPO-PROVE 14:45: 15:44 [place] RA) 00 :00 Medical injection Branch 150 mg medroxyPROG 2-0 2022- No [id number] 150mg Univers ESTERone 07-16 ity of (DEPO-PROVE 14:45: 15:44 [place] RA) 00 :00 Medical injection Branch 150 mg medroxyPROG 2-0 2022- No [id number] 150mg Univers ESTERone -03-25 ity of (DEPO-PROVE 14:45: 15:44 [place] RA) 00 :00 Medical injection Branch 150 mg medroxyPROG 2-0 2022- No [id number] 150mg Univers ESTERone 07-16 ity of (DEPO-PROVE 14:45: 15:44 [place] RA) 00 :00 Medical injection Branch 150 mg medroxyPROG 2-0 2022- No [id number] 150mg Univers ESTERone 07-16 ity of (DEPO-PROVE 14:45: 15:44 [place] RA) 00 :00 Medical injection Branch 150 mg medroxyPROG 2-0 2022- No [id number] 150mg Univers ESTERone -03-25 ity of (DEPO-PROVE 14:45: 15:44 [place] RA) 00 :00 Medical injection Branch 150 mg medroxyPROG 2022-0 2022- No [id number] 150mg Univers ESTERone -03-25 ity of (DEPO-PROVE 14:45: 15:44 [place] RA) 00 :00 Medical injection Branch 150 mg medroxyPROG 2022-0 2023- No [id number] 150mg Univers ESTERone 5-03-25 ity of (DEPO-PROVE 14:45: 15:44 [place] RA) 00 :00 Medical injection Branch 150 mg medroxyPROG 2022-0 3- No [id number] 150mg Univers ESTERone -03-25 ity of (DEPO-PROVE 14:45: 15:44 [place] RA) 00 :00 Medical injection Branch 150 mg medroxyPROG 2022-0 3- No [id number] 150mg Univers ESTERone -03-25 ity of (DEPO-PROVE 14:45: 15:44 [place] RA) 00 :00 Medical injection Branch 150 mg medroxyPROG 2022-0 3- No [id number] 150mg Univers ESTERone -03-25 ity of (DEPO-PROVE 14:45: 15:44 [place] RA) 00 :00 Medical injection Branch 150 mg medroxyPROG 2022-0 3- No [id number] 150mg Univers ESTERone -03-25 ity of (DEPO-PROVE 14:45: 15:44 [place] RA) 00 :00 Medical injection Branch 150 mg medroxyPROG 2022-0 3- No [id number] 150mg Univers ESTERone -03-25 ity of (DEPO-PROVE 14:45: 15:44 [place] RA) 00 :00 Medical injection Branch 150 mg medroxyPROG 2022-0 3- No [id number] 150mg Univers ESTERone -03-25 ity of (DEPO-PROVE 14:45: 15:44 [place] RA) 00 :00 Medical injection Branch 150 mg medroxyPROG 2022-0 3- No [id number] 150mg Univers ESTERone 5-03-25 ity of (DEPO-PROVE 14:45: 15:44 [place] RA) 00 :00 Medical injection Branch 150 mg ketorolac 2022-0 Yes [id number] 10mg Take 1 U nivers 10 mg 5-02 tablet by ity of tablet 00:00: mouth [place] 00 every 6 Medical (six) Branch hours as needed for Pain (scale 4-6). methocarbam 2022-0 Yes [id number] 500mg Take 1 Univers oL 500 mg 5-02 tablet by ity o f tablet 00:00: mouth (four) Medical times Branch daily. ketorolac 2022-0 Yes [id number] 10mg Take 1 U nivers 10 mg 5-02 tablet by ity of tablet 00:00: mouth [place] 00 every 6 Medical (six) Branch hours as needed for Pain (scale 4-6). methocarbam 2022-0 Yes [id number] 500mg Take 1 Univers oL 500 mg 5-02 tablet by ity o f tablet 00:00: mouth (four) Medical times Branch daily. ketorolac 2022-0 Yes [id number] 10mg Take 1 U nivers 10 mg 5-02 tablet by ity of tablet 00:00: mouth [place] 00 every 6 Medical (six) Branch hours as needed for Pain (scale 4-6). methocarbam 2022-0 Yes [id number] 500mg Take 1 Univers oL 500 mg 5-02 tablet by ity o f tablet 00:00: mouth (four) Medical times Branch daily. ketorolac 2022-0 Yes [id number] 10mg Take 1 U nivers 10 mg 5-02 tablet by ity of tablet 00:00: mouth [place] 00 every 6 Medical (six) Branch hours as needed for Pain (scale 4-6). methocarbam 2022-0 Yes [id number] 500mg Take 1 Univers oL 500 mg 5-02 tablet by ity o f tablet 00:00: mouth (four) Medical times Branch daily. ketorolac 2022-0 Yes [id number] 10mg Take 1 U nivers 10 mg 5-02 tablet by ity of tablet 00:00: mouth [place] 00 every 6 Medical (six) Branch hours as needed for Pain (scale 4-6). methocarbam 2022-0 Yes [id number] 500mg Take 1 Univers oL 500 mg 5-02 tablet by ity o f tablet 00:00: mouth (four) Medical times Branch daily. ketorolac 2022-0 Yes [id number] 10mg Take 1 U nivers 10 mg 5-02 tablet by ity of tablet 00:00: mouth [place] 00 every 6 Medical (six) Branch hours as needed for Pain (scale 4-6). methocarbam 2022-0 Yes [id number] 500mg Take 1 Univers oL 500 mg 5-02 tablet by ity o f tablet 00:00: mouth (four) Medical times Branch daily. ketorolac 2022-0 Yes [id number] 10mg Take 1 U nivers 10 mg 5-02 tablet by ity of tablet 00:00: mouth [place] 00 every 6 Medical (six) Branch hours as needed for Pain (scale 4-6). methocarbam 2022-0 Yes [id number] 500mg Take 1 Univers oL 500 mg 5-02 tablet by ity o f tablet 00:00: mouth (four) Medical times Branch daily. ketorolac 2022-0 Yes [id number] 10mg Take 1 U nivers 10 mg 5-02 tablet by ity of tablet 00:00: mouth 00 every 6 Medical (six) Branch hours as needed for Pain (scale 4-6). methocarbam 2022-0 Yes [id number] 500mg Take 1 Univers oL 500 mg 5-02 tablet by ity o f tablet 00:00: mouth (four) Medical times Branch daily. ketorolac 2022-0 Yes [id number] 10mg Take 1 U nivers 10 mg 5-02 tablet by ity of tablet 00:00: mouth [place] 00 every 6 Medical (six) Branch hours as needed for Pain (scale 4-6). methocarbam 2022-0 Yes [id number] 500mg Take 1 Univers oL 500 mg 5-02 tablet by ity o f tablet 00:00: mouth (four) Medical times Branch daily. ketorolac 2022-0 Yes [id number] 10mg Take 1 U nivers 10 mg 5-02 tablet by ity of tablet 00:00: mouth [place] 00 every 6 Medical (six) Branch hours as needed for Pain (scale 4-6). methocarbam 2022-0 Yes [id number] 500mg Take 1 Univers oL 500 mg 5-02 tablet by ity o f tablet 00:00: mouth (four) Medical times Branch daily. ketorolac 2022-0 Yes [id number] 10mg Take 1 U nivers 10 mg 5-02 tablet by ity of tablet 00:00: mouth [place] 00 every 6 Medical (six) Branch hours as needed for Pain (scale 4-6). methocarbam 2022-0 Yes [id number] 500mg Take 1 Univers oL 500 mg 5-02 tablet by ity o f tablet 00:00: mouth (four) Medical times Branch daily. ketorolac 2022-0 Yes [id number] 10mg Take 1 U nivers 10 mg 5-02 tablet by ity of tablet 00:00: mouth [place] 00 every 6 Medical (six) Branch hours as needed for Pain (scale 4-6). methocarbam 2022-0 Yes [id number] 500mg Take 1 Univers oL 500 mg 5-02 tablet by ity o f tablet 00:00: mouth (four) Medical times Branch daily. ketorolac 2022-0 Yes [id number] 10mg Take 1 U nivers 10 mg 5-02 tablet by ity of tablet 00:00: mouth 00 every 6 Medical (six) Branch hours as needed for Pain (scale 4-6). methocarbam 2022-0 Yes [id number] 500mg Take 1 Univers oL 500 mg 5-02 tablet by ity o f tablet 00:00: mouth (four) Medical times Branch daily. ketorolac 2022-0 Yes [id number] 10mg Take 1 U nivers 10 mg 5-02 tablet by ity of tablet 00:00: mouth [place] 00 every 6 Medical (six) Branch hours as needed for Pain (scale 4-6). methocarbam 2022-0 Yes [id number] 500mg Take 1 Univers oL 500 mg 5-02 tablet by ity o f tablet 00:00: mouth (four) Medical times Branch daily. ketorolac 2022-0 Yes [id number] 10mg Take 1 U nivers 10 mg 5-02 tablet by ity of tablet 00:00: mouth [place] 00 every 6 Medical (six) Branch hours as needed for Pain (scale 4-6). methocarbam 2022-0 Yes [id number] 500mg Take 1 Univers oL 500 mg 5-02 tablet by ity o f tablet 00:00: mouth (four) Medical times Branch daily. ketorolac 2022-0 Yes [id number] 10mg Take 1 U nivers 10 mg 5-02 tablet by ity of tablet 00:00: mouth [place] 00 every 6 Medical (six) Branch hours as needed for Pain (scale 4-6). methocarbam 2-0 Yes [id number] 500mg Take 1 Univers oL 500 mg 5-02 tablet by ity o f tablet 00:00: mouth 4 [place] 00 (four) Medical times Branch daily. ibuprofen 2021-0 Yes [id number] 800mg Take 1 Univers 800 mg 4-22 tablet by ity of tablet 00:00: mouth [place] 00 every 6 Medical (six) Branch hours as needed for Pain (scale 4-6). ibuprofen 2021-0 Yes [id number] 800mg Take 1 Univers 800 mg 4-22 tablet by ity of tablet 00:00: mouth [place] 00 every 6 Medical (six) Branch hours as needed for Pain (scale 4-6). ibuprofen 2021-0 Yes [id number] 800mg Take 1 Univers 800 mg 4-22 tablet by ity of tablet 00:00: mouth [place] 00 every 6 Medical (six) Branch hours as needed for Pain (scale 4-6). ibuprofen 2021-0 Yes [id number] 800mg Take 1 Univers 800 mg 4-22 tablet by ity of tablet 00:00: mouth [place] 00 every 6 Medical (six) Branch hours as needed for Pain (scale 4-6). ibuprofen 2021-0 Yes [id number] 800mg Take 1 Univers 800 mg 4-22 tablet by ity of tablet 00:00: mouth [place] 00 every 6 Medical (six) Branch hours as needed for Pain (scale 4-6). ibuprofen 2021-0 Yes [id number] 800mg Take 1 Univers 800 mg 4-22 tablet by ity of tablet 00:00: mouth [place] 00 every 6 Medical (six) Branch hours as needed for Pain (scale 4-6). ibuprofen 2021-0 Yes [id number] 800mg Take 1 Univers 800 mg 4-22 tablet by ity of tablet 00:00: mouth [place] 00 every 6 Medical (six) Branch hours as needed for Pain (scale 4-6). ibuprofen 2-0 Yes [id number] 800mg Take 1 Univers 800 mg 4-22 tablet by ity of tablet 00:00: mouth [place] 00 every 6 Medical (six) Branch hours as needed for Pain (scale 4-6). ibuprofen 2022-0 Yes [id number] 800mg Take 1 Univers 800 mg 4-22 tablet by ity of tablet 00:00: mouth [place] 00 every 6 Medical (six) Branch hours as needed for Pain (scale 4-6). ibuprofen 2022-0 Yes [id number] 800mg Take 1 Univers 800 mg 4-22 tablet by ity of tablet 00:00: mouth [place] 00 every 6 Medical (six) Branch hours as needed for Pain (scale 4-6). ibuprofen 2022-0 Yes [id number] 800mg Take 1 Univers 800 mg 4-22 tablet by ity of tablet 00:00: mouth [place] 00 every 6 Medical (six) Branch hours as needed for Pain (scale 4-6). ibuprofen 2022-0 Yes [id number] 800mg Take 1 Univers 800 mg 4-22 tablet by ity of tablet 00:00: mouth [place] 00 every 6 Medical (six) Branch hours as needed for Pain (scale 4-6). ibuprofen 2021-0 Yes [id number] 800mg Take 1 Univers 800 mg 4-22 tablet by ity of tablet 00:00: mouth [place] 00 every 6 Medical (six) Branch hours as needed for Pain (scale 4-6). ibuprofen 2022-0 Yes [id number] 800mg Take 1 Univers 800 mg 4-22 tablet by ity of tablet 00:00: mouth [place] 00 every 6 Medical (six) Branch hours as needed for Pain (scale 4-6). ibuprofen 2022-0 Yes [id number] 800mg Take 1 Univers 800 mg 4-22 tablet by ity of tablet 00:00: mouth [place] 00 every 6 Medical (six) Branch hours as needed for Pain (scale 4-6). ibuprofen 2022-0 Yes [id number] 800mg Take 1 Univers 800 mg 4-22 tablet by ity of tablet 00:00: mouth [place] 00 every 6 Medical (six) Branch hours as needed for Pain (scale 4-6). cyclobenzap 2022-0 Yes [id number] 5mg Take 1 Univers rine 5 mg [...] Indication s: acute pain cyclobenzap 2022-0 Yes [id number] 5mg Take 1 Univers rine 5 mg [...] Indication s: acute pain cyclobenzap 2022-0 Yes [id number] 5mg Take 1 Univers rine 5 mg [...] Indication s: acute pain cyclobenzap 2022-0 Yes [id number] 5mg Take 1 Univers rine 5 mg [...] Indication s: acute pain cyclobenzap 2022-0 Yes [id number] 5mg Take 1 Univers rine 5 mg [...] Indication s: acute pain cyclobenzap 2022-0 Yes [id number] 5mg Take 1 Univers rine 5 mg [...] Indication s: acute pain cyclobenzap 2022-0 Yes [id number] 5mg Take 1 Univers rine 5 mg [...] Indication s: acute pain cyclobenzap 2-0 Yes [id number] 5mg Take 1 Univers rine 5 mg [...] Indication s: acute pain cyclobenzap 2022-0 Yes [id number] 5mg Take 1 Univers rine 5 mg [...] Indication s: acute pain cyclobenzap 2022-0 Yes [id number] 5mg Take 1 Univers rine 5 mg [...] Indication s: acute pain cyclobenzap 2022-0 Yes [id number] 5mg Take 1 Univers rine 5 mg [...] Indication s: acute pain cyclobenzap 2022-0 Yes [id number] 5mg Take 1 Univers rine 5 mg 4-20 tablet by ity o f tablet 00:00: mouth 3 [place] 00 (three) Medical times Branch daily. acetaminoph 2022-0 Yes [id number] 1{tbl} Take 1 Un otnya en-codeine 4-20 tablet by ity of 300-30 mg 00:00: mouth [place] tablet 00 every 4 Medical (four) Branch hours as needed for Pain (scale 7-10). Indication s: acute pain cyclobenzap 2-0 Yes [id number] 5mg Take 1 Univers rine 5 mg [...] Indication s: acute pain cyclobenzap 2022-0 Yes [id number] 5mg Take 1 Univers rine 5 mg [...] Indication s: acute pain cyclobenzap 2021-0 Yes [id number] 5mg Take 1 Univers rine 5 mg 4-20 tablet by ity o f tablet 00:00: mouth 3 [place] 00 (three) Medical times Branch daily. acetaminoph 2021-0 Yes [id number] 1{tbl} Take 1 Un tonya en-codeine 4-20 tablet by ity of 300-30 mg 00:00: mouth [place] tablet 00 every 4 Medical (four) Branch hours as needed for Pain (scale 7-10). Indication s: acute pain cyclobenzap 2021- Yes [id number] 5mg Take 1 Univers rine 5 mg 4-20 tablet by ity o f tablet 00:00: mouth 3 [place] 00 (three) Medical times Branch daily. acetaminoph 2021-0 Yes [id number] 1{tbl} Take 1 Un tonya en-codeine 4-20 tablet by ity of 300-30 mg 00:00: mouth [place] tablet 00 every 4 Medical (four) Branch hours as needed for Pain (scale 7-10). Indication s: acute pain Ketorolac 0 No 10mg Every 6 LEELEE TU Tromethamin 2-19 Hours as S e (Toradol) 16:41: needed for Health 10 Mg TAB 00 Pain Ondansetron No 8mg Every 8 CHR ISTU Hcl (Zofran 2-19 Hours as S Odt) 8 Mg 16:41: needed for He alth ODT 00 Vomiting Ketorolac 0 No 10mg CHRISTU Tromethamin 2-19 S - St. e (Toradol) 16:41: Hui 10 Mg TAB 00 Ondansetron No 8mg FRIDA U Hcl (Zofran 2-19 S - St. Odt) 8 Mg 16:41: Hui ODT 00 Depo-Lighting Fixtures Decorator Depo-Lighting Fixtures Decorator No Depo-Prove [place] 150 mg/mL a [...] l 00:00: ful at [place] 00 bedtime Terconazole 2019-0 Yes Alie 1 Me moria 1-07 [place] applicator l 00:00: ful at [place] 00 bedtime Terconazole 2019-0 Yes Alie 1 Me moria 1-07 [place] applicator l 00:00: ful at [place] 00 bedtime ibuprofen 2017-03 Yes Alie not Edmund fide 0-26 [place] defined l 02:46: Tramadol 2017-03 Yes Alie not Memor ia 0-26 [place] defined l 02:46: ibuprofen 2017-03 Yes Alie not Edmund fide 0-26 [place] defined l 02:46: Tramadol 2017-03 Yes Alie not Memor ia 0-26 [place] defined l 02:46: ibuprofen 2017-03 Yes Alie not Edmund fide 0-26 [place] defined l 02:46: 37 Tramadol 2017-03 Yes Alie not Memor ia 0-26 [place] defined l 02:46: Sprintec Yes Alie 1 tablet Memoria 4-27 Olude l 00:00: Sprintec Yes Alie 1 tablet Memoria 4-27 Olude l 00:00: [place] 00 Sprintec 0 Yes Alie 1 tablet Memoria 4-27 Olude l 00:00: [place] 00 Sprintec 2015-03 Yes Alie 1 tablet Memoria 2-19 [place] l 00:00: Sprintec 2015-03 Yes Alie 1 tablet Memoria 2-19 [place] l 00:00: [place] 00 Sprintec 2015-03 Yes Alie 1 tablet Memoria 2-19 [place] l 00:00: [place] 00 Ferrous 2015-03 Yes Alie 1 tablet Me moria Sulfate 2-05 [place] l 00:00: [place] 00 [facility] 2015-03 Yes Alie active med Memoria 2-05 [place] only, 5 on l 00:00: day 1, 4 [place] 00 on day 2, 3 on day 3, 2 on day 4, 1 on day 1 and daily after Zofran ODT 2015-03 Yes Alie 1 tablet Memoria 2-05 [place] on the l 00:00: tongue and [place] 00 allow to dissolve Ferrous 2015-03 Yes Alie 1 tablet Me moria Sulfate 2-05 [place] l 00:00: [place] 00 [facility] 2015-03 Yes Alie active med Memoria 2-05 [place] only, 5 on l 00:00: day 1, 4 [place] 00 on day 2, 3 on day [...] Me moria Sulfate 2-05 [place] l 00:00: [place] 00 [facility] 2015-03 Yes Alie active med Memoria 2-05 [place] only, 5 on l 00:00: day 1, 4 [place] 00 on day 2, 3 on day 3, 2 on day 4, 1 on day 1 and daily after Zofran ODT 2015-03 Yes Alie 1 tablet Memoria 2-05 [place] on the l 00:00: tongue and [place] 00 allow to dissolve Colace 2015-03 Yes Alie 1 capsule Me moria 2-05 [place] as needed l 00:00: [place] 00 Colace 2015-03 Yes Alie 1 capsule Me moria 2-05 [place] as needed l 00:00: [place] 00 Depo-Lighting Fixtures Decorator Depo-Lighting Fixtures Decorator No 1mL Depo-Prove [place] 150 mg/mL a 150 mg/mL ra 150 da intramuscul intramuscul mg/mL Medical ar ar intramuscu Group suspension suspension lar Inject 1 mL Inject 1 mL suspension every 3 every 3 Inject 1 months by months by mL every 3 intramuscul intramuscul months by ar route. ar route. intramuscu lar route. Immunizations Ordered Filled Immunization Date Status Comments [facility] e Immunization Name Name TD 2013-08-02 Completed [facility] 00:00:00 [facility] TDAP 2013-08-02 Completed [facility] of 00:00:00 [facility] TDAP 2013-08-02 Completed [facility] 00:00:00 [facility] TDAP 2013-08-02 Completed [facility] of 00:00:00 [facility] TDAP 2013-08-02 Completed [facility] of 00:00:00 [facility] TDAP 2013-08-02 Completed [facility] of 00:00:00 [facility] TDAP 2013-08-02 Completed [facility] of 00:00:00 [facility] TDAP 2013-08-02 Completed [facility] 00:00:00 [facility] TDAP 2013-08-02 Completed [facility] 00:00:00 [facility] TDAP 2013-08-02 Completed [facility] of 00:00:00 [facility] TDAP 2013-08-02 Completed [facility] 00:00:00 [facility] TDAP 2013-08-02 Completed [facility] of 00:00:00 [facility] TDAP 2013-08-02 Completed [facility] 00:00:00 [facility] TDAP 2013-08-02 Completed [facility] 00:00:00 [facility] TDAP 2013-08-02 Completed [facility] 00:00:00 [facility] TDAP 2013-08-02 Completed [facility] 00:00:00 [facility] HPV 2013-04-14 Completed University of 00:00:00 [facility] HPV 2013-04-14 Completed University of 00:00:00 [facility] HPV 2013-04-14 Completed [facility] of 00:00:00 [facility] HPV 2013-04-14 Completed [facility] 00:00:00 [facility] HPV 2013-04-14 Completed [facility] of 00:00:00 [facility] HPV 2013-04-14 Completed [facility] 00:00:00 [facility] HPV 2013-04-14 Completed [facility] of 00:00:00 [facility] HPV 2013-04-14 Completed [facility] 00:00:00 [facility] HPV 2013-04-14 Completed [facility] of 00:00:00 [facility] HPV 2013-04-14 Completed University of 00:00:00 [...] Branch Td 2002-03-14 Completed [facility] 00:00:00 [facility] Vital Signs Vital Name Observation Time Observation Value Comments Source Systolic blood 2021-12-30 13:31:00 126 mm[Hg] Univer sity of pressure [facility] Diastolic blood 2021-12-30 13:31:00 80 mm[Hg] Unive rsity of pressure [facility] Heart rate 2021-12-30 13:31:00 92 /min [facility] Body temperature 2021-12-30 13:31:00 36.44 Adrianne [facility] Respiratory rate 2021-12-30 13:31:00 18 /min [facility] Body height 2021-12-30 13:31:00 167.6 cm [facility] Body weight 2021-12-30 13:31:00 67.671 kg [facility] BMI 2021-12-30 13:31:00 24.08 kg/m2 [facility] Systolic blood 2021-12-11 19:41:00 118 mm[Hg] [facility] Diastolic blood 2021-12-11 19:41:00 78 mm[Hg] [facility] Heart rate 2021-12-11 19:41:00 74 /min [facility] Body temperature 2021-12-11 19:41:00 36.89 Adrianne [facility] Respiratory rate 2021-12-11 19:41:00 18 /min [facility] Body height 2021-12-11 19:41:00 167.6 cm [facility] Body weight 2021-12-11 19:41:00 66.934 kg [facility] BMI 2021-12-11 19:41:00 23.82 kg/m2 [facility] Systolic blood 2021-11-19 18:47:00 119 mm[Hg] [facility] Diastolic blood 2021-11-19 18:47:00 77 mm[Hg] [facility] Heart rate 2021-11-19 18:47:00 76 /min [facility] Body temperature 2021-11-19 18:47:00 36.44 Adrianne [facility] Respiratory rate 2021-11-19 18:47:00 18 /min [facility] Body height 2021-11-19 18:47:00 167.6 cm [facility] Body weight 2021-11-19 18:47:00 66.679 kg [facility] BMI 2021-11-19 18:47:00 23.73 kg/m2 [facility] Systolic blood 2021-10-07 18:58:00 109 mm[Hg] [facility] Diastolic blood 2021-10-07 18:58:00 76 mm[Hg] [facility] Heart rate 2021-10-07 18:58:00 76 /min [facility] Body temperature 2021-10-07 18:58:00 36.56 Adrianne [facility] Respiratory rate 2021-10-07 18:58:00 18 /min [facility] Body height 2021-10-07 18:58:00 167.6 cm [facility] Body weight 2021-10-07 18:58:00 69.446 kg [facility] BMI 2021-10-07 18:58:00 24.71 kg/m2 [facility] Systolic blood 2021-09-16 20:45:00 114 mm[Hg] [facility] Diastolic blood 2021-09-16 20:45:00 76 mm[Hg] [facility] Heart rate 2021-09-16 20:45:00 77 /min [facility] Body temperature 2021-09-16 20:45:00 35.94 Adrianne [facility] Respiratory rate 2021-09-16 20:45:00 20 /min [facility] Body height 2021-09-16 20:45:00 167.6 cm [facility] Body weight 2021-09-16 20:45:00 68.493 kg [facility] BMI 2021-09-16 20:45:00 24.37 kg/m2 [facility] BMI (Body Mass 2018-11-17 00:00:00 25.2 kg/m2 [facility] [employer] [facility]) [facility] BP Systolic 2018-11-17 00:00:00 113 mm[Hg] [facility] Body Weight 2018-11-17 00:00:00 156 [lb_av] [facility] BP Diastolic 2018-11-17 00:00:00 79 mm[Hg] [facility] Height 2018-11-17 00:00:00 66 [in_i] [facility] BP Diastolic 2018-10-16 00:00:00 74 mm[Hg] [facility] Height 2018-10-16 00:00:00 66 [in_i] [facility] BMI (Body Mass 2018-10-16 00:00:00 25 kg/m2 [facility] [employer] [facility]) Group BP Systolic 2018-10-16 00:00:00 124 mm[Hg] [facility] Body Weight 2018-10-16 00:00:00 155.2 [lb_av] [facility] BP Diastolic 2020-05-02 16:53:00 [...] Health Heart Rate 2019-12-24 15:05:00 86 /min [facility] Respiratory rate 2019-12-24 15:05:00 18 /min [facility] BP Systolic 2019-12-24 15:05:00 126 mm[Hg] [facility] BP Diastolic 2019-12-24 15:05:00 83 mm[Hg] [facility] Weight 2019-12-24 15:05:00 179 [lb_av] [facility] BMI (Body Mass 2019-12-24 15:05:00 29.8 kg/m2 [facility] Health Index) Weight 2016-03-01 20:30:00 Divina Dickinson Height 2016-03-01 20:30:00 [facility] Diastolic (mm Hg) 2016-03-01 20:30:00 [facility] sharmila Dickinson Systolic (mm Hg) 2016-03-01 20:30:00 Edmund luh [facility] Procedures Procedure Date / Time Performing Clinician Source Performed POCT TEST 2021-12-30 13:32:00 Janusz Puentes [facility] DISCLOSURE AND CONSENT, 2021-12-30 05:01:00 Doctor Unassigned, N o [facility] MEDICAL AND SURGICAL [facility] PROCEDURES POCT TEST 2021-12-11 19:40:00 [facility] CONSENT FOR 2021-12-11 05:01:00 Doctor Unassigned, No [facility] PELVIS COMPLETE WITH 2021-11-25 16:07:41 [facility] 2021-09-16 21:24:00 Janusz Puentes [facility] GC & CHLAMYDIA AMPLIFIED 2021-09-16 21:24:00 Janusz Puentes [facility] TRICHOMONAS AMPLIFIED 2021-09-16 21:24:00 [facility] 2020-05-02 00:00:00 [facility] transvaginal ultrasound of pelvis Limited duplex scan of 2020-05-02 00:00:00 [facility] renal artery Plan of Care Planned Activity Planned Date Details Comments Source Diagnostic Test 2018-11-17 test, [facility] Pending 00:00:00 urine [code = Group test, urine] Goal Patient referral [facility] [code = 9004027 ] Hui Instructions Pelvic Pain (DC) [facility] Encounters Start End Encounter Admission Attending Care Care Encounter Source Date/Time Date/Time Type Type Clinicians Facility Department ID 2021-03-19 Outpatient 3 AURA LORD OPO [id number] Sabianist 12:13:46 LIZZY [id number] [facility] 2021-03-19 Outpatient 3 AURA LORD OPE [id number] Sabianist 12:12:05 LIZZY [id number] Hospit a [facility] ([facility]) 2021-01-11 Emergency [facility] [id number] Univers 00:15:18 ity [facility] 2018-06-21 Outpatient MHFB MHFB [id number] MH FB 12:29:49 2018-06-21 Outpatient MHFB MHFB [id number] MH FB 12:29:49 2018-06-21 Outpatient MHFB MHFB [id number] MH FB 12:29:48 2018-06-21 Outpatient MHFB MHFB [id number] MH FB 12:29:39 2022-01-01 2022-01-01 Outpatient R FLACO [facility] [id number] Univers 13:00:00 13:00:00 [facility] 2021-12-30 2021-12-30 Outpatient R [facility] [id number] Univers 13:30:00 13:30:00 ity [facility] 2021-12-30 2021-12-30 Outpatient R [facility] [id number] Univers 13:30:00 13:30:00 [facility] 2021-12-30 2021-12-30 Outpatient R [facility] [id number] Univers 13:30:00 13:30:00 [facility] 2021-12-30 2021-12-30 Outpatient R DELORIS [facility] [id number] Univers 08:15:00 09:11:29 JANUSZ steve f [facility] 2021-12-30 2021-12-30 [facility] 1.2.733.325 [id number] Univers 08:15:00 09:11:29 Visit Janusz Gallego BARRATTE OPERATOR 350.1.13.10 [facility] 4.2.7.2.686 Tal as MATERNAL [phone] Med ical & CHILD [address] [place] [address] 2021-12-30 2021-12-30 Orders Doctor CRYSTAL 1.2.840.114 [id number] Univers 00:00:00 00:00:00 Only Unassigned, RACHANA 350.1.13.10 ity of [facility] 4.2.7.2.686 Tal as [phone] [address] 2021-12-25 2021-12-25 Outpatient R DELORIS [facility] [id number] Univers 13:00:00 13:00:00 JANUSZ cheng o f [facility] 2021-12-24 2021-12-24 Telephone [facility] 1.2.840.114 [id number] Univers 00:00:00 00:00:00 Janusz Gallego BARRATTE OPERATOR 350.1.13.10 ity of [facility] 4.2.7.2.686 Tal as MATERNAL [phone] [facility] ical & CHILD [address] [place] [address] 2021-12-11 2021-12-11 Outpatient R LEEANN SAHA [facility] [id number] Univers 14:30:00 15:20:59 LEEANN SAHA ittherese [facility] 2021-12-11 2021-12-11 Office Janusz Puentes [facility] 1.2.8 40.114 [id number] Univers 14:30:00 15:20:59 Visit Leeann Saha BARRATTE OPERATOR [id number] ity of [facility] 4.2.7.2.686 Tal as MATERNAL [phone] [facility] & CHILD [address] [place] [address] 2021-12-11 2021-12-11 Orders Doctor CRYSTAL 1.2.840.114 [id number] Univers 00:00:00 00:00:00 Only Unassigned, RACHANA 350.1.13.10 it[facility] of [place] [facility] 4.2.7.2.686 Tal as [id number] [address] 2021-12-08 2021-12-08 Telephone [facility] 1.2.840.114 [id number] Univers 00:00:00 00:00:00 Janusz Gallego BARRATTE OPERATOR 350.1.13.10 ity of REGIONAL 4.2.7.2.686 Tal as MATERNAL [phone] [facility] ical & CHILD [address] [facility] 2021-11-30 2021-11-30 Telephone Pgy1 [facility] 1.2.840.114 [id number] Univers 00:00:00 00:00:00 Y HEALTH 350.1.13.10 i [place] [id number] [address] 2021-11-25 2021-11-25 Outpatient Ben SAM [facility] [id number] Univers 10:31:53 23:59:00 INEZ ity [facility] 2021-11-25 2021-11-25 [facility] 1.2.840.114 [id number] Univers 10:31:53 23:59:00 Encounter [facility] 350.1.13.10 ity [place] [id number] [facility] [address] [place] ([facility]) 2021-11-19 2021-11-19 Outpatient Ben SAM [facility] [id number] Univers 13:30:00 14:54:31 [facility] 2021-11-19 2021-11-19 Office Pgy1 [facility] 1.2.044.057 [id number] Univers 13:30:00 14:54:31 Visit Inez Sam [facility] 350.1.13.10 ity [place] [id number] [address] 2021-11-14 2021-11-14 CRYSTAL Tafoya 1.2.840.114 [id number] Univers 00:00:00 00:00:00 Triage Katiemariana REICH 350.1.13.10 it y of HOSPITAL 4.2.7.2.686 Tal as [id number] [address] 2021-11-14 2021-11-14 Telephone Pgy1 [facility]ERS[facility] 1.2.840.114 [id number] Univers 00:00:00 00:00:00 Y HEALTH 350.1.13.10 i [place] [id number] [address] 2021-10-21 2021-10-21 Outpatient R [facility] [id number] Univers 14:00:00 14:00:00 ity [facility] 2021-10-12 2021-10-12 Outpatient R NIEVESKAYLesly [facility] [id number] Univers 09:00:00 09:31:22 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 Only, Ang Db Test [facility] 1.2.8 40.114 [id number] Univers 09:00:00 09:31:22 Visit Maribell [facility] 350.1.13.10 [facility] 4.2.7.2.686 Tal as SHAWNA?BLEA [phone] [address] MEDICAL OFFICE BUILDING 2021-10-08 2021-10-08 Outpatient R [facility] [id number] Univers 13:30:00 13:30:00 ity [facility] 2021-10-08 2021-10-08 Outpatient R [facility] [id number] Univers 13:30:00 13:30:00 ity [facility] 2021-10-08 2021-10-08 Outpatient R [facility] [id number] Univers 13:30:00 13:30:00 [facility] 2021-10-07 2021-10-07 [facility] [id number] Univers 13:45:00 14:38:48 JANUSZ briggs [facility] 2021-10-07 2021-10-07 Office [facility] 1.2.121.905 [id number] Univers 13:45:00 14:38:48 Visit Janusz Gallego BARRATTE OPERATOR 350.1.13.10 [facility] 4.2.7.2.686 Tal as MATERNAL [phone] [facility] ical & CHILD [address] [place] [address] 2021-09-16 2021-09-16 Out[facility] [id number] Univers 15:45:00 16:21:04 JANUSZ briggs [facility] 2021-09-16 2021-09-16 Office [facility] 1.2.923.599 [id number] Univers 15:45:00 16:21:04 Visit Janusz Gallego BARRATTE OPERATOR 350.1.13.10 ity of [facility] 4.2.7.2.686 Tal as MATERNAL [phone] [facility] & CHILD [address] [place] [address] 2021-09-16 2021-09-16 Orders Doctor CRYSTAL 1.2.840.114 [id number] Univers 00:00:00 00:00:00 Only Unassigned, RACHANA 350.1.13.10 ity of [facility] 4.2.7.2.686 Tal as [id number] [address] 2021-09-07 2021-09-07 Emergency IpDeyvi 1.2.840.1 [id number] Methodi 19:59:00 20:00:[address] 3.430.2.7 Hospit a .3.656089 l .8 2021-09-07 2021-09-07 Emergency IpDeyvi 1.2.840.1 [id number] Methodi 19:59:00 20:00:[address] 3.430.2.7 Hospit a .3.677143 l .8 2021-07-16 2021-07-16 Office [facility] 1.2.840.114 [id number] Univers 09:00:00 09:39:34 Visit Lucinda Contreras BARRATTE OPERATOR 350.1.13.10 ity of [facility] 4.2.7.2.686 Tal as MATERNAL [phone] [facility] & CHILD [address] [place] [address] 2021-07-16 2021-07-16 Outpatient R TANNER [facility] [id number] Univers 09:00:00 09:39:34 LUCINDA cheng o f [facility] 2021-07-15 2021-07-15 Emergency [facility] [id number] Univers 18:03:00 20:23:00 FANNIE cheng [facility] 2021-07-15 2021-07-15 Emergency [facility]RT [id number] Univers 18:03:00 20:23:00 FANNIE therese [facility] 2021-07-15 2021-07-15 Emergency X TRISTON, [facility] ERT [id number] Univers 18:03:00 20:23:00 FANNIE cheng [facility] 2021-07-15 2021-07-15 Emergency [facility] 1.2.840.114 [id number] Univers 18:03:00 20:23:00 [facility] 350.1.13.10 i ty of [place] [phone] [address] 2021-07-15 2021-07-15 Telephone [facility] 1.2.467.057 [id number] Univers 00:00:00 00:00:00 Lucinda Contreras BARRATTE OPERATOR 350.1.13.10 ity of REGIONAL 4.2.7.2.686 Tal as MATERNAL [id number] Med ical & CHILD [address] [place] [address] 2021-07-13 2021-07-13 Emergency [facility] ERT [id number] Univers 08:24:00 10:42:00 [facility] 2021-07-13 2021-07-13 Emergency [facility] E[facility] [id number] Univers 08:24:00 10:42:00 YESSENIA [facility] 2021-07-13 2021-07-13 Emergency [facility] ERT [id number] Univers 08:24:00 10:42:00 YESSENIA [facility] 2021-07-13 2021-07-13 Emergency Thiago Kenneth Lashonda [facility] 1.2.8 40.114 [id number] Univers 08:24:00 10:42:00 [facility] 350.1.13.10 ity of [place] [id number] [address] ([facility]) 2021-07-03 2021-07-03 Emergency X MUTENDEREKI [facility] ERT [id number] Univers 15:23:00 20:06:00 , LIZBETH cheng [facility] 2021-07-03 2021-07-03 Emergency X MUTENDERROSI [facility] ERT [id number] Univers 15:23:00 20:06:00 , LIZBETH cheng [facility] 2021-07-03 2021-07-03 [facility] 1.2.840.114 [id number] Univers 15:23:00 20:06:00 , Lizbeth [facility] 350.1.13.10 ity [place] [phone] [address] ([facility]) 2021-07-01 2021-07-01 Emergency X [facility] ERT [id number] Univers 13:49:00 19:11:00 , RICO cheng [facility] 2021-07-01 2021-07-01 Emergency X [facility] ERT [id number] Univers 13:49:00 19:11:00 , RICO therese [facility] 2021-07-01 2021-07-01 Emergency [facility] 1.2.840.114 [id number] Univers 13:49:00 19:11:00 , [facility] 350.1.13.10 it [place] [id number] [address] 2021-05-17 2021-05-18 Emergency [facility] [id number] Univers 23:02:00 01:40:00 TK briggs [facility] 2021-05-17 2021-05-18 Emergency [facility] E[facility] [id number] Univers 23:02:00 01:40:00 TK briggs [facility] 2021-05-17 2021-05-18 Emergency X [facility] ERT [id number] Univers 23:02:00 01:40:00 TK steve [facility] 2021-05-17 2021-05-18 Emergency [facility] 1.2.840.114 [id number] Univers 23:02:00 01:40:00 Tk THOMAS 350.1.13.10 i ty [place] [id number] [address] ([facility]) 2021-04-21 2021-04-21 Outpatient R TANNER [facility] [id number] Univers 12:45:00 13:05:34 LUCINDA ity o [facility] 2021-04-21 2021-04-21 Office [facility] 1.2.840.114 [id number] Univers 12:45:00 13:05:34 Visit Martakelby R BARRATTE OPERATOR 350.1.13.10 ity [facility] 4.2.7.2.686 Tal as MATERNAL [phone] Med ical & CHILD [address] [place] [address] 2021-04-21 2021-04-21 [facility] [id number] Univers 12:45:00 12:45:00 [facility] cheng o [facility] 2021-03-19 2021-03-19 Outpatient R UNKNOWN, [facility] [id number] Univers 10:30:00 10:30:00 ATTENDING [facility] 2021-03-19 2021-03-19 Outpatient R GREG, [facility] [id number] Univers 10:30:00 10:30:00 ATTENDING [facility] 2021-03-04 2021-03-04 Telephone [facility] 1.2.309.122 [id number] Univers 00:00:00 00:00:00 Martakelby R BARRATTE OPERATOR 350.1.13.10 ity [facility] 4.2.7.2.686 Tal as MATERNAL [phone] [facility] ical & CHILD [address] [place] [address] 2021-03-03 2021-03-03 Outpatient [facility] [id number] Univers 09:15:00 09:16:49 LUCINDA ocasioy o [facility] 2021-03-03 2021-03-03 Office [facility] 1.2.840.114 [id number] Univers 09:15:00 09:16:49 Visit Martakelby R BARRATTE OPERATOR 350.1.13.10 ity [facility] 4.2.7.2.686 Tal as MATERNAL [id number] Med ical & CHILD [address] [facility] 2021-02-03 2021-02-03 Telephone [facility] 1.2.311.606 [id number] Univers 00:00:00 00:00:00 Lucinda R BARRATTE OPERATOR 350.1.13.10 ity of REGIONAL 4.2.7.2.686 Tal as MATERNAL [phone] Med ical & CHILD 107 [facility] 2021-01-29 2021-01-29 Telephone [facility] 1.2.840.114 [id number] Univers 00:00:00 00:00:00 Lisa N BARRATTE OPERATOR 350.1.13.10 it y of REGIONAL 4.2.7.2.686 Tal as MATERNAL [phone] Med ical & CHILD [address] [place] [address] 2021-01-29 2021-01-[address] [facility] 1.2.345.460 [id number] Univers 00:00:00 00:00:00 Lucinda Contreras BARRATTE OPERATOR 350.1.13.10 ity of REGIONAL 4.2.7.2.686 Tal as MATERNAL [phone] Med ical & CHILD [address] [place] [address] 2021-01-28 2021-01-28 Telephone [facility] 1.2.840.114 [id number] Univers 00:00:00 00:00:00 Lisa Alvarado BARRATTE OPERATOR 350.1.13.10 it y of REGIONAL 4.2.7.2.686 Tal as MATERNAL [phone] Med ical & CHILD 107 [facility] 2021-01-27 2021-01-27 Office [facility] 1.2.980.833 [id number] Univers 12:54:19 13:47:49 Visit Lisa Alvarado BARRATTE OPERATOR 350.1.13.10 it y of REGIONAL 4.2.7.2.686 Tal as MATERNAL [id number] Med ical & CHILD 107 [facility] 2021-01-27 2021-01-27 Outpatient R BO [facility] [id number] Univers 12:45:00 13:47:49 LISA cheng of [facility] 2021-01-13 2021-01-13 Outpatient R BO [facility] [id number] Univers 13:45:00 13:45:00 LISA ninfatherese [facility] 2020-12-10 2020-12-10 Telephone [facility] 1.2.840.114 [id number] Univers 00:00:00 00:00:00 Janusz Gallego BARRATTE OPERATOR 350.1.13.10 ity of [facility] 4.2.7.2.686 Tal as MATERNAL [id number] [facility] & CHILD [address] [place] [address] 2020-12-09 2020-12-09 Office [facility] 1.2.878.075 [id number] Univers 13:35:32 14:29:50 Visit Janusz Gallego BARRATTE OPERATOR 350.1.13.10 ity of [facility] 4.2.7.2.686 Tal as MATERNAL [phone] [address] 2020-12-09 2020-12-09 Outpatient R DELORIS [facility] [id number] Univers 13:30:00 13:30:00 JANUSZ ity o [facility] 2020-11-11 2020-11-11 Outpatient R TANNER [facility] [id number] Univers 14:30:00 14:30:00 TYRANDA ity o [facility] 2020-10-07 2020-10-07 Outpatient R TANNER [facility] [id number] Univers 18:00:00 18:00:00 MARTAMONICONDA ity o [facility] 2020-10-07 2020-10-07 [facility] 1.2.840.114 [id number] Univers 17:31:49 17:51:29 Visit Lucinda Contreras BARRATTE OPERATOR 350.1.13.10 ity of [facility] 4.2.7.2.686 Tal as MATERNAL [phone] [facility] & [address] 2020-08-12 2020-08-12 Office [facility] 1.2.840.114 [id number] Univers 09:18:29 09:56:23 Visit Lucinda Contreras BARRATTE OPERATOR 350.1.13.10 ity of [facility] 4.2.7.2.686 Tal as MATERNAL [phone] [facility] ical & CHILD [address] [place] [address] 2020-08-12 2020-08-12 Outpatient Ben HART [facility] [id number] Univers 09:30:00 09:30:00 LUCINDA steve [facility] 2020-08-06 2020-08-06 [facility] [id number] Univers 14:45:00 14:45:00 LUCINDA steve [facility] 2020-07-22 2020-07-22 Office [facility] 1.2.840.114 [id number] Univers 10:44:12 11:36:42 Visit Lucinda Contreras BARRATTE OPERATOR 350.1.13.10 ity of [facility] 4.2.7.2.686 Tal as MATERNAL [phone] [facility] & CHILD [address] [place] [address] 2020-07-22 2020-07-22 Outpatient R HART [facility] [id number] Univers 10:45:00 10:45:00 [facility] ISSAQUAHKELBY steve [facility] 2020-07-22 2020-07-22 Orders Doctor ROJAS 1.2.840.114 [id number] Univers 00:00:00 00:00:00 Only Unassigned, RACHANA 350.1.13.10 ity of [place] [facility] 4.2.7.2.686 Tal as [phone] [address] 2020-06-03 2020-06-03 Patient Tyron VTMALU 1.2.840.114 [id number] Univers 00:00:00 00:00:00 Outreach Christophe PRIMARY 350.1.13.10 i ty of [facility] [place].2.7.2.[place] [phone] Ri dical [address] 2020-05-15 2020-05-15 Outpatient 3 AURA LORD OPO [id number] 98- Sabianist 10:58:00 10:58:00 LIZZY [id number] Hospi ta l ([facility]) 2020-05-15 2020-05-15 Orders Doctor CRYSTAL 1.2.840.114 [id number] 00:00:00 00:00:00 Only Unassigned, RACHANA 350.1.13.10 Ina [facility] [id number] [id number] 2020-05-15 2020-05-15 Orders Doctor CRYSTAL 1.2.840.114 [id number] Univers 00:00:00 00:00:00 Only Unassigned, RACHANA 350.1.13.10 ity of [place] [facility] 4.2.7.2.686 Tal as [phone] [address] 2020-05-14 2020-05-14 Telephone Pop VTMALU 1.2.200.864 [id number] 00:00:00 00:00:00 Lizzy R BARRATTE OPERATOR 350.1.13.10 [facility] 4.2.7.2.686 MATERNAL [phone] & CHILD [address] [place] [address] 2020-05-14 2020-05-14 Telephone Pop VTMALU 1.2.377.497 [id number] [facility] 00:00:00 00:00:00 Lizzy R BARRATTE OPERATOR 350.1.13.10 i ty of [facility] 4.2.7.2.686 Tal as MATERNAL [phone] Med ical & CHILD [address] [place] [address] 2020-05-08 2020-05-08 Office Pop VTMALU 1.2.840.114 [id number] 15:02:06 16:05:50 Visit Lizzy R BARRATTE OPERATOR 350.1.13.10 REGIONAL 4.2.7.2.686 MATERNAL [phone] & CHILD [address] [place] [address] 2020-05-08 2020-05-08 Office [facility] 1.2.840.114 [id number] Univers 15:02:06 16:05:50 Visit Lizzy R BARRATTE OPERATOR 350.1.13.10 i ty of [facility] 4.2.7.2.686 Tal as MATERNAL [phone] [facility] & CHILD [address] [place] [address] 2020-05-08 2020-05-08 Outpatient R PPO VTMALU [facility] [id number] Univers 14:45:00 14:45:00 LIZZY cheng of [facility] 2020-05-06 2020-05-06 Telephone Pop [facility] 1.2.968.261 [id number] Univers 00:00:00 00:00:00 Lizzy R BARRATTE OPERATOR 350.1.13.10 i ty of [facility] 42.7.2.686 Tal as MATERNAL [phone] [facility] 123 [facility] 2020-05-03 2020-05-03 Emergency Zack [facility] 1.2.693.824 [id number] Univers 13:53:00 17:30:00 Jared Castro 350.1.13.10 i ty of [address]2.686 [facility] [phone] [facility] [address] 2020-05-03 2020-05-03 Nurse CRYSTAL Ortiz 1.2.840.114 [id number] Univers 00:00:00 00:00:00 Triage Katie REICH 350.1.13.10 it y [facility] 4.2.7.2.686 Tal as [phone] [facility] [address] 2020-05-02 2020-05-02 Registered ER UNASSIGNED, LETTY Mason [id number] [facility] 13:11:00 13:11:00 Emergency ED [address] [facility] 2020-05-02 2020-05-02 Registered PEPE SAENZ AM07 [id number] [facility] 13:11:00 13:11:00 Emergency [facility] 80 S - [facility] 2020-01-30 2020-01-30 Outpatient G_Pappas MMG MMG [id number] [place] 02:19:00 02:19:00 1118 [facility] 2020-01-01 2020-01-01 Case Pop [facility] 1.2.840.114 [id number] Univers 00:00:00 00:00:00 Management Lizzy R BARRATTE OPERATOR 350.1.13.[address]686 Tal as MATERNAL [phone] [facility] & CHILD 123 [facility] 2020-01-01 2020-01-01 Telephone Pop VTMALU 1.2.359.332 [id number] Univers 00:00:00 00:00:00 Lizzy R BARRATTE OPERATOR 350.1.13.10 i ty of [facility] 4.2.7.2.686 Tal as MATERNAL [phone] [facility] & CHILD [address] [place] [address] 2019-12-28 2019-12-28 Outpatient R TANNER [facility] [id number] Univers 13:30:00 13:30:00 LUCINDA cheng o f [facility] 2019-12-28 2019-12-28 Orders Doctor CRYSTAL 1.2.840.114 [id number] Univers 00:00:00 00:00:00 Only Unassigned, RACHANA 350.1.13.10 ity of [place] [facility] 4.2.7.2.686 Tal as [phone] [address] 2019-12-28 2019-12-28 Telephone Pop [facility] 1.2.396.424 [id number] Univers 00:00:00 00:00:00 Lizzy R BARRATTE OPERATOR 350.1.13.10 i ty of [facility] 4.2.7.2.686 Tal as MATERNAL [phone] Med ical & CHILD [address] [place] [address] 2019-12-27 2019-12-27 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 114 [id number] Univers 13:33:18 13:48:18 Visit Lizzy Lord BARRATTE OPERATOR 350.1.13.10 ity of [facility] 4.2.7.2.686 Tal as MATERNAL [phone] Med ical & CHILD 109 [facility] 2019-12-27 2019-12-27 Outpatient R POP [facility] [id number] Univers 13:45:00 13:45:00 LIZZY ity [facility] 2019-12-27 2019-12-27 Case Pop [facility] 1.2.840.114 [id number] Univers 00:00:00 00:00:00 Management Lizzy R BARRATTE OPERATOR 350.1.13.10 ity of [facility] 42.7.2.686 Tal as MATERNAL [phone] [facility] ical & CHILD [address] [place] [address] 2019-12-27 2019-12-27 Telephone [facility] 1.2.737.399 [id number] Univers 00:00:00 00:00:00 Lizzy R BARRATTE OPERATOR 350.1.13.10 i ty of [facility] 4.2.7.2.686 Tal as MATERNAL [phone] [facility] ical & CHILD 123 [facility] 2019-12-24 2019-12-24 Departed LETTY SAENZ [id number] [facility] 14:09:00 17:00:00 Emergency [facility] [address] [facility] 2019-12-24 2019-12-24 Departed PEPE SAENZ [id number] [facility] 14:09:00 17:00:00 Emergency TMARY [place] [address] [facility] 2019-12-24 2019-12-24 Case [facility] 1.2.840.114 [id number] Univers 00:00:00 00:00:00 Management Lizzy R BARRATTE OPERATOR 350.1.13.10 ity of [facility] 4.2.7.2.686 Tal as MATERNAL [phone] [facility] & [address] 2019-12-20 2019-12-20 Outpatient [facility] [id number] Univers 09:15:00 09:15:00 LIZZY ity [facility] 2019-12-19 2019-12-19 Office [facility] 1.2.840.114 [id number] Univers 15:23:30 16:41:28 Visit Lizzy R BARRATTE OPERATOR 350.1.13.10 i ty of [facility] 4..7.2.686 Tal as MATERNAL [phone] [facility] & [address] 2019-12-19 2019-12-19 Outpatient R POP [facility] [id number] Univers 15:15:00 15:15:00 LIZZY ity [facility] 2019-12-19 2019-12-19 Orders Doctor ROJAS 1.2.840.114 [id number] Univers 00:00:00 00:00:00 Only Unassigned, RACHANA 350.1.13.10 ity of [place] [facility] 4.2.7.2.686 Tal as [phone] [address] 2019-09-24 2019-09-24 Outpatient R DELORIS [facility] [id number] Univers 08:15:00 08:15:00 JANUSZ cheng o f [facility] 2019-09-07 2019-09-07 Telephone [facility] 1.2.840.114 [id number] Univers 00:00:00 00:00:00 Janusz Gallego BARRATTE OPERATOR 350.1.13.10 ity [facility] 4.2.7.2.686 Tal as MATERNAL [phone] Med ical & CHILD [address] [place] [address] 2019-08-11 2019-08-11 Outpatient [facility] [id number] Univers 12:30:00 12:30:00 BRADY ity [facility] 2019-07-27 2019-07-27 Urgent Pob1, Acute Care [facility] 1. 2.840.114 [id number] Univers 13:45:47 14:05:47 Care [facility] 350.1 .13.10 [facility] 4.2.7.2.686 Tal as Professio [phone] [address] Office Building One 2019-07-27 2019-07-27 Outpatient R [facility] [id number] Univers 13:40:00 13:40:00 ity [facility] 2019-07-27 2019-07-27 Telephone CRYSTAL Martin 1.2.203.424 [id number] Univers 00:00:00 00:00:00 Patient RACHANA 350.1.13.10 it y of [place] HOSPITAL [place].2.[place] [phone] [address] 2019-07-25 2019-07-25 Telephone PcpCRYSTAL 1.2.838.385 [id number] Univers 00:00:00 00:00:00 Patient RACHANA 350.1.13.10 it y of Does Not HOSPITAL 4.2.7.2.686 [place] [phone] [address] 2019-07-24 2019-07-24 Telephone Pob1, Acute CRYSTAL 1.2.840.114 [id number] Univers 00:00:00 00:00:00 Care Clinic RACHANA 350.1.13.10 ity of [facility] 4.2.7.2.686 Tal as [phone] [address] 2019-07-23 2019-07-23 Outpatient Ben [facility] [id number] Univers 16:00:00 16:00:00 CAMI ninfatherese briggs [facility] 2019-07-23 2019-07-23 Urgent Pob1, Acute Care Clinic [facility] 1. 2.840.114 [id number] Univers 15:38:47 15:58:47 Cami Garcia Located Within [facility] 350.1.1 3.10 [facility] 4.2.7.2.686 Tal as Professio [phone] Ri dic[address] Office [facility] One 2019-05-17 2019-05-17 Outpatient C Funsho Lashonda Popeo [id number] eClinic 10:45:00 10:45:00 Andreas Michaels MD PhD PA PhD PA 2019-05-09 2019-05-09 Outpatient C Funsho C Maria Luisasho [id number] eClinic 12:52:00 12:52:00 Andreas Michaels MD PhD PA PhD PA 2019-05-08 2019-05-08 Outpatient G_Pappas MMG MMG [id number] [place] 11:18:00 11:18:00 0225 [facility] Group 2019-05-08 2019-05-08 Outpatient G_Pappas MMG MMG [id number] [place] 11:18:00 11:18:00 0228 [facility] 2019-03-19 2019-03-19 Emergency X [facility] ERT [id number] Univers 18:04:03 20:33:00 SPENSER ocasiotherese [facility] 2019 2019 Outpatient G_Pappas MMG MMG [id number] [place] 01:42:00 01:42:00 0106 [facility] Group 2019 2019 Outpatient G_Pappas MMG MMG [id number] [place] 01:42:00 01:42:00 0109 Medical Group 2018-11-17 2018-11-17 Vidya [facility] [place] - [id number] M atagor 00:00:00 00:00:00 Mak [facility] elyse MD: 600 [facility] [address], [place] [address] , Ph. [phone] 2018-11-16 2018-11-16 Outpatient C Funsho C Funsho [id number] eClinic 12:59:00 12:59:00 Andreas Michaels MD PhD PA PhD PA 2018-10-16 2018-10-16 Poonam [facility] [place] - [id number] [facility] 00:00:00 00:00:00 Discovery grant Fletcher MD: [address] [address] , Ph. [phone] 2018-07-31 2018-07-31 Outpatient C Funsho C Funsho [id number] eClinic 17:40:00 17:40:00 Andreas Michaels MD PhD PA PhD PA 2018-07-28 2018-07-28 Outpatient C Funsho C Funsho [id number] eClinic 10:36:00 10:36:00 Andreas Michaels MD PhD PA PhD PA 2018-06-23 2018-06-23 Outpatient C Funsho C Funsho [id number] eClinic 13:35:00 13:35:00 Andreas Michaels MD PhD PA PhD PA 2018-06-23 2018-06-23 Outpatient C Funsho C Funsho [id number] eClinic 10:17:00 10:17:00 Andreas Michaels MD PhD PA PhD PA 2018-06-16 2018-06-16 Outpatient MHFB MHFB [id number] MHFB 13:15:00 13:15:00 2018-06-09 2018-06-09 Outpatient MHFB MHFB [id number] MHFB 10:00:00 10:00:00 2018-06-05 2018-06-05 Outpatient C Funsho C Funsho [id number] eClinic 12:57:00 12:57:00 Andreas Michaels MD PhD PA PhD PA 2018-05-29 2018-05-29 Outpatient C Funsho C Funsho [id number] eClinic 12:00:00 12:00:00 Andreas Michaels MD PhD PA PhD PA 2018-05-08 2018-05-08 Outpatient C Funsho C Funsho [id number] eClinic 10:16:00 10:16:00 Andreas Michaels MD PhD PA PhD PA 2018-05-05 2018-05-05 Outpatient C Funsho C Funsho [id number] eClinic 14:17:00 14:17:00 Andreas Michaels MD PhD PA PhD PA 2018-05-04 2018-05-04 [place] [id number] [facility] 07:52:00 11:26:00 [facility]ly [facility] 2018-04-26 2018-04-26 Outpatient C Funsho C Funsho [id number] eClinic 11:18:00 11:18:00 Andreas Michaels MD PhD PA PhD PA 2018-03-20 2018-03-20 Outpatient C Funsho C Funsho [id number] eClinic 14:15:00 14:15:00 Andreas Michaels MD PhD PA PhD PA 2018-03-16 2018-03-16 Outpatient C Funsho C Funsho [id number] eClinic 12:36:00 12:36:00 Andreas Michaels MD PhD PA PhD PA 2018-03-09 2018-03-09 Outpatient C Funsho C Funsho [id number] eClinic 09:43:00 09:43:00 Andreas Michaels MD PhD PA PhD PA 2018-03-06 2018-03-06 Outpatient C Funsho C Funsho [id number] eClinic 20:07:00 20:07:00 Andreas Michaels MD PhD PA PhD PA 2018-03-03 2018-03-03 Outpatient C Funsho C Funsho [id number] eClinic 10:51:00 10:51:00 Andreas Michaels MD PhD PA PhD PA 2018-02-28 2018-02-28 Emergency E [facility] [id number] [facility] 11:11:00 13:10:00 JAYSON Med[facility] 2018-02-28 2018-02-28 Outpatient C Funsho C Funsho [id number] eClinic 09:47:00 09:47:00 Andreas Michaels MD PhD PA PhD PA 2018-02-27 2018-02-27 Outpatient C Funsho C Funsho [id number] eClinic 14:58:00 14:58:00 Andreas Michaels MD PhD PA PhD PA 2018-02-24 2018-02-24 Outpatient C Funsho C Funsho [id number] eClinic 16:24:00 16:24:00 Andreas Michaels MD PhD PA PhD PA 2018-02-21 2018-02-21 Outpatient C Funsho C Funsho [id number] eClinic 10:10:00 10:10:00 Andreas iMchaels MD PhD PA PhD PA 2018-02-21 2018-02-21 Outpatient C Funsho C Funsho [id number] eClinic 10:05:00 10:05:00 Andreas Michaels MD PhD PA PhD PA 2018-02-15 2018-02-15 Outpatient C Funsho C Funsho [id number] eClinic 09:28:00 09:28:00 Andreas Michaels MD PhD PA PhD PA 2018-02-07 2018-02-07 Emergency E NOEL [facility] [id number] [facility] 18:18:00 20:36:00 [facility] 2018-02-07 2018-02-07 Outpatient C Funsho C Funsho [id number] eClinic 15:29:00 15:29:00 Andreas Michaels MD PhD PA PhD PA 2018 2018 Outpatient C Funsho C Funsho [id number] eClinic 17:16:00 17:16:00 Fagbmalina Michaels MD PhD PA PhD PA 2018 2018 Outpatient C Funsho C Funsho [id number] eClinic 17:14:00 17:14:00 Andreas Michaels MD PhD PA PhD PA 2018-01-05 2018-01-05 Outpatient C Funsho C Funsho [id number] eClinic 15:19:00 15:19:00 Andreas Michaels MD PhD PA PhD PA 2016-07-29 2016-07-29 Outpatient C Funsho C Funsho [id number] eClinic 11:00:00 11:00:00 Andreas Michaels MD PhD PA PhD PA 2016-06-29 2016-06-29 Outpatient C Funsho C Funsho [id number] eClinic 14:22:00 14:22:00 Andreas Michaels MD PhD PA PhD PA 2016-06-28 2016-06-28 Outpatient C Funsho C Funsho [id number] eClinic 12:06:00 12:06:00 Andreas Michaels MD PhD PA PhD PA 2016-03-17 2016-03-17 pymt [facility] 5[facility] 17:55:00 17:55:00 r Women s 437-4311-a l Health/ C. 731-1d80ff He misha Calhoun [id number] MD Andreas, PhD, PA 2016-03-17 2016-03-17 pymt plan [facility] 2ybf1-1 [facility] 17:55:00 17:55:00 r Women s 437-4311-a l Health/ C. 731-1d80ff He misha Calhoun [id number] Johns MD, PhD, PA 2016-03-17 2016-03-17 Outpatient [facility] 2005 44 eClinic 11:55:00 11:55:00 For Women Women s alWo rks s Health/ Health/ C. C. Funsho FunshAndreas Enciso MD, PhD, MD, PhD, PA PA 2016-03-05 2016-03-05 Unknown [facility] 9ad6e bf9-a [facility] 20:07:00 20:07:00 r Women s 7h7-7bjc-2 l Health/ C. afd-rx618e He misha Calhoun [id number] MD Andreas, PhD, PA 2016-03-05 2016-03-05 [facility] dc28a 807-0 [facility] 20:07:00 20:07:00 r Women s 92a-4fe5-8 l Health/ C. 4dd-a7c23e He misha Calhoun [id number] MD Andreas, PhD, PA 2016-03-05 2016-03-05 Unknown [facility] c5c24 b01-1 [facility] 20:07:00 20:07:00 r Women s 523-4838-a l Health/ C. i60-00g488 He misha Calhoun [id number] MD Andreas, PhD, PA 2016-03-05 2016-03-05 Unknown [facility] dc28a 807-0 [facility] 20:07:00 20:07:00 r Women s 92a-4fe5-8 l Health/ C. 4dd-a7c23e He misha Calhoun [id number] MD Andreas, PhD, PA 2016-03-05 2016-03-05 Unknown [facility] c5c24 b01-1 [facility] 20:07:00 20:07:00 r Women s 523-4838-a l Health/ C. e14-39g675 He misha Calhoun e0c7cd MD Andreas, PhD, PA 2016-03-05 2016-03-05 Unknown [facility] 9ad6e bf9-a [facility] 20:07:00 20:07:00 r Women s 4m1-2bgt-1 l Health/ C. afd-ch265s He misha Calhoun [id number] MD Andreas, PhD, PA 2016-03-05 2016-03-05 Outpatient Center [facility] 27 eClinic 14:07:00 14:07:00 For Women Women [...] r Women s fda-4282-8 l Health/ C. 7g0-6xvleh He misha Calhoun [id number] MD Andreas, PhD, PA 2016-03-01 2016-03-01 Other [facility] f143a 42d-5 [facility] 21:40:00 21:40:00 r Women s 735-465f-a l Health/ C. 374-c11ea3 He misha Calhoun [id number] MD Andreas, PhD, PA 2016-03-01 2016-03-01 Other [facility] 57c23 756-0 [facility] 21:40:00 21:40:00 r Women s fda-4282-8 l Health/ C. 3i4-4owaih He misha Glasssanto [id number] MD Andreas, PhD, PA 2016-03-01 2016-03-01 Outpatient Center [facility] 11 eClinic 15:40:00 15:40:00 For Women Women s alWo rks s Health/ Health/ C. C. FunshAndreas Partida MD, PhD, MD, PhD, PA PA 2016-03-01 2016-03-01 Outpatient C Unique Calhoun [id number] eClinic 15:30:00 15:30:00 Andreas Michaels MD PhD PhD PA-GP DAMIR 2016-02-23 2016-02-23 Bleeding [facility] a56b 81fd-e [facility] 15:57:00 15:57:00 r Women s 32e-48e4-b l Health/ C. 5ac-36e290 He misha Calhuon 56cea4 MD Andreas, PhD, PA 2016-02-23 2016-02-23 Bleeding [facility] 149a 526e-e [facility] 15:57:00 15:57:00 r Women s j08-41n7-1 l Health/ C. u85-hf942a He misha Calhoun [id number] MD Andreas, PhD, PA 2016-02-23 2016-02-23 Bleeding [facility] 65bb df86-0 [facility] 15:57:00 15:57:00 r Women s 1e3-1038-0 l Health/ C. y7i-lo0b60 He misha Calhoun [id number] MD Andreas, PhD, PA 2016-02-23 2016-02-23 Bleeding [facility] d61b a848-7 [facility] 15:57:00 15:57:00 r Women s 854-41cd-8 l Health/ C. 2af-03f3c8 He misha Calhoun ab1dcf MD Andreas, PhD, PA 2016-02-23 2016-02-23 Bleeding [facility] 65bb df86-0 [facility] 15:57:00 15:57:00 r Women s 7b9-4124-3 l Health/ C. k6l-tp2n52 He misha Calhoun 671c98 MD Andreas, PhD, PA 2016-02-23 2016-02-23 Bleeding [facility] d61b a848-7 [facility] 15:57:00 15:57:00 r Women s 854-41cd-8 l Health/ C. 2af-03f3c8 He misha Calhoun ab1darsen Johns MD, PhD, PA 2016-02-23 2016-02-23 Bleeding [facility] a56b 81fd-e [facility] 15:57:00 15:57:00 r Women s 32e-48e4-b l Health/ C. 5ac-08k971 He misha Calhoun 56cea4 MD Andreas, PhD, PA 2016-02-23 2016-02-23 Bleeding [facility] 149a 526e-e [facility] 15:57:00 15:57:00 r Women s k15-95v4-8 l Health/ C. j84-bj529y misha Calhoun [id number] MD Andreas, PhD, PA 2016-02-23 2016-02-23 Outpatient Center [facility] [address] [place] [address] eClinic 09:57:00 09:57:00 For Women Women s alWo rks s Health/ Health/ C. CAndreas Kessler MD, PhD, MD, PhD, PA PA Results [...] PREG TEST DATE (test code = 3576) [facility] [id number] 13:33:00 Test Item Value Reference Range Interpretation Comments POCT PREG (test code = 1605) Positive On board controls acceptable with C Yes Line (test code = 3574) POCT PREG LOT # (test code = 3575) POCT PREG TEST DATE (test code = 3576) [facility] [id number] 19:40:00 Test Item Value Reference Range Interpretation Comments POCT PREG (test code = 1605) Negative On board controls acceptable with C Yes Line (test code = 3574) POCT PREG LOT # (test code = 3575) POCT PREG TEST DATE (test code = 3576) [facility] [id number] 19:40:00 Test Item Value Reference Range Interpretation Comments POCT PREG (test code = 1605) Negative On board controls acceptable with C Yes Line (test code = 3574) POCT PREG LOT # (test code = 3575) POCT PREG TEST DATE (test code = 3576) [facility] CenterUS PELVIS [id number] 11:51:00 [facility] 1995 [facility] [place], [place] [id number] IMAGING REPORTPatient Name: Kevin JEAN-BAPTISTEte of Service: [id number]: 25 Sex: F Order #: [id number] Room: OPODOB: 1995 X-Ray Number: [id number] Record Number: [id number] Hospital Number: [id number] Physician: BRISEYDA LORDILAOrdering Physician: LIZZY LORDPelvic sonogram.History: Pelvic pain.Techn ique: [...] by PAOLA Briggs 2020-05-15 11:49:22US PELVIS NON-OB [id number] 11:51:00 [facility] : 1995 Sex: F[address] [id number] IMAGING REPORTPatient Name: Maria Esther JEAN-BAPTISTE of Service: [id number]: 25 Sex: F Order #: [id number] Room: OPODOB: 1995 X-Ray Number: [id number] Record Number: [id number] Hospital Number: [id number] Physician: BRISEYDA LORDILAOrdering Physician: LIZZY LORDPelvic sonogram.History: Pelvic pain.Techn ique: [...] (Auto) (test code = 2.6 1.3-6.7 751-8) [facility] CenterAutom[facility] lymphocyte count (number/volume)2020-05-02 14:36:00 Test Item Value Reference Range Interpretation Comments Lymphocytes # (Auto) (test code = 1.3 1.4-4.1 731-0) [facility] CenterBlood monocytes automated count (number/volume)2020-05-02 14:36:00 Test Item Value Reference Range Interpretation Comments Monocytes # (Auto) (test code = 742-7) 0.4 0-1.3 [facility] CenterAutomated blood eosinophil [id number] 14:36:00 Test Item Value Reference Range Interpretation Comments Eosinophils # (Auto) (test code = 0.1 0-0.8 711-2) [facility] basophil count (number/volume)2020-05-02 14:36:00 Test Item Value Reference Range Interpretation Comments Basophils # (Auto) (test code = 704-7) 0.0 0-0.1 [facility] comment [id number] 14:36:00 Test Item Value Reference Range Interpretation [...] Carbon Dioxide Level (test code = 24 -2027-11) [facility] HealthSerum or plasma anion gap determination (moles/volume)2020-05-02 14:36:00 Test Item Value Reference Range Interpretation Comments Anion Gap (test code = 87498-5) 12 8-18 [facility] HealthSerum or plasma urea nitrogen measurement (mass/volume)2020-05-02 14:36:00 Test Item Value Reference Range Interpretation Comments Blood Urea Nitrogen (test code = 09-29 3094-0) [facility] HealthSerum or plasma creatinine measurement (mass/volume)2020-05-02 14:36:00 Test Item Value Reference Range Interpretation Comments Creatinine (test code = 2160-0) 0.7 0.6-1.1 [facility] HealthGFR estimate [id number] 14:36:00 Test Item Value Reference Range Interpretation Comments Estimat Glomerular Filtration Rate 108 90-142 (test code = 841759685) [facility] HealthSerum or plasma glucose measurement (mass/volume)2020-05-02 14:36:00 Test Item Value Reference Range Interpretation Comments Glucose Level (test code = 2345-7) 93 60-100 [facility] HealthSerum or plasma calcium measurement (mass/volume)2020-05-02 14:36:00 Test Item Value Reference Range Interpretation Comments Calcium Level (test code = 48315-8) 9.1 8.4-10.2 [facility] HealthAutomated blood leukocyte count [...] = 786-4) [facility] HealthAutomated erythrocyte distribution width [id number] 14:36:00 Test Item Value Reference Range Interpretation Comments Red Cell Distribution Width (test code 12.5 10.7-14.5 = 788-0) [facility] HealthAutomated blood platelet count (count/volume)2020-05-02 14:36:00 Test Item Value Reference Range Interpretation Comments Platelet Count (test code = 777-3) 259 150-450 [facility] HealthAutomated blood platelet mean volume plvvpnjrmtu6892-71-95 14:36:00 Test Item Value Reference Range Interpretation Comments Mean Platelet Volume (test code = 11.0 5.7-10.7 60873-1) [facility] HealthAutomated blood neutrophil count as percentage of total fgdadyqiwb5411-67-25 14:36:00 Test Item Value Reference Range Interpretation Comments Neutrophils (%) (Auto) (test code = 59 47-75 770-8) [facility] HealthAutomated blood lymphocyte count as percentage of total iptkhzqkha5330-21-89 14:36:00 Test Item Value Reference Range Interpretation Comments Lymphocytes (%) (Auto) (test code = 31 25-44 736-9) [facility] HealthAutomated blood monocyte count as percentage of total leukocytes 2020-05-02 14:36:00 Test Item Value Reference Range Interpretation Comments Monocytes (%) (Auto) (test code = 9 3-10 5905-5) [facility] HealthAutomated blood eosinophil count as percentage of total jfkgzayzos8057-93-11 14:36:00 Test Item Value Reference Range Interpretation Comments Eosinophils (%) (Auto) (test code = 2 0-7 713-8) [facility] HealthAutomated blood basophil count as percentage of total leukocytes 2020-05-02 14:36:00 Test Item Value Reference Range Interpretation Comments Basophils (%) (Auto) (test code = 1 0-1 706-2) [facility] HealthSerum or plasma sodium measurement (moles/volume)2020-05-02 14:36:00 [...] Interpretation Comments Anion Gap (test code = 43188-2) 12 Serum or plasma urea nitrogen measurement (mass/volume)2020-05-02 14:36:00 Test Item Value Reference Range Interpretation Comments Blood Urea Nitrogen (test code = 4 3094-0) Serum or plasma creatinine measurement (mass/volume)2020-05-02 14:36:00 Test Item Value Reference Range Interpretation Comments Creatinine (test code = 2160-0) 0.7 GFR estimate [id number] 14:36:00 Test Item Value Reference Range Interpretation Comments Estimat Glomerular Filtration Rate 108 (test code = 976490378) Serum or plasma glucose measurement (mass/volume)2020-05-02 14:36:00 Test Item Value Reference Range Interpretation Comments Glucose Level (test code = 2345-7) 93 Serum or plasma calcium measurement (mass/volume)2020-05-02 14:36:00 Test Item Value Reference Range Interpretation Comments Calcium Level (test code = 75489-4) 9.1 Automated blood leukocyte count (number/volume)2020-05-02 14:36:00 [...] 37.7 Automated erythrocyte mean corpuscular volume (MCV) kkierhgwonr6158-48-35 14:36:00 Test Item Value Reference Range Interpretation [...] code = 786-4) Automated erythrocyte distribution width mbqoz1757-04-52 14:36:00 Test Item Value Reference Range Interpretation Comments Red Cell Distribution Width (test code 12.5 = 788-0) Automated blood platelet count (count/volume)2020-05-02 14:36:00 Test Item Value Reference Range Interpretation Comments Platelet Count (test code = 777-3) 259 Automated blood platelet mean volume yvdfymmtyxm5119-37-08 14:36:00 Test Item Value Reference Range Interpretation Comments Mean Platelet Volume (test code = 11.0 10048-0) Automated blood neutrophil count as percentage of total lcmwqeafem0575-39-26 14:36:00 Test Item Value Reference Range Interpretation Comments Neutrophils (%) (Auto) (test code = 59 770-8) Automated blood lymphocyte count as percentage of total ogulbgfjds9664-34-15 14:36:00 Test Item Value Reference Range Interpretation Comments Lymphocytes (%) (Auto) (test code = 31 736-9) Automated blood monocyte count as percentage of total ianhzoxtoe7874-96-44 14:36:00 Test Item Value Reference Range Interpretation Comments Monocytes (%) (Auto) (test code = 9 5905-5) Automated blood eosinophil count as percentage of total dvbmdwsvkh0033-14-48 14:36:00 Test Item Value Reference Range Interpretation Comments Eosinophils (%) (Auto) (test code = 2 713-8) Automated blood basophil count as percentage of total djwdmxkzhj3174-57-45 14:36:00 Test Item Value Reference Range Interpretation [...] code = 742-7) 0.4 Automated blood eosinophil tbkjx0721-42-09 14:36:00 Test Item Value Reference Range Interpretation Comments Eosinophils # (Auto) (test code = 0.1 711-2) Automated blood basophil count (number/volume)2020-05-02 14:36:00 Test Item Value Reference Range Interpretation Comments Basophils # (Auto) (test code = 704-7) 0.0 Service comment [id number] 14:36:00 Test Item Value Reference Range Interpretation Comments Manual Differential (test code = Not Ind 8265-1) Urinalysis specimen collection [id number] 13:45:00 Test Item Value Reference Range Interpretation Comments Urine Source (test code = 67726-3) URINE [facility] HealthColor of Urine by Kodd5580-79-46 13:45:00 Test Item Value Reference Range Interpretation Comments Urine Color (test code = 21695-6) Yellow Yel-Anna * [facility] HealthUrine clarity urlnthnlpqmzj6598-89-75 13:45:00 Test Item Value Reference Range Interpretation Comments Urine Appearance (test code = 97341-8) Clear Clear * [facility] HealthUrine pH measurement by automated test [id number] 13:45:00 Test Item Value Reference Range Interpretation Comments Urine pH (test code = 35842-5) 6.0 5.0-8.0 [facility] HealthSpecific gravity of Urine by Automated test bmxvr7742-78-40 13:45:00 Test Item Value Reference Range Interpretation Comments Urine Specific [place] (test code = 1.022 1.005-1.030 60661-8) [facility] HealthUrine protein measurement by automated test strip (mass/volume) 2020-05-02 13:45:00 Test Item Value Reference Range Interpretation Comments Urine Protein (test code = 80777-1) 10 Negative * [facility] HealthUrine glucose measurement by automated test strip (mass/volume) 2020-05-02 13:45:00 Test Item Value Reference Range Interpretation Comments Urine Glucose (UA) (test code = Negative Negative * 58252-7) [facility] HealthKetones [Mass/volume] in Urine by Automated test ppvnv0579-19-08 13:45:00 Test Item Value Reference Range Interpretation Comments Urine Ketones (test code = 27432-1) Negative Negative * [facility] HealthUrine erythrocytes count by automated test strip (number/volume) 2020-05-02 13:45:00 Test Item Value Reference Range Interpretation Comments Urine Occult Blood (test code = Negative Negative * 00939-9) [facility] HealthUrine nitrite detection by automated test mhmeq7092-97-84 13:45:00 Test Item Value Reference Range Interpretation Comments Urine Nitrite (test code = 06633-7) Negative Negative [facility] HealthUrine total bilirubin measurement by automated test strip (mass/volume)2020-05-02 13:45:00 Test Item Value Reference Range Interpretation Comments Urine Bilirubin (test code = Negative Negative 36074-5) [facility] HealthUrine urobilinogen measurement by automated test strip (mass/volume)2020-05-02 13:45:00 Test Item Value Reference Range Interpretation Comments Urine Urobilinogen (test code = 2.0 0.0-1.0 76004-9) [facility] HealthUrine leukocytes count by automated test strip (number/volume) 2020-05-02 13:45:00 Test Item Value Reference Range Interpretation Comments Urine Leukocyte Esterase (test code Negative Negative = 50955-1) [facility] HealthMicroscopic examination of dqera5837-07-94 13:45:00 Test Item Value Reference Range Interpretation Comments Microscopic Urinalysis (T) (test code = ----- 87107-6) [facility] HealthUrine sediment erythrocyte count by microscopy (number/high power field)2020-05-02 13:45:00 Test Item Value Reference Range Interpretation Comments Urine RBC (test code = 12200-0) None Seen 0-2 [facility] HealthUrine sediment leukocyte [...] (test code = None Seen None * 47912-0) [facility] HealthUrine sediment bacteria count by microscopy (number/high power field)2020-05-02 13:45:00 Test Item Value Reference Range Interpretation Comments Urine Bacteria (test code = 5769-5) Rare None [facility] HealthUrine sediment casts count by microscopy (number/low power field) 2020-05-02 13:45:00 Test Item Value Reference Range Interpretation Comments Urine Casts (test code = 9842-6) None Seen None * [facility] HealthYeast detection in urine sediment by light qmzkxfjofp2219-82-43 13:45:00 Test Item Value Reference Range Interpretation Comments Urine Yeast (test code = 49718-7) None Seen None [facility] comment 13:45:00 Test Item Value Reference Range Interpretation Comments Urinalysis Comment (test * See_Comment [A utomated message] The code = 8262-8) system which generated this result tra nsmitted reference range : *. The reference range was not used to interpr et this result as normal/abnormal . [facility] comment 13:45:00 Test Item Value Reference Range Interpretation Comments Urine Culture Indicated (test code = Not Ind 8264-4) [facility] HealthG ur vvdkrcbxb5674-27-98 13:45:00 Test Item Value Reference Range Interpretation Comments Urine Test (test code = Negative Negative 6-3) [facility] HealthUrine protein measurement by automated test strip (mass/volume) 2020-05-02 13:45:00 Test Item Value Reference Range Interpretation Comments Urine Protein (test code = 04320-7) 10 Urine glucose measurement by automated test strip (mass/volume)2020-05-02 13:45:00 Test Item Value Reference Range Interpretation Comments Urine Glucose (UA) (test code = Negative 55814-2) Ketones [Mass/volume] in Urine by Automated test [id number] 13:45:00 Test Item Value Reference Range Interpretation Comments Urine Ketones (test code = 08159-4) Negative Urine erythrocytes count by automated test strip (number/volume)2020-05-02 13:45:00 Test Item Value Reference Range Interpretation Comments Urine Occult Blood (test code = Negative 34100-2) Urine nitrite detection by automated test zrzkq1840-40-10 13:45:00 Test Item Value Reference Range Interpretation Comments Urine Nitrite (test code = 41163-6) Negative Urine total bilirubin measurement by automated test strip (mass/volume) 2020-05-02 13:45:00 Test Item Value Reference Range Interpretation Comments Urine Bilirubin (test code = Negative 47824-8) Urine urobilinogen measurement by automated test strip (mass/volume)2020-05-02 13:45:00 Test Item Value Reference Range Interpretation Comments Urine Urobilinogen (test code = 2.0 16862-4) Urine leukocytes count by automated test strip (number/volume)2020-05-02 13:45:00 Test Item Value Reference Range Interpretation Comments Urine Leukocyte Esterase (test code Negative = 85766-7) Microscopic examination of brsmy7510-54-65 13:45:00 Test Item Value Reference Range Interpretation Comments Microscopic Urinalysis (T) (test code = ----- 97368-0) Urine sediment erythrocyte count by microscopy (number/high power field) 2020-05-02 13:45:00 Test Item Value Reference Range Interpretation Comments Urine RBC (test code = 20375-5) None Seen Urine sediment leukocyte count by [...] Urine Crystals (test code = None Seen 08811-6) Urine sediment bacteria count by microscopy (number/high power field)2020-05-02 13:45:00 Test Item Value Reference Range Interpretation Comments Urine Bacteria (test code = 5769-5) Rare Urine sediment casts count by microscopy (number/low power field)2020-05-02 13:45:00 Test Item Value Reference Range Interpretation Comments Urine Casts (test code = 9842-6) None Seen Yeast detection in urine sediment by light toppisfhiu1019-45-45 13:45:00 Test Item Value Reference Range Interpretation Comments Urine Yeast (test code = 13942-3) None Seen Service comment 13:45:00 Test Item Value Reference Range Interpretation Comments Urinalysis Comment (test code = 8262-8) * Service comment 13:45:00 Test Item Value Reference Range Interpretation Comments Urine Culture Indicated (test code = Not Ind 8264-4) HCG ur ltmxlhfua5041-58-44 13:45:00 Test Item Value Reference Range Interpretation Comments Urine Test (test code = Negative 2106-3) Urinalysis specimen collection [id number] 13:45:00 Test Item Value Reference Range Interpretation Comments Urine Source (test code = 65010-0) URINE Color of Urine by Qpki0377-33-04 13:45:00 Test Item Value Reference Range Interpretation Comments Urine Color (test code = 18832-4) Yellow Urine clarity jjypohnkbpxcd0662-87-55 13:45:00 Test Item Value Reference Range Interpretation Comments Urine Appearance (test code = 58302-8) Clear Urine pH measurement by automated test vnkef0011-21-64 13:45:00 Test Item Value Reference Range Interpretation Comments Urine pH (test code = 22975-0) 6.0 Specific gravity of Urine by Automated test bdhln8121-06-47 13:45:00 Test Item Value Reference Range Interpretation Comments Urine Specific [place] (test code = 1.022 89692-6) Automated blood leukocyte count (number/volume)2019-12-24 16:20:00 Test [...] HealthAutomated erythrocyte mean corpuscular hemoglobin concentration measurement (mass/ctm4110-84-02 16:20:00 Test Item Value Reference Range Interpretation Comments Mean Corpuscular Hemoglobin Concent 33.4 g/dL 33.0-37.0 (test code = 786-4) [facility] HealthAutomated erythrocyte distribution width gyhdh1683-10-21 16:20:00 Test Item Value Reference Range Interpretation Comments Red Cell Distribution Width (test code 12.3 % 10.7-14.5 = 788-0) [facility] HealthAutomated blood platelet count (count/volume)2019-12-24 16:20:00 Test Item Value Reference Range Interpretation Comments Platelet Count (test code = 239 10*3/uL 150-450 777-3) [facility] HealthAutomated blood platelet mean volume srgswbggwqn2915-22-30 16:20:00 Test Item Value Reference Range Interpretation Comments Mean Platelet Volume (test code = 10.6 fL 5.7-10.7 16941-3) [facility] HealthAutomated blood neutrophil count as percentage of total geznxdqtdn9730-50-97 16:20:00 Test Item Value Reference Range Interpretation Comments Neutrophils (%) (Auto) (test code = 63 % 47-75 770-8) [facility] HealthAutomated blood lymphocyte count as percentage of total qoeouyqnqx9016-59-50 16:20:00 Test Item Value Reference Range Interpretation Comments Lymphocytes (%) (Auto) (test code = 27 % 25-44 736-9) [facility] HealthAutomated blood monocyte count as percentage of total leukocytes 2019-12-24 16:20:00 Test Item Value Reference Range Interpretation Comments Monocytes (%) (Auto) (test code = 8 % 3-10 5905-5) [facility] HealthAutomated blood eosinophil count as percentage of total kapjnedtnt7032-39-26 16:20:00 Test Item Value Reference Range Interpretation [...] (test code = 1.5 10*3/uL 1.4-4.1 731-0) [facility] (number/volume)2019-12-24 16:20:00 Test Item Value Reference Range Interpretation Comments Monocytes # (Auto) (test code = 0.4 10*3/uL 0-1.3 742-7) [facility] HealthAutomated blood eosinophil llxli1341-92-03 16:20:00 Test Item Value Reference Range Interpretation Comments Eosinophils # (Auto) (test code = 0.1 10*3/uL 0-0.8 711-2) [facility] HealthAutomated blood basophil count (number/volume)2019-12-24 16:20:00 Test Item Value Reference Range Interpretation Comments Basophils # (Auto) (test code = 0.0 10*3/uL 0-0.1 704-7) [facility] comment [id number] 16:20:00 Test Item Value Reference Range Interpretation [...] Level (test code = 106 mmol/L 98-107 2075-0) [facility] HealthSerum or plasma total carbon dioxide measurement (moles/volume) 2019-12-24 16:20:00 Test Item Value Reference Range Interpretation Comments Carbon Dioxide Level (test code = 23 mmol/L 22-29 8-9) [facility] HealthSerum or plasma anion gap determination (moles/volume)2019-12-24 16:20:00 Test Item Value Reference Range Interpretation Comments Anion Gap (test code = 54719-6) 14 8-18 [facility] HealthSerum or plasma urea nitrogen measurement (mass/volume)2019-12-24 16:20:00 Test Item Value Reference Range Interpretation Comments Blood Urea Nitrogen (test code = 6 mg/dL 09-29 3094-0) [facility] HealthSerum or plasma creatinine measurement (mass/volume)2019-12-24 16:20:00 Test Item Value Reference Range Interpretation Comments Creatinine (test code = 2160-0) 0.8 mg/dL 0.6-1.1 [facility] HealthGFR estimate [id number] 16:20:00 Test Item Value Reference Range Interpretation Comments Estimat Glomerular Filtration Rate 93 90-142 (test code = 77429-9) [facility] HealthSerum or plasma glucose measurement (mass/volume)2019-12-24 16:20:00 Test Item Value Reference Range Interpretation Comments Glucose Level (test code = 2345-7) 88 mg/dL 60-100 [facility] HealthSerum or plasma calcium measurement (mass/volume)2019-12-24 16:20:00 Test Item Value Reference Range Interpretation Comments Calcium Level (test code = 86241-6) 9.4 mg/dL 8.4-10.2 [facility] mean corpuscular volume (MCV) measurement 2019-12-24 16:20:00 Test Item Value Reference Range Interpretation Comments Mean Corpuscular Volume (test code = 88.7 fL 787-2) Automated erythrocyte mean corpuscular hemoglobin (mass per erythrocyte) 2019-12-24 16:20:00 Test Item Value Reference Range Interpretation Comments Mean Corpuscular Hemoglobin (test 29.6 pg code = 785-6) Automated erythrocyte mean corpuscular hemoglobin concentration measurement (mass/yuy9063-63-42 16:20:00 Test Item Value Reference Range Interpretation Comments Mean Corpuscular Hemoglobin Concent 33.4 g/dL (test code = 786-4) Automated erythrocyte distribution width sahbj2808-40-20 16:20:00 Test Item Value Reference Range Interpretation Comments Red Cell Distribution Width (test code 12.3 % = 788-0) Automated blood platelet count (count/volume)2019-12-24 16:20:00 Test Item Value Reference Range Interpretation Comments Platelet Count (test code = 239 10*3/uL 777-3) Automated blood platelet mean volume uxmqfsyrhrm3704-94-61 16:20:00 Test Item Value Reference Range Interpretation Comments Mean Platelet Volume (test code = 10.6 fL 99739-0) Automated blood neutrophil count as percentage of total xygftqrsni7989-86-63 16:20:00 Test Item Value Reference Range Interpretation Comments Neutrophils (%) (Auto) (test code = 63 % 770-8) Automated blood lymphocyte count as percentage of total anewvyjyfp6767-68-26 16:20:00 Test Item Value Reference Range Interpretation Comments Lymphocytes (%) (Auto) (test code = 27 % 736-9) Automated blood monocyte count as percentage of total xupesxgjzo2074-59-88 16:20:00 Test Item Value Reference Range Interpretation Comments Monocytes (%) (Auto) (test code = 8 % 5905-5) Automated blood eosinophil count as percentage of total mxsguowczz1053-28-11 16:20:00 Test Item Value Reference Range Interpretation Comments Eosinophils (%) (Auto) (test code = 1 % 713-8) Automated blood basophil count as percentage of total cfgfjyepqk9295-17-47 16:20:00 Test Item Value Reference Range Interpretation [...] = 0.4 10*3/uL 742-7) Automated blood eosinophil mcoap8220-65-75 16:20:00 Test Item Value Reference Range Interpretation Comments Eosinophils # (Auto) (test code = 0.1 10*3/uL 711-2) Automated blood basophil count (number/volume)2019-12-24 16:20:00 Test Item Value Reference Range Interpretation Comments Basophils # (Auto) (test code = 0.0 10*3/uL 704-7) Service comment [id number] 16:20:00 Test Item Value Reference Range Interpretation [...] Level (test code = 106 mmol/L 5-0) Serum or plasma total carbon dioxide measurement (moles/volume)2019-12-24 16:20:00 Test Item Value Reference Range Interpretation Comments Carbon Dioxide Level (test code = 23 mmol/L 2027-9) Serum or plasma anion gap determination (moles/volume)2019-12-24 16:20:00 Test Item Value Reference Range Interpretation Comments Anion Gap (test code = 55907-2) 14 Serum or plasma urea nitrogen measurement (mass/volume)2019-12-24 16:20:00 Test Item Value Reference Range Interpretation Comments Blood Urea Nitrogen (test code = 6 mg/dL 3094-0) Serum or plasma creatinine measurement (mass/volume)2019-12-24 16:20:00 Test Item Value Reference Range Interpretation Comments Creatinine (test code = 2160-0) 0.8 mg/dL GFR estimate [id number] 16:20:00 Test Item Value Reference Range Interpretation Comments Estimat Glomerular Filtration Rate 93 (test code = 05585-6) Serum or plasma glucose measurement (mass/volume)2019-12-24 16:20:00 Test Item Value Reference Range Interpretation Comments Glucose Level (test code = 2345-7) 88 mg/dL Serum or plasma calcium measurement (mass/volume)2019-12-24 16:20:00 Test Item Value Reference Range Interpretation Comments Calcium Level (test code = 70072-5) 9.4 mg/dL Automated blood leukocyte count (number/volume)2019-12-24 [...] = 4544-3) 36.8 % Urinalysis specimen collection jbrast2243-00-50 15:50:00 Test Item Value Reference Range Interpretation Comments Urine Source (test code = 58666-9) URINE [facility] HealthColor of Urine by Oyok9862-90-47 15:50:00 Test Item Value Reference Range Interpretation Comments Urine Color (test code = 46967-4) Yellow Yel-Anna * [facility] HealthUrine clarity nunghuqeluhho0022-02-81 15:50:00 Test Item Value Reference Range Interpretation Comments Urine Appearance (test code = 28870-6) Clear Clear * [facility] HealthUrine pH measurement by automated test xjwav2616-57-64 15:50:00 Test Item Value Reference Range Interpretation Comments Urine pH (test code = 46947-0) 6.0 5.0-8.0 [facility] HealthSpecific gravity of Urine by Automated test gtzjo3280-76-66 15:50:00 Test Item Value Reference Range Interpretation Comments Urine Specific [place] (test code = 1.020 1.005-1.030 34051-9) [facility] HealthUrine protein measurement by automated test strip (mass/volume) 2019-12-24 15:50:00 Test Item Value Reference Range Interpretation Comments Urine Protein (test code = Negative mg/dL Negative * 49423-9) [facility] HealthUrine glucose measurement by automated test strip (mass/volume) 2019-12-24 15:50:00 Test Item Value Reference Range Interpretation Comments Urine Glucose (UA) (test code Negative mg/dL Negative * = 28609-3) [facility] HealthUrine ketones measurement by automated test strip (mass/volume) 2019-12-24 15:50:00 Test Item Value Reference Range Interpretation Comments Urine Ketones (test code = Negative mg/dL Negative * 11891-9) [facility] HealthUrine erythrocytes count by automated test strip (number/volume) 2019-12-24 15:50:00 Test Item Value Reference Range Interpretation Comments Urine Occult Blood (test code = 250 Negative * 55107-9) [facility] HealthUrine nitrite detection by automated test [id number] 15:50:00 Test Item Value Reference Range Interpretation Comments Urine Nitrite (test code = 98490-9) Negative Negative [facility] HealthUrine total bilirubin measurement by automated test strip (mass/volume)2019-12-24 15:50:00 Test Item Value Reference Range Interpretation Comments Urine Bilirubin (test code = Negative mg/dL Negative 21071-8) [facility] HealthUrine urobilinogen measurement by automated test strip (mass/volume)2019-12-24 15:50:00 Test Item Value Reference Range Interpretation Comments Urine Urobilinogen (test code Negative mg/dL 0.0-1.0 = 10038-6) [facility] HealthUrine leukocytes count by automated test strip (number/volume) 2019-12-24 15:50:00 Test Item Value Reference Range Interpretation Comments Urine Leukocyte Esterase Negative {Pamela}/uL Negative (test code = 60725-6) [facility] HealthMicroscopic examination of eeoof7800-74-26 15:50:00 Test Item Value Reference Range Interpretation Comments Microscopic Urinalysis (T) (test code = ----- 68368-9) [facility] erythrocyte count by microscopy (number/high power field)2019-12-24 15:50:00 Test Item Value Reference Range Interpretation Comments Urine RBC (test code = 50729-8) 3-10 /[HPF] 0-2 [facility] leukocyte count by [...] code = None Seen /[HPF] None * 18660-8) [facility] bacteria count by microscopy [...] HealthYeast detection in urine sediment by light [id number] 15:50:00 Test Item Value Reference Range Interpretation Comments Urine Yeast (test code = None Seen /[HPF] None 97039-9) [facility] comment 15:50:00 Test Item Value Reference Range Interpretation Comments Urinalysis Comment (test * See_Comment [A utomated message] The code = 8262-8) system which generated this result tra nsmitted reference range : *. The reference range was not used to interpr et this result as normal/abnormal . [facility] comment [id number] 15:50:00 Test Item Value Reference Range Interpretation Comments Urine Culture Indicated (test code = Not Ind 8264-4) [facility] [id number] 15:50:00 Test Item Value Reference Range Interpretation Comments Urine Source (test code = 04083-8) URINE Color of Urine by [id number] 15:50:00 Test Item Value Reference Range Interpretation Comments Urine Color (test code = 87993-1) Yellow Urine clarity [id number] 15:50:00 Test Item Value Reference Range Interpretation Comments Urine Appearance (test code = 10006-0) Clear Urine pH measurement by automated test [id number] 15:50:00 Test Item Value Reference Range Interpretation Comments Urine pH (test code = 36549-1) 6.0 Specific gravity of Urine by Automated test [id number] 15:50:00 Test Item Value Reference Range Interpretation Comments Urine Specific [place] (test code = 1.020 83343-4) Urine protein measurement by automated test strip (mass/volume)2019-12-24 15:50:00 Test Item Value Reference Range Interpretation Comments Urine Protein (test code = Negative mg/dL 14013-0) Urine glucose measurement by automated test strip (mass/volume)2019-12-24 15:50:00 Test Item Value Reference Range Interpretation Comments Urine Glucose (UA) (test code Negative mg/dL = 87083-0) Urine ketones measurement by automated test strip (mass/volume)2019-12-24 15:50:00 Test Item Value Reference Range Interpretation Comments Urine Ketones (test code = Negative mg/dL 85929-0) Urine erythrocytes count by automated test strip (number/volume)2019-12-24 15:50:00 Test Item Value Reference Range Interpretation Comments Urine Occult Blood (test code = 250 86628-0) Urine nitrite detection by automated test [id number] 15:50:00 Test Item Value Reference Range Interpretation Comments Urine Nitrite (test code = 66619-7) Negative Urine total bilirubin measurement by automated test strip (mass/volume) 2019-12-24 15:50:00 Test Item Value Reference Range Interpretation Comments Urine Bilirubin (test code = Negative mg/dL 08808-6) Urine urobilinogen measurement by automated test strip (mass/volume)2019-12-24 15:50:00 Test Item Value Reference Range Interpretation Comments Urine Urobilinogen (test code Negative mg/dL = 72012-8) Urine leukocytes count by automated test strip (number/volume)2019-12-24 15:50:00 Test Item Value Reference Range Interpretation Comments Urine Leukocyte Esterase Negative {Pamela}/uL (test code = 65050-2) Microscopic examination of [id number] 15:50:00 Test Item Value Reference Range Interpretation Comments Microscopic Urinalysis (T) (test code = ----- 83911-4) Urine sediment erythrocyte count by microscopy (number/high power field) 2019-12-24 15:50:00 Test Item Value Reference Range Interpretation Comments Urine RBC (test code = 52965-2) 3-10 /[HPF] Urine sediment leukocyte count by [...] Crystals (test code = None Seen /[HPF] 45631-5) Urine sediment bacteria count by microscopy (number/high power field)2019-12-24 15:50:00 Test Item Value Reference Range Interpretation Comments Urine Bacteria (test code = Rare /[HPF] 5769-5) Urine sediment casts count by microscopy (number/low power field)2019-12-24 15:50:00 Test Item Value Reference Range Interpretation Comments Urine Casts (test code = None Seen /[LPF] 9842-6) Yeast detection in urine sediment by light [id number] 15:50:00 Test Item Value Reference Range Interpretation Comments Urine Yeast (test code = None Seen /[HPF] 99628-4) Service comment 15:50:00 Test Item Value Reference Range Interpretation Comments Urinalysis Comment (test code = 8262-8) * Service comment 15:50:00 Test Item Value Reference Range Interpretation Comments Urine Culture Indicated (test code = Not Ind 8264-4) test, [id number] 14:42:00 Test Item Value Reference Range Interpretation Comments Test (test code = negative Test) [facility], [id number] 15:15:56 Test Item Value Reference Range Interpretation Comments Test (test code = negative Test) [facility] [id number] 08:05:00 Test Item Value Reference Range Interpretation [...] U/S >14 WEEKS2018-02-28 12:56:49OBSTETRIC ULTRASOUND Location code: [id number] HISTORY: Abdominal painGA by first US: 17 [...] >14 WEEKS*WW*2018-02-07 20:13:09LOCATION: A1EXAM: U/S >14 WEEKS*WW*INDICATION: [id number]: Pain in pelvisLMP: Unknown 14 wks 5 [...] Reference Range Interpretation Comments [facility] QUANT (test 57601.00 mIU/mL code = A17) BHCGQ (test code [...] = WAUAM) NO NO CBC (INCLUDES AUTOMATED DIFFERENTIAL)*[id number] 18:50:00 Test Item Value Reference Range Interpretation [...]
[2022-03-09] MEDS ORDERED: IBUPROFEN 400 MG TAB ONE (16:09)
[2022-03-09] MEDS ORDERED: IBUPROFEN 200 MG TAB PO ONE (16:10)
[2022-03-09 17:02] LABS: SARS-COV-2 RT PCR NEGATIVE (NEGATIVE)
--- NOTE | 2022-03-09 17:23 | ER ---
Nurse's Notes [facility] Name: Yamel Cano Age: 27 yrs Sex: Female : 1995 Arrival Date: 03/09/2022 Time: 15:21 Bed DIS3 Private MD: Diagnosis: Acute upper respiratory infection, unspecified Presentation: 03/09 15:58 Chief complaint: Patient states: Chest hurts, neck and throat pain, slight cough, low ll1 grade fever, TALAVERA started yesterday. Coronavirus screen: Vaccine status: Patient reports receiving the 2nd dose of the covid vaccine. Client denies travel out of the [place] in the last 14 days. cough unrelated to allergies, fatigue, fever, headache, sore throat, Client presents with at least one sign or symptom that may indicate coronavirus-19. Standard/surgical mask placed on the client. Ebola Screen: Patient denies travel to an Ebola-affected area in the 21 days before illness onset. Initial Sepsis Screen: Does the patient meet any 2 criteria? No. Patient's initial sepsis screen is negative. Does the patient have a suspected source of infection? Yes: Productive cough/pneumonia. Risk Assessment: Do you want to hurt yourself or someone else? Patient reports no desire to harm self or others. Onset of symptoms was March 08, 2022. 15:58 Method Of Arrival: Ambulatory ll1 15:58 Acuity: MAURICE 4 ll1 Triage Assessment: 16:01 General: Appears in no apparent distress. Behavior is calm, cooperative, appropriate ll1 for age. Pain: Complains of pain in head Quality of pain is described as aching. EENT: Reports pain when swallowing. Neuro: No deficits noted. Cardiovascular: Reports chest pain. Respiratory: Reports pain with respiration. Historical: - Allergies: 16:01 Latex, Natural Rubber; ll1 - PMHx: 16:01 uterine fibroids; ll1 - Immunization history:: Client reports receiving the 2nd dose of the Covid vaccine. - Social history:: Smoking status: Patient denies any tobacco usage or history of. Screenin:36 [facility] ED Fall Risk Assessment (Adult) History of falling in the last 3 months, ss including since admission No falls in past 3 months (0 pts). Abuse screen: Denies threats or abuse. Denies injuries from another. Nutritional screening: No deficits noted. Tuberculosis screening: Never had TB. Assessment: 17:36 General: Appears in no apparent distress. comfortable, Behavior is calm, cooperative. ss Neuro: Level of Consciousness is awake, alert, obeys commands, Oriented to person, place, time, situation. Respiratory: Airway is patent Respiratory effort is even, unlabored, Respiratory pattern is regular, symmetrical. Vital Signs: 15:58 BP 108 / 68; Pulse 68; Resp 16; Temp 98.7; Pulse Ox 100% on R/A; ll1 ED Course: 15:21 Patient arrived in ED. as 15:22 Jessee Jacinto NP is PHCP. pm1 15:22 Alli Moncada MD is Attending Physician. pm1 16:01 Triage completed. ll1 16:01 Arm band placed on. ll1 17:13 Omaira Ramires, TAIWO is Primary Nurse. ss 17:36 Patient has correct armband on for positive identification. ss 17:36 No provider procedures requiring assistance completed. Patient did not have IV access ss during this emergency room visit. Patient maintains SpO2 saturation greater than 95% on room air. Administered Medications: 16:15 Drug: Ibuprofen 600 mg Route: PO; ss 17:33 Follow up: Response: No adverse reaction ss 17:33 Drug: predniSONE 40 mg Route: PO; ss 17:33 Follow up: Response: Medication administered at discharge. ss Medication: 17:36 VIS not applicable for this client. ss Outcome: 17:23 Discharge ordered by MD. pm1 17:36 Discharged to home ambulatory. ss 17:36 Condition: good 17:36 Discharge instructions given to patient, Instructed on discharge instructions, follow up and referral plans. medication usage, Demonstrated understanding of instructions, follow-up care, medications, Prescriptions given X 1. 17:37 Patient left the ED. ss Signatures: Roseann Peres Shelby, TAIWO RN Jessee Jacinto NP [employer]OTE [employer] INSTALLER pm1 Arturo Miner RN RN 1
--- NOTE | 2022-03-09 17:24 | EDPHYS ---
Physician Documentation [facility] Name: Yamel Cano Age: 27 yrs Sex: Female : 1995 Arrival Date: 03/09/2022 Time: 15:21 Bed DIS3 Private MD: ED Physician Alli Moncada HPI: 03/09 16:30 This 27 yrs old Black Female presents to ER via Ambulatory with complaints of Chest pm1 Pain, Sore Throat, Cough, body aches. 16:30 The patient presents with sore throat. The patient describes throat pain as constant, pm1 raw, scratchy. Onset: The symptoms/episode began/occurred yesterday. Severity of symptoms: in the emergency department the symptoms are unchanged. Modifying factors: The symptoms are alleviated by over the counter medications, Tylenol, the symptoms are aggravated by nothing, Patient's oral intake status: good The patient has had contact with sick son. Associated signs and symptoms: Pertinent positives: chest pain, cough, bodyaches. The patient has not experienced similar symptoms in the past. The patient has not recently seen a physician. Historical: - Allergies: 16:01 Latex, Natural Rubber; ll1 - PMHx: 16:01 uterine fibroids; ll1 - Immunization history:: Client reports receiving the 2nd dose of the Covid vaccine. - Social history:: Smoking status: Patient denies any tobacco usage or history of. ROS: 16:30 Constitutional: Negative for fever, chills, and weight loss. pm1 16:30 Neck: Negative for injury, pain, and swelling. 16:30 Abdomen/GI: Negative for abdominal pain, nausea, vomiting, diarrhea, and constipation, Back: Negative for injury and pain, MS/Extremity: Negative for injury and deformity, Skin: Negative for injury, rash, and discoloration, Neuro: Negative for headache, weakness, numbness, tingling, and seizure. 16:30 ENT: Positive for sore throat, Negative for ear pain. 16:30 Cardiovascular: Positive for chest pain, with cough. 16:30 Respiratory: Positive for cough, Negative for shortness of breath, wheezing. 16:30 All other systems are negative. Exam: 16:30 Constitutional: This is a well developed, well nourished patient who is awake, alert, pm1 and in no acute distress. Head/Face: Normocephalic, atraumatic. 16:30 Back: No spinal tenderness. No costovertebral tenderness. Full range of motion. Skin: Warm, dry with normal turgor. Normal color with no rashes, no lesions, and no evidence of cellulitis. MS/ Extremity: Pulses equal, no cyanosis. Neurovascular intact. Full, normal range of motion. 16:30 Eyes: Exam is negative for acute changes, Periorbital structures: no acute changes, Extraocular movements: no acute changes, Conjunctiva: no acute changes, no injection. 16:30 ENT: Exam is negative for acute changes, Mouth: no acute changes, Lips: normal, moist, Oral mucosa: normal, pink and intact, moist, Posterior pharynx: no acute changes, erythema, is not appreciated, peritonsillar mass, is not appreciated. 16:30 Cardiovascular: Exam negative for acute changes, Rate: normal, Rhythm: regular, Pulses: no pulse deficits are appreciated. 16:30 Respiratory: Exam negative for acute changes, respiratory distress, shortness of breath, Breath sounds: are clear throughout. 16:30 Abdomen/GI: Exam negative for acute changes, Inspection: abdomen appears normal. 16:30 Neuro: Exam negative for acute changes, Orientation: is normal, Mentation: is normal, Motor: is normal, moves all fours. Vital Signs: 15:58 BP 108 / 68; Pulse 68; Resp 16; Temp 98.7; Pulse Ox 100% on R/A; ll1 MDM: 15:23 Patient medically screened. pm1 17:22 Data reviewed: vital signs. Data interpreted: Pulse oximetry: on room air is 100 %. pm1 Interpretation: normal. Counseling: I had a detailed discussion with the patient and/or guardian regarding: the historical points, exam findings, and any diagnostic results supporting the discharge/admit diagnosis, lab results, the need for outpatient follow up, to return to the emergency department if symptoms worsen or persist or if there are any questions or concerns that arise at home. 03/09 16:07 Order name: COVID-19/FLU A+B; Complete Time: 17:08 pm1 03/09 16:07 Order name: Strep; Complete Time: 16:41 pm1 03/09 16:30 Order name: Throat Culture EDMS Administered Medications: 16:15 Drug: Ibuprofen 600 mg Route: PO; ss 17:33 Follow up: Response: No adverse reaction 17:33 Drug: predniSONE 40 mg Route: PO; 17:33 Follow up: Response: Medication administered at discharge. Disposition Summary: 03/09/22 17:23 Discharge Ordered Location: Home pm1 Problem: new pm1 Symptoms: have improved pm1 Condition: Stable pm1 Diagnosis - Acute upper respiratory infection, unspecified pm1 Followup: pm1 - With: Emergency Department - When: As needed - Reason: Worsening of condition Followup: pm1 - With: Private Physician - When: 2 - 3 days - Reason: Recheck today's complaints, Continuance of care, Re-evaluation by your physician Discharge Instructions: - Discharge Summary Sheet pm1 - Upper Respiratory Infection, Adult pm1 Forms: - Work release form pm1 - Medication Reconciliation Form pm1 - Thank You Letter pm1 - Antibiotic Education pm1 - Prescription Opioid Use pm1 Prescriptions: - Bromfed DM 2-30-10 mg/5 mL Oral syrup - take 10 milliliter by ORAL route every 4 hours As needed; 200 milliliter; pm1 Refills: 0, Product Selection Permitted Signatures: Dispatcher [employer] EDMS Omaira Ramires RN RN ss Jessee Jacinto, LISA MANAGER DIGITAL pm1 Arturo Miner RN RN ll1
[2022-03-09] MEDS ORDERED: predniSONE 20 MG TAB ONE (17:34)
[2022-03-09 17:41] VITALS: BP 108/68; TEMP 98.7; O2SAT 100
== END 2022-03-09 17:37 | disposition home or self-care (01) ==
LOC: ER 15:18
DX: J06.9 Acute upper respiratory infection, unspecified (principal); Z20.822 Contact with and (suspected) exposure to COVID-19; Z91.040 Latex allergy status; Z91.048 Other nonmedicinal substance allergy status
CPT/HCPCS: 87070; 87081; 0240U; J7512; 99284